=== PATIENT | male | born 1955 | race Caucasian/White ===

== ENCOUNTER 2016-10-08 12:04 | Inpatient (IN) | payer OTHER ==
[2016-10-08 12:10] VITALS: BMI 30.8
[2016-10-08] MEDS ORDERED: NS 1000 ML 1,000 ML IV ONE ×2 (12:21→13:51)
[2016-10-08] MEDS ORDERED: NS 1000 ML 1,000 ML ONE ×2 (12:23→13:49)
--- NOTE | 2016-10-08 12:29 | DR.GENAD ---
HPI - PCP Primary Care Physician: valverde - Complaint/Symptoms Chief Complaint:: patient stated he has had a headache since ary when he was dx with a brain bleed. he also stated his bloos sugar at home this morning was over 600 - Nurses notes reviewed Nurses Notes Review: Yes - Source History Provided: Patient - Mode of Arrival Mode of Arrival: Ambulatory - Timing Onset of Chief Complaint: 06/14/16 PMH - PMH Past Medical History: Yes Past Medical History: Coronary Artery Disease, Depression, Diabetes, Hypertension, [place], Renal Disease Past Surgical History: Yes Surgical History: Angioplasty/Stents, Appendectomy, CABG/Valve Surgery, Tonsillectomy - Family History History of Family Medical Conditions: Yes Family Medical History: Diabetes Mellitus, Cancer, [place], Hypertension - Social History Does patient currently use any type of tobacco product: No Have you used tobacco products in the last 12 months: No Type of Tobacco Use: None Does any household member use tobacco: No Alcohol Use: None Do you use any recreational Drugs:: No Lives With: Family Lives Where: Home - infectious screening In the last 2 months have you had wt loss of >10#?: NO Have you had fever, night sweats or hemotysis?: No Have you traveled outside the country in the last 6 months?: No Isolation: Standard PE - Vital Signs Vitals: Temperature 98.9 F Pulse Rate 96 Respiratory Rate 16 Blood Pressure [Right Arm] 161/87 Blood Pressure 160/95 O2 Sat by Pulse Oximetry 100 ROR - Labs Reviewed Result Diagrams: 10/08/16 12:19 10/08/16 14:35 Laboratory: WBC 10.4 X10^3/uL (3.6-10.0) H 10/08/16 12:19 RBC 5.04 X10^6/uL (4.7-6.0) 10/08/16 12:19 Hgb 14.1 g/dL (13.5-18.0) 10/08/16 12:19 Hct 41.4 % (42.0-54.0) L 10/08/16 12:19 MCV 82.1 fL (80.0-100.0) 10/08/16 12:19 MCH 27.9 pg (27.0-34.0) 10/08/16 12:19 MCHC 34.0 g/dL (33.0-35.0) 10/08/16 12:19 RDW 13.7 % (11.6-16.5) 10/08/16 12:19 Plt Count 204 X10^3/uL (150.0-450.0) 10/08/16 12:19 MPV 10.1 fL (7.4-11.0) 10/08/16 12:19 Neut % 69.3 % (42.0-75.0) 10/08/16 12:19 Lymph % 21.6 % (21.0-51.0) 10/08/16 12:19 [place] % 6.5 % (0.0-13.0) 10/08/16 12:19 Eos % 1.7 % (0.9-2.9) 10/08/16 12:19 Baso % 0.9 % (0.2-1.0) 10/08/16 12:19 Neut # 7.2 x10^3/uL (2.2-4.8) H 10/08/16 12:19 Lymph # 2.3 X10^3/uL (1.3-2.9) 10/08/16 12:19 [place] # 0.7 x10^3/uL (0.3-0.8) 10/08/16 12:19 Eos # 0.2 x10^3/uL (0.0-0.2) 10/08/16 12:19 Baso # 0.1 X10^3/uL (0.0-0.1) 10/08/16 12:19 Absolute Nucleated RBC 0.0 /100WBC 10/08/16 12:19 Sodium 123 mmol/L (136-145) L* 10/08/16 12:19 Corrected Sodium 142 mmol/L (136-145) 10/08/16 12:19 Potassium 5.9 mmol/L (3.5-5.1) H 10/08/16 12:19 Chloride 90 mmol/L (98-107) L 10/08/16 12:19 Carbon Dioxide 26.0 mmol/L (21-32) 10/08/16 12:19 BUN 65 mg/dL (7-18) H 10/08/16 12:19 Creatinine 2.96 mg/dL (0.70-1.30) H 10/08/16 12:19 Est GFR (MDRD) Af Amer 28 (>60) L 10/08/16 12:19 Est GFR (MDRD) Non-Af 23 (>60) L 10/08/16 12:19 Glucose 719 mg/dL (65-99) H* 10/08/16 14:35 Calcium 9.5 mg/dL (8.5-10.1) 10/08/16 12:19 Corrected Calcium TNP 10/08/16 12:19 Total Bilirubin 0.80 mg/dL (0.2-1.0) 10/08/16 12:19 AST 13 Units/L (15-37) L 10/08/16 12:19 ALT 20 Units/L (12-78) 10/08/16 12:19 Alkaline Phosphatase 194 Units/L (46-116) H 10/08/16 12:19 Creatine Kinase 164 Units/L (39-308) 10/08/16 12:19 CK-MB (CK-2) 4.4 ng/mL (0-4.0) H* 10/08/16 12:19 CK/CKMB % Calc 2.7 % (<4) 10/08/16 12:19 Troponin I 0.26 ng/mL (0-1.5) 10/08/16 12:19 Total Protein 7.2 g/dL (6.4-8.2) 10/08/16 12:19 Albumin 3.8 g/dL (3.4-5.0) 10/08/16 12:19 Globulin 3.4 g/dL (2.5-4.5) 10/08/16 12:19 Albumin/Globulin Ratio 1.1 Ratio (1.1-2.1) 10/08/16 12:19 Acetone, Semi-Quant Small (NEGATIVE) H 10/08/16 12:19 - Discharge Plan Condition: Stable - Follow ups/Referrals Follow ups/Referrals: JERMAINE VALVERDE [Primary Care Provider] - 3 days - Instructions
[2016-10-08 12:32] LABS: BASOPHILS # (AUTO) 0.1 X10^3/uL (0.0-0.1); BASOPHILS % (AUTO) 0.9 % (0.2-1.0); EOSINOPHILS # (AUTO) 0.2 x10^3/uL (0.0-0.2); EOSINOPHILS % (AUTO) 1.7 % (0.9-2.9); HEMATOCRIT 41.4 % (42.0-54.0); HEMOGLOBIN 14.1 g/dL (13.5-18.0); LYMPHOCYTES # (AUTO) 2.3 X10^3/uL (1.3-2.9); LYMPHOCYTES % (AUTO) 21.6 % (21.0-51.0); MEAN CORPUSCULAR HEMOGLOBIN 27.9 pg (27.0-34.0); MEAN CORPUSCULAR VOLUME 82.1 fL (80.0-100.0); MEAN PLATELET VOLUME 10.1 fL (7.4-11.0); MONOCYTES # (AUTO) 0.7 x10^3/uL (0.3-0.8); MONOCYTES % (AUTO) 6.5 % (0.0-13.0); NEUTROPHILS # (AUTO) 7.2 x10^3/uL (2.2-4.8); NEUTROPHILS % (AUTO) 69.3 % (42.0-75.0); PLATELET COUNT 204 X10^3/uL (150.0-450.0); RED BLOOD COUNT 5.04 X10^6/uL (4.7-6.0); RED CELL DISTRIBUTION WIDTH 13.7 % (11.6-16.5); WHITE BLOOD COUNT 10.4 X10^3/uL (3.6-10.0)
[2016-10-08 12:41] LABS: BLOOD UREA NITROGEN 65 mg/dL (7-18); CALCIUM 9.5 mg/dL (8.5-10.1); CHLORIDE 90 mmol/L (98-107); CREATININE 2.96 mg/dL (0.70-1.30); eGFR BLACK RACES 28 (>60); eGFR NON BLACK RACES 23 (>60)
[2016-10-08 12:42] LABS: ALANINE AMINOTRANSFERASE 20 Units/L (12-78); ALBUMIN 3.8 g/dL (3.4-5.0); ALKALINE PHOSPHATASE 194 Units/L (46-116); ASPARTATE AMINO TRANSFERASE 13 Units/L (15-37); TOTAL PROTEIN 7.2 g/dL (6.4-8.2)
[2016-10-08 12:53] LABS: SODIUM 123 mmol/L (136-145)
[2016-10-08 12:54] LABS: COR NA(FOR HYPERGLY) 142 mmol/L (136-145); GLUCOSE 882 mg/dL (65-99)
--- NOTE | 2016-10-08 13:05 | RAD ---
HISTORY: Cough Study: Chest one view Comparison: July 11, 2016 Findings: There is a pacemaker present on the left. The patient is status post median sternotomy and CABG. The heart is enlarged. No congestive heart failure is noted. No infiltrates are identified. No pleural effusions are present. The bony thorax is unremarkable. IMPRESSION: Cardiomegaly without congestive heart failure No infiltrates Reported By:
--- NOTE | 2016-10-08 13:08 | CT ---
HISTORY: Headache Study: CT head without con Comparison: July 11, 2016 Technique: Axial non contrast images with coronal and sagittal reformats. Dose reduction procedures were used with MA/kv adjusted for body size. Findings: The ventricles are normal in size, shape, and position. There is decreased attenuation in the perive ntricular white matter suggestive of small vessel vascular disease. There is no definite evidence fo r recent or remote CVA, hemorrhage, mass lesion, or extra-axial fluid collection. The previously not ed right-sided extra axial fluid collection is not definitely identified on this examination. The ca lvarium is intact. Those sinuses visualized were clear. IMPRESSION: No acute intracranial abnormality Small vessel disease Reported By:
[2016-10-08 13:18] LABS: CKMB % 2.7 % (<4); TROPONIN I 0.26 ng/mL (0-1.5)
[2016-10-08 13:21] LABS: CREATINE KINASE MB 4.4 ng/mL (0-4.0)
[2016-10-08] MEDS ORDERED: HumuLIN R IV ONE ×2 (13:31→16:49)
[2016-10-08] MEDS ORDERED: HumuLIN R ONE (13:34)
[2016-10-08] MEDS ORDERED: HumuLIN R SUBCUT ONE (16:48)
[2016-10-08] MEDS ORDERED: CATAPRES TAB 0.1 MG PO PRN ×2 (16:52→17:01)
[2016-10-08 17:04] LABS: TROPONIN I 0.28 ng/mL (0-1.5)
[2016-10-08 17:16] LABS: CKMB % 2.5 % (<4); CREATINE KINASE MB 4.1 ng/mL (0-4.0)
[2016-10-08] MEDS: MILK OF MAGNESIA PO SCH ×2 (17:16→21:59)
[2016-10-08] MEDS: NS 1000 ML 1,000 ML IV SCH ×2 (17:17→23:17)
[2016-10-08 19:23] LABS: BILIRUBIN,URINE NEGATIVE (NEGATIVE); BLOOD/HEMOGLOBIN,URINE 2+ (NEGATIVE); GLUCOSE, URINE 4+ (NEGATIVE); KETONES,URINE NEGATIVE (NEGATIVE); LEUKOCYTE ESTERASE ,URINE NEGATIVE (NEGATIVE); NITRITES,URINE NEGATIVE (NEGATIVE); PROTEIN,URINE 3+ (NEGATIVE); UROBILINOGEN,URINE NORMAL (NORMAL)
[2016-10-08 19:38] LABS: AMORPHOUS SEDIMENT,UR TRACE /HPF (NEGATIVE); APPEARANCE,URINE CLEAR (CLEAR); BACTERIA,URINE NEGATIVE /HPF (NEGATIVE); COLOR,URINE YELLOW (YELLOW); SQUAMOUS EPITHELIAL CELL,UR RARE /HPF (NEGATIVE)
[2016-10-08 19:39] LABS: HYALINE CASTS, URINE RARE /LPF (NEGATIVE)
[2016-10-08] MEDS ORDERED: SNACK - Diabetic Appropriate PO SCH ×2 (20:00)
[2016-10-08 21:02] LABS: ALBUMIN 3.2 g/dL (3.4-5.0); CALCIUM 8.9 mg/dL (8.5-10.1); CARBON DIOXIDE 26.6 mmol/L (21-32); COR CA(FOR HYPOALB) 9.5 mg/dL (8.5-10.1); CREATININE 2.45 mg/dL (0.70-1.30); TOTAL PROTEIN 6.2 g/dL (6.4-8.2)
[2016-10-08] MEDS ORDERED: KAYEXALATE PO ONE (21:05)
[2016-10-08 21:29] LABS: CKMB % 2.4 % (<4); CREATINE KINASE MB 3.8 ng/mL (0-4.0); TROPONIN I 0.28 ng/mL (0-1.5)
[2016-10-08] MEDS: LOPRESSOR TAB 25 MG PO SCH (21:59)
[2016-10-08] MEDS: COLACE CAP 100 MG PO SCH (21:59)
[2016-10-08] MEDS: VALIUM PO PRN (21:59)
[2016-10-08] MEDS: HumuLIN R SC PRN ×2 (22:00→23:42)
[2016-10-08] MEDS: KEPPRA TAB 500 MG PO SCH (22:00)
[2016-10-08] MEDS: SNACK - Diabetic Appropriate PO SCH (22:02)
[2016-10-09] MEDS: NS 1000 ML 1,000 ML IV SCH ×5 (01:34→21:58)
[2016-10-09] MEDS: HumuLIN R SC PRN ×7 (01:50→21:55)
[2016-10-09 05:29] LABS: CALCIUM 8.9 mg/dL (8.5-10.1); CARBON DIOXIDE 24.5 mmol/L (21-32); COR CA(FOR HYPOALB) 9.7 mg/dL (8.5-10.1); CREATININE 2.11 mg/dL (0.70-1.30); TOTAL PROTEIN 5.7 g/dL (6.4-8.2)
[2016-10-09 06:34] LABS: BASOPHILS # (AUTO) 0.1 X10^3/uL (0.0-0.1); BASOPHILS % (AUTO) 0.6 % (0.2-1.0); EOSINOPHILS # (AUTO) 0.4 x10^3/uL (0.0-0.2); EOSINOPHILS % (AUTO) 4.2 % (0.9-2.9); HEMATOCRIT 35.4 % (42.0-54.0); HEMOGLOBIN 12.5 g/dL (13.5-18.0); LYMPHOCYTES # (AUTO) 2.9 X10^3/uL (1.3-2.9); LYMPHOCYTES % (AUTO) 31.8 % (21.0-51.0); MEAN CORPUSCULAR HEMOGLOBIN 27.9 pg (27.0-34.0); MEAN CORPUSCULAR HGB CONC 35.3 g/dL (33.0-35.0); MONOCYTES # (AUTO) 0.6 x10^3/uL (0.3-0.8); MONOCYTES % (AUTO) 6.9 % (0.0-13.0); NEUTROPHILS # (AUTO) 5.2 x10^3/uL (2.2-4.8); NEUTROPHILS % (AUTO) 56.5 % (42.0-75.0); PLATELET COUNT 112 X10^3/uL (150.0-450.0); RED BLOOD COUNT 4.48 X10^6/uL (4.7-6.0); WHITE BLOOD COUNT 9.2 X10^3/uL (3.6-10.0)
[2016-10-09] MEDS: MILK OF MAGNESIA PO SCH ×2 (08:58→21:53)
[2016-10-09] MEDS: LOPRESSOR TAB 25 MG PO SCH ×3 (08:58→21:54)
[2016-10-09] MEDS: KEPPRA TAB 500 MG PO SCH ×2 (08:58→21:54)
[2016-10-09] MEDS ORDERED: ZESTRIL TAB 40 MG PO SCH (09:00)
[2016-10-09] MEDS ORDERED: DIAZEPAM PO PRN (09:28)
[2016-10-09] MEDS ORDERED: LEVETIRACETAM 1000 MG PO SCH (09:30)
[2016-10-09] MEDS ORDERED: VALIUM PO PRN (09:55)
[2016-10-09] MEDS: ZESTRIL TAB 40 MG PO SCH (10:19)
[2016-10-09] MEDS: FLOMAX PO SCH (10:33)
[2016-10-09] MEDS: CATAPRES TAB 0.1 MG PO SCH ×2 (10:33→21:54)
[2016-10-09] MEDS: ACTOS PO SCH (10:33)
[2016-10-09] MEDS: BUMEX TAB 1 MG PO SCH ×2 (10:34→21:54)
[2016-10-09] MEDS: ULORIC PO SCH (11:41)
[2016-10-09] MEDS: VICTOZA SC SCH (11:49)
[2016-10-09] MEDS ORDERED: SNACK - Diabetic Appropriate PO SCH (20:00)
[2016-10-09] MEDS ORDERED: ATORVASTATIN CALCIUM 40 MG PO SCH (21:00)
[2016-10-09] MEDS: LIPITOR TAB 40 MG PO SCH (21:53)
[2016-10-09] MEDS: COLACE CAP 100 MG PO SCH (21:53)
[2016-10-09] MEDS: VALIUM PO PRN (21:54)
[2016-10-09] MEDS: LANTUS SC SCH (21:55)
[2016-10-09] MEDS: SNACK - Diabetic Appropriate PO SCH (21:56)
[2016-10-10 05:19] LABS: ALBUMIN 2.8 g/dL (3.4-5.0); CALCIUM 8.4 mg/dL (8.5-10.1); CARBON DIOXIDE 25.6 mmol/L (21-32); COR CA(FOR HYPOALB) 9.4 mg/dL (8.5-10.1); CREATININE 1.9 mg/dL (0.70-1.30); TOTAL PROTEIN 5.7 g/dL (6.4-8.2)
[2016-10-10 05:22] LABS: BASOPHILS # (AUTO) 0.1 X10^3/uL (0.0-0.1); BASOPHILS % (AUTO) 0.9 % (0.2-1.0); EOSINOPHILS # (AUTO) 0.3 x10^3/uL (0.0-0.2); EOSINOPHILS % (AUTO) 3.7 % (0.9-2.9); HEMATOCRIT 34.3 % (42.0-54.0); HEMOGLOBIN 12.1 g/dL (13.5-18.0); LYMPHOCYTES # (AUTO) 1.9 X10^3/uL (1.3-2.9); LYMPHOCYTES % (AUTO) 23.8 % (21.0-51.0); MEAN CORPUSCULAR HEMOGLOBIN 27.8 pg (27.0-34.0); MEAN CORPUSCULAR HGB CONC 35.3 g/dL (33.0-35.0); MEAN CORPUSCULAR VOLUME 78.8 fL (80.0-100.0); MEAN PLATELET VOLUME 9.6 fL (7.4-11.0); MONOCYTES # (AUTO) 0.5 x10^3/uL (0.3-0.8); MONOCYTES % (AUTO) 6.5 % (0.0-13.0); NEUTROPHILS # (AUTO) 5.1 x10^3/uL (2.2-4.8); NEUTROPHILS % (AUTO) 65.1 % (42.0-75.0); PLATELET COUNT 157 X10^3/uL (150.0-450.0); RED BLOOD COUNT 4.35 X10^6/uL (4.7-6.0); RED CELL DISTRIBUTION WIDTH 13.9 % (11.6-16.5); WHITE BLOOD COUNT 7.8 X10^3/uL (3.6-10.0)
[2016-10-10] MEDS: NS 1000 ML 1,000 ML IV SCH ×5 (05:47→21:35)
[2016-10-10] MEDS: HumuLIN R SC PRN ×4 (06:07→21:31)
[2016-10-10] MEDS: ZESTRIL TAB 40 MG PO SCH (09:04)
[2016-10-10] MEDS: ACTOS PO SCH (09:04)
[2016-10-10] MEDS: BUMEX TAB 1 MG PO SCH ×2 (09:04→21:34)
[2016-10-10] MEDS: KEPPRA TAB 500 MG PO SCH ×2 (09:04→21:34)
[2016-10-10] MEDS: LOPRESSOR TAB 25 MG PO SCH ×2 (09:04→21:33)
[2016-10-10] MEDS: FLOMAX PO SCH (09:04)
[2016-10-10] MEDS: MILK OF MAGNESIA PO SCH ×2 (09:04→21:28)
[2016-10-10] MEDS: ULORIC PO SCH (09:05)
[2016-10-10] MEDS: CATAPRES TAB 0.1 MG PO SCH ×2 (09:05→21:34)
[2016-10-10] MEDS: VICTOZA SC SCH (09:05)
[2016-10-10] MEDS ORDERED: NORVASC TAB 10 MG PO SCH ×2 (10:00→10:37)
[2016-10-10] MEDS ORDERED: NS 1000 ML 1,000 ML IV ONE (10:31)
[2016-10-10] MEDS ORDERED: VICTOZA SC SCH (10:40)
[2016-10-10] MEDS: REQUIP PO SCH ×2 (12:02→21:35)
[2016-10-10] MEDS: LANTUS SC SCH (21:31)
[2016-10-10] MEDS: LIPITOR TAB 40 MG PO SCH (21:34)
[2016-10-10] MEDS: COLACE CAP 100 MG PO SCH (21:35)
[2016-10-11] MEDS: NS 1000 ML 1,000 ML IV SCH ×3 (05:51→11:38)
[2016-10-11] MEDS: HumuLIN R SC PRN ×2 (05:52→12:09)
[2016-10-11 06:09] LABS: ALBUMIN 2.9 g/dL (3.4-5.0); CALCIUM 8.5 mg/dL (8.5-10.1); COR CA(FOR HYPOALB) 9.4 mg/dL (8.5-10.1); CREATININE 1.79 mg/dL (0.70-1.30); TOTAL PROTEIN 5.8 g/dL (6.4-8.2)
[2016-10-11 06:18] LABS: BASOPHILS # (AUTO) 0.1 X10^3/uL (0.0-0.1); BASOPHILS % (AUTO) 0.9 % (0.2-1.0); EOSINOPHILS # (AUTO) 0.3 x10^3/uL (0.0-0.2); EOSINOPHILS % (AUTO) 3.3 % (0.9-2.9); HEMATOCRIT 33.9 % (42.0-54.0); HEMOGLOBIN 12.1 g/dL (13.5-18.0); LYMPHOCYTES # (AUTO) 1.9 X10^3/uL (1.3-2.9); LYMPHOCYTES % (AUTO) 22.3 % (21.0-51.0); MEAN CORPUSCULAR HEMOGLOBIN 28.5 pg (27.0-34.0); MEAN CORPUSCULAR HGB CONC 35.7 g/dL (33.0-35.0); MEAN CORPUSCULAR VOLUME 79.6 fL (80.0-100.0); MEAN PLATELET VOLUME 9.4 fL (7.4-11.0); MONOCYTES # (AUTO) 0.6 x10^3/uL (0.3-0.8); MONOCYTES % (AUTO) 6.9 % (0.0-13.0); NEUTROPHILS # (AUTO) 5.6 x10^3/uL (2.2-4.8); NEUTROPHILS % (AUTO) 66.6 % (42.0-75.0); PLATELET COUNT 169 X10^3/uL (150.0-450.0); RED BLOOD COUNT 4.25 X10^6/uL (4.7-6.0); RED CELL DISTRIBUTION WIDTH 13.8 % (11.6-16.5); WHITE BLOOD COUNT 8.4 X10^3/uL (3.6-10.0)
[2016-10-11] MEDS: MILK OF MAGNESIA PO SCH ×2 (09:11→09:20)
[2016-10-11] MEDS: LOPRESSOR TAB 25 MG PO SCH (09:11)
[2016-10-11] MEDS: CATAPRES TAB 0.1 MG PO SCH (09:12)
[2016-10-11] MEDS: REQUIP PO SCH (09:12)
[2016-10-11] MEDS: BUMEX TAB 1 MG PO SCH (09:12)
[2016-10-11] MEDS: KEPPRA TAB 500 MG PO SCH (09:12)
[2016-10-11] MEDS: ACTOS PO SCH (09:12)
[2016-10-11] MEDS: FLOMAX PO SCH (09:12)
[2016-10-11] MEDS: ZESTRIL TAB 40 MG PO SCH (09:12)
[2016-10-11] MEDS: ULORIC PO SCH (09:13)
[2016-10-11 12:44] VITALS: BP 171/83
[2016-10-11] MEDS ORDERED: FIORICET TAB PO PRN (13:33)
[2016-10-11] MEDS ORDERED: SNACK - Diabetic Appropriate PO SCH (20:00)
== END 2016-10-11 15:15 | disposition home or self-care (01) | DRG 641 ==
LOC: ER 12:13 → MED/SURG 15:00 → OBS 10-09 11:17 → MED/SURG 10-09 11:17 → OBS 10-09 11:28 → MED/SURG 10-09 11:28 → OBS 10-09 13:31 → MED/SURG 10-09 13:31 → OBS 10-10 11:39
PROVIDERS: ADMIT Internal Medicine; ATTEND Obstetrics & Gynecology Obstetrics
DX: E87.0 Hyperosmolality and hypernatremia (principal); E11.65 Type 2 diabetes mellitus with hyperglycemia; E86.0 Dehydration; E88.89 Other specified metabolic disorders; I25.10 Atherosclerotic heart disease of native coronary artery without angina pectoris; I10 Essential (primary) hypertension; R94.31 Abnormal electrocardiogram [ECG] [EKG]; N17.8 Other acute kidney failure; R94.4 Abnormal results of kidney function studies; N40.0 Benign prostatic hyperplasia without lower urinary tract symptoms; R26.89 Other abnormalities of gait and mobility
CPT/HCPCS: 36415; 36591; 70450; 71010; 80053; 80177; 81001; 82009; 82550; 82553; 82947; 84484; 84681; 85025; 93005; 93010; 94760; 96365; 96367; 96374; 97535; 99284; A4222; J1815

== ENCOUNTER 2016-10-28 13:05 | Inpatient (IN) | payer OTHER ==
[2016-10-28] MEDS ORDERED: NS 1000 ML 0 ML ONE (13:17)
[2016-10-28 13:40] LABS: BASOPHILS # (AUTO) 0.1 X10^3/uL (0.0-0.1); BASOPHILS % (AUTO) 0.7 % (0.2-1.0); EOSINOPHILS # (AUTO) 0.2 x10^3/uL (0.0-0.2); EOSINOPHILS % (AUTO) 2.2 % (0.9-2.9); HEMATOCRIT 39.5 % (42.0-54.0); HEMOGLOBIN 13.8 g/dL (13.5-18.0); LYMPHOCYTES % (AUTO) 18.4 % (21.0-51.0); MEAN CORPUSCULAR HEMOGLOBIN 28.4 pg (27.0-34.0); MEAN CORPUSCULAR VOLUME 81.1 fL (80.0-100.0); MEAN PLATELET VOLUME 10.2 fL (7.4-11.0); MONOCYTES # (AUTO) 0.5 x10^3/uL (0.3-0.8); MONOCYTES % (AUTO) 4.7 % (0.0-13.0); NEUTROPHILS # (AUTO) 8.1 x10^3/uL (2.2-4.8); PLATELET COUNT 255 X10^3/uL (150.0-450.0); RED BLOOD COUNT 4.86 X10^6/uL (4.7-6.0); RED CELL DISTRIBUTION WIDTH 13.5 % (11.6-16.5); WHITE BLOOD COUNT 10.9 X10^3/uL (3.6-10.0)
--- NOTE | 2016-10-28 13:40 | DR.GENAD ---
HPI - PCP Primary Care Physician: french - HPI Comment HPI Comment: PATIENT HAVE INCREASING WEAKNESS, POLYURIA AND POLY DYSPSIA. DYSRIA STARTED YESTERDAY. NO FEVER. GLUCOSE STILL HIGH GLUCOSE WITH MEDS. NO FEVER. BP REPORTED TO HAVE BEING LOW ALSO. - Complaint/Symptoms Chief Complaint Doctors Comments: ELEVATED BLOOD GLUCOSE, HEADACHE AND DYSURIA. Chief Complaint:: blood sugar greater than 600 at home, it hurts when he urinates and he hasnt been going very much at a time, he has also been having a headack - Nurses notes reviewed Nurses Notes Review: Yes - Source History Provided: Patient - Mode of Arrival Mode of Arrival: Ambulatory - Timing Onset of Chief Complaint: 10/27/16 Came on: Suddenly - Duration Duration: Constant Duration: Days - Severity Severity: Moderate PMH - PMH Past Medical History: Yes Past Medical History: Coronary Artery Disease, Depression, Diabetes, Hypertension, [place], Renal Disease Past Medical History Comment: sugar greater than 500 Past Surgical History: Yes Surgical History: Angioplasty/Stents, Appendectomy, CABG/Valve Surgery, Tonsillectomy - Family History History of Family Medical Conditions: No Family Medical History: Diabetes Mellitus, Cancer, [place], Hypertension - Social History Does patient currently use any type of tobacco product: No Have you used tobacco products in the last 12 months: No Type of Tobacco Use: None Does any household member use tobacco: No Alcohol Use: None Do you use any recreational Drugs:: No Lives With: Family Lives Where: Home - infectious screening In the last 2 months have you had wt loss of >10#?: NO Have you had fever, night sweats or hemotysis?: No Have you traveled outside the country in the last 6 months?: No Isolation: Standard ROS - Review of Systems Constitutional: Weakness, Fatigue, Loss of Appetite. negative: Chills, Fever Eyes: No Symptoms Reported. negative: Eye Pain, Blurred Vision, Discharge, Photophobia ENTM: No Symptoms Reported. negative: Ear Pain, Nose Discharge, Nose Congestion , Throat Pain Respiratoy: Non-Productive Cough, Short of Breath. negative: Productive Cough, Wheezing, Hemoptysis Cardiovascular: Other (HYPOTENSION). negative: Edema, Palpitations, Syncope Gastrointestinal/Abdominal: Nausea, Vomiting. negative: Abdominal Pain, Diarrhea Genitourinary: No Symptoms Reported. negative: Dysuria, Frequency, Hematuria Musculoskeletal: Muscle Pain Integumentary: Dryness Hematologic/Lymphatic: No Symptoms Reported Endocrine: Increased Thirst, Increased Urine. negative: Flushing All Other Systems: Reviewed and Negative PE - Vital Signs Vitals: Pulse Rate [Left Brachial] 72 Pulse Rate 74 Respiratory Rate 18 Blood Pressure [Right Arm] 125/65 Blood Pressure 85/58 O2 Sat by Pulse Oximetry 100 - General Limitations: No Limitations General Appearance: Alert - Head Head Exam: Normal Inspection - Eyes Eye exam: Normal Appearance - ENT ENT Exam: Normal External Ear Exam External Ear Exam: Normal External Inspection TM/Canal Exam: Bilateral Normal Nose Exam: Normal Nose Exam Mouth Exam: Normal Inspection Throat Exam: Normal Inspection - Neck Neck Exam: Trachea Midline - Chest Chest Inspection: Symmetric Chest Wall Rise - Respiratory Respiratory Exam: Normal Lung Sounds Bilat Respiratory Exam: Bilateral Clear to Auscultation - Cardiovascular Cardiovascular Exam: Regular Rate, Normal Rhythm, Normal Heart Sounds - Abdominal Exam Abdominal Exam: Normal Bowel Sounds, Soft. negative: Tenderness - Extremities Extremities Exam: Normal Inspection - Back Back Exam: Normal Inspection - Neurologic Neurological Exam: Alert, Oriented X3, CN II-XII Intact, Reflexes Normal. negative: Motor Sensory Deficit - Psychiatric Psychiatric Exam: Anxious - Skin Skin Exam: Dry MDM - Additional Information Additional Information Obtained From: Family - Differential Diagnosis Differential Diagnosis: HYPERGLYCEMIA, DEHYDRATION, ELEVATED BUN/CR Course - Treatment Treatment: SEE ORDERS. IV FLUIDS AND IV R INSULIN GIVEN IN ED. - Reevaluation 1st: Improved - Consultation Consultation Comments: DISCUSS PATIENT WITH DR. ANAYA. HE WILL ADMIT PATIENT. - Education/Counseling Education/Counseling: Patient, Family, Education Educated On: Treatment, Diagnosis ROR - Labs Reviewed Laboratory Results Reviewed?: Yes Result Diagrams: 10/31/16 03:05 10/31/16 03:05 Laboratory: WBC 8.6 X10^3/uL (3.6-10.0) 10/31/16 03:05 RBC 3.89 X10^6/uL (4.7-6.0) L 10/31/16 03:05 Hgb 11.0 g/dL (13.5-18.0) L 10/31/16 03:05 Hct 30.3 % (42.0-54.0) L 10/31/16 03:05 MCV 77.9 fL (80.0-100.0) L 10/31/16 03:05 MCH 28.4 pg (27.0-34.0) 10/31/16 03:05 MCHC 36.5 g/dL (33.0-35.0) H 10/31/16 03:05 RDW 13.3 % (11.6-16.5) 10/31/16 03:05 Plt Count 161 X10^3/uL (150.0-450.0) 10/31/16 03:05 MPV 9.7 fL (7.4-11.0) 10/31/16 03:05 Neut % 53.9 % (42.0-75.0) 10/31/16 03:05 Lymph % 34.2 % (21.0-51.0) 10/31/16 03:05 [place] % 7.0 % (0.0-13.0) 10/31/16 03:05 Eos % 4.0 % (0.9-2.9) H 10/31/16 03:05 Baso % 0.9 % (0.2-1.0) 10/31/16 03:05 Neut # 4.6 x10^3/uL (2.2-4.8) 10/31/16 03:05 Lymph # 2.9 X10^3/uL (1.3-2.9) 10/31/16 03:05 [place] # 0.6 x10^3/uL (0.3-0.8) 10/31/16 03:05 Eos # 0.3 x10^3/uL (0.0-0.2) H 10/31/16 03:05 Baso # 0.1 X10^3/uL (0.0-0.1) 10/31/16 03:05 Absolute Nucleated RBC 0.0 /100WBC 10/31/16 03:05 Sample Site Lra 10/28/16 15:26 ABG pH 7.320 (7.35-7.45) L 10/28/16 15:26 ABG pCO2 52.0 mmHg (35.0-45.0) H* 10/28/16 15:26 ABG pO2 13.0 mmHg (80.0-100.0) L* 10/28/16 15:26 ABG HCO3 26.8 mmol/L (22-26) H 10/28/16 15:26 ABG O2 Saturation 13.0 % (90-100) L* 10/28/16 15:26 ABG Base Excess 0.0 mmol/L (-2.0-2.0) 10/28/16 15:26 Aric Test Pos 10/28/16 15:26 A-a Gradient Not Reportable 10/28/16 15:26 FiO2 21.000 10/28/16 15:26 Blood Gas Comments Tom well mm venous 10/28/16 15:26 Sodium 137 mmol/L (136-145) 10/31/16 03:05 Corrected Sodium 139 mmol/L (136-145) 10/31/16 03:05 Potassium 3.2 mmol/L (3.5-5.1) L 10/31/16 03:05 Chloride 103 mmol/L (98-107) 10/31/16 03:05 Carbon Dioxide 26.1 mmol/L (21-32) 10/31/16 03:05 BUN 50 mg/dL (7-18) H 10/31/16 03:05 Creatinine 1.89 mg/dL (0.70-1.30) H 10/31/16 03:05 Est GFR (MDRD) Af Amer 47 (>60) L 10/31/16 03:05 Est GFR (MDRD) Non-Af 39 (>60) L 10/31/16 03:05 Glucose 166 mg/dL (65-99) H 10/31/16 03:05 Calcium 8.1 mg/dL (8.5-10.1) L 10/31/16 03:05 Corrected Calcium 9.1 mg/dL (8.5-10.1) 10/31/16 03:05 Total Bilirubin 0.30 mg/dL (0.2-1.0) 10/31/16 03:05 AST 14 Units/L (15-37) L 10/31/16 03:05 ALT 17 Units/L (12-78) 10/31/16 03:05 Alkaline Phosphatase 103 Units/L (46-116) 10/31/16 03:05 Creatine Kinase 94 Units/L (39-308) 10/29/16 02:30 CK-MB (CK-2) 2.2 ng/mL (0-4.0) 10/29/16 02:30 CK/CKMB % Calc 2.3 % (<4) 10/29/16 02:30 Troponin I 0.21 ng/mL (0-1.5) 10/29/16 02:30 B-Natriuretic Peptide 86.2 pg/mL (0-79) H 10/28/16 13:20 Total Protein 5.9 g/dL (6.4-8.2) L 10/31/16 03:05 Albumin 2.8 g/dL (3.4-5.0) L 10/31/16 03:05 Globulin 3.1 g/dL (2.5-4.5) 10/31/16 03:05 Albumin/Globulin Ratio 0.9 Ratio (1.1-2.1) L 10/31/16 03:05 Specimen Type Clean catch urine 10/28/16 15:52 Urine Color Yellow (YELLOW) 10/28/16 15:52 Urine Appearance Clear (CLEAR) 10/28/16 15:52 Urine pH 6.0 (5.0 - 8.0) 10/28/16 15:52 Ur Specific [place] 1.010 (1.000-1.030) 10/28/16 15:52 Urine Protein 2+ (NEGATIVE) 10/28/16 15:52 Urine Glucose (UA) 4+ (NEGATIVE) 10/28/16 15:52 Urine Ketones Negative (NEGATIVE) 10/28/16 15:52 Urine Occult Blood Negative (NEGATIVE) 10/28/16 15:52 Urine Nitrite Negative (NEGATIVE) 10/28/16 15:52 Urine Bilirubin Negative (NEGATIVE) 10/28/16 15:52 Urine Urobilinogen Normal (NORMAL) 10/28/16 15:52 Ur Leukocyte Esterase Negative (NEGATIVE) 10/28/16 15:52 Urine RBC Negative /HPF (NEGATIVE) 10/28/16 15:52 Urine WBC Rare /HPF (NEGATIVE) 10/28/16 15:52 Ur Squamous Epith Cells Rare /HPF (NEGATIVE) 10/28/16 15:52 Urine Bacteria Negative /HPF (NEGATIVE) 10/28/16 15:52 Ur Culture Indicated? No/not indicated 10/28/16 15:52 Acetone, Semi-Quant Small (NEGATIVE) H 10/28/16 15:02 - XRAY XRAY Interpreted by: Radiologist XRAY Findings: REPOTRT DISCUSS WITH PATIENT. - EKG Rhythm: NSR (EKG NOTED) - Diagnosis Discharge Problem: Hyperglycemia, Dehydration, Elevated BUN Headache Qualifiers: Headache type: tension-type Headache chronicity pattern: acute headache Intractability: intractable Qualified Code(s): G44.201 - Tension-type headache, unspecified, intractable Hypotension Qualifiers: Hypotension type: other hypotension type Qualified Code(s): I95.89 - Other hypotension - Discharge Plan Disposition: 09 ADMITTED INPATIENT Condition: Stable - Follow ups/Referrals - Instructions
[2016-10-28] MEDS ORDERED: NS 1000 ML 1,000 ML IV ONE ×2 (13:51→16:10)
[2016-10-28 14:08] LABS: B-TYPE NATRIURETIC PEPTIDE 86.2 pg/mL (0-79)
[2016-10-28 14:12] LABS: ALANINE AMINOTRANSFERASE 21 Units/L (12-78); ALBUMIN 3.9 g/dL (3.4-5.0); ALKALINE PHOSPHATASE 139 Units/L (46-116); ASPARTATE AMINO TRANSFERASE 15 Units/L (15-37); BLOOD UREA NITROGEN 84 mg/dL (7-18); CALCIUM 9.3 mg/dL (8.5-10.1); CARBON DIOXIDE 20.3 mmol/L (21-32); CHLORIDE 86 mmol/L (98-107); CREATININE 3.31 mg/dL (0.70-1.30); TOTAL PROTEIN 8.2 g/dL (6.4-8.2); eGFR BLACK RACES 25 (>60); eGFR NON BLACK RACES 20 (>60)
[2016-10-28] MEDS ORDERED: ZOFRAN INJ 4 MG VIAL ONE (14:17)
[2016-10-28] MEDS ORDERED: ZOFRAN INJ 4 MG VIAL IVP ONE (14:18)
[2016-10-28 14:29] LABS: CKMB % 2.2 % (<4); CREATINE KINASE MB 1.9 ng/mL (0-4.0); TROPONIN I 0.19 ng/mL (0-1.5)
[2016-10-28 14:38] LABS: COR NA(FOR HYPERGLY) 138 mmol/L (136-145)
[2016-10-28 14:44] LABS: GLUCOSE 728 mg/dL (65-99); SODIUM 123 mmol/L (136-145)
--- NOTE | 2016-10-28 15:13 | CT ---
HISTORY: Headache. Elevated blood sugar. Study: CT brain without contrast Comparison: July 11, 2016 and October 08, 2016 Technique: Multiple axial images of the brain were obtained from the skull base to the vertex without administr ation of IV contrast. Coronal and sagittal images are also reviewed. Dose reduction techniques utili zed automatic exposure control. Findings: No acute intraparenchymal hemorrhage or mass can be identified. No extra-axial fluid collections ar e seen. No alteration in the attenuation of the brain parenchyma can be identified to suggest acute or subacute ischemic change. The ventricular system is symmetric and nondilated. There is chronic periventricular white matter disease observed and age-appropriate generalized atrophy. The right-si ded chronic subdural hematoma seen on the study of July 11, 2016 is no longer identified. IMPRESSION: 1. No acute intracranial process can be identified. 2. Chronic periventricular white matter disease likely on the basis of small vessel ischemic change . 3. Age-appropriate atrophic changes are seen. Reported By:
[2016-10-28 15:32] LABS: ABG HCO3 26.8 mmol/L (22-26)
[2016-10-28 15:37] LABS: ABG ALLEN TEST POS
[2016-10-28] MEDS ORDERED: HumuLIN R SUBCUT ONE (16:10)
[2016-10-28] MEDS ORDERED: HumuLIN R ONE ×2 (16:13→16:23)
[2016-10-28 16:17] LABS: BILIRUBIN,URINE NEGATIVE (NEGATIVE); BLOOD/HEMOGLOBIN,URINE NEGATIVE (NEGATIVE); GLUCOSE, URINE 4+ (NEGATIVE); KETONES,URINE NEGATIVE (NEGATIVE); LEUKOCYTE ESTERASE ,URINE NEGATIVE (NEGATIVE); NITRITES,URINE NEGATIVE (NEGATIVE); PROTEIN,URINE 2+ (NEGATIVE); UROBILINOGEN,URINE NORMAL (NORMAL)
[2016-10-28 16:24] LABS: APPEARANCE,URINE CLEAR (CLEAR); COLOR,URINE YELLOW (YELLOW)
[2016-10-28 16:25] LABS: RBC,URINE NEGATIVE /HPF (NEGATIVE)
[2016-10-28 16:26] LABS: BACTERIA,URINE NEGATIVE /HPF (NEGATIVE); SQUAMOUS EPITHELIAL CELL,UR RARE /HPF (NEGATIVE)
--- NOTE | 2016-10-28 16:58 | RAD ---
HISTORY: Chest pain Study: Chest one view Comparison: October 08, 2016 Findings: The patient is status post median sternotomy and CABG. There is a pacemaker present on the left. The heart is mildly enlarged. No congestive heart failure is noted. No acute alveolar infiltrates or pl eural effusions are identified. The bony thorax is unremarkable. IMPRESSION: Cardiomegaly without congestive heart failure No definite infiltrates Reported By:
[2016-10-28] MEDS ORDERED: ZOFRAN INJ 4 MG VIAL IVP PRN (18:33)
[2016-10-28] MEDS ORDERED: NORCO 5/325 MG TAB PO PRN (18:33)
[2016-10-28] MEDS ORDERED: PHENERGAN INJ 25 MG IV PRN (18:33)
[2016-10-28] MEDS ORDERED: TYLENOL 325 MG TAB PO PRN (18:33)
[2016-10-28] MEDS ORDERED: AMBIEN PO PRN (18:33)
[2016-10-28] MEDS ORDERED: SNACK - Diabetic Appropriate PO SCH (20:00)
[2016-10-28] MEDS: HumuLIN R SC PRN (20:22)
[2016-10-28] MEDS: MORPHINE SULFATE INJ 2 MG IVP PRN (20:23)
[2016-10-28] MEDS ORDERED: NS 1000 ML 1,000 ML ONE (20:59)
[2016-10-28 21:22] LABS: CKMB % 1.5 % (<4); CREATINE KINASE MB 1.9 ng/mL (0-4.0); TROPONIN I 0.19 ng/mL (0-1.5)
[2016-10-28] MEDS ORDERED: LIPITOR TAB 40 MG PO SCH (22:07)
[2016-10-28] MEDS: SNACK - Diabetic Appropriate PO SCH (22:20)
[2016-10-28] MEDS: LOPRESSOR TAB 25 MG PO SCH (22:35)
[2016-10-28] MEDS: KEPPRA TAB 500 MG PO SCH (22:35)
[2016-10-28] MEDS: FLOMAX PO SCH (22:36)
[2016-10-28] MEDS: NS 1000 ML 1,000 ML IV SCH (22:36)
[2016-10-29] MEDS ORDERED: HumuLIN R SUBCUT ONE (01:32)
[2016-10-29 03:15] LABS: CKMB % 2.3 % (<4); CREATINE KINASE MB 2.2 ng/mL (0-4.0); TROPONIN I 0.21 ng/mL (0-1.5)
[2016-10-29] MEDS: HumuLIN R SC PRN ×4 (03:51→20:53)
[2016-10-29 03:56] LABS: ALBUMIN 3.1 g/dL (3.4-5.0); CALCIUM 8.7 mg/dL (8.5-10.1); CARBON DIOXIDE 25.1 mmol/L (21-32); COR CA(FOR HYPOALB) 9.4 mg/dL (8.5-10.1); CREATININE 2.69 mg/dL (0.70-1.30); TOTAL PROTEIN 6.5 g/dL (6.4-8.2)
[2016-10-29 03:57] LABS: BASOPHILS # (AUTO) 0.1 X10^3/uL (0.0-0.1); BASOPHILS % (AUTO) 0.8 % (0.2-1.0); EOSINOPHILS # (AUTO) 0.4 x10^3/uL (0.0-0.2); EOSINOPHILS % (AUTO) 3.4 % (0.9-2.9); HEMATOCRIT 34.1 % (42.0-54.0); HEMOGLOBIN 12.1 g/dL (13.5-18.0); LYMPHOCYTES # (AUTO) 3.2 X10^3/uL (1.3-2.9); LYMPHOCYTES % (AUTO) 30.6 % (21.0-51.0); MEAN CORPUSCULAR HEMOGLOBIN 28.1 pg (27.0-34.0); MEAN CORPUSCULAR HGB CONC 35.6 g/dL (33.0-35.0); MEAN CORPUSCULAR VOLUME 78.8 fL (80.0-100.0); MEAN PLATELET VOLUME 9.4 fL (7.4-11.0); MONOCYTES # (AUTO) 0.6 x10^3/uL (0.3-0.8); MONOCYTES % (AUTO) 5.9 % (0.0-13.0); NEUTROPHILS # (AUTO) 6.1 x10^3/uL (2.2-4.8); NEUTROPHILS % (AUTO) 59.3 % (42.0-75.0); PLATELET COUNT 170 X10^3/uL (150.0-450.0); RED BLOOD COUNT 4.33 X10^6/uL (4.7-6.0); RED CELL DISTRIBUTION WIDTH 13.6 % (11.6-16.5); WHITE BLOOD COUNT 10.3 X10^3/uL (3.6-10.0)
[2016-10-29] MEDS: KEPPRA TAB 500 MG PO SCH ×3 (05:55→20:59)
[2016-10-29] MEDS: NS 1000 ML 1,000 ML IV SCH ×3 (07:17→20:10)
[2016-10-29] MEDS: COLCRYS TAB 0.6 MG PO SCH (08:19)
[2016-10-29] MEDS: LOPRESSOR TAB 25 MG PO SCH ×2 (08:19→20:51)
[2016-10-29] MEDS: ACTOS PO SCH (08:20)
[2016-10-29] MEDS ORDERED: ACTOS PO SCH (09:15)
[2016-10-29] MEDS ORDERED: LEVETIRACETAM 1000 MG PO SCH (09:15)
[2016-10-29] MEDS ORDERED: BUMETANIDE 1 MG PO SCH (09:15)
[2016-10-29] MEDS ORDERED: DIAZEPAM PO PRN (09:15)
[2016-10-29] MEDS ORDERED: NORCO 5/325 MG TAB PO PRN (09:15)
[2016-10-29 09:44] VITALS: BMI 32.1
[2016-10-29] MEDS ORDERED: VALIUM PO PRN (09:57)
[2016-10-29] MEDS ORDERED: LOPRESSOR TAB 25 MG PO SCH (10:00)
[2016-10-29] MEDS ORDERED: COLCRYS TAB 0.6 MG PO SCH (10:00)
[2016-10-29] MEDS ORDERED: FLOMAX PO SCH (10:00)
[2016-10-29] MEDS: ZESTRIL TAB 40 MG PO SCH (10:34)
[2016-10-29] MEDS: CATAPRES TAB 0.1 MG PO SCH ×2 (10:34→20:52)
[2016-10-29] MEDS: ULORIC PO SCH (10:58)
[2016-10-29] MEDS ORDERED: SNACK - Diabetic Appropriate PO SCH (20:00)
[2016-10-29] MEDS: LIPITOR TAB 40 MG PO SCH (20:51)
[2016-10-29] MEDS: FLOMAX PO SCH (20:51)
[2016-10-29] MEDS: BUMEX TAB 1 MG PO SCH (20:51)
[2016-10-29] MEDS: SNACK - Diabetic Appropriate PO SCH (20:53)
[2016-10-29] MEDS ORDERED: ATORVASTATIN CALCIUM 40 MG PO SCH (21:00)
[2016-10-29] MEDS ORDERED: LANTUS SC SCH (21:00)
[2016-10-30] MEDS: NS 1000 ML 1,000 ML IV SCH ×4 (02:43→23:54)
[2016-10-30] MEDS: KEPPRA TAB 500 MG PO SCH ×3 (05:58→21:19)
[2016-10-30] MEDS: HumuLIN R SC PRN ×4 (06:05→21:31)
[2016-10-30 06:07] LABS: BASOPHILS # (AUTO) 0.1 X10^3/uL (0.0-0.1); EOSINOPHILS # (AUTO) 0.3 x10^3/uL (0.0-0.2); EOSINOPHILS % (AUTO) 4.7 % (0.9-2.9); HEMATOCRIT 31.3 % (42.0-54.0); HEMOGLOBIN 11.3 g/dL (13.5-18.0); LYMPHOCYTES # (AUTO) 2.1 X10^3/uL (1.3-2.9); LYMPHOCYTES % (AUTO) 29.9 % (21.0-51.0); MEAN CORPUSCULAR HEMOGLOBIN 28.4 pg (27.0-34.0); MEAN CORPUSCULAR HGB CONC 36.2 g/dL (33.0-35.0); MEAN CORPUSCULAR VOLUME 78.5 fL (80.0-100.0); MEAN PLATELET VOLUME 9.8 fL (7.4-11.0); MONOCYTES # (AUTO) 0.5 x10^3/uL (0.3-0.8); MONOCYTES % (AUTO) 6.6 % (0.0-13.0); NEUTROPHILS # (AUTO) 4.1 x10^3/uL (2.2-4.8); NEUTROPHILS % (AUTO) 57.8 % (42.0-75.0); PLATELET COUNT 153 X10^3/uL (150.0-450.0); RED BLOOD COUNT 3.99 X10^6/uL (4.7-6.0); RED CELL DISTRIBUTION WIDTH 13.5 % (11.6-16.5); WHITE BLOOD COUNT 7.1 X10^3/uL (3.6-10.0)
[2016-10-30 06:24] LABS: ALBUMIN 2.8 g/dL (3.4-5.0); CALCIUM 8.1 mg/dL (8.5-10.1); CARBON DIOXIDE 25.2 mmol/L (21-32); COR CA(FOR HYPOALB) 9.1 mg/dL (8.5-10.1); CREATININE 2.1 mg/dL (0.70-1.30)
[2016-10-30] MEDS: ACTOS PO SCH (08:32)
[2016-10-30] MEDS: COLCRYS TAB 0.6 MG PO SCH (08:32)
[2016-10-30] MEDS: ZESTRIL TAB 40 MG PO SCH (08:32)
[2016-10-30] MEDS: LOPRESSOR TAB 25 MG PO SCH ×2 (08:32→21:19)
[2016-10-30] MEDS: CATAPRES TAB 0.1 MG PO SCH ×2 (08:32→21:19)
[2016-10-30] MEDS: BUMEX TAB 1 MG PO SCH ×2 (08:32→21:19)
[2016-10-30] MEDS: ULORIC PO SCH (10:20)
--- NOTE | 2016-10-30 12:57 | DR.H&P ---
H&P - History & Physical for Day of: H&P Date: 10/28/16 - Chief Complaint Chief Complaint: hyperglycemia - Allergies Allergies/Adverse Reactions: Allergies Allergy/AdvReac Type Severity Reaction Status Date / Time No Known Allergies [NKA] Allergy Verified 10/28/16 17:51 - History of Present Illness History of Present Illness: Patient is a 61yo male who presented to the emergency room with complaints of blood glucose greater than 600 at home, painful urination and headache. Patient has a history of coronary artery disease , depression, diabetes mellitus type 2, hypertension, [place], Renal disease. Vital signs on arrival 97.8, 75, 18, 100%, 85/58. Labs on arrival within normal limits with the exception WBC 10.9, Hct 39.5, Lymph% 18.4, Neut# 8.1, Sodium 123 , Potassium 5.2, Chloride 5.2, Chloride 86, Carbon Dioxide 20.3, BUN 84, Creatinine 3.31, Est GFR 20, Glucose 728, Total Bilirubin 1.10, Alkaline phosphatase 139, BNP 86.2, albumin/globulin ratio 0.9. ABG on arrival pH 7.320, pCO2 52.0, pO2 13.0, HCO3 26.8, O2 Saturation 13.0. Patient given a NS 100ml bolus and given 10units of regular insulin. Patient admitted with diagnosis of hyperglycemia and dehydration. Patient started on NS @ 150ml/hr, OTBS every 2hrs with regular insulin sliding scale, Morphine 1-2mg IV Q4hr PRN, Zofran 4mg IV Q6hr PRN, Phenergan 12.5mg IV Q6hr, patient home medications resumed as well. - Past Medical History Past Medical History: Coronary Artery Disease, Depression, Diabetes, Hypertension, [place], Renal Disease - Past Surgical History Surgical History: Angioplasty/Stents, Appendectomy, CABG/Valve Surgery, Tonsillectomy, Other - Family History Family Medical History: Diabetes Mellitus, Cancer, [place], Coronary Artery Disease, Hypertension - Social History Does patient currently use any type of tobacco product: No Have you used tobacco products in the last 12 months: No Type of Tobacco Use: None Does any household member use tobacco: No Alcohol Use: None Drug Use: None - Medications Home Medications: Colchicine [Colcrys Tab 0.6 mg] 0.6 mg PO DAILY 10/28/16 [History Confirmed ] Hydrocodone/Acetaminophen [Hydrocodone/Acetaminophen 5-325 mg] 1 tab PO BID PRN 10/28/16 [History Confirmed 10/28/16] Insulin Glargine (Lantus) [LANTUS INSULIN 10 ML VIAL *] 20 units SC QPM [History Confirmed 10/28/16] Insulin Lispro (Humalog) [Humalog] 0 units SC ACHS 10/28/16 [History Confirmed 10/28/16] Levetiracetam [Keppra 1000 mg] 1,000 mg PO TID 10/28/16 [History Confirmed 10/28] - Review of Systems Constitutional: Weakness Eyes: No Symptoms Reported ENT: No Symptoms Reported Respiratory: No Symptoms Reported Cardiovascular: No Symptoms Reported Gastrointestinal: No Symptoms Reported Genitourinary: Dysuria Musculoskeletal: No Symptoms Reported Skin: No Symptoms Reported Neurological: Other (headache) - Physical Exam Vital Signs: 97.8, 75, 18, 100%, 85/58. Oriented: Normal Eyes: Normal Ear: Normal Nose: Normal Throat: Normal Respiratory: Clear Throughout Cardiovascular: Normal : Normal Auscultation: Bowel Sounds: Normal Palpation: Normal Tenderness: Normal Skin: Normal Musculoskeletal: Normal Psychiatric: Normal Mood Description: Calm, Appropriate Affect: Normal Speech Pattern: Clear, Appropriate - Assessment/Plan (1) Diabetes mellitus, type 2 Qualifiers: Diabetes mellitus complication status: D Diabetes mellitus complication detail: D Diabetic retinopathy severity: D Proliferative retinopathy type: P Diabetes mellitus macular edema: D Diabetes mellitus longterm insulin use : D Laterality: L Chronic kidney disease stage: C Status: Chronic (2) Dehydration Status: Acute Plan: NS@150 ml/hr (3) Hyperglycemia Status: Acute Plan: OTBS q2hr, regular insluin slidin scale coverage
--- NOTE | 2016-10-30 13:01 | PCM.PROG ---
Progress Note - Progress Note for Day of Date: 10/29/16 - Subjective Subjective: Patient is a 61yo male who was admitted for hyperglycemia and dehydration. Patient is feeling somewhat better this am his glucose is still running high we are going to continue his actos and lantus and change his glucose checks to ac and hs and start on a astrRevisu diet. Vital signs this am 97.3, 71, 20, 97% 153/72. Labs this am are within normal limits with the exception of WBC 10.3, RBC 4.33, Hgb 12.1, Hct 34.1, MCV 78.8, MCHC 35.6, Eos% 3.4, Neut# 6.1, Lymph# 3.2, Eos# 0.4, Sodium 134, BUN 78, Creatinine 2.69, Est GFR 26, Glucose 289, AST 13, Albumin 3.1, Albumin/globulin ratio 0.9. We will continue his current treatment with the addition of his home medication lantus 20units at bedtime and actos 45mg daily. WE will follow up with repeat labs in the am. - Past Medical Family Social History Past Med/Fam/Surg Hx: No changes since H&P Allergies: Allergies No Known Allergies [NKA] Allergy (Verified 10/28/16 17:51) - Review of Systems ROS: No change since H&P - Vital Signs and I&O's Vital Signs: 97.3, 71, 20, 97% 153/72 Intake and Output: Intake & Output 10/28/16 10/29/16 10/30/16 10/31/16 11:59 11:59 11:59 11:59 Intake Total 3860 4230 Output Total 450 Balance 3410 4230 - Physical Exam Oriented: Normal Eyes: Normal Ear: Normal Nose: Normal Throat: Normal Cardiovascular: Normal : Normal Auscultation: Bowel Sounds: Normal Palpation: Normal Tenderness: Normal Skin: Normal Musculoskeletal: Normal Psychiatric: Normal Mood Description: Calm, Appropriate Affect: Normal Speech Pattern: Clear, Appropriate - Laboratory and Diagnostics Result Diagrams: 10/30/16 03:00 10/30/16 03:00 Labs: Labs this am are within normal limits with the exception of WBC 10.3, RBC 4.33, Hgb 12.1, Hct 34.1, MCV 78.8, MCHC 35.6, Eos% 3.4, Neut# 6.1, Lymph# 3.2, Eos# 0.4, Sodium 134, BUN 78, Creatinine 2.69, Est GFR 26, Glucose 289, AST 13, Albumin 3.1, Albumin/globulin ratio 0.9 - Plan (1) Diabetes mellitus, type 2 Status: Chronic Qualifiers: Diabetes mellitus complication status: D Diabetes mellitus complication detail: D Diabetic retinopathy severity: D Proliferative retinopathy type: P Diabetes mellitus macular edema: D Diabetes mellitus moth exterminator insulin use : D Laterality: L Chronic kidney disease stage: C Plan: anthony alas and actos (2) Dehydration Status: Acute Plan: NS@150 ml/hr (3) Hyperglycemia Status: Acute Plan: OTBS q2hr, regular insluin slidin scale coverage
--- NOTE | 2016-10-30 13:02 | PCM.PROG ---
Progress Note - Progress Note for Day of Date: 10/30/16 - Subjective Subjective: Patient is a 61yo male who was admitted for hyperglycemia and dehydration. Patient states he is still feeling pretty rough, his blood glucose still running in the upper 200s we are going to increase his lantus 25 units at bedtime. Vital signs this am 98.0, 74, 20, 96%, 123/61. Labs this am are within normal limits with the exception of RBC 3.99, Hgb 11.3, Hct 31.3, MCV 78.5, MCHC 36.2, Eos% 4.7, Eos# 0.3, BUN 55, Creatinine 2.10, Est GFR 34, Glucose 282 , Calcium 8.1, Total Protein 6.0, Albumin 2.8, Albumin/globulin Ratio 0.9. will repeats labs in the am. - Past Medical Family Social History Past Med/Fam/Surg Hx: No changes since H&P Allergies: Allergies No Known Allergies [NKA] Allergy (Verified 10/28/16 17:51) - Review of Systems ROS: No change since H&P - Vital Signs and I&O's Vital Signs: 98.0, 74, 20, 96%, 123/61 Intake and Output: Intake & Output 10/28/16 10/29/16 10/30/16 10/31/16 11:59 11:59 11:59 11:59 Intake Total 3860 4230 Output Total 450 Balance 3410 4230 - Physical Exam Oriented: Normal Eyes: Normal Ear: Normal Nose: Normal Throat: Normal Respiratory: Normal Cardiovascular: Normal : Normal Auscultation: Bowel Sounds: Normal Palpation: Normal Tenderness: Normal Skin: Normal Musculoskeletal: Normal Psychiatric: Normal Mood Description: Calm, Appropriate Affect: Normal Speech Pattern: Clear, Appropriate - Laboratory and Diagnostics Result Diagrams: 10/30/16 03:00 10/30/16 03:00 Labs: Laboratory WBC 7.1 X10^3/uL (3.6-10.0) 10/30/16 03:00 RBC 3.99 X10^6/uL (4.7-6.0) L 10/30/16 03:00 Hgb 11.3 g/dL (13.5-18.0) L 10/30/16 03:00 Hct 31.3 % (42.0-54.0) L 10/30/16 03:00 MCV 78.5 fL (80.0-100.0) L 10/30/16 03:00 MCH 28.4 pg (27.0-34.0) 10/30/16 03:00 MCHC 36.2 g/dL (33.0-35.0) H 10/30/16 03:00 RDW 13.5 % (11.6-16.5) 10/30/16 03:00 Plt Count 153 X10^3/uL (150.0-450.0) 10/30/16 03:00 MPV 9.8 fL (7.4-11.0) 10/30/16 03:00 Neut % 57.8 % (42.0-75.0) 10/30/16 03:00 Lymph % 29.9 % (21.0-51.0) 10/30/16 03:00 Kleberg % 6.6 % (0.0-13.0) 10/30/16 03:00 Eos % 4.7 % (0.9-2.9) H 10/30/16 03:00 Baso % 1.0 % (0.2-1.0) 10/30/16 03:00 Neut # 4.1 x10^3/uL (2.2-4.8) 10/30/16 03:00 Lymph # 2.1 X10^3/uL (1.3-2.9) 10/30/16 03:00 Kleberg # 0.5 x10^3/uL (0.3-0.8) 10/30/16 03:00 Eos # 0.3 x10^3/uL (0.0-0.2) H 10/30/16 03:00 Baso # 0.1 X10^3/uL (0.0-0.1) 10/30/16 03:00 Absolute Nucleated RBC 0.1 /100WBC 10/30/16 03:00 Sample Site Lra 10/28/16 15:26 ABG pH 7.320 (7.35-7.45) L 10/28/16 15:26 ABG pCO2 52.0 mmHg (35.0-45.0) H* 10/28/16 15:26 ABG pO2 13.0 mmHg (80.0-100.0) L* 10/28/16 15: ABG HCO3 26.8 mmol/L (22-26) H 10/28/16 15: ABG O2 Saturation 13.0 % (90-100) L* 10/28/16 15: ABG Base Excess 0.0 mmol/L (-2.0-2.0) 10/28/16 15: Aric Test Pos 10/28/16: A-a Gradient Not Reportable 10/28/16 15: FiO2 21.000 10/28/16 15: Blood Gas Comments Tom well mm venous 10/28/16 15: Sodium 138 mmol/L (136-145) 10/30/16 03:00 Corrected Sodium 142 mmol/L (136-145) 10/30/16 03:00 Potassium 3.9 mmol/L (3.5-5.1) 10/30/16 03:00 Chloride 104 mmol/L (98-107) 10/30/16 03:00 Carbon Dioxide 25.2 mmol/L (21-32) 10/30/16 03:00 BUN 55 mg/dL (7-18) H 10/30/16 03:00 Creatinine 2.10 mg/dL (0.70-1.30) H 10/30/16 03:00 Est GFR (MDRD) Af Amer 42 (>60) L 10/30/16 03:00 Est GFR (MDRD) Non-Af 34 (>60) L 10/30/16 03:00 Glucose 282 mg/dL (65-99) H 10/30/16 03:00 Calcium 8.1 mg/dL (8.5-10.1) L 10/30/16 03:00 Corrected Calcium 9.1 mg/dL (8.5-10.1) 10/30/16 03:00 Total Bilirubin 0.30 mg/dL (0.2-1.0) 10/30/16 03:00 AST 15 Units/L (15-37) 10/30/16 03:00 ALT 19 Units/L (12-78) 10/30/16 03:00 Alkaline Phosphatase 114 Units/L (46-116) 10/30/16 03:00 Creatine Kinase 94 Units/L (39-308) 10/29/16 02:30 CK-MB (CK-2) 2.2 ng/mL (0-4.0) 10/29/16 02:30 CK/CKMB % Calc 2.3 % (<4) 10/29/16 02:30 Troponin I 0.21 ng/mL (0-1.5) 10/29/16 02:30 B-Natriuretic Peptide 86.2 pg/mL (0-79) H 10/28/16 13:20 Total Protein 6.0 g/dL (6.4-8.2) L 10/30/16 03:00 Albumin 2.8 g/dL (3.4-5.0) L 10/30/16 03:00 Globulin 3.2 g/dL (2.5-4.5) 10/30/16 03:00 Albumin/Globulin Ratio 0.9 Ratio (1.1-2.1) L 10/30/16 03:00 Specimen Type Clean catch urine 10/28/16 15:52 Urine Color Yellow (YELLOW) 10/28/16 15:52 Urine Appearance Clear (CLEAR) 10/28/16 15:52 Urine pH 6.0 (5.0 - 8.0) 10/28/16 15:52 Ur Specific Dows 1.010 (1.000-1.030) 10/28/16 15:52 Urine Protein 2+ (NEGATIVE) 10/28/16 15:52 Urine Glucose (UA) 4+ (NEGATIVE) 10/28/16 15:52 Urine Ketones Negative (NEGATIVE) 10/28/16 15:52 Urine Occult Blood Negative (NEGATIVE) 10/28/16 15:52 Urine Nitrite Negative (NEGATIVE) 10/28/16 15:52 Urine Bilirubin Negative (NEGATIVE) 10/28/16 15:52 Urine Urobilinogen Normal (NORMAL) 10/28/16 15:52 Ur Leukocyte Esterase Negative (NEGATIVE) 10/28/16 15:52 Urine RBC Negative /HPF (NEGATIVE) 10/28/16 15:52 Urine WBC Rare /HPF (NEGATIVE) 10/28/16 15:52 Ur Squamous Epith Cells Rare /HPF (NEGATIVE) 10/28/16 15:52 Urine Bacteria Negative /HPF (NEGATIVE) 10/28/16 15:52 Ur Culture Indicated? No/not indicated 10/28/16 15:52 Acetone, Semi-Quant Small (NEGATIVE) H 10/28/16 15:02 - Plan (1) Diabetes mellitus, type 2 Status: Chronic Qualifiers: Diabetes mellitus complication status: D Diabetes mellitus complication detail: D Diabetic retinopathy severity: D Proliferative retinopathy type: P Diabetes mellitus macular edema: D Diabetes mellitus halfway insulin use : D Laterality: L Chronic kidney disease stage: C Plan: cotinue lantus and actos (2) Dehydration Status: Acute Plan: NS@150 ml/hr (3) Hyperglycemia Status: Acute Plan: OTBS q2hr, regular insluin slidin scale coverage
[2016-10-30] MEDS ORDERED: SNACK - Diabetic Appropriate PO SCH (20:00)
[2016-10-30] MEDS ORDERED: LANTUS SC SCH (21:00)
[2016-10-30] MEDS: SNACK - Diabetic Appropriate PO SCH (21:18)
[2016-10-30] MEDS: FLOMAX PO SCH (21:19)
[2016-10-30] MEDS: LIPITOR TAB 40 MG PO SCH (21:19)
[2016-10-30] MEDS: MORPHINE SULFATE INJ 2 MG IVP PRN (23:55)
[2016-10-31 04:54] LABS: BASOPHILS # (AUTO) 0.1 X10^3/uL (0.0-0.1); BASOPHILS % (AUTO) 0.9 % (0.2-1.0); EOSINOPHILS # (AUTO) 0.3 x10^3/uL (0.0-0.2); HEMATOCRIT 30.3 % (42.0-54.0); LYMPHOCYTES # (AUTO) 2.9 X10^3/uL (1.3-2.9); LYMPHOCYTES % (AUTO) 34.2 % (21.0-51.0); MEAN CORPUSCULAR HEMOGLOBIN 28.4 pg (27.0-34.0); MEAN CORPUSCULAR HGB CONC 36.5 g/dL (33.0-35.0); MEAN CORPUSCULAR VOLUME 77.9 fL (80.0-100.0); MEAN PLATELET VOLUME 9.7 fL (7.4-11.0); MONOCYTES # (AUTO) 0.6 x10^3/uL (0.3-0.8); NEUTROPHILS # (AUTO) 4.6 x10^3/uL (2.2-4.8); NEUTROPHILS % (AUTO) 53.9 % (42.0-75.0); PLATELET COUNT 161 X10^3/uL (150.0-450.0); RED BLOOD COUNT 3.89 X10^6/uL (4.7-6.0); RED CELL DISTRIBUTION WIDTH 13.3 % (11.6-16.5); WHITE BLOOD COUNT 8.6 X10^3/uL (3.6-10.0)
[2016-10-31 05:02] LABS: ALBUMIN 2.8 g/dL (3.4-5.0); CALCIUM 8.1 mg/dL (8.5-10.1); CARBON DIOXIDE 26.1 mmol/L (21-32); COR CA(FOR HYPOALB) 9.1 mg/dL (8.5-10.1); CREATININE 1.89 mg/dL (0.70-1.30); TOTAL PROTEIN 5.9 g/dL (6.4-8.2)
[2016-10-31] MEDS: NS 1000 ML 1,000 ML IV SCH ×5 (05:21→14:06)
[2016-10-31] MEDS: KEPPRA TAB 500 MG PO SCH ×2 (05:22→13:39)
[2016-10-31] MEDS ORDERED: K-LYTE EFFERVESCENT PO PRN (05:58)
[2016-10-31] MEDS ORDERED: K-DUR TAB 20 MEQ PO PRN (05:58)
[2016-10-31] MEDS ORDERED: K-RIDER 10 MEQ/NS 100 ML 10 MEQ/100 ML BAG IV PRN (05:58)
[2016-10-31] MEDS ORDERED: POTASSIUM CHLORIDE LIQ 20 MEQ UDC PO PRN (05:58)
[2016-10-31] MEDS: COLCRYS TAB 0.6 MG PO SCH (08:28)
[2016-10-31] MEDS: ZESTRIL TAB 40 MG PO SCH (08:28)
[2016-10-31] MEDS: LOPRESSOR TAB 25 MG PO SCH (08:28)
[2016-10-31] MEDS: CATAPRES TAB 0.1 MG PO SCH (08:29)
[2016-10-31] MEDS: ACTOS PO SCH (08:30)
[2016-10-31] MEDS: BUMEX TAB 1 MG PO SCH (08:30)
[2016-10-31] MEDS: ULORIC PO SCH (11:18)
[2016-10-31] MEDS: HumuLIN R SC PRN (11:19)
[2016-10-31 12:17] VITALS: BP 132/71
== END 2016-10-31 16:35 | disposition home or self-care (01) | DRG 638 ==
LOC: ER 13:05 → MED/SURG 17:05
PROVIDERS: ADMIT Internal Medicine; ATTEND Obstetrics & Gynecology Obstetrics
DX: E11.65 Type 2 diabetes mellitus with hyperglycemia (principal); N17.8 Other acute kidney failure; E86.0 Dehydration; R94.31 Abnormal electrocardiogram [ECG] [EKG]; R35.8 Other polyuria; R53.1 Weakness; R30.0 Dysuria; R51 Headache; I25.10 Atherosclerotic heart disease of native coronary artery without angina pectoris; I12.9 Hypertensive chronic kidney disease with stage 1 through stage 4 chronic kidney disease, or unspecified chronic kidney disease; R94.4 Abnormal results of kidney function studies; I95.89 Other hypotension; Z79.4 Long term (current) use of insulin
CPT/HCPCS: 36415; 36600; 70450; 71010; 80053; 81001; 82009; 82550; 82553; 82803; 82947; 83880; 84484; 85025; 93005; 93010; 94760; 96365; 96372; 96374; 99284; A4222; J1815; J2270; J2405

== ENCOUNTER 2016-11-18 10:23 | Emergency (ER) | payer OTHER ==
[2016-11-18 10:38] VITALS: BMI 24.6
[2016-11-18] MEDS ORDERED: NS 1000 ML 1,000 ML ONE (10:44)
--- NOTE | 2016-11-18 11:05 | DR.GENAD ---
HPI - PCP Primary Care Physician: DR. VALVERDE - Complaint/Symptoms Chief Complaint:: PATIENT HAD SEIZURE THIS MORNING AND STATED THAT HE DID NOT COME OUT OF IT LIKE NORMAL. PATIENT COULD NOT TELL US WHERE HE IS AT. PATIENT STATES THAT HE HAS A HEADACHE AND IS VERY DIZZY. - Source History Provided: EMS - Mode of Arrival Mode of Arrival: EMS - Timing Onset of Chief Complaint: 11/18/16 PMH - PMH Past Medical History: Yes Past Medical History: Coronary Artery Disease, Depression, Diabetes, Hypertension, [place], Renal Disease Past Surgical History: Yes Surgical History: Angioplasty/Stents, Appendectomy, CABG/Valve Surgery, Tonsillectomy - Family History History of Family Medical Conditions: Yes Family Medical History: Diabetes Mellitus, Cancer, [place], Hypertension - Social History Does any household member use tobacco: No Alcohol Use: None Do you use any recreational Drugs:: No Lives With: Family Lives Where: Home - infectious screening In the last 2 months have you had wt loss of >10#?: NO Have you had fever, night sweats or hemotysis?: No Have you traveled outside the country in the last 6 months?: No Isolation: Standard ROS - Review of Systems Constitutional: No Symptoms Reported Eyes: No Symptoms Reported ENTM: No Symptoms Reported Respiratoy: No Symptoms Reported Cardiovascular: No Symptoms Reported Gastrointestinal/Abdominal: No Symptoms Reported Genitourinary: No Symptoms Reported Neurological: No Symptoms Reported, Paresthesia (right side), Speech Problem Musculoskeletal: No Symptoms Reported Integumentary: No Symptoms Reported Hematologic/Lymphatic: No Symptoms Reported Endocrine: No Symptoms Reported Psychiatric: No Symptoms Reported All Other Systems: Reviewed and Negative PE - Vital Signs Vitals: Temperature 97.7 F Pulse Rate 77 Respiratory Rate 18 Blood Pressure [Left Arm] 145/75 Blood Pressure [Right Arm] 132/71 Blood Pressure 186/97 O2 Sat by Pulse Oximetry 100 - General Limitations: No Limitations General Appearance: Alert, In No Apparent Distress - Head Head Exam: Normal Inspection, Atraumatic - ENT ENT Exam: Normal Exam External Ear Exam: Normal External Inspection TM/Canal Exam: Bilateral Normal Nose Exam: Normal Nose Exam Mouth Exam: Normal Inspection Throat Exam: Normal Inspection - Neck Neck Exam: Normal Inspection - Chest Chest Inspection: Normal Inspection - Respiratory Respiratory Exam: Normal Lung Sounds Bilat Respiratory Exam: Bilateral Clear to Auscultation - Cardiovascular Cardiovascular Exam: Regular Rate, Normal Rhythm - Abdominal Exam Abdominal Exam: Normal Inspection, Normal Bowel Sounds Abdominal Tenderness: negative: RUQ, RLQ, LUQ, LLQ, Epigastrium, Suprapubic, Diffuse, Mild, Moderate, Severe, Other - Extremities Extremities Exam: Other (right hemiparesis) - Back Back Exam: Normal Inspection - Neurologic Neurological Exam: Alert - Psychiatric Psychiatric Exam: Normal Affect, Depressed - Skin Skin Exam: Warm, Dry, Intact Course - Consultation Called: 11:25 (Dr Glass (neurologist) accepted transfer for further evaluation and treatment) ROR - XRAY XRAY Interpreted by: Radiologist (CT Brain: Questionable area of new or extension of decreased attentuation density present in the left periventricular region anteriorly. This may represent a small subtle interval infarction. Further evaluation by MRI utilizing diffusion-weighted imaging sequences is encouraged.) - Diagnosis Discharge Problem: Questionable Infarct - Discharge Plan Condition: Stable - Follow ups/Referrals Follow ups/Referrals: JERMAINE VALVERDE [Primary Care Provider] - 3 days - Instructions
[2016-11-18] MEDS: NS 1000 ML 1,000 ML IV SCH (11:08)
--- NOTE | 2016-11-18 11:13 | CT ---
HISTORY: Seizure. Patient had seizure this morning Study: CT brain without contrast Comparison: October 28, 2016 Technique: Multiple axial images of the brain were obtained from the skull base to the vertex without administr ation of IV contrast. Coronal And sagittal images are also reviewed. Dose reduction techniques utili zed automatic exposure control. Findings: No acute intraparenchymal hemorrhage or mass can be identified. No extra-axial fluid collections ar e seen. In addition to chronic appearing periventricular microangiopathic changes, there is additional decreased attenuation density present in periventricular region on the left side anteriorly. This may represent a small subtle infarct. Evaluation by MRI utilizing diffusion-weight ed imaging sequences is encouraged. Ventricular size is normal. Age-appropriate atrophic changes are present. IMPRESSION: 1. Questionable area of new or extension of decreased attenuation density present in the left periv entricular region anteriorly. This may represent a small subtle interval infarction. Further evaluat ion by MRI utilizing diffusion-weighted imaging sequences is encouraged. 2. Chronic periventricular white matter disease likely on the basis of small vessel ischemic change . 3. Age-appropriate atrophic changes are seen. Reported By:
[2016-11-18 11:50] LABS: BASOPHILS # (AUTO) 0.1 X10^3/uL (0.0-0.1); BASOPHILS % (AUTO) 1.1 % (0.2-1.0); EOSINOPHILS # (AUTO) 0.3 x10^3/uL (0.0-0.2); EOSINOPHILS % (AUTO) 4.4 % (0.9-2.9); HEMATOCRIT 35.6 % (42.0-54.0); HEMOGLOBIN 12.5 g/dL (13.5-18.0); LYMPHOCYTES % (AUTO) 29.4 % (21.0-51.0); MEAN CORPUSCULAR HEMOGLOBIN 28.1 pg (27.0-34.0); MEAN CORPUSCULAR HGB CONC 35.2 g/dL (33.0-35.0); MEAN CORPUSCULAR VOLUME 79.9 fL (80.0-100.0); MEAN PLATELET VOLUME 9.1 fL (7.4-11.0); MONOCYTES # (AUTO) 0.5 x10^3/uL (0.3-0.8); MONOCYTES % (AUTO) 7.5 % (0.0-13.0); NEUTROPHILS # (AUTO) 3.9 x10^3/uL (2.2-4.8); NEUTROPHILS % (AUTO) 57.6 % (42.0-75.0); PLATELET COUNT 172 X10^3/uL (150.0-450.0); RED BLOOD COUNT 4.45 X10^6/uL (4.7-6.0); RED CELL DISTRIBUTION WIDTH 13.8 % (11.6-16.5); WHITE BLOOD COUNT 6.7 X10^3/uL (3.6-10.0)
[2016-11-18] MEDS ORDERED: MORPHINE SULFATE INJ 2 MG ONE (12:06)
[2016-11-18 12:07] LABS: SERUM ACETONE NEGATIVE (NEGATIVE)
[2016-11-18 12:10] LABS: BLOOD UREA NITROGEN 43 mg/dL (7-18); CARBON DIOXIDE 26.9 mmol/L (21-32); CHLORIDE 108 mmol/L (98-107); COR NA(FOR HYPERGLY) 143 mmol/L (136-145); CREATININE 2.14 mg/dL (0.70-1.30); GLUCOSE 154 mg/dL (65-99); SODIUM 142 mmol/L (136-145); eGFR BLACK RACES 41 (>60); eGFR NON BLACK RACES 34 (>60)
[2016-11-18] MEDS ORDERED: APRESOLINE INJ 20 MG VIAL ONE (12:10)
[2016-11-18 12:14] LABS: HEMOGLOBIN A1C 11.8 % (4.5-6.2)
[2016-11-18 12:18] LABS: ALANINE AMINOTRANSFERASE 23 Units/L (12-78); ALBUMIN 3.7 g/dL (3.4-5.0); ALKALINE PHOSPHATASE 78 Units/L (46-116); ASPARTATE AMINO TRANSFERASE 17 Units/L (15-37)
[2016-11-18] MEDS: MORPHINE SULFATE INJ 2 MG IVP ONE (12:21)
[2016-11-18] MEDS: APRESOLINE INJ 20 MG VIAL IVP ONE (12:21)
[2016-11-18 12:22] LABS: TROPONIN I 0.26 ng/mL (0-1.5)
[2016-11-18 12:23] LABS: CREATINE KINASE MB 1.1 ng/mL (0-4.0)
[2016-11-18 12:32] LABS: CKMB % 1.4 % (<4)
[2016-11-18 12:59] VITALS: BP 204/97
== END 2016-11-18 12:45 ==
LOC: ER 10:31
DX: R56.9 Unspecified convulsions (principal)
CPT/HCPCS: 36415; 70450; 80053; 80177; 82009; 82550; 82553; 83036; 84484; 85025; 93005; 93010; 96374; 96375; 99284; 99285; J0360; J2270

== ENCOUNTER 2016-12-12 12:08 | Observation (INO) | payer OTHER ==
[2016-12-12 12:19] VITALS: BMI 34.0
[2016-12-12 12:38] LABS: BASOPHILS # (AUTO) 0.1 X10^3/uL (0.0-0.1); EOSINOPHILS # (AUTO) 0.2 x10^3/uL (0.0-0.2); EOSINOPHILS % (AUTO) 2.5 % (0.9-2.9); HEMATOCRIT 32.9 % (42.0-54.0); HEMOGLOBIN 11.8 g/dL (13.5-18.0); LYMPHOCYTES # (AUTO) 2.4 X10^3/uL (1.3-2.9); LYMPHOCYTES % (AUTO) 25.1 % (21.0-51.0); MEAN CORPUSCULAR HEMOGLOBIN 28.8 pg (27.0-34.0); MEAN CORPUSCULAR HGB CONC 35.8 g/dL (33.0-35.0); MEAN CORPUSCULAR VOLUME 80.3 fL (80.0-100.0); MEAN PLATELET VOLUME 8.9 fL (7.4-11.0); MONOCYTES # (AUTO) 0.8 x10^3/uL (0.3-0.8); MONOCYTES % (AUTO) 8.6 % (0.0-13.0); NEUTROPHILS % (AUTO) 62.8 % (42.0-75.0); PLATELET COUNT 237 X10^3/uL (150.0-450.0); RED CELL DISTRIBUTION WIDTH 14.5 % (11.6-16.5); WHITE BLOOD COUNT 9.6 X10^3/uL (3.6-10.0)
--- NOTE | 2016-12-12 12:44 | CT ---
CT brain without contrast Indication: Seizure with altered mental status Comparison: 11/18/16 Technique: Multiple axial images of the brain were obtained from the skull base to the vertex without administr ation of IV contrast. Coronal and sagittal images were also provided. Radiation dose reduction techniques were performed utilizing adjustment for MA/kVP based on patient body size. Findings: There is stable mild generalized cerebral atrophy with bilateral periventricular deep white matter h ypoattenuation. Hypoattenuation within the subcortical left frontal lobe appears similar to prior ex amination. No acute intraparenchymal hemorrhage or mass can be identified. No extra-axial fluid collections ar e seen. No alteration in the attenuation of the brain parenchyma can be identified to suggest acute or subacute ischemic change. The ventricular system is symmetric and nondilated. The extracranial structures are grossly unremarkable. IMPRESSION: 1. No acute intracranial process or change from prior examination. Reported By:
[2016-12-12 12:51] LABS: BLOOD UREA NITROGEN 45 mg/dL (7-18); CARBON DIOXIDE 29.2 mmol/L (21-32); CHLORIDE 102 mmol/L (98-107); COR NA(FOR HYPERGLY) 139 mmol/L (136-145); CREATININE 2.54 mg/dL (0.70-1.30); GLUCOSE 243 mg/dL (65-99); SODIUM 136 mmol/L (136-145); TROPONIN I 0.18 ng/mL (0-1.5); eGFR BLACK RACES 33 (>60); eGFR NON BLACK RACES 28 (>60)
[2016-12-12 12:55] LABS: ALANINE AMINOTRANSFERASE 33 Units/L (12-78); ALBUMIN 3.8 g/dL (3.4-5.0); ALKALINE PHOSPHATASE 134 Units/L (46-116); ASPARTATE AMINO TRANSFERASE 27 Units/L (15-37); CKMB % 0.7 % (<4); CREATINE KINASE 269 Units/L (39-308); CREATINE KINASE MB 1.8 ng/mL (0-4.0); TOTAL PROTEIN 7.3 g/dL (6.4-8.2)
--- NOTE | 2016-12-12 13:30 | DR.SEIZA ---
HPI - Time Seen Time seen: 12:10 - Primary Care Physician Primary Care Physician: DONAL - Complaints Chief Complaint Doctors Comments: Patient was outside with friend walking, had a seizure. 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 He is presently taking dilanting 300mg/day and keppra (dose not known). He is followed by a neurologist in [place]. The seizure was of short duration manifested by shaking of extremities and LOC. The length of time of seizure is not know. Chief Complaint:: PT'S FAMILY C/O THAT PT HAD A SEIZURE (WHICH PT HAS SEIZURES) , BUT STATES PT IS NOT ACTING RIGHT AND HAS NOT BEEN VERBAL. PT HAS A HISTORY OF A BRAIN BLEED AND WAS FLOWN OUT APPROX 3 WEEKS AGO. - Source History Provided: Family Member - Mode of Arrival Mode of Arrival: Ambulatory - Timing Onset of Chief Complaint: 12/12/16 PMH - PMH Past Medical History: Yes Past Medical History: Coronary Artery Disease, Depression, Diabetes, Hypertension, [place], Renal Disease Past Surgical History: Yes Surgical History: Angioplasty/Stents, Appendectomy, CABG/Valve Surgery, Tonsillectomy - Family History History of Family Medical Conditions: Yes Family Medical History: Diabetes Mellitus, Cancer, [place], Hypertension - Social History Does any household member use tobacco: No Alcohol Use: None Do you use any recreational Drugs:: No Lives With: Family Lives Where: Home - infectious screening In the last 2 months have you had wt loss of >10#?: NO Have you had fever, night sweats or hemotysis?: No Have you traveled outside the country in the last 6 months?: No Isolation: Standard PE - Vital Signs Vitals: Temperature 98.3 F Pulse Rate 69 Respiratory Rate 18 Blood Pressure [Left Arm] 204/97 Blood Pressure [Right Arm] 209/102 Blood Pressure 180/96 O2 Sat by Pulse Oximetry 97 - General Limitations: No Limitations General Appearance: Obtunded - Head Head Exam: Normal Inspection, Atraumatic - Eyes Eye exam: Normal Appearance, PERRL, EOMI Eyelids: Normal Inspection: Bilateral Pupils: Regular, Round: Bilateral Sclera/Conjunctival: Normal Inspection: Bilateral Anterior Chamber: Normal Inspection: Bilateral - ENT ENT Exam: Normal Exam, Normal Oropharynx Mouth Exam: Normal Inspection, Drooling - Neck Neck Exam: Normal Inspection, Full ROM - Chest Chest Inspection: Normal Inspection - Respiratory Respiratory Exam: Normal Lung Sounds Bilat Respiratory Exam: Bilateral Clear to Auscultation - Cardiovascular Cardiovascular Exam: Regular Rate - Abdominal Exam Abdominal Exam: Normal Inspection Abdominal Tenderness: negative: RUQ, RLQ, LUQ, LLQ, Epigastrium, Suprapubic, Diffuse, Mild, Moderate, Severe, Other - Extremities Extremities Exam: Normal Inspection, Full ROM - Back Back Exam: Normal Inspection - Neurologic Neurological Exam: Alert, Oriented X3, CN II-XII Intact Cranial Nerve Exam: EOM Function (II, III, IV, ): Normal Motor Strength - LUE: 3/5 Motor Strength - LLE: 3/5 Sensory Exam Upper Extremity: Light Touch: Normal Sensory Exam Lower Extremity: Light Touch: Normal Course - Reevaluation 1st: Improved ROR - Labs Reviewed Result Diagrams: 12/12/16 12:10 12/12/16 12:10 Laboratory: WBC 9.6 X10^3/uL (3.6-10.0) 12/12/16 12:10 RBC 4.10 X10^6/uL (4.7-6.0) L 12/12/16 12:10 Hgb 11.8 g/dL (13.5-18.0) L 12/12/16 12:10 Hct 32.9 % (42.0-54.0) L 12/12/16 12:10 MCV 80.3 fL (80.0-100.0) 12/12/16 12:10 MCH 28.8 pg (27.0-34.0) 12/12/16 12:10 MCHC 35.8 g/dL (33.0-35.0) H 12/12/16 12:10 RDW 14.5 % (11.6-16.5) 12/12/16 12:10 Plt Count 237 X10^3/uL (150.0-450.0) 12/12/16 12:10 MPV 8.9 fL (7.4-11.0) 12/12/16 12:10 Neut % 62.8 % (42.0-75.0) 12/12/16 12:10 Lymph % 25.1 % (21.0-51.0) 12/12/16 12:10 Piute % 8.6 % (0.0-13.0) 12/12/16 12:10 Eos % 2.5 % (0.9-2.9) 12/12/16 12:10 Baso % 1.0 % (0.2-1.0) 12/12/16 12:10 Neut # 6.0 x10^3/uL (2.2-4.8) H 12/12/16 12:10 Lymph # 2.4 X10^3/uL (1.3-2.9) 12/12/16 12:10 Pi[place] # 0.8 x10^3/uL (0.3-0.8) 12/12/16 12:10 Eos # 0.2 x10^3/uL (0.0-0.2) 12/12/16 12:10 Baso # 0.1 X10^3/uL (0.0-0.1) 12/12/16 12:10 Absolute Nucleated RBC 0.0 /100WBC 12/12/16 12:10 Sodium 136 mmol/L (136-145) 12/12/16 12:10 Corrected Sodium 139 mmol/L (136-145) 12/12/16 12:10 Potassium 4.2 mmol/L (3.5-5.1) 12/12/16 12:10 Chloride 102 mmol/L (98-107) 12/12/16 12:10 Carbon Dioxide 29.2 mmol/L (21-32) 12/12/16 12:10 BUN 45 mg/dL (7-18) H 12/12/16 12:10 Creatinine 2.54 mg/dL (0.70-1.30) H 12/12/16 12:10 Est GFR (MDRD) Af Amer 33 (>60) L 12/12/16 12:10 Est GFR (MDRD) Non-Af 28 (>60) L 12/12/16 12:10 Glucose 243 mg/dL (65-99) H 12/12/16 12:10 Calcium 9.0 mg/dL (8.5-10.1) 12/12/16 12:10 Corrected Calcium TNP 12/12/16 12:10 Total Bilirubin 0.30 mg/dL (0.2-1.0) 12/12/16 12:10 AST 27 Units/L (15-37) 12/12/16 12:10 ALT 33 Units/L (12-78) 12/12/16 12:10 Alkaline Phosphatase 134 Units/L (46-116) H 12/12/16 12:10 Creatine Kinase 269 Units/L (39-308) 12/12/16 12:10 CK-MB (CK-2) 1.8 ng/mL (0-4.0) 12/12/16 12:10 CK/CKMB % Calc 0.7 % (<4) 12/12/16 12:10 Troponin I 0.18 ng/mL (0-1.5) 12/12/16 12:10 Total Protein 7.3 g/dL (6.4-8.2) 12/12/16 12:10 Albumin 3.8 g/dL (3.4-5.0) 12/12/16 12:10 Globulin 3.5 g/dL (2.5-4.5) 12/12/16 12:10 Albumin/Globulin Ratio 1.1 Ratio (1.1-2.1) 12/12/16 12:10 Phenytoin 5.0 ug/mL (10-20) L 12/12/16 12:10 - XRAY XRAY Interpreted by: Radiologist (CT Brain:No acute intracranial process or change from prior examination) - Diagnosis Discharge Problem: Seizure disorder - Discharge Plan Condition: Stable - Follow ups/Referrals Follow ups/Referrals: JERMAINE VALVERDE [Primary Care Provider] - 3 days - Instructions
[2016-12-12] MEDS ORDERED: CEREBYX INJ IVP ONE (14:01)
[2016-12-12] MEDS ORDERED: NS 100 ML IV 100 ML IV ONE (14:09)
[2016-12-12] MEDS ORDERED: CEREBYX INJ ONE (14:10)
[2016-12-12] MEDS: NS 1000 ML 1,000 ML IV SCH (14:19)
[2016-12-12] MEDS ORDERED: TORADOL 30 MG VIAL IVP ONE (15:09)
[2016-12-12] MEDS: MILK OF MAGNESIA PO SCH (20:56)
[2016-12-12] MEDS: COLACE CAP 100 MG PO SCH (20:56)
[2016-12-12] MEDS: HumuLIN R SUBCUT PRN (22:11)
[2016-12-13] MEDS ORDERED: NORCO 5/325 MG TAB PO PRN ×2 (04:49→09:18)
[2016-12-13 05:33] LABS: BASOPHILS # (AUTO) 0.1 X10^3/uL (0.0-0.1); BASOPHILS % (AUTO) 0.8 % (0.2-1.0); EOSINOPHILS # (AUTO) 0.2 x10^3/uL (0.0-0.2); EOSINOPHILS % (AUTO) 3.3 % (0.9-2.9); HEMATOCRIT 31.1 % (42.0-54.0); HEMOGLOBIN 11.5 g/dL (13.5-18.0); LYMPHOCYTES # (AUTO) 1.8 X10^3/uL (1.3-2.9); LYMPHOCYTES % (AUTO) 23.9 % (21.0-51.0); MEAN CORPUSCULAR HGB CONC 37.2 g/dL (33.0-35.0); MEAN CORPUSCULAR VOLUME 80.9 fL (80.0-100.0); MEAN PLATELET VOLUME 8.9 fL (7.4-11.0); MONOCYTES # (AUTO) 0.6 x10^3/uL (0.3-0.8); MONOCYTES % (AUTO) 7.5 % (0.0-13.0); NEUTROPHILS # (AUTO) 4.8 x10^3/uL (2.2-4.8); NEUTROPHILS % (AUTO) 64.5 % (42.0-75.0); PLATELET COUNT 228 X10^3/uL (150.0-450.0); RED BLOOD COUNT 3.84 X10^6/uL (4.7-6.0); RED CELL DISTRIBUTION WIDTH 14.4 % (11.6-16.5); WHITE BLOOD COUNT 7.5 X10^3/uL (3.6-10.0)
[2016-12-13 05:37] LABS: ALBUMIN 2.9 g/dL (3.4-5.0); CALCIUM 7.8 mg/dL (8.5-10.1); CARBON DIOXIDE 29.7 mmol/L (21-32); COR CA(FOR HYPOALB) 8.7 mg/dL (8.5-10.1); CREATININE 2.08 mg/dL (0.70-1.30)
[2016-12-13] MEDS: HumuLIN R SUBCUT PRN ×4 (06:12→20:28)
[2016-12-13] MEDS: NS 1000 ML 1,000 ML IV SCH ×3 (07:40→16:32)
[2016-12-13] MEDS ORDERED: DIAZEPAM PO PRN (09:18)
[2016-12-13] MEDS ORDERED: NITROSTAT SL PRN (09:18)
[2016-12-13] MEDS ORDERED: LEVETIRACETAM 1500 MG PO SCH (09:30)
[2016-12-13] MEDS ORDERED: BUMETANIDE 1 MG PO SCH (09:30)
[2016-12-13] MEDS ORDERED: ACTOS PO SCH (09:30)
[2016-12-13] MEDS: MILK OF MAGNESIA PO SCH ×2 (09:54→20:27)
[2016-12-13] MEDS ORDERED: VALIUM PO PRN ×2 (10:11→19:36)
[2016-12-13] MEDS: CATAPRES TAB 0.1 MG PO SCH ×2 (10:24→20:27)
[2016-12-13] MEDS: FLOMAX PO SCH (10:25)
[2016-12-13] MEDS: ULORIC PO SCH (10:25)
[2016-12-13] MEDS: KEPPRA TAB 500 MG PO SCH ×2 (10:25→20:25)
[2016-12-13] MEDS: LOPRESSOR TAB 25 MG PO SCH ×2 (10:25→20:26)
[2016-12-13] MEDS: ZESTRIL TAB 40 MG PO SCH (10:25)
[2016-12-13] MEDS: COLCRYS TAB 0.6 MG PO SCH (10:25)
[2016-12-13] MEDS: BUMEX TAB 1 MG PO SCH ×2 (10:25→20:27)
--- NOTE | 2016-12-13 11:41 | DR.H&P ---
H&P - History & Physical for Day of: H&P Date: 12/12/16 - Chief Complaint Chief Complaint: SEIZURE ACTIVITY - Allergies Allergies/Adverse Reactions: Allergies Allergy/AdvReac Type Severity Reaction Status Date / Time No Known Allergies [NKA] Allergy Verified 10/28/16 17:51 - History of Present Illness History of Present Illness: IS A 61 YEAR OLD PATIENT OF OURS WHO PRESENTED TO THE EMERGENCY ROOM WITH COMPLAINTS OF SEIZURE ACTIVITY. PATIENTS STATED THAT THEY WERE OUTSIDE WALKING WHEN SEIZURE ACTIVITY BEGAN. SHE DESCRIBED SEIZURE SHAKING OF EXTREMITIES AND LOSS OF CONSCIOUSNESS. PATIENT S REPORTED THAT PATIENT HAD A BRAIN BLEED THREE WEEKS AGO AND HAS HAD SEIZURES SINCE. PATIENT CURRENTLY TAKES DILANTIN AND KEPPRA. PATIENT WAS NOTED TO BE DROWSY ON ARRIVAL TO ER. HE HAS COMPLAINTS OF GENERALIZED ACHING FROM WHEN HE FELL. VITALS WERE 98.3-69-18-97%-180/96. CBC REPORTED WBC 9.6, RBC 4.10 , HGB 11.8, HCT 32.9. CMP WNL EXCEPT BUN 40, CREATININE 2.08, GLUCOSE 279, CALCIUM 7.8, ALKALINE PHOSPHATASE 131, TOTAL PROTEIN 6.0, ALBUMIN 2.9. DILANTIN LEVEL 5.0. BRAIN CT NEGATIVE FOR ACUTE INTRACRANIAL ABNORMALITY. HE WAS GIVEN TORADOL 30MG IV X 1, AND CEREBYX 1,000MG IV X 1 DOSE. WE ADMITTED PATIENT FOR FURTHER TREATMENT AND EVALUATION. WE STARTED HIM ON NS @ 80ML/HR, SLIDING SCALE INSULIN, AND OTBS ACHS. WE PLAN TO RECHECK LABS AND FOLLOW UP WITH PATIENT IN AM. - Past Medical History Past Medical History: COPD, Coronary Artery Disease, CVA, Depression, Diabetes, Dyslipidemia, Hypertension, [place], Renal Disease Additional Medical History: GOUT - Past Surgical History Surgical History: Angioplasty/Stents, Appendectomy, CABG/Valve Surgery, Tonsillectomy - Family History Family Medical History: Diabetes Mellitus, Cancer, [place], Hypertension - Social History Does patient currently use any type of tobacco product: No Have you used tobacco products in the last 12 months: No Type of Tobacco Use: None Does any household member use tobacco: No Alcohol Use: None Drug Use: None - Medications Home Medications: Nitroglycerin [Nitroglycerin] 1 tab PO PRN PRN 12/12/16 [History Confirmed 12/12] Phenytoin Sodium Ext Rel [Dilantin Cap 100 mg Ext Rel] 300 mg PO HS 12/12/16 [ History Confirmed 12/12/16] - Review of Systems Constitutional: See HPI, Weakness. denies: No Symptoms Reported, Fever, Chills , Sweats, Malaise, Other Eyes: No Symptoms Reported. denies: See HPI, Pain, Vision Change, Conjunctivae Inflammation, Eyelid Inflammation, Redness, Other ENT: No Symptoms Reported. denies: See HPI, Ear Pain, Ear Discharge, Nose Pain , Nose Discharge, Nose Congestion, Mouth Pain, Mouth Swelling, Throat Pain, Throat Swelling, Other Respiratory: No Symptoms Reported. denies: See HPI, Cough, Dry, Shortness of Breath, Hemoptysis, SOB with Excertion, Pleuritic Pain, Sputum, Wheezing, Other Cardiovascular: No Symptoms Reported. denies: Chest Pain, See HPI, Palpitations , Orthopnea, Paroxysmal Noc. Dyspnea, Edema, Light Headedness, Other Gastrointestinal: No Symptoms Reported. denies: See HPI, Nausea, Vomiting, Abdominal Pain, Diarrhea, Constipation, Melena, Hematochezia, Other Genitourinary: No Symptoms Reported. denies: See HPI, Dysuria, Frequency, Incontinence, Hematuria, Retention, Other Musculoskeletal: See HPI. denies: No Symptoms Reported, Shoulder Pain, Arm Pain , Back Pain, Hand Pain, Leg Pain, Foot Pain, Neck Pain, Other Skin: No Symptoms Reported. denies: See HPI, Rash, Lesions, Jaundice, Bruising , Wound, Ecchymosis, Other Neurological: See HPI, Weakness, Seizures. denies: No Symptoms Reported, Numbness, Incoordination, Change in Speech, Confusion, Other - Physical Exam Vital Signs: Temperature 97.4 F Pulse Rate [Left Brachial] 70 Respiratory Rate 18 Blood Pressure [Left Arm] 183/87 Blood Pressure [Right Arm] 167/75 O2 Sat by Pulse Oximetry 98 Oriented: Normal. negative: Time, Person, Place, Not Oriented, Unable to test, Other Eyes: Normal. negative: Blurred Vision, Diplopia, Discharge, Pain, Redness, Photophobia, Other Ear: Normal. negative: Right, Left, Swelling, Ecchymosis, Hemotypanum, Abrasion , Laceration Nose: Normal. negative: Injected, Discharge, Blood, Other Throat: Normal. negative: Tonsillar Hypertrophy, Red, Exudate, Dry, Other Respiratory: Clear Throughout. negative: Diminished Throughout, Rhonchi Throughout, Rales Throughout, Wheezes Throughout, RUL Clear, RML Clear, RLL Clear, ROSALBA Clear, LML Clear, LLL Clear, RUL Diminished, RML Diminished, RLL Diminished, ROSALBA Diminished, LML Diminished, LLL Diminished, RUL Absent, RML Absent, RLL Absent, ROSALBA Absent, LML Absent, LLL Absent, RUL Rhonchi, RML Rhonchi , RLL Rhonchi, ROSALBA Rhonchi, LML Rhonchi, LLL Rhonchi, RUL Insp. Wheeze, RML Insp. Wheeze, RLL Insp. Wheeze, ROSALBA Insp.Wheeze, LML Insp.Wheeze, LLL Insp.Wheeze, RUL Exp. Wheeze, RML Exp. Wheeze, RLL Exp. Wheeze, ROSALBA Exp. Wheeze , LML Exp. Wheeze, LLL Exp. Wheeze, RUL Rales, RML Rales, RLL Rales, ROSALBA Rales, LML Rales, LLL Rales, RUL Rub, RML Rub, RLL Rub, RSOALBA Rub, LML Rub, LLL Rub, RUL Squeak, RML Squeak, RLL Squeak, ROSALBA Squeak, LML Squeak, LLL Squeak Cardiovascular: Normal. negative: Tachycardia, Bradycardia, Irregular, S3, S4, Systolic, Diastolic, Murmur, Edema, Other : Normal. negative: Dysuria, Hematuria, Frequency, Discharge, Testicular Pain , Bleeding, , Other Auscultation: Bowel Sounds: Normal. negative: Bruit, Absent, Increased, Decreased, High Pitched, Other Palpation: Normal. negative: Spleen Enlarged, Liver Enlarged, Mass Pulsatile, Other Tenderness: Normal. negative: Diffuse, RUQ, RLQ, LUQ, LLQ, Epigastric, Periumbilical, Suprapubic, Mild, Moderate, Severe, Rebound, Guarding, Rigidity, Other Skin: Normal. negative: Decreased Turgur, Rash, Papular, Macular, Maculopapular , Vesicular, Pustular, Petechial, Red, Tender, Hot, Diaphoresis, Wound, Bruising , Ecchymosis, Other Musculoskeletal: Normal. negative: Right, Left, Shoulder, Clavicle, Arm, Elbow , Forearm, Wrist, Hand, Hip, Thigh, Knee, Leg, Ankle, Foot, Back:Thoracic, Back: Lumbar, Back:Midline, Back:Paraspinous, Pelvis, Swelling, Tender, Deformity, Pulse Deficit, Motor Deficit, Sensory Deficit, Instability, Crepitance Psychiatric: Normal. negative: Anxiety, Depression, Agitation, Other Mood Description: Calm. negative: Angry, Apathetic, Depressed, Fearful, Flat, Happy, Hostile, Sad, Suspicious, Withdrawn, Anxious, Appropriate, Labile Affect: Normal. negative: Angry, Anxious, Depressed, Flat, Hysterical, Quiet, Violent Speech Pattern: Clear. negative: Appropriate, Unclear, Inappropriate, Delayed, Slurred, Excessive, Aphasic, Artificially Ventilated - Assessment/Plan (1) Seizure disorder Status: Acute Plan: CONTINUE HOME MEDICATIONS OF DILANTIN AND KEPPRA, CONTINUE TO MONITOR
--- NOTE | 2016-12-13 11:52 | PCM.PROG ---
Progress Note - Progress Note for Day of Date: 12/13/16 - Subjective Subjective: IS ALERT AND ORIENTED, SITTING UP IN BED ON MORNING ROUNDS. AT BEDSIDE. HE IS NOTED WITH NO COMPLAINTS THIS MORNING. BOTH PATIENT AND DENIES SEIZURE ACTIVITY SINCE ADMISSION. VITALS THIS AM ARE 97.4-70-18-98%-167/75. CBC WNL EXCEPT RBC 3.84, HGB 11.5, HCT 31.1. CMP WNL EXCEPT BUN 40, CREATININE 2.08, GFR 35, GLUCOSE 279, CALCIUM 7.8, ALKALINE PHOSPHATASE 131, TOTAL PROTEIN 6.0, ALBUMIN 2.9. PATIENT REPORTS THAT HE HAS BEEN UNABLE TO SLEEP WELL AT NIGHT. WE WILL START KLONOPIN 0.5MG @[facility]. WE WILL REVIEW PATIENTS HOME MEDICATIONS, RECHECK LABS, AND FOLLOW UP WITH PATIENT IN AM. - Past Medical Family Social History Past Med/Fam/Surg Hx: No changes since H&P Allergies: Allergies No Known Allergies [NKA] Allergy (Verified 10/28/16 17:51) - Review of Systems ROS: No change since H&P - Vital Signs and I&O's Vital Signs: Temperature 98.0 F Pulse Rate [Left Brachial] 71 Respiratory Rate 18 Blood Pressure [Left Arm] 183/87 Blood Pressure [Right Arm] 170/90 O2 Sat by Pulse Oximetry 97 Intake and Output: Intake & Output 12/10/16 12/11/16 12/12/16 12/13/16 11:59 11:59 11:59 11:59 Intake Total 1644 Output Total 550 Balance 1094 - Physical Exam Oriented: Normal. negative: Time, Person, Place, Not Oriented, Unable to test, Other Eyes: Normal. negative: Blurred Vision, Diplopia, Discharge, Pain, Redness, Photophobia, Other Ear: Normal. negative: Right, Left, Swelling, Ecchymosis, Hemotypanum, Abrasion , Laceration Nose: Normal. negative: Injected, Discharge, Blood, Other Throat: Normal. negative: Tonsillar Hypertrophy, Red, Exudate, Dry, Other Respiratory: Normal Cardiovascular: Normal. negative: Tachycardia, Bradycardia, Irregular, S3, S4, Systolic, Diastolic, Murmur, Edema, Other : Normal. negative: Dysuria, Hematuria, Frequency, Discharge, Testicular Pain , Bleeding, , Other Auscultation: Bowel Sounds: Normal. negative: Bruit, Absent, Increased, Decreased, High Pitched, Other Palpation: Normal Tenderness: Normal. negative: Diffuse, RUQ, RLQ, LUQ, LLQ, Epigastric, Periumbilical, Suprapubic, Mild, Moderate, Severe, Rebound, Guarding, Rigidity, Other Skin: Normal. negative: Decreased Turgur, Rash, Papular, Macular, Maculopapular , Vesicular, Pustular, Petechial, Red, Tender, Hot, Diaphoresis, Wound, Bruising , Ecchymosis, Other Musculoskeletal: Normal. negative: Right, Left, Shoulder, Clavicle, Arm, Elbow , Forearm, Wrist, Hand, Hip, Thigh, Knee, Leg, Ankle, Foot, Back:Thoracic, Back: Lumbar, Back:Midline, Back:Paraspinous, Pelvis, Swelling, Tender, Deformity, Pulse Deficit, Motor Deficit, Sensory Deficit, Instability, Crepitance Psychiatric: Normal. negative: Anxiety, Depression, Agitation, Other Mood Description: Calm. negative: Angry, Apathetic, Depressed, Fearful, Flat, Happy, Hostile, Sad, Suspicious, Withdrawn, Anxious, Appropriate, Labile Affect: Normal. negative: Angry, Anxious, Depressed, Flat, Hysterical, Quiet, Violent Speech Pattern: Clear. negative: Appropriate, Unclear, Inappropriate, Delayed, Slurred, Excessive, Aphasic, Artificially Ventilated - Laboratory and Diagnostics Result Diagrams: 12/13/16 04:20 12/13/16 04:20 Labs: Laboratory WBC 7.5 X10^3/uL (3.6-10.0) 12/13/16 04:20 RBC 3.84 X10^6/uL (4.7-6.0) L 12/13/16 04:20 Hgb 11.5 g/dL (13.5-18.0) L 12/13/16 04:20 Hct 31.1 % (42.0-54.0) L 12/13/16 04:20 MCV 80.9 fL (80.0-100.0) 12/13/16 04:20 MCH 30.0 pg (27.0-34.0) 12/13/16 04:20 MCHC 37.2 g/dL (33.0-35.0) H 12/13/16 04:20 RDW 14.4 % (11.6-16.5) 12/13/16 04:20 Plt Count 228 X10^3/uL (150.0-450.0) 12/13/16 04:20 MPV 8.9 fL (7.4-11.0) 12/13/16 04:20 Neut % 64.5 % (42.0-75.0) 12/13/16 04:20 Lymph % 23.9 % (21.0-51.0) 12/13/16 04:20 [place] % 7.5 % (0.0-13.0) 12/13/16 04:20 Eos % 3.3 % (0.9-2.9) H 12/13/16 04:20 Baso % 0.8 % (0.2-1.0) 12/13/16 04:20 Neut # 4.8 x10^3/uL (2.2-4.8) 12/13/16 04:20 Lymph # 1.8 X10^3/uL (1.3-2.9) 12/13/16 04:20 [place] # 0.6 x10^3/uL (0.3-0.8) 12/13/16 04:20 Eos # 0.2 x10^3/uL (0.0-0.2) 12/13/16 04:20 Baso # 0.1 X10^3/uL (0.0-0.1) 12/13/16 04:20 Absolute Nucleated RBC 0.0 /100WBC 12/13/16 04:20 INR Target Range - 12/12/16 12:10 INR 0.89 (0.8-1.3) 12/12/16 12:10 PTT 28.5 SECONDS (22.9-36.5) 12/12/16 12:10 PTT Comment - 12/12/16 12:10 Sodium 139 mmol/L (136-145) 12/13/16 04:20 Corrected Sodium 143 mmol/L (136-145) 12/13/16 04:20 Potassium 4.2 mmol/L (3.5-5.1) 12/13/16 04:20 Chloride 105 mmol/L (98-107) 12/13/16 04:20 Carbon Dioxide 29.7 mmol/L (21-32) 12/13/16 04:20 BUN 40 mg/dL (7-18) H 12/13/16 04:20 Creatinine 2.08 mg/dL (0.70-1.30) H 12/13/16 04:20 Est GFR (MDRD) Af Amer 42 (>60) L 12/13/16 04:20 Est GFR (MDRD) Non-Af 35 (>60) L 12/13/16 04:20 Glucose 279 mg/dL (65-99) H 12/13/16 04:20 Calcium 7.8 mg/dL (8.5-10.1) L 12/13/16 04:20 Corrected Calcium 8.7 mg/dL (8.5-10.1) 12/13/16 04:20 Total Bilirubin 0.20 mg/dL (0.2-1.0) 12/13/16 04:20 AST 25 Units/L (15-37) 12/13/16 04:20 ALT 31 Units/L (12-78) 12/13/16 04:20 Alkaline Phosphatase 131 Units/L (46-116) H 12/13/16 04:20 Creatine Kinase 269 Units/L (39-308) 12/12/16 12:10 CK-MB (CK-2) 1.8 ng/mL (0-4.0) 12/12/16 12:10 CK/CKMB % Calc 0.7 % (<4) 12/12/16 12:10 Troponin I 0.18 ng/mL (0-1.5) 12/12/16 12:10 Total Protein 6.0 g/dL (6.4-8.2) L 12/13/16 04:20 Albumin 2.9 g/dL (3.4-5.0) L 12/13/16 04:20 Globulin 3.1 g/dL (2.5-4.5) 12/13/16 04:20 Albumin/Globulin Ratio 0.9 Ratio (1.1-2.1) L 12/13/16 04:20 Phenytoin 13.2 ug/mL (10-20) 12/12/16 17:07 - Plan (1) Seizure disorder Status: Acute Plan: CONTINUE HOME MEDICATIONS OF DILANTIN AND KEPPRA, CONTINUE TO MONITOR (2) Dyslipidemia Status: Acute (3) BPH (benign prostatic hyperplasia) Status: Chronic Qualifiers: Lower urinary tract symptom presence: unspecified whether lower urinary tract symptoms present Lower urinary tract symptom detail: L Qualified Code( s): N40.0 - Benign prostatic hyperplasia without lower urinary tract symptoms Plan: CONTINUE FLOMAX, CONTINUE ULORIC, CONTINUE TO MONITOR (4) Diabetes mellitus, type 2 Status: Chronic Qualifiers: Diabetes mellitus complication status: with unspecified complications Diabetes mellitus complication detail: D Diabetic retinopathy severity: D Proliferative retinopathy type: P Diabetes mellitus macular edema: D Diabetes mellitus intermediate insulin use: with intermediate use Laterality: L Chronic kidney disease stage: C Qualified Code(s): E11.8 - Type 2 diabetes mellitus with unspecified complications; Z79.4 - snf (current) use of insulin Plan: CONTINUE SLIDING SCALE INSULIN, CONTINUE LANTUS, CONTINUE TO MONITOR (5) Hypertension Status: Chronic Qualifiers: Hypertension type: essential hypertension Qualified Code(s): I10 - Essential (primary) hypertension Plan: CONTINUE CATAPRES, CONTINUE ZESTRIL, CONTINUE LOPRESSOR, CONTINUE TO MONITOR (6) Gout Status: Chronic Qualifiers: Gout site: unspecified site Gout etiology: unspecified cause Encounter type: E Chronicity: chronic Laterality: L Presence of tophus: without tophus Qualified Code(s): M1A.9XX0 - Chronic gout, unspecified, without tophus (tophi) Plan: CONTINUE GOLCRYS, CONTINUE TO MONITOR
[2016-12-13] MEDS: LANTUS SC SCH (20:27)
[2016-12-13] MEDS: COLACE CAP 100 MG PO SCH (20:27)
[2016-12-13] MEDS: LIPITOR TAB 40 MG PO SCH (20:27)
[2016-12-13] MEDS: SNACK - Diabetic Appropriate PO SCH (20:38)
[2016-12-13] MEDS ORDERED: KLONOPIN TAB 0.5 MG PO SCH (21:00)
[2016-12-13] MEDS ORDERED: ATORVASTATIN CALCIUM 40 MG PO SCH (21:00)
[2016-12-13] MEDS ORDERED: DILANTIN CAP 100 MG EXT REL PO SCH (21:00)
[2016-12-14] MEDS: NS 1000 ML 1,000 ML IV SCH ×4 (01:30→17:25)
[2016-12-14] MEDS: HumuLIN R SUBCUT PRN ×4 (05:53→21:28)
[2016-12-14 06:13] LABS: ALBUMIN 2.8 g/dL (3.4-5.0); CALCIUM 7.9 mg/dL (8.5-10.1); CARBON DIOXIDE 29.2 mmol/L (21-32); COR CA(FOR HYPOALB) 8.9 mg/dL (8.5-10.1); CREATININE 1.73 mg/dL (0.70-1.30); TOTAL PROTEIN 5.9 g/dL (6.4-8.2)
[2016-12-14 06:15] LABS: BASOPHILS % (AUTO) 0.6 % (0.2-1.0); EOSINOPHILS # (AUTO) 0.3 x10^3/uL (0.0-0.2); EOSINOPHILS % (AUTO) 3.7 % (0.9-2.9); HEMOGLOBIN 11.1 g/dL (13.5-18.0); LYMPHOCYTES # (AUTO) 1.9 X10^3/uL (1.3-2.9); LYMPHOCYTES % (AUTO) 25.6 % (21.0-51.0); MEAN CORPUSCULAR HGB CONC 35.9 g/dL (33.0-35.0); MONOCYTES # (AUTO) 0.5 x10^3/uL (0.3-0.8); MONOCYTES % (AUTO) 7.3 % (0.0-13.0); NEUTROPHILS # (AUTO) 4.7 x10^3/uL (2.2-4.8); NEUTROPHILS % (AUTO) 62.8 % (42.0-75.0); PLATELET COUNT 199 X10^3/uL (150.0-450.0); RED BLOOD COUNT 3.83 X10^6/uL (4.7-6.0); RED CELL DISTRIBUTION WIDTH 14.5 % (11.6-16.5); WHITE BLOOD COUNT 7.5 X10^3/uL (3.6-10.0)
[2016-12-14] MEDS: BUMEX TAB 1 MG PO SCH ×2 (09:45→21:27)
[2016-12-14] MEDS: CATAPRES TAB 0.1 MG PO SCH ×2 (09:45→21:28)
[2016-12-14] MEDS: COLCRYS TAB 0.6 MG PO SCH (09:45)
[2016-12-14] MEDS: MILK OF MAGNESIA PO SCH ×2 (09:46→21:31)
[2016-12-14] MEDS: FLOMAX PO SCH (09:46)
[2016-12-14] MEDS: LOPRESSOR TAB 25 MG PO SCH ×2 (09:46→21:26)
[2016-12-14] MEDS: ULORIC PO SCH (09:46)
[2016-12-14] MEDS: ZESTRIL TAB 40 MG PO SCH (09:46)
[2016-12-14] MEDS: KEPPRA TAB 500 MG PO SCH ×2 (09:46→21:26)
[2016-12-14] MEDS: ATIVAN TAB 0.5 MG PO SCH ×3 (10:35→21:25)
[2016-12-14] MEDS: DILANTIN CAP 100 MG EXT REL PO SCH ×2 (10:35→21:27)
--- NOTE | 2016-12-14 14:17 | PCM.PROG ---
Progress Note - Progress Note for Day of Date: 12/14/16 - Subjective Subjective: IS ALERT AND ORIENTED, SITTING UP IN BED ON MORNING ROUNDS. HE HAS COMPLAINTS OF A HEADACHE ON ROUNDS. STAFF REPORTS THAT PATIENT HAD A SEIZURE YESTERDAY, BUT NONE THROUGHOUT THE NIGHT. VITALS THIS AM ARE 97.9- 69-20-97%-142/92. CBC WNL EXCEPT RBC 3.83, HGB 11.1, HCT 31.0. CMP WNL EXCEPT CHLORIDE 109, BUN 33, CREATININE 1.73, GFR 43, GLUCOSE 189, CALCIUM 7.9, TOTAL PROTEIN 5.9, ALBUMIN 2.8. WE WILL DISCONTINUE KLONOPIN, START ATIVAN 0.5MG TID, AND CHANGE DILANTIN TO 200MG BID. WE WILL RECHECK LABS AND FOLLOW UP WITH PATIENT IN AM. - Past Medical Family Social History Past Med/Fam/Surg Hx: No changes since H&P Allergies: Allergies No Known Allergies [NKA] Allergy (Verified 10/28/16 17:51) - Review of Systems ROS: No change since H&P - Vital Signs and I&O's Vital Signs: Temperature 97.9 F Pulse Rate [Left Brachial] 64 Respiratory Rate 18 Blood Pressure [Left Arm] 187/95 Blood Pressure [Right Arm] 182/94 O2 Sat by Pulse Oximetry 96 Intake and Output: Intake & Output 12/12/16 12/13/16 12/14/16 12/15/16 11:59 11:59 11:59 11:59 Intake Total 1644 2740 Output Total 550 2300 Balance 1094 440 - Physical Exam Oriented: Normal. negative: Time, Person, Place, Not Oriented, Unable to test, Other Eyes: Normal. negative: Blurred Vision, Diplopia, Discharge, Pain, Redness, Photophobia, Other Ear: Normal. negative: Right, Left, Swelling, Ecchymosis, Hemotypanum, Abrasion , Laceration Nose: Normal. negative: Injected, Discharge, Blood, Other Throat: Normal. negative: Tonsillar Hypertrophy, Red, Exudate, Dry, Other Respiratory: Normal Cardiovascular: Normal. negative: Tachycardia, Bradycardia, Irregular, S3, S4, Systolic, Diastolic, Murmur, Edema, Other : Normal. negative: Dysuria, Hematuria, Frequency, Discharge, Testicular Pain , Bleeding, , Other Auscultation: Bowel Sounds: Normal. negative: Bruit, Absent, Increased, Decreased, High Pitched, Other Palpation: Normal Tenderness: Normal. negative: Diffuse, RUQ, RLQ, LUQ, LLQ, Epigastric, Periumbilical, Suprapubic, Mild, Moderate, Severe, Rebound, Guarding, Rigidity, Other Skin: Normal. negative: Decreased Turgur, Rash, Papular, Macular, Maculopapular , Vesicular, Pustular, Petechial, Red, Tender, Hot, Diaphoresis, Wound, Bruising , Ecchymosis, Other Musculoskeletal: Normal. negative: Right, Left, Shoulder, Clavicle, Arm, Elbow , Forearm, Wrist, Hand, Hip, Thigh, Knee, Leg, Ankle, Foot, Back:Thoracic, Back: Lumbar, Back:Midline, Back:Paraspinous, Pelvis, Swelling, Tender, Deformity, Pulse Deficit, Motor Deficit, Sensory Deficit, Instability, Crepitance Psychiatric: Normal. negative: Anxiety, Depression, Agitation, Other Mood Description: Calm. negative: Angry, Apathetic, Depressed, Fearful, Flat, Happy, Hostile, Sad, Suspicious, Withdrawn, Anxious, Appropriate, Labile Affect: Normal. negative: Angry, Anxious, Depressed, Flat, Hysterical, Quiet, Violent Speech Pattern: Clear, Appropriate - Laboratory and Diagnostics Result Diagrams: 12/14/16 04:10 12/14/16 04:10 Labs: Laboratory WBC 7.5 X10^3/uL (3.6-10.0) 12/14/16 04:10 RBC 3.83 X10^6/uL (4.7-6.0) L 12/14/16 04:10 Hgb 11.1 g/dL (13.5-18.0) L 12/14/16 04:10 Hct 31.0 % (42.0-54.0) L 12/14/16 04:10 MCV 81.0 fL (80.0-100.0) 12/14/16 04:10 MCH 29.0 pg (27.0-34.0) 12/14/16 04:10 MCHC 35.9 g/dL (33.0-35.0) H 12/14/16 04:10 RDW 14.5 % (11.6-16.5) 12/14/16 04:10 Plt Count 199 X10^3/uL (150.0-450.0) 12/14/16 04:10 MPV 9.0 fL (7.4-11.0) 12/14/16 04:10 Neut % 62.8 % (42.0-75.0) 12/14/16 04:10 Lymph % 25.6 % (21.0-51.0) 12/14/16 04:10 [place] % 7.3 % (0.0-13.0) 12/14/16 04:10 Eos % 3.7 % (0.9-2.9) H 12/14/16 04:10 Baso % 0.6 % (0.2-1.0) 12/14/16 04:10 Neut # 4.7 x10^3/uL (2.2-4.8) 12/14/16 04:10 Lymph # 1.9 X10^3/uL (1.3-2.9) 12/14/16 04:10 [place] # 0.5 x10^3/uL (0.3-0.8) 12/14/16 04:10 Eos # 0.3 x10^3/uL (0.0-0.2) H 12/14/16 04:10 Baso # 0.0 X10^3/uL (0.0-0.1) 12/14/16 04:10 Absolute Nucleated RBC 0.1 /100WBC 12/14/16 04:10 INR Target Range - 12/12/16 12:10 INR 0.89 (0.8-1.3) 12/12/16 12:10 PTT 28.5 SECONDS (22.9-36.5) 12/12/16 12:10 PTT Comment - 12/12/16 12:10 Sodium 143 mmol/L (136-145) 12/14/16 04:10 Corrected Sodium 145 mmol/L (136-145) 12/14/16 04:10 Potassium 3.8 mmol/L (3.5-5.1) 12/14/16 04:10 Chloride 109 mmol/L (98-107) H 12/14/16 04:10 Carbon Dioxide 29.2 mmol/L (21-32) 12/14/16 04:10 BUN 33 mg/dL (7-18) H 12/14/16 04:10 Creatinine 1.73 mg/dL (0.70-1.30) H 12/14/16 04:10 Est GFR (MDRD) Af Amer 52 (>60) L 12/14/16 04:10 Est GFR (MDRD) Non-Af 43 (>60) L 12/14/16 04:10 Glucose 189 mg/dL (65-99) H 12/14/16 04:10 Calcium 7.9 mg/dL (8.5-10.1) L 12/14/16 04:10 Corrected Calcium 8.9 mg/dL (8.5-10.1) 12/14/16 04:10 Total Bilirubin 0.20 mg/dL (0.2-1.0) 12/14/16 04:10 AST 15 Units/L (15-37) 12/14/16 04:10 ALT 26 Units/L (12-78) 12/14/16 04:10 Alkaline Phosphatase 101 Units/L (46-116) 12/14/16 04:10 Creatine Kinase 269 Units/L (39-308) 12/12/16 12:10 CK-MB (CK-2) 1.8 ng/mL (0-4.0) 12/12/16 12:10 CK/CKMB % Calc 0.7 % (<4) 12/12/16 12:10 Troponin I 0.18 ng/mL (0-1.5) 12/12/16 12:10 Total Protein 5.9 g/dL (6.4-8.2) L 12/14/16 04:10 Albumin 2.8 g/dL (3.4-5.0) L 12/14/16 04:10 Globulin 3.1 g/dL (2.5-4.5) 12/14/16 04:10 Albumin/Globulin Ratio 0.9 Ratio (1.1-2.1) L 12/14/16 04:10 Phenytoin 13.2 ug/mL (10-20) 12/12/16 17:07 - Plan (1) Seizure disorder Status: Acute Plan: DILANTIN 200MG PO BID, ATIVAN 0.5MG PO TID, CONTINUE KEPPRA, CONTINUE TO MONITOR (2) Dyslipidemia Status: Acute (3) BPH (benign prostatic hyperplasia) Status: Chronic Qualifiers: Lower urinary tract symptom presence: unspecified whether lower urinary tract symptoms present Lower urinary tract symptom detail: L Qualified Code( s): N40.0 - Benign prostatic hyperplasia without lower urinary tract symptoms Plan: CONTINUE FLOMAX, CONTINUE ULORIC, CONTINUE TO MONITOR (4) Diabetes mellitus, type 2 Status: Chronic Qualifiers: Diabetes mellitus complication status: with unspecified complications Diabetes mellitus complication detail: D Diabetic retinopathy severity: D Proliferative retinopathy type: P Diabetes mellitus macular edema: D Diabetes mellitus snf insulin use: with snf use Laterality: L Chronic kidney disease stage: C Qualified Code(s): E11.8 - Type 2 diabetes mellitus with unspecified complications; Z79.4 - long term care phlebotomist (current) use of insulin Plan: CONTINUE SLIDING SCALE INSULIN, CONTINUE LANTUS, CONTINUE TO MONITOR (5) Hypertension Status: Chronic Qualifiers: Hypertension type: essential hypertension Qualified Code(s): I10 - Essential (primary) hypertension Plan: CONTINUE CATAPRES, CONTINUE ZESTRIL, CONTINUE LOPRESSOR, CONTINUE TO MONITOR (6) Gout Status: Chronic Qualifiers: Gout site: unspecified site Gout etiology: unspecified cause Encounter type: E Chronicity: chronic Laterality: L Presence of tophus: without tophus Qualified Code(s): M1A.9XX0 - Chronic gout, unspecified, without tophus (tophi) Plan: CONTINUE GOLCRYS, CONTINUE TO MONITOR
[2016-12-14] MEDS: LIPITOR TAB 40 MG PO SCH (21:27)
[2016-12-14] MEDS: LANTUS SC SCH (21:27)
[2016-12-14] MEDS: SNACK - Diabetic Appropriate PO SCH (21:30)
[2016-12-14] MEDS: COLACE CAP 100 MG PO SCH (21:30)
[2016-12-15] MEDS: NS 1000 ML 1,000 ML IV SCH ×2 (01:37→07:39)
[2016-12-15] MEDS: HumuLIN R SUBCUT PRN (05:41)
[2016-12-15] MEDS: ATIVAN TAB 0.5 MG PO SCH (05:41)
[2016-12-15 05:54] LABS: BASOPHILS # (AUTO) 0.1 X10^3/uL (0.0-0.1); BASOPHILS % (AUTO) 1.1 % (0.2-1.0); EOSINOPHILS # (AUTO) 0.3 x10^3/uL (0.0-0.2); EOSINOPHILS % (AUTO) 3.5 % (0.9-2.9); HEMATOCRIT 31.4 % (42.0-54.0); HEMOGLOBIN 11.3 g/dL (13.5-18.0); LYMPHOCYTES # (AUTO) 1.8 X10^3/uL (1.3-2.9); MEAN CORPUSCULAR HEMOGLOBIN 29.4 pg (27.0-34.0); MEAN CORPUSCULAR HGB CONC 36.1 g/dL (33.0-35.0); MEAN CORPUSCULAR VOLUME 81.4 fL (80.0-100.0); MEAN PLATELET VOLUME 8.9 fL (7.4-11.0); MONOCYTES # (AUTO) 0.6 x10^3/uL (0.3-0.8); MONOCYTES % (AUTO) 6.9 % (0.0-13.0); NEUTROPHILS # (AUTO) 5.7 x10^3/uL (2.2-4.8); NEUTROPHILS % (AUTO) 67.5 % (42.0-75.0); PLATELET COUNT 213 X10^3/uL (150.0-450.0); RED BLOOD COUNT 3.85 X10^6/uL (4.7-6.0); RED CELL DISTRIBUTION WIDTH 14.4 % (11.6-16.5); WHITE BLOOD COUNT 8.4 X10^3/uL (3.6-10.0)
[2016-12-15 06:01] LABS: CALCIUM 7.8 mg/dL (8.5-10.1); CARBON DIOXIDE 28.4 mmol/L (21-32); COR CA(FOR HYPOALB) 8.6 mg/dL (8.5-10.1); CREATININE 1.77 mg/dL (0.70-1.30); TOTAL PROTEIN 6.1 g/dL (6.4-8.2)
[2016-12-15] MEDS: LOPRESSOR TAB 25 MG PO SCH (09:13)
[2016-12-15] MEDS: COLCRYS TAB 0.6 MG PO SCH (09:13)
[2016-12-15] MEDS: DILANTIN CAP 100 MG EXT REL PO SCH (09:13)
[2016-12-15] MEDS: ZESTRIL TAB 40 MG PO SCH (09:14)
[2016-12-15] MEDS: KEPPRA TAB 500 MG PO SCH (09:14)
[2016-12-15] MEDS: FLOMAX PO SCH (09:15)
[2016-12-15] MEDS: CATAPRES TAB 0.1 MG PO SCH (09:15)
[2016-12-15] MEDS: MILK OF MAGNESIA PO SCH (09:15)
[2016-12-15] MEDS: BUMEX TAB 1 MG PO SCH (09:15)
[2016-12-15] MEDS: ULORIC PO SCH (09:16)
[2016-12-15 10:12] VITALS: BP 188/88
--- NOTE | 2016-12-18 10:46 | DR.CARTERD ---
- Admission Date Date of Admission: 12/12/16 - Admission Diagnoses Admission Diagnosis: (1) Seizure disorder - Discharge Date Discharge Date: 12/15/16 - Discharge Diagnoses Discharge Diagnosis: (1) Seizure disorder (2) Dyslipidemia (3) BPH (benign prostatic hyperplasia) (4) Diabetes mellitus, type 2 (5) Hypertension (6) Gout - Hospital Course Hospital Course: IS A 61 YEAR OLD PATIENT OF OURS WHO PRESENTED TO THE EMERGENCY ROOM WITH COMPLAINTS OF SEIZURE ACTIVITY. PATIENTS STATED THAT THEY WERE OUTSIDE WALKING WHEN SEIZURE ACTIVITY BEGAN. SHE DESCRIBED SEIZURE SHAKING OF EXTREMITIES AND LOSS OF CONSCIOUSNESS. PATIENTS REPORTED THAT PATIENT HAD A BRAIN BLEED THREE WEEKS AGO AND HAS HAD SEIZURES SINCE. PATIENT CURRENTLY TAKES DILANTIN AND KEPPRA. PATIENT WAS NOTED TO BE DROWSY ON ARRIVAL TO ER. HE HAS COMPLAINTS OF GENERALIZED ACHING FROM WHEN HE FELL. VITALS WERE 98.3-69-18- 97%-180/96. CBC REPORTED WBC 9.6, RBC 4.10, HGB 11.8, HCT 32.9. CMP WNL EXCEPT BUN 40, CREATININE 2.08, GLUCOSE 279, CALCIUM 7.8, ALKALINE PHOSPHATASE 131, TOTAL PROTEIN 6.0, ALBUMIN 2.9. DILANTIN LEVEL 5.0. BRAIN CT NEGATIVE FOR ACUTE INTRACRANIAL ABNORMALITY. HE WAS GIVEN TORADOL 30MG IV X 1, AND CEREBYX 1,000MG IV X 1 DOSE. WE ADMITTED PATIENT FOR FURTHER TREATMENT AND EVALUATION. WE STARTED HIM ON NS @ 80ML/HR, SLIDING SCALE INSULIN, AND OTBS ACHS. ON DAY 2 OF STAY, BOTH PATIENT AND DENIES SEIZURE ACTIVITY SINCE ADMISSION. VITALS WERE 97.4-70-18-98%-167/75. CBC WNL EXCEPT RBC 3.84, HGB 11.5 , HCT 31.1. CMP WNL EXCEPT BUN 40, CREATININE 2.08, GFR 35, GLUCOSE 279, CALCIUM 7.8, ALKALINE PHOSPHATASE 131, TOTAL PROTEIN 6.0, ALBUMIN 2.9. PATIENT REPORTS THAT HE HAS BEEN UNABLE TO SLEEP WELL AT NIGHT. WE STARTED KLONOPIN 0.5MG @[facility]. ON DAY 3 OF STAY, COMPLAINED OF A HEADACHE. STAFF REPORTED THAT PATIENT HAD A SEIZURE YESTERDAY, BUT NONE THROUGHOUT THE NIGHT. VITALS WERE 97.9 -69-20-97%-142/92. CBC WNL EXCEPT RBC 3.83, HGB 11.1, HCT 31.0. CMP WNL EXCEPT CHLORIDE 109, BUN 33, CREATININE 1.73, GFR 43, GLUCOSE 189, CALCIUM 7.9, TOTAL PROTEIN 5.9, ALBUMIN 2.8. WE DISCONTINUED KLONOPIN, STARTED ATIVAN 0.5MG TID, AND CHANGED DILANTIN TO 200MG BID. ON DAY OF DISCHARGE, WAS ALERT AND ORIENTED, LYING IN BED. AT BEDSIDE. HE REPORTED FEELING WELL AND DENIED SEIZURE ACTIVITY. HE REPORTS THAT HE HAS SLEPT BETTER SINCE WE MADE THE CHANGES TO HIS MEDICATIONS. VITALS THIS AM WERE 97.6, 76, 18, 97%, 188/88. CBC WNL EXCEPT RBC 3.85, HGB 11.3, HCT 31.4. CMP WNL EXCEPT BUN 31, CREATININE 1.77, GFR 42, GLUCOSE 272, CALCIUM 7.8, TOTAL BILI 0.10, TOTAL PROTEIN 6.1, ALBUMIN 3.0. WE PLANNED FOR DISCHARGE. INSTRUCTIONS FOR MEDICATIONS AND FOLLOW UP WERE DISCUSSED WITH PATIENT AND . THEY BOTH VERBALIZED UNDERSTANDING. PATIENT WAS DISCHARGED TO HOME IN STABLE CONDITION WITH FAMILY. HE HAS NEW PRESCRIPTIONS FOR ATIVAN 0.5MG TID, AND DILANTIN 200MG PO BID. HE HAS INSTRUCTIONS TO FOLLOW UP IN OUR OFFICE ON THE OF THIS MONTH. - Discharge Medications Discharge Medications: Nitroglycerin 1 tab PO PRN PRN 12/12/16 [History] Lorazepam [ATIVAN 0.5 MG TAB *] 0.5 mg PO TID #90 tab 12/15/16 [Rx] Phenytoin Sodium Ext Rel [DILANTIN CAP 100 MG EXT REL *] 200 mg PO BID #120 cap 12/15/16 [Rx]
== END 2016-12-15 11:15 | disposition home or self-care (01) ==
LOC: ER 12:08 → MED/SURG 13:51
PROVIDERS: ADMIT Internal Medicine; ATTEND Internal Medicine
DX: G40.802 Other epilepsy, not intractable, without status epilepticus (principal); R41.82 Altered mental status, unspecified; I25.10 Atherosclerotic heart disease of native coronary artery without angina pectoris; F32.89 Other specified depressive episodes; E11.65 Type 2 diabetes mellitus with hyperglycemia; I10 Essential (primary) hypertension; J44.9 Chronic obstructive pulmonary disease, unspecified; E78.2 Mixed hyperlipidemia; N40.0 Benign prostatic hyperplasia without lower urinary tract symptoms; Z79.4 Long term (current) use of insulin; M1A.9XX0 Chronic gout, unspecified, without tophus (tophi); R51 Headache; D64.89 Other specified anemias; R94.4 Abnormal results of kidney function studies; R74.8 Abnormal levels of other serum enzymes; Z86.79 Personal history of other diseases of the circulatory system; Z79.1 Long term (current) use of non-steroidal anti-inflammatories (NSAID)
CPT/HCPCS: 36415; 70450; 80053; 80185; 82550; 82553; 84484; 85025; 85610; 85730; 94760; 96365; 96374; 99284; A4216; A4222; S0078; G0378; J1815; J1885

== ENCOUNTER 2017-01-03 18:14 | Emergency (ER) | payer OTHER ==
[2017-01-03 18:21] VITALS: BP 142/80; BMI 29.8
[2017-01-03 18:47] LABS: BASOPHILS # (AUTO) 0.1 X10^3/uL (0.0-0.1); BASOPHILS % (AUTO) 1.4 % (0.2-1.0); EOSINOPHILS # (AUTO) 0.3 x10^3/uL (0.0-0.2); EOSINOPHILS % (AUTO) 3.3 % (0.9-2.9); HEMATOCRIT 36.8 % (42.0-54.0); HEMOGLOBIN 13.1 g/dL (13.5-18.0); LYMPHOCYTES % (AUTO) 24.4 % (21.0-51.0); MEAN CORPUSCULAR HEMOGLOBIN 28.6 pg (27.0-34.0); MEAN CORPUSCULAR HGB CONC 35.5 g/dL (33.0-35.0); MEAN CORPUSCULAR VOLUME 80.7 fL (80.0-100.0); MEAN PLATELET VOLUME 9.3 fL (7.4-11.0); MONOCYTES # (AUTO) 0.6 x10^3/uL (0.3-0.8); MONOCYTES % (AUTO) 7.7 % (0.0-13.0); NEUTROPHILS # (AUTO) 5.2 x10^3/uL (2.2-4.8); NEUTROPHILS % (AUTO) 63.2 % (42.0-75.0); PLATELET COUNT 203 X10^3/uL (150.0-450.0); RED BLOOD COUNT 4.56 X10^6/uL (4.7-6.0); RED CELL DISTRIBUTION WIDTH 14.9 % (11.6-16.5); WHITE BLOOD COUNT 8.2 X10^3/uL (3.6-10.0)
--- NOTE | 2017-01-03 18:49 | DR.GENAD ---
HPI - PCP Primary Care Physician: kenny - HPI Comment HPI Comment: HIS BELOW. - Complaint/Symptoms Chief Complaint Doctors Comments: SEIZURES TODAY. PATIENT ON KEPPRA AND DILANTIN FOR SEIZURE DISORDER. TAKING MEDS BUT STILL HAVING SEIZURES. WEAK BUT DENIES FEVER. NO TRAUMA. HAVING HEADACHE. Chief Complaint:: family states" he's having seizures again" - Nurses notes reviewed Nurses Notes Review: Yes - Source History Provided: Family Member - Mode of Arrival Mode of Arrival: Wheelchair - Timing Onset of Chief Complaint: 01/03/17 Came on: Suddenly - Duration Duration: Intermittent Duration: Hours - Severity Severity: Moderate PMH - PMH Past Medical History: Yes Past Medical History: COPD, Coronary Artery Disease, CVA, Depression, Diabetes, Dyslipidemia, Hypertension, [place], Renal Disease Past Surgical History: Yes Surgical History: Angioplasty/Stents, Appendectomy, CABG/Valve Surgery, Tonsillectomy - Family History History of Family Medical Conditions: Yes Family Medical History: Diabetes Mellitus, Cancer, [place], Hypertension - Social History Does patient currently use any type of tobacco product: No Have you used tobacco products in the last 12 months: No Does any household member use tobacco: No Do you use any recreational Drugs:: No Lives With: Family Lives Where: Home - infectious screening In the last 2 months have you had wt loss of >10#?: NO Have you had fever, night sweats or hemotysis?: No Have you traveled outside the country in the last 6 months?: No Isolation: Standard ROS - Review of Systems Constitutional: Weakness, Fatigue. negative: Chills, Fever Eyes: No Symptoms Reported. negative: Eye Pain, Discharge ENTM: No Symptoms Reported. negative: Ear Pain, Nose Discharge, Nose Congestion , Throat Pain Respiratoy: Non-Productive Cough. negative: Productive Cough, Short of Breath, Wheezing, Hemoptysis Cardiovascular: No Symptoms Reported Gastrointestinal/Abdominal: No Symptoms Reported Genitourinary: No Symptoms Reported Neurological: Seizure Musculoskeletal: Muscle Pain Integumentary: Dryness Hematologic/Lymphatic: Easy Bleeding, Easy Bruising Endocrine: Increased Thirst, Increased Urine. negative: Flushing All Other Systems: Reviewed and Negative PE - Vital Signs Vitals: Temperature 98.2 F Pulse Rate 70 Respiratory Rate 18 Blood Pressure [Left Arm] 188/88 Blood Pressure [Right Arm] 182/94 Blood Pressure 142/80 O2 Sat by Pulse Oximetry 99 - General Limitations: No Limitations General Appearance: Alert - Head Head Exam: Normal Inspection - Eyes Eye exam: Normal Appearance - ENT ENT Exam: Normal External Ear Exam External Ear Exam: Normal External Inspection TM/Canal Exam: Bilateral Normal Nose Exam: Normal Nose Exam Mouth Exam: Normal Inspection Throat Exam: Normal Inspection - Neck Neck Exam: Trachea Midline - Chest Chest Inspection: Symmetric Chest Wall Rise - Respiratory Respiratory Exam: negative: Accessory Muscle Use, Chest Wall Tenderness, Respiratory Distress Respiratory Exam: Bilateral Rhonchi, Lower Rhonchi - Cardiovascular Cardiovascular Exam: Regular Rate, Normal Rhythm, Normal Heart Sounds - Abdominal Exam Abdominal Exam: Normal Bowel Sounds, Soft. negative: Tenderness - Extremities Extremities Exam: Normal Inspection - Back Back Exam: Normal Inspection - Neurologic Neurological Exam: Alert, Oriented X3, Normal Gait, Reflexes Normal. negative: CN II-XII Intact, Motor Sensory Deficit - Skin Skin Exam: Dry MDM - Additional Information Additional Information Obtained From: Family - Differential Diagnosis Differential Diagnosis: SEIZURE, HYPERGLYCEMIA, UTI, ELECTROLYTE IMBALANCE, DEHYDRATION Course - Treatment Treatment: DILANTIN LEVEL LOW. CEREBYX 1GM IV IN ED. NS 1L IVPB IN ED. INSULIN 15 UNITS S/C IN ED. GLUCOSE DECREASING. - Education/Counseling Education/Counseling: Patient, Family, Education Educated On: Treatment, Diagnosis, Needs for Follow Up ROR - Labs Reviewed Laboratory Results Reviewed?: Yes Result Diagrams: 01/03/17 18:35 01/03/17 21:10 Laboratory: WBC 8.2 X10^3/uL (3.6-10.0) 01/03/17 18:35 RBC 4.56 X10^6/uL (4.7-6.0) L 01/03/17 18:35 Hgb 13.1 g/dL (13.5-18.0) L 01/03/17 18:35 Hct 36.8 % (42.0-54.0) L 01/03/17 18:35 MCV 80.7 fL (80.0-100.0) 01/03/17 18:35 MCH 28.6 pg (27.0-34.0) 01/03/17 18:35 MCHC 35.5 g/dL (33.0-35.0) H 01/03/17 18:35 RDW 14.9 % (11.6-16.5) 01/03/17 18:35 Plt Count 203 X10^3/uL (150.0-450.0) 01/03/17 18:35 MPV 9.3 fL (7.4-11.0) 01/03/17 18:35 Neut % 63.2 % (42.0-75.0) 01/03/17 18:35 Lymph % 24.4 % (21.0-51.0) 01/03/17 18:35 [place] % 7.7 % (0.0-13.0) 01/03/17 18:35 Eos % 3.3 % (0.9-2.9) H 01/03/17 18:35 Baso % 1.4 % (0.2-1.0) H 01/03/17 18:35 Neut # 5.2 x10^3/uL (2.2-4.8) H 01/03/17 18:35 Lymph # 2.0 X10^3/uL (1.3-2.9) 01/03/17 18:35 [place] # 0.6 x10^3/uL (0.3-0.8) 01/03/17 18:35 Eos # 0.3 x10^3/uL (0.0-0.2) H 01/03/17 18:35 Baso # 0.1 X10^3/uL (0.0-0.1) 01/03/17 18:35 Absolute Nucleated RBC 0.0 /100WBC 01/03/17 18:35 Sodium 121 mmol/L (136-145) L* 01/03/17 18:35 Corrected Sodium 134 mmol/L (136-145) L 01/03/17 18:35 Potassium 4.2 mmol/L (3.5-5.1) 01/03/17 18:35 Chloride 88 mmol/L (98-107) L 01/03/17 18:35 Carbon Dioxide 26.4 mmol/L (21-32) 01/03/17 18:35 BUN 49 mg/dL (7-18) H 01/03/17 18:35 Creatinine 2.52 mg/dL (0.70-1.30) H 01/03/17 18:35 Est GFR (MDRD) Af Amer 34 (>60) L 01/03/17 18:35 Est GFR (MDRD) Non-Af 28 (>60) L 01/03/17 18:35 Glucose 513 mg/dL (65-99) H* 01/03/17 21:10 Calcium 9.1 mg/dL (8.5-10.1) 01/03/17 18:35 Corrected Calcium TNP 01/03/17 18:35 Magnesium 2.3 mg/dL (1.7-2.9) 01/03/17 18:35 Total Bilirubin 0.30 mg/dL (0.2-1.0) 01/03/17 18:35 AST 9 Units/L (15-37) L 01/03/17 18:35 ALT 21 Units/L (12-78) 01/03/17 18:35 Alkaline Phosphatase 189 Units/L (46-116) H 01/03/17 18:35 Total Protein 7.1 g/dL (6.4-8.2) 01/03/17 18:35 Albumin 3.9 g/dL (3.4-5.0) 01/03/17 18:35 Globulin 3.2 g/dL (2.5-4.5) 01/03/17 18:35 Albumin/Globulin Ratio 1.2 Ratio (1.1-2.1) 01/03/17 18:35 Phenytoin 5.3 ug/mL (10-20) L 01/03/17 18:35 Acetone, Semi-Quant Negative (NEGATIVE) 01/03/17 18:35 - XRAY XRAY Interpreted by: Radiologist XRAY Findings: REPORT DISCUSS WITH PATIENT. - Diagnosis Discharge Problem: Hyperglycemia, Seizure Headache Qualifiers: Headache type: post-traumatic Headache chronicity pattern: chronic headache Intractability: intractable Qualified Code(s): G44.321 - Chronic post-traumatic headache, intractable - Discharge Plan Disposition: 01 HOME, SELF-CARE Condition: Stable - Follow ups/Referrals Follow ups/Referrals: NFD,None [Primary Care Provider] - 01/04/17 - Instructions Instructions: Hyperglycemia, Seizure, Adult, [id number]-[id number] Additional Instructions: RETURN TO ED IF WORSE.
[2017-01-03 19:00] LABS: ALANINE AMINOTRANSFERASE 21 Units/L (12-78); ALBUMIN 3.9 g/dL (3.4-5.0); ALKALINE PHOSPHATASE 189 Units/L (46-116); ASPARTATE AMINO TRANSFERASE 9 Units/L (15-37); BLOOD UREA NITROGEN 49 mg/dL (7-18); CALCIUM 9.1 mg/dL (8.5-10.1); CARBON DIOXIDE 26.4 mmol/L (21-32); CHLORIDE 88 mmol/L (98-107); CREATININE 2.52 mg/dL (0.70-1.30); TOTAL PROTEIN 7.1 g/dL (6.4-8.2); eGFR BLACK RACES 34 (>60); eGFR NON BLACK RACES 28 (>60)
[2017-01-03 19:02] LABS: COR NA(FOR HYPERGLY) 134 mmol/L (136-145)
[2017-01-03 19:03] LABS: SODIUM 121 mmol/L (136-145)
[2017-01-03 19:13] LABS: GLUCOSE 654 mg/dL (65-99)
[2017-01-03] MEDS ORDERED: CEREBYX INJ IVP ONE (19:13)
[2017-01-03] MEDS ORDERED: NS 1000 ML 1,000 ML IV ONE (19:13)
[2017-01-03] MEDS ORDERED: NS 1000 ML 1,000 ML ONE (19:14)
[2017-01-03] MEDS ORDERED: NS 100 ML IV 100 ML IV ONE (19:14)
[2017-01-03] MEDS ORDERED: CEREBYX INJ ONE (19:16)
--- NOTE | 2017-01-03 19:20 | CT ---
CT HEAD WITHOUT CONTRAST CLINICAL HISTORY: 61-year-old male status post seizure. COMPARISON: CT head December 12, 2016. TECHNIQUE: Multiple, non-contrasted axial CT images were obtained from the skull base to the cranial vertex. Coronal and sagittal reformats were performed. FINDINGS: There are no abnormal intra- or extra-axial fluid collections, midline shift, or mass effec t. [place]-white differentiation is normal. Global cortical involutional changes are present that are ad vanced for the patient's stated age. The ventricular system is mildly enlarged but commensurate with the degree of sulcal prominence. Periventricular and supraventricular white matter hypodensity is pre sent that is nonspecific in appearance, but most likely to represent microvascular ischemic changes. Atherosclerotic vascular calcification is present within the carotid siphons. Trace mucosal thickening of the maxillary sinuses with the remaining paranasal sinuses and mastoid ai r cells clear. Debris within the tympanic cavities, likely cerumen. Senescent scleral calcifications. IMPRESSION: 1. No definite evidence of an acute intracranial process. If clinical concern persists, consider MRI/ MRA brain. 2. Moderate microvascular white matter ischemic changes, with associated volume loss. Reported By:
[2017-01-03] MEDS ORDERED: ZOFRAN INJ 4 MG VIAL IVP ONE (20:03)
[2017-01-03] MEDS ORDERED: MORPHINE SULFATE INJ 4 MG IVP ONE (20:03)
[2017-01-03] MEDS ORDERED: MORPHINE SULFATE INJ 4 MG ONE (20:42)
[2017-01-03] MEDS ORDERED: ZOFRAN INJ 4 MG VIAL ONE (20:42)
[2017-01-03] MEDS ORDERED: HumuLIN R SUBCUT ONE (22:09)
[2017-01-03] MEDS ORDERED: HumuLIN R ONE (22:11)
[2017-01-04] MEDS ORDERED: SNACK - Diabetic Appropriate PO SCH (20:00)
== END 2017-01-03 23:10 | disposition home or self-care (01) ==
LOC: ER 18:26
DX: R56.9 Unspecified convulsions (principal); G44.321 Chronic post-traumatic headache, intractable; R73.9 Hyperglycemia, unspecified
CPT/HCPCS: 36415; 70450; 80053; 80177; 80185; 82009; 82947; 83735; 85025; 96365; 96372; 96374; 96375; 99283; A4222; S0078; J1815; J2270; J2405

== ENCOUNTER 2017-01-06 14:05 | Inpatient (IN) | payer OTHER ==
[2017-01-06 14:18] LABS: BASOPHILS # (AUTO) 0.1 X10^3/uL (0.0-0.1); BASOPHILS % (AUTO) 1.4 % (0.2-1.0); EOSINOPHILS # (AUTO) 0.2 x10^3/uL (0.0-0.2); EOSINOPHILS % (AUTO) 3.4 % (0.9-2.9); HEMATOCRIT 35.3 % (42.0-54.0); HEMOGLOBIN 12.5 g/dL (13.5-18.0); LYMPHOCYTES # (AUTO) 1.6 X10^3/uL (1.3-2.9); MEAN CORPUSCULAR HGB CONC 35.3 g/dL (33.0-35.0); MEAN CORPUSCULAR VOLUME 82.1 fL (80.0-100.0); MEAN PLATELET VOLUME 9.2 fL (7.4-11.0); MONOCYTES # (AUTO) 0.5 x10^3/uL (0.3-0.8); MONOCYTES % (AUTO) 7.6 % (0.0-13.0); NEUTROPHILS % (AUTO) 62.6 % (42.0-75.0); PLATELET COUNT 189 X10^3/uL (150.0-450.0); RED CELL DISTRIBUTION WIDTH 14.5 % (11.6-16.5); WHITE BLOOD COUNT 6.4 X10^3/uL (3.6-10.0)
--- NOTE | 2017-01-06 14:18 | DR.GENAD ---
HPI - Complaint/Symptoms Chief Complaint Doctors Comments: Family states they were leaving [place] and the patient head went down and he became unresponsive and she came to this hospital because we knew him. States she was trying to awaken him on the way to the emergency room but he would not talk to her. States he was moving his fingers but would not talk to her. states he was in the emergency room earlier this week with similar problems. State he has had two strokes recently and is taking medicines for seizures. states he is a patient of Dr. Sharp and he has been taking his medicines. - Nurses notes reviewed Nurses Notes Review: Yes - Source History Provided: Family Member - Mode of Arrival Mode of Arrival: Stretcher - Timing Came on: Suddenly - Duration Duration: Constant How lon Duration: Minutes - Location Location: diffuse headache - Severity Severity: Moderate, Severe - Modifying Factors Worsens:: nothing Improves:: nothing PMH - PMH Past Medical History: COPD, Coronary Artery Disease, CVA, Depression, Diabetes, Dyslipidemia, Hypertension, CA, Renal Disease Past Surgical History: Yes Surgical History: Angioplasty/Stents, Appendectomy, CABG/Valve Surgery, Tonsillectomy - Family History Family Medical History: Diabetes Mellitus, Cancer, CA, Hypertension - Social History Do you use any recreational Drugs:: No ROS - Review of Systems Constitutional: No Symptoms Reported. negative: See HPI, Chills, Diaphoresis, Fever, Malaise, Weakness, Irritable, Fatigue, Loss of Appetite, Other Eyes: No Symptoms Reported ENTM: No Symptoms Reported. negative: See HPI, Ear Pain, Ear Discharge, Pulling on Ears, Hearing Loss, Nose Pain, Nose Discharge, Epistaxis, Nose Congestion, Mouth Pain, Mouth Swelling, Loose Teeth, Drooling, Throat Pain, Throat Swelling, Ear Foreign Body Respiratoy: No Symptoms Reported Cardiovascular: No Symptoms Reported Gastrointestinal/Abdominal: No Symptoms Reported. negative: See HPI, Abdominal Pain, Constipation, Diarrhea, Nausea, Vomiting, Food Intolerance, Other Genitourinary: No Symptoms Reported. negative: See HPI, Discharge, Dysuria, Frequency, Hematuria, Pain, Bleeding, Other Neurological: No Symptoms Reported, Headache, Seizure, Speech Problem Musculoskeletal: No Symptoms Reported Integumentary: No Symptoms Reported Hematologic/Lymphatic: No Symptoms Reported Endocrine: No Symptoms Reported Psychiatric: No Symptoms Reported PE - Vital Signs Vitals: Temperature 98.3 F Pulse Rate [Right Radial] 69 Pulse Rate 75 Respiratory Rate 18 Blood Pressure [Left Arm] 166/79 Blood Pressure [Right Arm] 182/94 Blood Pressure 191/89 O2 Sat by Pulse Oximetry 100 - General Limitations: Altered Mental Status General Appearance: In Distress (non responsive), Obese - Head Head Exam: Normal Inspection, Atraumatic, Normocephalic - Eyes Eye exam: Normal Appearance, PERRL, EOMI. negative: Scleral Icterus, Conjunctival Injection, Nystagmus, Miosis, Mydrasis, Periorbital Swelling, Periorbital Tenderness, Other - ENT ENT Exam: Normal Exam, Normal Oropharynx, Normal External Ear Exam, Mucous Membranes Moist External Ear Exam: Normal External Inspection TM/Canal Exam: Bilateral Normal Nose Exam: Normal Nose Exam. negative: Sinus Tenderness, Nasal Deviation, Crepitus, Septal Hematoma, Laceration, Abrasion, Other Mouth Exam: Normal Inspection. negative: Drooling, Trismus, Lip Swelling, Tongue Elevation, Tongue Swelling, Laceration, Other Throat Exam: Normal Inspection. negative: Tonsillar Erythema, Tonsillomegaly, Tonsillar Exudate, R Peritonsillar Mass, L Peritonsillar Mass, Muffled Voice, Other - Neck Neck Exam: Normal Inspection, Full ROM, Trachea Midline. negative: Tenderness, Meningismus, Lymphadenopathy, Thyromegaly, Other - Chest Chest Inspection: Normal Inspection, Symmetric Chest Wall Rise - Respiratory Respiratory Exam: Normal Lung Sounds Bilat Respiratory Exam: Bilateral Clear to Auscultation, Bilateral Decreased Breath Sounds - Cardiovascular Cardiovascular Exam: Regular Rate, Normal Rhythm, Systolic Murmur - Abdominal Exam Abdominal Exam: Normal Inspection, Normal Bowel Sounds, Soft Abdominal Tenderness: negative: RUQ, RLQ, LUQ, LLQ, Epigastrium, Suprapubic, Diffuse, Mild, Moderate, Severe, Other - Extremities Extremities Exam: Normal Inspection, Full ROM, Normal Capillary Refill. negative: Tenderness, Edema, Joint Swelling, Calf Tenderness, Other - Back Back Exam: Normal Inspection, Full ROM. negative: Tenderness, (R) CVA Tenderness, (L) CVA Tenderness, Muscle Spasm, Paraspinal Tenderness, Vertebral Tenderness, Rashes, (R) Sciatic Notch Tenderness, (L) Sciatic Notch Tendern, (R ) Straight Leg Raise, (L) Straight Leg Raise, Other - Neurologic Neurological Exam: Alert, CN II-XII Intact, Reflexes Normal (patient lethargic; not responding to verbal stimuli initially). negative: Oriented X3 (babinski absent), Normal Gait (gait not tested) - Psychiatric Psychiatric Exam: negative: Normal Affect (patient unresponsive) - Skin Skin Exam: Warm, Dry, Intact, Normal Color Course - Consultation Called: 15:48 Call Returned: 15:48 (Dr. Platt to admit) - Education/Counseling Education/Counseling: Patient, Family Educated On: Treatment, Diagnosis, Needs for Follow Up ROR - Labs Reviewed Laboratory Results Reviewed?: Yes (all labs and x-ray results reviewed and discussed with patient and spouse) Result Diagrams: 01/06/17 14:05 01/06/17 14:05 Laboratory: WBC 6.4 X10^3/uL (3.6-10.0) 01/06/17 14:05 RBC 4.30 X10^6/uL (4.7-6.0) L 01/06/17 14:05 Hgb 12.5 g/dL (13.5-18.0) L 01/06/17 14:05 Hct 35.3 % (42.0-54.0) L 01/06/17 14:05 MCV 82.1 fL (80.0-100.0) 01/06/17 14:05 MCH 29.0 pg (27.0-34.0) 01/06/17 14:05 MCHC 35.3 g/dL (33.0-35.0) H 01/06/17 14:05 RDW 14.5 % (11.6-16.5) 01/06/17 14:05 Plt Count 189 X10^3/uL (150.0-450.0) 01/06/17 14:05 MPV 9.2 fL (7.4-11.0) 01/06/17 14:05 Neut % 62.6 % (42.0-75.0) 01/06/17 14:05 Lymph % 25.0 % (21.0-51.0) 01/06/17 14:05 [place] % 7.6 % (0.0-13.0) 01/06/17 14:05 Eos % 3.4 % (0.9-2.9) H 01/06/17 14:05 Baso % 1.4 % (0.2-1.0) H 01/06/17 14:05 Neut # 4.0 x10^3/uL (2.2-4.8) 01/06/17 14:05 Lymph # 1.6 X10^3/uL (1.3-2.9) 01/06/17 14:05 [place] # 0.5 x10^3/uL (0.3-0.8) 01/06/17 14:05 Eos # 0.2 x10^3/uL (0.0-0.2) 01/06/17 14:05 Baso # 0.1 X10^3/uL (0.0-0.1) 01/06/17 14:05 Absolute Nucleated RBC 0.1 /100WBC 01/06/17 14:05 INR Target Range - 01/06/17 14:05 INR 0.96 (0.8-1.3) 01/06/17 14:05 PTT 26.9 SECONDS (22.9-36.5) 01/06/17 14:05 PTT Comment - 01/06/17 14:05 Sodium 130 mmol/L (136-145) L 01/06/17 14:05 Corrected Sodium 140 mmol/L (136-145) 01/06/17 14:05 Potassium 4.2 mmol/L (3.5-5.1) 01/06/17 14:05 Chloride 98 mmol/L (98-107) 01/06/17 14:05 Carbon Dioxide 25.6 mmol/L (21-32) 01/06/17 14:05 BUN 45 mg/dL (7-18) H 01/06/17 14:05 Creatinine 2.26 mg/dL (0.70-1.30) H 01/06/17 14:05 Est GFR (MDRD) Af Amer 38 (>60) L 01/06/17 14:05 Est GFR (MDRD) Non-Af 32 (>60) L 01/06/17 14:05 Glucose 509 mg/dL (65-99) H* 01/06/17 14:05 Calcium 8.7 mg/dL (8.5-10.1) 01/06/17 14:05 Corrected Calcium TNP 01/06/17 14:05 Magnesium 2.3 mg/dL (1.7-2.9) 01/06/17 14:05 Total Bilirubin 0.20 mg/dL (0.2-1.0) 01/06/17 14:05 AST 10 Units/L (15-37) L 01/06/17 14:05 ALT 20 Units/L (12-78) 01/06/17 14:05 Alkaline Phosphatase 161 Units/L (46-116) H 01/06/17 14:05 Creatine Kinase 65 Units/L (39-308) 01/06/17 14:05 CK-MB (CK-2) 1.1 ng/mL (0-4.0) 01/06/17 14:05 CK/CKMB % Calc 1.7 % (<4) 01/06/17 14:05 Troponin I 0.17 ng/mL (0-1.5) 01/06/17 14:05 Total Protein 6.5 g/dL (6.4-8.2) 01/06/17 14:05 Albumin 3.5 g/dL (3.4-5.0) 01/06/17 14:05 Globulin 3.0 g/dL (2.5-4.5) 01/06/17 14:05 Albumin/Globulin Ratio 1.2 Ratio (1.1-2.1) 01/06/17 14:05 Specimen Type Clean catch urine 01/06/17 16:44 Urine Color Yellow (YELLOW) 01/06/17 16:44 Urine Appearance Clear (CLEAR) 01/06/17 16:44 Urine pH 5.0 (5.0 - 8.0) 01/06/17 16:44 Ur Specific [place] 1.010 (1.000-1.030) 01/06/17 16:44 Urine Protein 2+ (NEGATIVE) 01/06/17 16:44 Urine Glucose (UA) 4+ (NEGATIVE) 01/06/17 16:44 Urine Ketones Negative (NEGATIVE) 01/06/17 16:44 Urine Occult Blood 1+ (NEGATIVE) 01/06/17 16:44 Urine Nitrite Negative (NEGATIVE) 01/06/17 16:44 Urine Bilirubin Negative (NEGATIVE) 01/06/17 16:44 Urine Urobilinogen Normal (NORMAL) 01/06/17 16:44 Ur Leukocyte Esterase Negative (NEGATIVE) 01/06/17 16:44 Urine RBC Rare /HPF (NEGATIVE) 01/06/17 16:44 Urine WBC Rare /HPF (NEGATIVE) 01/06/17 16:44 Ur Squamous Epith Cells Rare /HPF (NEGATIVE) 01/06/17 16:44 Amorphous Sediment Trace /HPF (NEGATIVE) 01/06/17 16:44 Urine Bacteria Negative /HPF (NEGATIVE) 01/06/17 16:44 Ur Culture Indicated? No/not indicated 01/06/17 16:44 Phenytoin 12.3 ug/mL (10-20) 01/06/17 14:05 - XRAY XRAY Interpreted by: Radiologist (CT headd: no acute intracranial abnormality. Stable chronic findings) XRAY Findings: cxr: cardiomegaly; no acute changes - EKG Rate: 76 [place]: Normal Rhythm: NSR Block: None Hypertrophy: None ST: Old, Ant, Ischemia - Diagnosis Discharge Problem: Altered mental status, Seizure disorder, Subendocardial infarct, Diabetes mellitus, Chronic kidney disease (CKD), Sinusitis, Hyponatremia - Discharge Plan Disposition: ADMITTED INPATIENT Condition: Stable - Follow ups/Referrals Follow ups/Referrals: ,Misc [Primary Care Provider] - 3 days - Instructions
[2017-01-06 14:39] LABS: ALANINE AMINOTRANSFERASE 20 Units/L (12-78); ALBUMIN 3.5 g/dL (3.4-5.0); ALKALINE PHOSPHATASE 161 Units/L (46-116); ASPARTATE AMINO TRANSFERASE 10 Units/L (15-37); BLOOD UREA NITROGEN 45 mg/dL (7-18); CALCIUM 8.7 mg/dL (8.5-10.1); CARBON DIOXIDE 25.6 mmol/L (21-32); CHLORIDE 98 mmol/L (98-107); CKMB % 1.7 % (<4); COR NA(FOR HYPERGLY) 140 mmol/L (136-145); CREATINE KINASE 65 Units/L (39-308); CREATINE KINASE MB 1.1 ng/mL (0-4.0); CREATININE 2.26 mg/dL (0.70-1.30); MAGNESIUM 2.3 mg/dL (1.7-2.9); SODIUM 130 mmol/L (136-145); TOTAL PROTEIN 6.5 g/dL (6.4-8.2); TROPONIN I 0.17 ng/mL (0-1.5); eGFR BLACK RACES 38 (>60); eGFR NON BLACK RACES 32 (>60)
--- NOTE | 2017-01-06 14:46 | CT ---
CT head without contrast Indication: Altered mental status, headache Technique: Helical CT images of the brain were obtained without IV contrast. Reformatted images in th e coronal and sagittal planes were also generated for review. Comparison: January 03, 2017 Findings: There is stable mild generalized brain atrophy with proportional compensatory ventricular a nd sulcal enlargement. Scattered periventricular and subcortical white matter hypodensities are nonsp ecific but appear unchanged and are favored to reflect chronic microangiopathic disease. No intracran ial hemorrhage, visible acute infarction, focal or generalized edema, extra-axial collection, mass or midline shift is identified. Minimal mucosal thickening of the bilateral maxillary sinuses again noted. Remaining paranasal sinuse s and mastoid air cells are clear. There is no acute osseous or soft tissue abnormality. Impression: No acute intracranial abnormality. Stable chronic findings, as above. Reported By:
[2017-01-06] MEDS ORDERED: HumuLIN R IV PRN (14:55)
[2017-01-06] MEDS ORDERED: HumuLIN R ONE (15:10)
[2017-01-06] MEDS: NS 1000 ML 1,000 ML IV SCH ×2 (15:17→23:50)
--- NOTE | 2017-01-06 15:30 | RAD ---
HISTORY: Chest pain Study: AP chest. Comparison: There 624 Findings: Status post median sternotomy. There is a dual lead pacemaker device present. There is severe enlarge ment of the cardiac silhouette. The lungs are clear. No consolidation. There are no pleural effusions. The april and cardiomediastinal silhouette appear normal. IMPRESSION: 1. Severe enlargement of the cardiac silhouette. Lungs appear clear.. Reported By:
[2017-01-06 16:54] LABS: BILIRUBIN,URINE NEGATIVE (NEGATIVE); BLOOD/HEMOGLOBIN,URINE 1+ (NEGATIVE); GLUCOSE, URINE 4+ (NEGATIVE); KETONES,URINE NEGATIVE (NEGATIVE); LEUKOCYTE ESTERASE ,URINE NEGATIVE (NEGATIVE); NITRITES,URINE NEGATIVE (NEGATIVE); PROTEIN,URINE 2+ (NEGATIVE); UROBILINOGEN,URINE NORMAL (NORMAL)
[2017-01-06 17:09] LABS: APPEARANCE,URINE CLEAR (CLEAR); COLOR,URINE YELLOW (YELLOW)
[2017-01-06] MEDS ORDERED: TYLENOL 500 MG TAB EXTRA STRENGTH PO STA (17:26)
[2017-01-06 17:32] LABS: AMORPHOUS SEDIMENT,UR TRACE /HPF (NEGATIVE); BACTERIA,URINE NEGATIVE /HPF (NEGATIVE); RBC,URINE RARE /HPF (NEGATIVE); SQUAMOUS EPITHELIAL CELL,UR RARE /HPF (NEGATIVE)
[2017-01-06] MEDS ORDERED: TYLENOL 500 MG TAB EXTRA STRENGTH PO ONE (17:46)
[2017-01-06] MEDS ORDERED: MORPHINE SULFATE INJ 2 MG INJ IVP ONE (18:59)
[2017-01-06] MEDS ORDERED: MORPHINE SULFATE INJ 2 MG INJ ONE (19:00)
[2017-01-06 21:50] LABS: CKMB % 1.8 % (<4); CREATINE KINASE MB 1.1 ng/mL (0-4.0); TROPONIN I 0.17 ng/mL (0-1.5)
[2017-01-06] MEDS ORDERED: KEPPRA TAB 500 MG ONE (22:36)
[2017-01-06] MEDS ORDERED: DILANTIN CAP 100 MG EXT REL PO ONE ×2 (22:36→22:45)
[2017-01-06] MEDS ORDERED: KEPPRA TAB 500 MG PO ONE (22:41)
[2017-01-06] MEDS: SNACK - Diabetic Appropriate PO SCH (23:06)
[2017-01-06 23:46] VITALS: BMI 29.8
[2017-01-06] MEDS: MORPHINE SULFATE INJ 2 MG INJ IVP PRN (23:50)
[2017-01-07] MEDS: MORPHINE SULFATE INJ 2 MG INJ IVP PRN ×2 (05:08→09:27)
[2017-01-07] MEDS: HumuLIN R SC PRN ×4 (05:49→20:55)
[2017-01-07 06:08] LABS: ALBUMIN 2.8 g/dL (3.4-5.0); CARBON DIOXIDE 27.7 mmol/L (21-32); CREATININE 1.79 mg/dL (0.70-1.30); TOTAL PROTEIN 5.6 g/dL (6.4-8.2)
[2017-01-07 06:49] LABS: BASOPHILS # (AUTO) 0.1 X10^3/uL (0.0-0.1); BASOPHILS % (AUTO) 1.1 % (0.2-1.0); EOSINOPHILS # (AUTO) 0.3 x10^3/uL (0.0-0.2); EOSINOPHILS % (AUTO) 4.9 % (0.9-2.9); HEMATOCRIT 34.9 % (42.0-54.0); HEMOGLOBIN 12.4 g/dL (13.5-18.0); LYMPHOCYTES # (AUTO) 1.8 X10^3/uL (1.3-2.9); LYMPHOCYTES % (AUTO) 28.7 % (21.0-51.0); MEAN CORPUSCULAR HEMOGLOBIN 29.7 pg (27.0-34.0); MEAN CORPUSCULAR HGB CONC 35.4 g/dL (33.0-35.0); MEAN CORPUSCULAR VOLUME 83.7 fL (80.0-100.0); MEAN PLATELET VOLUME 9.6 fL (7.4-11.0); MONOCYTES # (AUTO) 0.5 x10^3/uL (0.3-0.8); NEUTROPHILS # (AUTO) 3.7 x10^3/uL (2.2-4.8); NEUTROPHILS % (AUTO) 57.3 % (42.0-75.0); PLATELET COUNT 178 X10^3/uL (150.0-450.0); RED BLOOD COUNT 4.17 X10^6/uL (4.7-6.0); WHITE BLOOD COUNT 6.4 X10^3/uL (3.6-10.0)
[2017-01-07] MEDS ORDERED: LEVETIRACETAM 1500 MG PO SCH (09:00)
[2017-01-07] MEDS ORDERED: BUMETANIDE 1 MG PO SCH (09:00)
[2017-01-07] MEDS ORDERED: KEPPRA TAB 500 MG PO SCH (09:00)
[2017-01-07] MEDS ORDERED: CATAPRES TAB 0.1 MG PO SCH (09:00)
[2017-01-07] MEDS: ZESTRIL TAB 40 MG PO SCH (09:21)
[2017-01-07] MEDS: FLOMAX PO SCH (09:22)
[2017-01-07] MEDS: KEPPRA TAB 500 MG PO SCH ×2 (09:22→20:54)
[2017-01-07] MEDS: DILANTIN CAP 100 MG EXT REL PO SCH ×2 (09:22→20:54)
[2017-01-07] MEDS: BUMEX TAB 1 MG PO SCH ×2 (09:22→20:54)
[2017-01-07] MEDS: LOPRESSOR TAB 25 MG PO SCH ×2 (09:23→20:53)
[2017-01-07] MEDS: PROTONIX INJ 40 MG VIAL IVP SCH (09:23)
[2017-01-07] MEDS: NS 1000 ML 1,000 ML IV SCH ×4 (09:24→23:39)
[2017-01-07 09:33] LABS: CHOL/HDL RATIO 9.3 (0.0-5.0); CKMB % 1.5 % (<4); CREATINE KINASE MB 1.1 ng/mL (0-4.0); TROPONIN I 0.17 ng/mL (0-1.5)
[2017-01-07 09:50] LABS: CREATINE KINASE 56 Units/L (39-308); CREATINE KINASE MB < 1.0 ng/mL (0-4.0); TROPONIN I 0.19 ng/mL (0-1.5)
[2017-01-07 09:56] LABS: CKMB % 1.8 % (<4)
[2017-01-07] MEDS ORDERED: NORVASC TAB 5 MG ONE (14:37)
[2017-01-07] MEDS: COLCRYS TAB 0.6 MG PO SCH (14:39)
[2017-01-07] MEDS: NORVASC TAB 5 MG PO SCH (14:40)
[2017-01-07] MEDS: CATAPRES TAB 0.1 MG PO PRN (14:40)
[2017-01-07] MEDS: ULORIC PO SCH (15:17)
[2017-01-07] MEDS: LIPITOR TAB 40 MG PO SCH (20:54)
[2017-01-07] MEDS: NORCO 5/325 MG TAB PO PRN (20:55)
[2017-01-07] MEDS: LANTUS SC SCH (20:56)
[2017-01-07] MEDS ORDERED: ATORVASTATIN CALCIUM 40 MG PO SCH (21:00)
[2017-01-07] MEDS: SNACK - Diabetic Appropriate PO SCH (23:38)
[2017-01-08] MEDS: NS 1000 ML 1,000 ML IV SCH ×4 (05:28→22:56)
[2017-01-08] MEDS: HumuLIN R SC PRN ×3 (05:36→21:37)
[2017-01-08] MEDS: DILAUDID INJ IVP PRN (05:37)
[2017-01-08 05:39] LABS: BASOPHILS # (AUTO) 0.1 X10^3/uL (0.0-0.1); BASOPHILS % (AUTO) 1.9 % (0.2-1.0); EOSINOPHILS # (AUTO) 0.3 x10^3/uL (0.0-0.2); EOSINOPHILS % (AUTO) 4.9 % (0.9-2.9); HEMATOCRIT 34.4 % (42.0-54.0); HEMOGLOBIN 12.3 g/dL (13.5-18.0); LYMPHOCYTES # (AUTO) 2.1 X10^3/uL (1.3-2.9); LYMPHOCYTES % (AUTO) 34.7 % (21.0-51.0); MEAN CORPUSCULAR HEMOGLOBIN 29.2 pg (27.0-34.0); MEAN CORPUSCULAR HGB CONC 35.6 g/dL (33.0-35.0); MEAN PLATELET VOLUME 9.3 fL (7.4-11.0); MONOCYTES # (AUTO) 0.6 x10^3/uL (0.3-0.8); MONOCYTES % (AUTO) 9.3 % (0.0-13.0); NEUTROPHILS # (AUTO) 2.9 x10^3/uL (2.2-4.8); NEUTROPHILS % (AUTO) 49.2 % (42.0-75.0); PLATELET COUNT 201 X10^3/uL (150.0-450.0); RED BLOOD COUNT 4.19 X10^6/uL (4.7-6.0); RED CELL DISTRIBUTION WIDTH 14.5 % (11.6-16.5)
[2017-01-08 05:41] LABS: ALANINE AMINOTRANSFERASE 18 Units/L (12-78); ALBUMIN 2.9 g/dL (3.4-5.0); ALKALINE PHOSPHATASE 115 Units/L (46-116); ASPARTATE AMINO TRANSFERASE 15 Units/L (15-37); BLOOD UREA NITROGEN 32 mg/dL (7-18); CALCIUM 8.4 mg/dL (8.5-10.1); CARBON DIOXIDE 28.8 mmol/L (21-32); CHLORIDE 106 mmol/L (98-107); CKMB % 2.1 % (<4); COR CA(FOR HYPOALB) 9.3 mg/dL (8.5-10.1); COR NA(FOR HYPERGLY) 143 mmol/L (136-145); CREATINE KINASE 48 Units/L (39-308); CREATINE KINASE MB < 1.0 ng/mL (0-4.0); CREATININE 1.84 mg/dL (0.70-1.30); SODIUM 140 mmol/L (136-145); TOTAL PROTEIN 5.7 g/dL (6.4-8.2); TROPONIN I 0.18 ng/mL (0-1.5); eGFR BLACK RACES 48 (>60); eGFR NON BLACK RACES 40 (>60)
[2017-01-08] MEDS: COLCRYS TAB 0.6 MG PO SCH (08:43)
[2017-01-08] MEDS: DILANTIN CAP 100 MG EXT REL PO SCH ×2 (08:44→21:34)
[2017-01-08] MEDS: LOPRESSOR TAB 25 MG PO SCH ×2 (08:44→21:34)
[2017-01-08] MEDS: BUMEX TAB 1 MG PO SCH ×2 (08:44→21:34)
[2017-01-08] MEDS: NORVASC TAB 5 MG PO SCH (08:44)
[2017-01-08] MEDS: PROTONIX INJ 40 MG VIAL IVP SCH (08:44)
[2017-01-08] MEDS: FLOMAX PO SCH (08:44)
[2017-01-08] MEDS: KEPPRA TAB 500 MG PO SCH ×2 (08:44→21:34)
[2017-01-08] MEDS: ZESTRIL TAB 40 MG PO SCH (08:44)
[2017-01-08] MEDS: ULORIC PO SCH (08:45)
[2017-01-08] MEDS ORDERED: NORVASC TAB 5 MG PO SCH (09:00)
[2017-01-08] MEDS: NORCO 5/325 MG TAB PO PRN (15:12)
[2017-01-08] MEDS: MORPHINE SULFATE INJ 2 MG INJ IVP PRN ×2 (17:04→21:49)
[2017-01-08] MEDS: CATAPRES TAB 0.1 MG PO PRN (17:36)
[2017-01-08] MEDS: SNACK - Diabetic Appropriate PO SCH (21:34)
[2017-01-08] MEDS: LIPITOR TAB 40 MG PO SCH (21:34)
[2017-01-08] MEDS: LANTUS SC SCH (21:35)
[2017-01-09] MEDS: NS 1000 ML 1,000 ML IV SCH ×4 (01:18→16:59)
[2017-01-09 05:24] LABS: BASOPHILS # (AUTO) 0.1 X10^3/uL (0.0-0.1); BASOPHILS % (AUTO) 1.5 % (0.2-1.0); EOSINOPHILS # (AUTO) 0.3 x10^3/uL (0.0-0.2); EOSINOPHILS % (AUTO) 4.6 % (0.9-2.9); HEMATOCRIT 34.6 % (42.0-54.0); HEMOGLOBIN 12.5 g/dL (13.5-18.0); LYMPHOCYTES # (AUTO) 2.4 X10^3/uL (1.3-2.9); LYMPHOCYTES % (AUTO) 34.6 % (21.0-51.0); MEAN CORPUSCULAR HEMOGLOBIN 29.5 pg (27.0-34.0); MEAN CORPUSCULAR HGB CONC 36.2 g/dL (33.0-35.0); MEAN CORPUSCULAR VOLUME 81.6 fL (80.0-100.0); MONOCYTES # (AUTO) 0.6 x10^3/uL (0.3-0.8); NEUTROPHILS # (AUTO) 3.6 x10^3/uL (2.2-4.8); NEUTROPHILS % (AUTO) 51.3 % (42.0-75.0); PLATELET COUNT 203 X10^3/uL (150.0-450.0); RED BLOOD COUNT 4.24 X10^6/uL (4.7-6.0); RED CELL DISTRIBUTION WIDTH 14.6 % (11.6-16.5)
[2017-01-09] MEDS: CATAPRES TAB 0.1 MG PO PRN ×2 (05:35→13:43)
[2017-01-09 05:37] LABS: ALANINE AMINOTRANSFERASE 18 Units/L (12-78); ALBUMIN 2.9 g/dL (3.4-5.0); ALKALINE PHOSPHATASE 116 Units/L (46-116); ASPARTATE AMINO TRANSFERASE 18 Units/L (15-37); BLOOD UREA NITROGEN 27 mg/dL (7-18); CALCIUM 8.6 mg/dL (8.5-10.1); CARBON DIOXIDE 26.1 mmol/L (21-32); CHLORIDE 106 mmol/L (98-107); COR CA(FOR HYPOALB) 9.5 mg/dL (8.5-10.1); COR NA(FOR HYPERGLY) 142 mmol/L (136-145); CREATININE 1.46 mg/dL (0.70-1.30); SODIUM 139 mmol/L (136-145); TOTAL PROTEIN 5.8 g/dL (6.4-8.2); eGFR BLACK RACES > 60 (>60); eGFR NON BLACK RACES 52 (>60)
[2017-01-09] MEDS: HumuLIN R SC PRN ×4 (06:24→20:36)
[2017-01-09] MEDS: BUMEX TAB 1 MG PO SCH ×2 (08:39→20:35)
[2017-01-09] MEDS: ZESTRIL TAB 40 MG PO SCH (08:39)
[2017-01-09] MEDS: COLCRYS TAB 0.6 MG PO SCH (08:40)
[2017-01-09] MEDS: DILANTIN CAP 100 MG EXT REL PO SCH ×2 (08:40→20:36)
[2017-01-09] MEDS: FLOMAX PO SCH (08:40)
[2017-01-09] MEDS: ULORIC PO SCH (08:40)
[2017-01-09] MEDS: NORVASC TAB 5 MG PO SCH (08:40)
[2017-01-09] MEDS: KEPPRA TAB 500 MG PO SCH ×2 (08:40→20:36)
[2017-01-09] MEDS: LOPRESSOR TAB 25 MG PO SCH ×2 (08:40→20:35)
[2017-01-09] MEDS: PROTONIX INJ 40 MG VIAL IVP SCH (08:41)
[2017-01-09] MEDS: NORCO 5/325 MG TAB PO PRN (09:27)
--- NOTE | 2017-01-09 11:18 | PCM.PROG ---
Progress Note - Progress Note for Day of Date: 01/09/17 - Subjective Subjective: WAS ADMITTED FOR ALTERED MENTAL STATUS AND CHEST PAIN. HE IS ALERT AND ORIENTED, SITTING UP IN BED ON MORNING ROUNDS. HE REPORTS PASSING OUT ON SUNDAY. HE DENIES CHEST PAIN OR SHORTNESS OF BREATH THIS MORNING. HE HAS A RECENT HISTORY OF CVA AND SEIZURES. LUNGS ARE CLEAR TO AUSCULTATION. VITALS THIS AM ARE 97.5-71-20-99%-179/87. CBC WNL EXCEPT RBC 4.24 , HGB 12.5, HCT 34.6. BUN 27, CREATININE 1.46, GLUCOSE 240, TOTAL BILIRUBIN 0.10 , TOTAL PROTEIN 5.8, ALBUMIN 2.9. DILANTIN LEVEL WAS 12.3. KEPPRA LEVEL PENDING. PATIENT'S BLOOD PRESSURE HAS BEEN ELEVATED, DESPITE RECENT CHANGES TO MEDICATIONS. WE WILL INCREATE NORVASC TO 10MG DAILY. WE WILL OBTAIN AN ECHO. WE PLAN TO RECHECK AM LABS AND FOLLOW UP WITH PATIENT IN AM. - Past Medical Family Social History Past Med/Fam/Surg Hx: No changes since H&P Allergies: Allergies No Known Allergies [NKA] Allergy (Verified 10/28/16 17:51) - Review of Systems ROS: No change since H&P - Vital Signs and I&O's Vital Signs: Temperature 97.5 F Pulse Rate [Right Radial] 71 Pulse Rate 75 Respiratory Rate 20 Blood Pressure [Left Arm] 179/87 Blood Pressure [Right Arm] 174/86 Blood Pressure 191/89 O2 Sat by Pulse Oximetry 99 Intake and Output: Intake & Output 01/06/17 01/07/17 01/08/17 01/09/17 11:59 11:59 11:59 11:59 Intake Total 200 3152 4307 Output Total 500 Balance 200 3152 3807 - Physical Exam Oriented: Normal Eyes: Normal Ear: Normal Nose: Normal Throat: Normal Respiratory: Normal Cardiovascular: Normal : Normal Auscultation: Bowel Sounds: Normal Palpation: Normal Tenderness: Normal Skin: Normal Musculoskeletal: Normal Psychiatric: Normal Mood Description: Calm Affect: Normal Speech Pattern: Clear, Appropriate - Laboratory and Diagnostics Result Diagrams: 01/10/17 03:40 01/10/17 03:40 Labs: Laboratory WBC 7.0 X10^3/uL (3.6-10.0) 01/09/17 04:35 RBC 4.24 X10^6/uL (4.7-6.0) L 01/09/17 04:35 Hgb 12.5 g/dL (13.5-18.0) L 01/09/17 04:35 Hct 34.6 % (42.0-54.0) L 01/09/17 04:35 MCV 81.6 fL (80.0-100.0) 01/09/17 04:35 MCH 29.5 pg (27.0-34.0) 01/09/17 04:35 MCHC 36.2 g/dL (33.0-35.0) H 01/09/17 04:35 RDW 14.6 % (11.6-16.5) 01/09/17 04:35 Plt Count 203 X10^3/uL (150.0-450.0) 01/09/17 04:35 MPV 9.0 fL (7.4-11.0) 01/09/17 04:35 Neut % 51.3 % (42.0-75.0) 01/09/17 04:35 Lymph % 34.6 % (21.0-51.0) 01/09/17 04:35 [place] % 8.0 % (0.0-13.0) 01/09/17 04:35 Eos % 4.6 % (0.9-2.9) H 01/09/17 04:35 Baso % 1.5 % (0.2-1.0) H 01/09/17 04:35 Neut # 3.6 x10^3/uL (2.2-4.8) 01/09/17 04:35 Lymph # 2.4 X10^3/uL (1.3-2.9) 01/09/17 04:35 [place] # 0.6 x10^3/uL (0.3-0.8) 01/09/17 04:35 Eos # 0.3 x10^3/uL (0.0-0.2) H 01/09/17 04:35 Baso # 0.1 X10^3/uL (0.0-0.1) 01/09/17 04:35 Absolute Nucleated RBC 0.1 /100WBC 01/09/17 04:35 INR Target Range - 01/06/17 14:05 INR 0.96 (0.8-1.3) 01/06/17 14:05 PTT 26.9 SECONDS (22.9-36.5) 01/06/17 14:05 PTT Comment - 01/06/17 14:05 Sodium 139 mmol/L (136-145) 01/09/17 04:35 Corrected Sodium 142 mmol/L (136-145) 01/09/17 04:35 Potassium 3.7 mmol/L (3.5-5.1) 01/09/17 04:35 Chloride 106 mmol/L (98-107) 01/09/17 04:35 Carbon Dioxide 26.1 mmol/L (21-32) 01/09/17 04:35 BUN 27 mg/dL (7-18) H 01/09/17 04:35 Creatinine 1.46 mg/dL (0.70-1.30) H 01/09/17 04:35 Est GFR (MDRD) Af Amer > 60 (>60) 01/09/17 04:35 Est GFR (MDRD) Non-Af 52 (>60) L 01/09/17 04:35 Glucose 240 mg/dL (65-99) H 01/09/17 04:35 Calcium 8.6 mg/dL (8.5-10.1) 01/09/17 04:35 Corrected Calcium 9.5 mg/dL (8.5-10.1) 01/09/17 04:35 Magnesium 2.3 mg/dL (1.7-2.9) 01/06/17 14:05 Total Bilirubin 0.10 mg/dL (0.2-1.0) L 01/09/17 04:35 AST 18 Units/L (15-37) 01/09/17 04:35 ALT 18 Units/L (12-78) 01/09/17 04:35 Alkaline Phosphatase 116 Units/L (46-116) 01/09/17 04:35 Creatine Kinase 48 Units/L (39-308) 01/08/17 04:10 CK-MB (CK-2) < 1.0 ng/mL (0-4.0) 01/08/17 04:10 CK/CKMB % Calc 2.1 % (<4) 01/08/17 04:10 Troponin I 0.18 ng/mL (0-1.5) 01/08/17 04:10 Total Protein 5.8 g/dL (6.4-8.2) L 01/09/17 04:35 Albumin 2.9 g/dL (3.4-5.0) L 01/09/17 04:35 Globulin 2.9 g/dL (2.5-4.5) 01/09/17 04:35 Albumin/Globulin Ratio 1.0 Ratio (1.1-2.1) L 01/09/17 04:35 Triglycerides 953 mg/dL (0-150) H 01/07/17 05:15 Cholesterol 222 mg/dL (0-200) H 01/07/17 05:15 LDL Cholesterol, Calc 7 mg/dL (0-100) 01/07/17 05:15 HDL Cholesterol 24 mg/dL (40-60) L 01/07/17 05:15 Cholesterol/HDL Ratio 9.3 (0.0-5.0) H 01/07/17 05:15 Specimen Type Clean catch urine 01/06/17 16:44 Urine Color Yellow (YELLOW) 01/06/17 16:44 Urine Appearance Clear (CLEAR) 01/06/17 16:44 Urine pH 5.0 (5.0 - 8.0) 01/06/17 16:44 Ur Specific [place] 1.010 (1.000-1.030) 01/06/17 16:44 Urine Protein 2+ (NEGATIVE) 01/06/17 16:44 Urine Glucose (UA) 4+ (NEGATIVE) 01/06/17 16:44 Urine Ketones Negative (NEGATIVE) 01/06/17 16:44 Urine Occult Blood 1+ (NEGATIVE) 01/06/17 16:44 Urine Nitrite Negative (NEGATIVE) 01/06/17 16:44 Urine Bilirubin Negative (NEGATIVE) 01/06/17 16:44 Urine Urobilinogen Normal (NORMAL) 01/06/17 16:44 Ur Leukocyte Esterase Negative (NEGATIVE) 01/06/17 16:44 Urine RBC Rare /HPF (NEGATIVE) 01/06/17 16:44 Urine WBC Rare /HPF (NEGATIVE) 01/06/17 16:44 Ur Squamous Epith Cells Rare /HPF (NEGATIVE) 01/06/17 16:44 Amorphous Sediment Trace /HPF (NEGATIVE) 01/06/17 16:44 Urine Bacteria Negative /HPF (NEGATIVE) 01/06/17 16:44 Ur Culture Indicated? No/not indicated 01/06/17 16:44 Phenytoin 12.3 ug/mL (10-20) 01/06/17 14:05 - Plan (1) Altered mental status Status: Acute Qualifiers: Altered mental status type: unspecified Qualified Code(s): R41.82 - Altered mental status, unspecified Plan: CONTINUE TO MONITOR (2) Chest pain, rule out acute myocardial infarction Status: Acute Plan: CONTINUE TELEMETRY, SUPPLEMENTAL OXYGEN, CONTINUE TO MONITOR
[2017-01-09] MEDS: SNACK - Diabetic Appropriate PO SCH (20:20)
[2017-01-09] MEDS: LANTUS SC SCH (20:37)
[2017-01-09] MEDS: LIPITOR TAB 40 MG PO SCH (20:39)
[2017-01-09] MEDS: MORPHINE SULFATE INJ 2 MG INJ IVP PRN (20:50)
[2017-01-10] MEDS: NS 1000 ML 1,000 ML IV SCH ×5 (00:05→22:29)
[2017-01-10] MEDS: CATAPRES TAB 0.1 MG PO PRN (04:21)
[2017-01-10 05:19] LABS: BASOPHILS # (AUTO) 0.1 X10^3/uL (0.0-0.1); BASOPHILS % (AUTO) 1.5 % (0.2-1.0); EOSINOPHILS # (AUTO) 0.3 x10^3/uL (0.0-0.2); EOSINOPHILS % (AUTO) 4.2 % (0.9-2.9); HEMATOCRIT 34.3 % (42.0-54.0); HEMOGLOBIN 12.3 g/dL (13.5-18.0); LYMPHOCYTES # (AUTO) 2.3 X10^3/uL (1.3-2.9); MEAN CORPUSCULAR HEMOGLOBIN 29.2 pg (27.0-34.0); MEAN CORPUSCULAR HGB CONC 35.7 g/dL (33.0-35.0); MEAN CORPUSCULAR VOLUME 81.8 fL (80.0-100.0); MEAN PLATELET VOLUME 9.2 fL (7.4-11.0); MONOCYTES # (AUTO) 0.6 x10^3/uL (0.3-0.8); MONOCYTES % (AUTO) 7.9 % (0.0-13.0); NEUTROPHILS # (AUTO) 3.8 x10^3/uL (2.2-4.8); NEUTROPHILS % (AUTO) 53.4 % (42.0-75.0); PLATELET COUNT 214 X10^3/uL (150.0-450.0); RED BLOOD COUNT 4.19 X10^6/uL (4.7-6.0); RED CELL DISTRIBUTION WIDTH 14.3 % (11.6-16.5)
[2017-01-10 05:50] LABS: ALBUMIN 2.9 g/dL (3.4-5.0); CALCIUM 8.6 mg/dL (8.5-10.1); COR CA(FOR HYPOALB) 9.5 mg/dL (8.5-10.1); CREATININE 1.7 mg/dL (0.70-1.30); TOTAL PROTEIN 5.7 g/dL (6.4-8.2)
[2017-01-10] MEDS: HumuLIN R SC PRN ×2 (05:54→20:43)
[2017-01-10] MEDS: KEPPRA TAB 500 MG PO SCH ×2 (09:14→20:40)
[2017-01-10] MEDS: BUMEX TAB 1 MG PO SCH ×2 (09:15→20:40)
[2017-01-10] MEDS: DILANTIN CAP 100 MG EXT REL PO SCH ×2 (09:15→20:39)
[2017-01-10] MEDS: COLCRYS TAB 0.6 MG PO SCH (09:16)
[2017-01-10] MEDS: FLOMAX PO SCH (09:32)
[2017-01-10] MEDS: NORVASC TAB 5 MG PO SCH (09:32)
[2017-01-10] MEDS: ZESTRIL TAB 40 MG PO SCH ×2 (09:33→20:40)
[2017-01-10] MEDS: NORCO 5/325 MG TAB PO PRN (09:34)
[2017-01-10] MEDS: LOPRESSOR TAB 25 MG PO SCH ×2 (09:37→20:40)
[2017-01-10] MEDS: ULORIC PO SCH (09:38)
[2017-01-10] MEDS ORDERED: PATIENT'S HOME MEDICATION PO PRN ×2 (10:12→13:15)
[2017-01-10] MEDS ORDERED: FIORICET TAB PO PRN (10:16)
--- NOTE | 2017-01-10 11:05 | PCM.PROG ---
Progress Note - Progress Note for Day of Date: 01/10/17 - Subjective Subjective: WAS ADMITTED FOR ALTERED MENTAL STATUS AND CHEST PAIN. HE IS ALERT AND ORIENTED, SITTING UP IN BED ON MORNING ROUNDS. HE IS NOTED WITH COMPLAINTS OF HEADACHE THROUGHOUT YESTERDAY AND THIS MORNING. HE DENIES CHEST PAIN OR SHORTNESS OF BREATH. LUNGS ARE CLEAR TO AUSCULTATION. VITALS THIS AM ARE 97.8-76-16-99%-180/100. CBC WNL EXCEPT RBC 4.19, HGB 12.3, HCT 34.3. BUN 27 , CREATININE 1.70, GLUCOSE 218, TOTAL BILIRUBIN 0.10, TOTAL PROTEIN 5.7, ALBUMIN 2.9. KEPPRA LEVEL PENDING. WE WILL INCREASE LISINOPRIL TO 20MG BID AND START BUPAP 50/325MG 2 TABS Q6H PRN FOR HEADACHE. WE WILL OBTAIN AN ECHO TODAY. WE PLAN TO RECHECK AM LABS AND FOLLOW UP WITH PATIENT IN AM. - Past Medical Family Social History Past Med/Fam/Surg Hx: No changes since H&P Allergies: Allergies No Known Allergies [NKA] Allergy (Verified 10/28/16 17:51) - Review of Systems ROS: No change since H&P - Vital Signs and I&O's Vital Signs: Temperature 97.8 F Pulse Rate [Right Radial] 76 Pulse Rate 75 Respiratory Rate 16 Blood Pressure [Left Arm] 179/87 Blood Pressure [Right Arm] 180/100 Blood Pressure 191/89 O2 Sat by Pulse Oximetry 99 Intake and Output: Intake & Output 01/07/17 01/08/17 01/09/17 01/10/17 11:59 11:59 11:59 11:59 Intake Total 200 3152 4307 4870 Output Total 500 Balance 200 3152 3807 4870 - Physical Exam Oriented: Normal Eyes: Normal Ear: Normal Nose: Normal Throat: Normal Respiratory: Normal Cardiovascular: Normal : Normal Auscultation: Bowel Sounds: Normal Palpation: Normal Tenderness: Normal Skin: Normal Musculoskeletal: Normal Psychiatric: Normal Mood Description: Calm Affect: Normal Speech Pattern: Clear, Appropriate, Unclear - Laboratory and Diagnostics Result Diagrams: 01/10/17 03:40 01/10/17 03:40 Labs: Laboratory WBC 7.0 X10^3/uL (3.6-10.0) 01/10/17 03:40 RBC 4.19 X10^6/uL (4.7-6.0) L 01/10/17 03:40 Hgb 12.3 g/dL (13.5-18.0) L 01/10/17 03:40 Hct 34.3 % (42.0-54.0) L 01/10/17 03:40 MCV 81.8 fL (80.0-100.0) 01/10/17 03:40 MCH 29.2 pg (27.0-34.0) 01/10/17 03:40 MCHC 35.7 g/dL (33.0-35.0) H 01/10/17 03:40 RDW 14.3 % (11.6-16.5) 01/10/17 03:40 Plt Count 214 X10^3/uL (150.0-450.0) 01/10/17 03:40 MPV 9.2 fL (7.4-11.0) 01/10/17 03:40 Neut % 53.4 % (42.0-75.0) 01/10/17 03:40 Lymph % 33.0 % (21.0-51.0) 01/10/17 03:40 [place] % 7.9 % (0.0-13.0) 01/10/17 03:40 Eos % 4.2 % (0.9-2.9) H 01/10/17 03:40 Baso % 1.5 % (0.2-1.0) H 01/10/17 03:40 Neut # 3.8 x10^3/uL (2.2-4.8) 01/10/17 03:40 Lymph # 2.3 X10^3/uL (1.3-2.9) 01/10/17 03:40 [place] # 0.6 x10^3/uL (0.3-0.8) 01/10/17 03:40 Eos # 0.3 x10^3/uL (0.0-0.2) H 01/10/17 03:40 Baso # 0.1 X10^3/uL (0.0-0.1) 01/10/17 03:40 Absolute Nucleated RBC 0.4 /100WBC 01/10/17 03:40 INR Target Range - 01/06/17 14:05 INR 0.96 (0.8-1.3) 01/06/17 14:05 PTT 26.9 SECONDS (22.9-36.5) 01/06/17 14:05 PTT Comment - 01/06/17 14:05 Sodium 140 mmol/L (136-145) 01/10/17 03:40 Corrected Sodium 143 mmol/L (136-145) 01/10/17 03:40 Potassium 3.9 mmol/L (3.5-5.1) 01/10/17 03:40 Chloride 107 mmol/L (98-107) 01/10/17 03:40 Carbon Dioxide 27.0 mmol/L (21-32) 01/10/17 03:40 BUN 27 mg/dL (7-18) H 01/10/17 03:40 Creatinine 1.70 mg/dL (0.70-1.30) H 01/10/17 03:40 Est GFR (MDRD) Af Amer 53 (>60) L 01/10/17 03:40 Est GFR (MDRD) Non-Af 44 (>60) L 01/10/17 03:40 Glucose 218 mg/dL (65-99) H 01/10/17 03:40 Calcium 8.6 mg/dL (8.5-10.1) 01/10/17 03:40 Corrected Calcium 9.5 mg/dL (8.5-10.1) 01/10/17 03:40 Magnesium 2.3 mg/dL (1.7-2.9) 01/06/17 14:05 Total Bilirubin 0.10 mg/dL (0.2-1.0) L 01/10/17 03:40 AST 17 Units/L (15-37) 01/10/17 03:40 ALT 22 Units/L (12-78) 01/10/17 03:40 Alkaline Phosphatase 105 Units/L (46-116) 01/10/17 03:40 Creatine Kinase 48 Units/L (39-308) 01/08/17 04:10 CK-MB (CK-2) < 1.0 ng/mL (0-4.0) 01/08/17 04:10 CK/CKMB % Calc 2.1 % (<4) 01/08/17 04:10 Troponin I 0.18 ng/mL (0-1.5) 01/08/17 04:10 Total Protein 5.7 g/dL (6.4-8.2) L 01/10/17 03:40 Albumin 2.9 g/dL (3.4-5.0) L 01/10/17 03:40 Globulin 2.8 g/dL (2.5-4.5) 01/10/17 03:40 Albumin/Globulin Ratio 1.0 Ratio (1.1-2.1) L 01/10/17 03:40 Triglycerides 953 mg/dL (0-150) H 01/07/17 05:15 Cholesterol 222 mg/dL (0-200) H 01/07/17 05:15 LDL Cholesterol, Calc 7 mg/dL (0-100) 01/07/17 05:15 HDL Cholesterol 24 mg/dL (40-60) L 01/07/17 05:15 Cholesterol/HDL Ratio 9.3 (0.0-5.0) H 01/07/17 05:15 Specimen Type Clean catch urine 01/06/17 16:44 Urine Color Yellow (YELLOW) 01/06/17 16:44 Urine Appearance Clear (CLEAR) 01/06/17 16:44 Urine pH 5.0 (5.0 - 8.0) 01/06/17 16:44 Ur Specific [place] 1.010 (1.000-1.030) 01/06/17 16:44 Urine Protein 2+ (NEGATIVE) 01/06/17 16:44 Urine Glucose (UA) 4+ (NEGATIVE) 01/06/17 16:44 Urine Ketones Negative (NEGATIVE) 01/06/17 16:44 Urine Occult Blood 1+ (NEGATIVE) 01/06/17 16:44 Urine Nitrite Negative (NEGATIVE) 01/06/17 16:44 Urine Bilirubin Negative (NEGATIVE) 01/06/17 16:44 Urine Urobilinogen Normal (NORMAL) 01/06/17 16:44 Ur Leukocyte Esterase Negative (NEGATIVE) 01/06/17 16:44 Urine RBC Rare /HPF (NEGATIVE) 01/06/17 16:44 Urine WBC Rare /HPF (NEGATIVE) 01/06/17 16:44 Ur Squamous Epith Cells Rare /HPF (NEGATIVE) 01/06/17 16:44 Amorphous Sediment Trace /HPF (NEGATIVE) 01/06/17 16:44 Urine Bacteria Negative /HPF (NEGATIVE) 01/06/17 16:44 Ur Culture Indicated? No/not indicated 01/06/17 16:44 Phenytoin 12.3 ug/mL (10-20) 01/06/17 14:05 - Plan (1) Altered mental status Status: Acute Qualifiers: Altered mental status type: unspecified Qualified Code(s): R41.82 - Altered mental status, unspecified Plan: CONTINUE TO MONITOR (2) Chest pain, rule out acute myocardial infarction Status: Acute Plan: CONTINUE TELEMETRY, SUPPLEMENTAL OXYGEN, CONTINUE TO MONITOR (3) Headache Status: Acute Qualifiers: Headache type: post-traumatic Headache chronicity pattern: chronic headache Intractability: intractable Qualified Code(s): G44.321 - Chronic post-traumatic headache, intractable Plan: BUPAP 50/325MG 2 TABS Q6H PRN, CONTINUE TO MONITOR (4) Hypertension Status: Chronic Qualifiers: Hypertension type: essential hypertension Qualified Code(s): I10 - Essential (primary) hypertension Plan: LISINOPRIL 20MG BID, NORVASC 10MG DAILY, LOPRESSOR 25MG BID, CONTINUE TO MONITOR (5) Seizure disorder Status: Acute Plan: CONTINUE KEPPRA, CONTINUE DILANTIN, CONTINUE TO MONITOR (6) BPH (benign prostatic hyperplasia) Status: Chronic Qualifiers: Lower urinary tract symptom presence: unspecified whether lower urinary tract symptoms present Qualified Code(s): N40.0 - Benign prostatic hyperplasia without lower urinary tract symptoms Plan: CONTINUE FLOMAX, CONTINUE TO MONITOR (7) Gout Status: Chronic Qualifiers: Gout site: unspecified site Gout etiology: unspecified cause Chronicity: chronic Presence of tophus: without tophus Qualified Code(s): M1A.9XX0 - Chronic gout, unspecified, without tophus (tophi) Plan: CONTINUE COLCRYS, CONTINUE ULORIC, CONTINUE TO MONITOR
[2017-01-10] MEDS: PROTONIX INJ 40 MG VIAL IVP SCH (11:46)
[2017-01-10] MEDS: DILAUDID INJ IVP PRN (17:24)
[2017-01-10] MEDS: LIPITOR TAB 40 MG PO SCH (20:40)
[2017-01-10] MEDS: SNACK - Diabetic Appropriate PO SCH (20:43)
[2017-01-10] MEDS: LANTUS SC SCH (20:44)
[2017-01-10] MEDS: MORPHINE SULFATE INJ 2 MG INJ IVP PRN (20:53)
[2017-01-11] MEDS: NS 1000 ML 1,000 ML IV SCH ×2 (00:23→09:29)
[2017-01-11 05:22] LABS: BASOPHILS # (AUTO) 0.1 X10^3/uL (0.0-0.1); BASOPHILS % (AUTO) 1.8 % (0.2-1.0); EOSINOPHILS # (AUTO) 0.3 x10^3/uL (0.0-0.2); EOSINOPHILS % (AUTO) 4.4 % (0.9-2.9); HEMATOCRIT 34.3 % (42.0-54.0); HEMOGLOBIN 12.3 g/dL (13.5-18.0); LYMPHOCYTES # (AUTO) 2.2 X10^3/uL (1.3-2.9); LYMPHOCYTES % (AUTO) 33.6 % (21.0-51.0); MEAN CORPUSCULAR HGB CONC 35.9 g/dL (33.0-35.0); MEAN CORPUSCULAR VOLUME 80.9 fL (80.0-100.0); MEAN PLATELET VOLUME 9.1 fL (7.4-11.0); MONOCYTES # (AUTO) 0.5 x10^3/uL (0.3-0.8); MONOCYTES % (AUTO) 7.6 % (0.0-13.0); NEUTROPHILS # (AUTO) 3.4 x10^3/uL (2.2-4.8); NEUTROPHILS % (AUTO) 52.6 % (42.0-75.0); PLATELET COUNT 226 X10^3/uL (150.0-450.0); RED BLOOD COUNT 4.24 X10^6/uL (4.7-6.0); RED CELL DISTRIBUTION WIDTH 14.4 % (11.6-16.5); WHITE BLOOD COUNT 6.6 X10^3/uL (3.6-10.0)
[2017-01-11 05:34] LABS: CALCIUM 8.5 mg/dL (8.5-10.1); CARBON DIOXIDE 27.7 mmol/L (21-32); COR CA(FOR HYPOALB) 9.3 mg/dL (8.5-10.1); CREATININE 1.6 mg/dL (0.70-1.30); TOTAL PROTEIN 6.1 g/dL (6.4-8.2)
[2017-01-11] MEDS: HumuLIN R SC PRN ×2 (05:53→11:54)
[2017-01-11] MEDS: PROTONIX INJ 40 MG VIAL IVP SCH (09:27)
[2017-01-11] MEDS: NORVASC TAB 5 MG PO SCH (09:27)
[2017-01-11] MEDS: DILANTIN CAP 100 MG EXT REL PO SCH (09:28)
[2017-01-11] MEDS: COLCRYS TAB 0.6 MG PO SCH (09:28)
[2017-01-11] MEDS: ZESTRIL TAB 40 MG PO SCH (09:28)
[2017-01-11] MEDS: BUMEX TAB 1 MG PO SCH (09:28)
[2017-01-11] MEDS: LOPRESSOR TAB 25 MG PO SCH (09:29)
[2017-01-11] MEDS: KEPPRA TAB 500 MG PO SCH (09:29)
[2017-01-11] MEDS: FLOMAX PO SCH (09:29)
[2017-01-11] MEDS: ULORIC PO SCH (09:41)
[2017-01-11] MEDS: DILAUDID INJ IVP PRN (09:42)
[2017-01-11 10:39] VITALS: BP 185/89
== END 2017-01-11 12:15 | disposition home or self-care (01) | DRG 948 ==
LOC: ER 14:19 → MED/SURG 21:05 → OBSVTOIN 01-09 08:30
PROVIDERS: ADMIT Internal Medicine; ATTEND Internal Medicine
DX: R41.82 Altered mental status, unspecified (principal); R07.9 Chest pain, unspecified; I16.0 Hypertensive urgency; G40.802 Other epilepsy, not intractable, without status epilepticus; R51 Headache; I25.10 Atherosclerotic heart disease of native coronary artery without angina pectoris; E11.65 Type 2 diabetes mellitus with hyperglycemia; E78.2 Mixed hyperlipidemia; I12.9 Hypertensive chronic kidney disease with stage 1 through stage 4 chronic kidney disease, or unspecified chronic kidney disease; N18.9 Chronic kidney disease, unspecified; E87.1 Hypo-osmolality and hyponatremia; R94.31 Abnormal electrocardiogram [ECG] [EKG]; N40.0 Benign prostatic hyperplasia without lower urinary tract symptoms; M1A.9XX0 Chronic gout, unspecified, without tophus (tophi); M13.89 Other specified arthritis, multiple sites
CPT/HCPCS: 36415; 70450; 71010; 80053; 80061; 80177; 80185; 81001; 82550; 82553; 82947; 83735; 84484; 85025; 85610; 85730; 93005; 93306; 94760; 96365; 96367; 96374; 96375; 99284; A4216; A4222; C9113; G0378; J1815; J2270

== ENCOUNTER 2017-01-23 10:32 | Emergency (ER) | payer OTHER ==
[2017-01-23 10:46] VITALS: BMI 32.8
[2017-01-23 11:01] VITALS: BP 164/86
--- NOTE | 2017-01-23 11:15 | DR.SEIZA ---
HPI - Time Seen Time seen: 10:35 - Complaints Chief Complaint Doctors Comments: Patient was recently discharged from the hospital s/p four day stay for seizure activity. His phenytoin was lower limits of normal 12.3 (10-20) and the levetiracetam 35 (12-46). He is s/p a CVA. Chief Complaint:: EMS STATES " PTS CALLED EMS AND HIS CALLED EMS HE HAD A SEIZURE. AND HE WAS POSTICTAL AND PT WAS HAVING SOME LEFT SIDE WEAKNESS AND HX, CVA AND BRAIN BLEED... Self Treatment fo Chief Complaint: PT IS DROWSY PT ANSWERED EVERY QUESTION DR. SKINNER ASKED NO WEAKENSS NOTED .... - Source History Provided: EMS - Mode of Arrival Mode of Arrival: EMS - Timing Onset of Chief Complaint: 01/23/17 PMH - PMH Past Medical History: Yes Past Medical History: COPD, Coronary Artery Disease, CVA, Depression, Diabetes, Dyslipidemia, Hypertension, [place], Renal Disease, Seizures Past Surgical History: Yes Surgical History: Angioplasty/Stents, Appendectomy, CABG/Valve Surgery, Tonsillectomy - Family History History of Family Medical Conditions: Yes Family Medical History: Diabetes Mellitus, Cancer, [place], Hypertension - Social History Does patient currently use any type of tobacco product: No Have you used tobacco products in the last 12 months: No Type of Tobacco Use: None Does any household member use tobacco: No Alcohol Use: None Do you use any recreational Drugs:: No Lives With: Family Lives Where: Home - infectious screening In the last 2 months have you had wt loss of >10#?: NO Have you had fever, night sweats or hemotysis?: No Have you traveled outside the country in the last 6 months?: No Isolation: Standard ROS - Review of Systems Eyes: No Symptoms Reported ENTM: No Symptoms Reported Respiratoy: No Symptoms Reported Cardiovascular: No Symptoms Reported Gastrointestinal/Abdominal: No Symptoms Reported, Abdominal Pain Neurological: Seizure Musculoskeletal: No Symptoms Reported Integumentary: No Symptoms Reported Hematologic/Lymphatic: No Symptoms Reported Endocrine: No Symptoms Reported Psychiatric: No Symptoms Reported All Other Systems: Reviewed and Negative PE - Vital Signs Vitals: Temperature 97.2 F Pulse Rate [Left Brachial] 69 Pulse Rate 80 Respiratory Rate 18 Blood Pressure [Left Arm] 164/86 Blood Pressure [Right Arm] 166/90 Blood Pressure 186/86 O2 Sat by Pulse Oximetry 99 - General General Appearance: Alert - Head Head Exam: Normal Inspection Head Exam Physical: Abrasion - Eyes Eye exam: Normal Appearance, PERRL, EOMI Eyelids: Normal Inspection: Bilateral Pupils: Regular, Round: Bilateral Sclera/Conjunctival: Normal Inspection: Bilateral Anterior Chamber: Normal Inspection: Bilateral - ENT ENT Exam: Normal Exam, Normal Oropharynx Mouth Exam: Normal Inspection - Neck Neck Exam: Normal Inspection - Chest Chest Inspection: Normal Inspection - Respiratory Respiratory Exam: Normal Lung Sounds Bilat Respiratory Exam: Bilateral Clear to Auscultation - Cardiovascular Cardiovascular Exam: Regular Rate, Normal Rhythm - Abdominal Exam Abdominal Exam: Normal Inspection Abdominal Tenderness: negative: RUQ, RLQ, LUQ, LLQ, Epigastrium, Suprapubic, Diffuse, Mild, Moderate, Severe, Other - Extremities Extremities Exam: Normal Inspection, Full ROM - Back Back Exam: Normal Inspection, Full ROM - Neurologic Neurological Exam: Alert, Oriented X3, CN II-XII Intact - Psychiatric Psychiatric Exam: Normal Affect, Normal Mood - Skin Skin Exam: Warm, Dry, Intact ROR - Labs Reviewed Result Diagrams: 01/23/17 10:55 01/23/17 10:55 Laboratory: WBC 8.0 X10^3/uL (3.6-10.0) 01/23/17 10:55 RBC 4.41 X10^6/uL (4.7-6.0) L 01/23/17 10:55 Hgb 12.5 g/dL (13.5-18.0) L 01/23/17 10:55 Hct 35.9 % (42.0-54.0) L 01/23/17 10:55 MCV 81.5 fL (80.0-100.0) 01/23/17 10:55 MCH 28.4 pg (27.0-34.0) 01/23/17 10:55 MCHC 34.9 g/dL (33.0-35.0) 01/23/17 10:55 RDW 13.9 % (11.6-16.5) 01/23/17 10:55 Plt Count 179 X10^3/uL (150.0-450.0) 01/23/17 10:55 MPV 8.7 fL (7.4-11.0) 01/23/17 10:55 Neut % 68.4 % (42.0-75.0) 01/23/17 10:55 Lymph % 20.1 % (21.0-51.0) L 01/23/17 10:55 [place] % 7.1 % (0.0-13.0) 01/23/17 10:55 Eos % 3.8 % (0.9-2.9) H 01/23/17 10:55 Baso % 0.6 % (0.2-1.0) 01/23/17 10:55 Neut # 5.5 x10^3/uL (2.2-4.8) H 01/23/17 10:55 Lymph # 1.6 X10^3/uL (1.3-2.9) 01/23/17 10:55 [place] # 0.6 x10^3/uL (0.3-0.8) 01/23/17 10:55 Eos # 0.3 x10^3/uL (0.0-0.2) H 01/23/17 10:55 Baso # 0.1 X10^3/uL (0.0-0.1) 01/23/17 10:55 Absolute Nucleated RBC 0.0 /100WBC 01/23/17 10:55 Sodium 140 mmol/L (136-145) 01/23/17 10:55 Corrected Sodium 146 mmol/L (136-145) H 01/23/17 10:55 Potassium 4.8 mmol/L (3.5-5.1) 01/23/17 10:55 Chloride 104 mmol/L (98-107) 01/23/17 10:55 Carbon Dioxide 30.8 mmol/L (21-32) 01/23/17 10:55 BUN 27 mg/dL (7-18) H 01/23/17 10:55 Creatinine 1.81 mg/dL (0.70-1.30) H 01/23/17 10:55 Est GFR (MDRD) Af Amer 49 (>60) L 01/23/17 10:55 Est GFR (MDRD) Non-Af 41 (>60) L 01/23/17 10:55 Glucose 350 mg/dL (65-99) H 01/23/17 10:55 Calcium 8.8 mg/dL (8.5-10.1) 01/23/17 10:55 Corrected Calcium 9.4 mg/dL (8.5-10.1) 01/23/17 10:55 Total Bilirubin 0.20 mg/dL (0.2-1.0) 01/23/17 10:55 AST 15 Units/L (15-37) 01/23/17 10:55 ALT 26 Units/L (12-78) 01/23/17 10:55 Alkaline Phosphatase 151 Units/L (46-116) H 01/23/17 10:55 Total Protein 6.4 g/dL (6.4-8.2) 01/23/17 10:55 Albumin 3.3 g/dL (3.4-5.0) L 01/23/17 10:55 Globulin 3.1 g/dL (2.5-4.5) 01/23/17 10:55 Albumin/Globulin Ratio 1.1 Ratio (1.1-2.1) 01/23/17 10:55 Phenytoin 9.9 ug/mL (10-20) L 01/23/17 10:55 - Diagnosis Discharge Problem: Uncontrolled seizures Qualifiers: Convulsion type: post-traumatic Qualified Code(s): R56.1 - Post traumatic seizures - Discharge Plan Condition: Stable - Follow ups/Referrals Follow ups/Referrals: NFD,None [Primary Care Provider] - 3 days - Instructions
[2017-01-23] MEDS ORDERED: MORPHINE SULFATE INJ 4 MG IVP ONE (11:16)
[2017-01-23 11:23] LABS: ALBUMIN 3.3 g/dL (3.4-5.0); CALCIUM 8.8 mg/dL (8.5-10.1); CARBON DIOXIDE 30.8 mmol/L (21-32); COR CA(FOR HYPOALB) 9.4 mg/dL (8.5-10.1); CREATININE 1.81 mg/dL (0.70-1.30); TOTAL PROTEIN 6.4 g/dL (6.4-8.2)
[2017-01-23 11:27] LABS: BASOPHILS # (AUTO) 0.1 X10^3/uL (0.0-0.1); BASOPHILS % (AUTO) 0.6 % (0.2-1.0); EOSINOPHILS # (AUTO) 0.3 x10^3/uL (0.0-0.2); EOSINOPHILS % (AUTO) 3.8 % (0.9-2.9); HEMATOCRIT 35.9 % (42.0-54.0); HEMOGLOBIN 12.5 g/dL (13.5-18.0); LYMPHOCYTES # (AUTO) 1.6 X10^3/uL (1.3-2.9); LYMPHOCYTES % (AUTO) 20.1 % (21.0-51.0); MEAN CORPUSCULAR HEMOGLOBIN 28.4 pg (27.0-34.0); MEAN CORPUSCULAR HGB CONC 34.9 g/dL (33.0-35.0); MEAN CORPUSCULAR VOLUME 81.5 fL (80.0-100.0); MEAN PLATELET VOLUME 8.7 fL (7.4-11.0); MONOCYTES # (AUTO) 0.6 x10^3/uL (0.3-0.8); MONOCYTES % (AUTO) 7.1 % (0.0-13.0); NEUTROPHILS # (AUTO) 5.5 x10^3/uL (2.2-4.8); NEUTROPHILS % (AUTO) 68.4 % (42.0-75.0); PLATELET COUNT 179 X10^3/uL (150.0-450.0); RED BLOOD COUNT 4.41 X10^6/uL (4.7-6.0); RED CELL DISTRIBUTION WIDTH 13.9 % (11.6-16.5)
[2017-01-23] MEDS ORDERED: NS 1000 ML 1,000 ML ONE (11:32)
[2017-01-23] MEDS ORDERED: MORPHINE SULFATE INJ 4 MG ONE (11:33)
[2017-01-23] MEDS ORDERED: NS 1000 ML 1,000 ML IV SCH (12:00)
[2017-01-23] MEDS ORDERED: DILANTIN CAP 100 MG EXT REL PO ONE ×2 (13:05→13:12)
== END 2017-01-23 13:26 | disposition home or self-care (01) ==
LOC: ER 10:42
DX: R56.1 Post traumatic seizures (principal)
CPT/HCPCS: 36415; 80053; 80177; 80185; 85025; 96365; 96367; 96374; 99282; 99283; J2270

== ENCOUNTER → 2017-01-31 | Outpatient (CLI) | payer OTHER ==
[2017-01-23 11:01] VITALS: BP 164/86
== END | disposition home or self-care (01) ==
LOC: LAB 13:27
PROVIDERS: ATTEND Internal Medicine
DX: G40.802 Other epilepsy, not intractable, without status epilepticus (principal); Z51.81 Encounter for therapeutic drug level monitoring
CPT/HCPCS: 36415; 80185

== ENCOUNTER 2017-02-27 16:34 | Observation (INO) | payer OTHER ==
--- NOTE | 2017-02-27 16:50 | DR.AMS ---
HPI - Time Seen Time seen: 16:45 - PCP Primary Care Physician: kenny - Complaint Chief Complaint:: pt says " pt has been breathing but unresposive for 15min now". checked pt blood sugar at this time its 344 - Reviewed Nurses Notes Reviewed: Yes - Source History Provided: Significant Other - Mode of Arrival Mode of Arrival: Wheelchair - Timing Onset of Chief Complaint: 02/27/17 Came On: Suddenly Symptoms: Unchanged - Duration Duration: Constant Duration: Hours - Quality Quality: Confusion PMH - PMH Past Medical History: Yes Past Medical History: COPD, Coronary Artery Disease, CVA, Depression, Diabetes, Dyslipidemia, Hypertension, [place], Renal Disease, Seizures Past Surgical History: Yes Surgical History: Angioplasty/Stents, Appendectomy, CABG/Valve Surgery, Tonsillectomy - Family History History of Family Medical Conditions: Yes Family Medical History: Diabetes Mellitus, Cancer, [place], Hypertension - Social History Does patient currently use any type of tobacco product: No Have you used tobacco products in the last 12 months: No Type of Tobacco Use: Cigarettes Does any household member use tobacco: No Alcohol Use: None Do you use any recreational Drugs:: No Lives With: Family Lives Where: Home - infectious screening In the last 2 months have you had wt loss of >10#?: NO Have you had fever, night sweats or hemotysis?: No Have you traveled outside the country in the last 6 months?: No Isolation: Standard PE - Vitals Vital Signs: Temp Pulse Pulse Resp BP BP BP 02/27/17 18:00 69 18 164/82 02/27/17 17:55 70 15 169/81 02/27/17 16:43 98 F 76 18 166/75 01/23/17 11:00 164/86 164/86 01/11/17 04:00 166/90 Pulse Ox 02/27/17 18:00 100 02/27/17 17:55 98 02/27/17 16:43 100 01/23/17 11:00 01/11/17 04:00 ROR - Labs Reviewed Result Diagrams: 03/01/17 05:30 03/01/17 05:30 Laboratory: WBC 8.3 X10^3/uL (3.6-10.0) 02/27/17 16:57 RBC 4.40 X10^6/uL (4.7-6.0) L 02/27/17 16:57 Hgb 12.8 g/dL (13.5-18.0) L 02/27/17 16:57 Hct 36.2 % (42.0-54.0) L 02/27/17 16:57 MCV 82.2 fL (80.0-100.0) 02/27/17 16:57 MCH 29.0 pg (27.0-34.0) 02/27/17 16:57 MCHC 35.3 g/dL (33.0-35.0) H 02/27/17 16:57 RDW 14.3 % (11.6-16.5) 02/27/17 16:57 Plt Count 204 X10^3/uL (150.0-450.0) 02/27/17 16:57 MPV 8.2 fL (7.4-11.0) 02/27/17 16:57 Neut % 63.4 % (42.0-75.0) 02/27/17 16:57 Lymph % 23.8 % (21.0-51.0) 02/27/17 16:57 [place] % 8.2 % (0.0-13.0) 02/27/17 16:57 Eos % 3.3 % (0.9-2.9) H 02/27/17 16:57 Baso % 1.3 % (0.2-1.0) H 02/27/17 16:57 Neut # 5.3 x10^3/uL (2.2-4.8) H 02/27/17 16:57 Lymph # 2.0 X10^3/uL (1.3-2.9) 02/27/17 16:57 [place] # 0.7 x10^3/uL (0.3-0.8) 02/27/17 16:57 Eos # 0.3 x10^3/uL (0.0-0.2) H 02/27/17 16:57 Baso # 0.1 X10^3/uL (0.0-0.1) 02/27/17 16:57 Absolute Nucleated RBC 0.0 /100WBC 02/27/17 16:57 INR Target Range - 02/27/17 16:57 INR 1.00 (0.8-1.3) 02/27/17 16:57 PTT 30.0 SECONDS (22.9-36.5) 02/27/17 16:57 PTT Comment - 02/27/17 16:57 Sodium 136 mmol/L (136-145) 02/27/17 16:57 Corrected Sodium 142 mmol/L (136-145) 02/27/17 16:57 Potassium 4.1 mmol/L (3.5-5.1) 02/27/17 16:57 Chloride 102 mmol/L (98-107) 02/27/17 16:57 Carbon Dioxide 28.7 mmol/L (21-32) 02/27/17 16:57 BUN 48 mg/dL (7-18) H 02/27/17 16:57 Creatinine 2.19 mg/dL (0.70-1.30) H 02/27/17 16:57 Est GFR (MDRD) Af Amer 40 (>60) L 02/27/17 16:57 Est GFR (MDRD) Non-Af 33 (>60) L 02/27/17 16:57 Glucose 353 mg/dL (65-99) H 02/27/17 16:57 POC Glucose (mg/dL) 366 mg/dL (65-99) H 02/27/17 16:40 Calcium 8.8 mg/dL (8.5-10.1) 02/27/17 16:57 Corrected Calcium TNP 02/27/17 16:57 Total Bilirubin 0.20 mg/dL (0.2-1.0) 02/27/17 16:57 AST 17 Units/L (15-37) 02/27/17 16:57 ALT 23 Units/L (12-78) 02/27/17 16:57 Alkaline Phosphatase 150 Units/L (46-116) H 02/27/17 16:57 Creatine Kinase 98 Units/L (39-308) 02/27/17 16:57 CK-MB (CK-2) 1.1 ng/mL (0-4.0) 02/27/17 16:57 CK/CKMB % Calc 1.1 % (<4) 02/27/17 16:57 Troponin I 0.42 ng/mL (0-1.5) 02/27/17 16:57 Total Protein 6.7 g/dL (6.4-8.2) 02/27/17 16:57 Albumin 3.4 g/dL (3.4-5.0) 02/27/17 16:57 Globulin 3.3 g/dL (2.5-4.5) 02/27/17 16:57 Albumin/Globulin Ratio 1.0 Ratio (1.1-2.1) L 02/27/17 16:57 - Diagnosis Discharge Problem: Abnormal cardiac enzyme level Mental status alteration Qualifiers: Altered mental status type: transient alteration of awareness Qualified Code(s) : R40.4 - Transient alteration of awareness - Discharge Plan Disposition: ADMITTED INPATIENT Condition: Stable - Follow ups/Referrals - Instructions
[2017-02-27 17:06] LABS: BASOPHILS # (AUTO) 0.1 X10^3/uL (0.0-0.1); BASOPHILS % (AUTO) 1.3 % (0.2-1.0); EOSINOPHILS # (AUTO) 0.3 x10^3/uL (0.0-0.2); EOSINOPHILS % (AUTO) 3.3 % (0.9-2.9); HEMATOCRIT 36.2 % (42.0-54.0); HEMOGLOBIN 12.8 g/dL (13.5-18.0); LYMPHOCYTES % (AUTO) 23.8 % (21.0-51.0); MEAN CORPUSCULAR HGB CONC 35.3 g/dL (33.0-35.0); MEAN CORPUSCULAR VOLUME 82.2 fL (80.0-100.0); MEAN PLATELET VOLUME 8.2 fL (7.4-11.0); MONOCYTES # (AUTO) 0.7 x10^3/uL (0.3-0.8); MONOCYTES % (AUTO) 8.2 % (0.0-13.0); NEUTROPHILS # (AUTO) 5.3 x10^3/uL (2.2-4.8); NEUTROPHILS % (AUTO) 63.4 % (42.0-75.0); PLATELET COUNT 204 X10^3/uL (150.0-450.0); RED CELL DISTRIBUTION WIDTH 14.3 % (11.6-16.5); WHITE BLOOD COUNT 8.3 X10^3/uL (3.6-10.0)
--- NOTE | 2017-02-27 17:39 | CT ---
HISTORY: Unresponsive Study: CT brain without contrast Comparison: 01/06/2017 Technique: Multiple axial images of the brain were obtained from the skull base to the vertex without administra tion of IV contrast. Coronal and sagittal reformats were performed. Dose reduction procedures were us ed with mA/kv adjusted for body size. Findings: No acute intraparenchymal hemorrhage or mass can be identified. No extra-axial fluid collections are seen. No alteration in the attenuation of the brain parenchyma can be identified to suggest acute o r subacute ischemic change. The ventricular system is symmetric and nondilated. Mild cortical atrop hy is present. Scattered areas of decreased attenuation are present in the periventricular white harley er most likely representing small vessel disease and unchanged from the prior examination. The extrac ranial structures are grossly unremarkable. If acute CVA is a strong clinical consideration MRI with diffusion imaging is recommended for further evaluation. IMPRESSION: 1. No acute intracranial process can be identified. 2. Mild cortical atrophy 3. Mild small vessel disease, stable Reported By:
[2017-02-27 17:41] LABS: BLOOD UREA NITROGEN 48 mg/dL (7-18); CALCIUM 8.8 mg/dL (8.5-10.1); CARBON DIOXIDE 28.7 mmol/L (21-32); CHLORIDE 102 mmol/L (98-107); COR NA(FOR HYPERGLY) 142 mmol/L (136-145); CREATININE 2.19 mg/dL (0.70-1.30); SODIUM 136 mmol/L (136-145); TROPONIN I 0.42 ng/mL (0-1.5); eGFR BLACK RACES 40 (>60); eGFR NON BLACK RACES 33 (>60)
--- NOTE | 2017-02-27 17:42 | RAD ---
HISTORY: Unresponsive Study: Chest AP portable Comparison: 01/06/2017 Findings: There is a pacemaker present in the left axilla. The patient is status post median sternotomy and CAB G. The heart is enlarged. No congestive heart failure is noted. No acute alveolar infiltrates or pleu ral effusions are identified. The bony thorax is unremarkable. IMPRESSION: Cardiomegaly without congestive heart failure Lungs clear Reported By:
[2017-02-27 17:45] LABS: ALANINE AMINOTRANSFERASE 23 Units/L (12-78); ALBUMIN 3.4 g/dL (3.4-5.0); ALKALINE PHOSPHATASE 150 Units/L (46-116); ASPARTATE AMINO TRANSFERASE 17 Units/L (15-37); CKMB % 1.1 % (<4); CREATINE KINASE 98 Units/L (39-308); CREATINE KINASE MB 1.1 ng/mL (0-4.0); TOTAL PROTEIN 6.7 g/dL (6.4-8.2)
[2017-02-27 21:35] LABS: TROPONIN I 0.41 ng/mL (0-1.5)
[2017-02-27] MEDS ORDERED: DIAZEPAM PO PRN ×2 (22:39→23:56)
[2017-02-27] MEDS ORDERED: NITROSTAT SL PRN (22:39)
[2017-02-27] MEDS ORDERED: NS 1000 ML 1,000 ML ONE (22:43)
[2017-02-27] MEDS ORDERED: BUMETANIDE 1 MG PO SCH (22:45)
[2017-02-27] MEDS ORDERED: LEVETIRACETAM 1500 MG PO SCH (22:45)
[2017-02-27] MEDS: NS 1000 ML 1,000 ML IV SCH (22:47)
[2017-02-27] MEDS ORDERED: ZESTRIL TAB 40 MG PO SCH (23:00)
[2017-02-27] MEDS ORDERED: FLUVIRIN IM ONE (23:24)
[2017-02-27 23:27] VITALS: BMI 35.2
[2017-02-27] MEDS ORDERED: ZESTRIL TAB 20 MG ONE (23:50)
[2017-02-28] MEDS: BUMEX TAB 1 MG PO SCH ×3 (00:03→20:11)
[2017-02-28] MEDS: ATIVAN TAB 0.5 MG PO SCH ×4 (00:03→21:30)
[2017-02-28] MEDS: LOPRESSOR TAB 25 MG PO SCH ×3 (00:03→20:12)
[2017-02-28] MEDS: CATAPRES TAB 0.1 MG PO SCH ×3 (00:05→20:12)
[2017-02-28] MEDS: DILANTIN CAP 100 MG EXT REL PO SCH ×3 (00:05→20:12)
[2017-02-28] MEDS: KEPPRA TAB 500 MG PO SCH ×3 (00:06→20:12)
[2017-02-28] MEDS: ZESTRIL TAB 20 MG PO SCH ×3 (00:06→20:12)
[2017-02-28] MEDS: NORCO 5/325 MG TAB PO PRN ×3 (00:15→20:11)
[2017-02-28] MEDS ORDERED: VALIUM PO PRN (00:33)
[2017-02-28 01:46] LABS: CKMB % 1.2 % (<4); CREATINE KINASE 85 Units/L (39-308); CREATINE KINASE MB < 1.0 ng/mL (0-4.0); TROPONIN I 0.36 ng/mL (0-1.5)
[2017-02-28 05:33] LABS: BASOPHILS # (AUTO) 0.1 X10^3/uL (0.0-0.1); BASOPHILS % (AUTO) 0.7 % (0.2-1.0); EOSINOPHILS # (AUTO) 0.3 x10^3/uL (0.0-0.2); EOSINOPHILS % (AUTO) 3.4 % (0.9-2.9); HEMATOCRIT 33.6 % (42.0-54.0); HEMOGLOBIN 12.1 g/dL (13.5-18.0); LYMPHOCYTES # (AUTO) 2.4 X10^3/uL (1.3-2.9); LYMPHOCYTES % (AUTO) 28.6 % (21.0-51.0); MEAN CORPUSCULAR HEMOGLOBIN 29.4 pg (27.0-34.0); MEAN CORPUSCULAR HGB CONC 35.8 g/dL (33.0-35.0); MEAN PLATELET VOLUME 8.6 fL (7.4-11.0); MONOCYTES # (AUTO) 0.7 x10^3/uL (0.3-0.8); MONOCYTES % (AUTO) 8.1 % (0.0-13.0); NEUTROPHILS % (AUTO) 59.2 % (42.0-75.0); PLATELET COUNT 196 X10^3/uL (150.0-450.0); RED CELL DISTRIBUTION WIDTH 14.2 % (11.6-16.5); WHITE BLOOD COUNT 8.5 X10^3/uL (3.6-10.0)
[2017-02-28 05:46] LABS: ALBUMIN 2.9 g/dL (3.4-5.0); CALCIUM 8.4 mg/dL (8.5-10.1); CARBON DIOXIDE 26.6 mmol/L (21-32); COR CA(FOR HYPOALB) 9.3 mg/dL (8.5-10.1); CREATININE 1.74 mg/dL (0.70-1.30); TOTAL PROTEIN 5.9 g/dL (6.4-8.2)
--- NOTE | 2017-02-28 06:21 | RAD ---
Reported By: ORY: Abnormal cardiac laboratory values Study: Chest AP portable Comparison: 02/27/2017 Findings: The patient is rotated to the left. There is a pacemaker in the left axilla. The patient is status po st median sternotomy and CABG. The heart is enlarged. No congestive heart failure is noted. No acute alveolar infiltrates or pleural effusions are identified. IMPRESSION: Cardiomegaly without congestive heart failure Lungs clear
[2017-02-28] MEDS: HumuLIN R SUBCUT PRN ×3 (06:26→21:24)
[2017-02-28] MEDS: NS 1000 ML 1,000 ML IV SCH ×4 (07:01→23:37)
[2017-02-28] MEDS ORDERED: ZESTRIL TAB 20 MG ONE ×2 (08:44→20:00)
[2017-02-28] MEDS: ULORIC PO SCH (09:07)
[2017-02-28] MEDS: NORVASC TAB 5 MG PO SCH (09:08)
[2017-02-28] MEDS: FLOMAX PO SCH (09:09)
[2017-02-28] MEDS: COLCRYS TAB 0.6 MG PO SCH (09:09)
[2017-02-28] MEDS: ROBITUSSIN DM PO PRN (18:20)
[2017-02-28] MEDS ORDERED: LIPITOR TAB 40 MG PO SCH (21:00)
[2017-02-28] MEDS ORDERED: LANTUS SC SCH (21:00)
[2017-02-28] MEDS ORDERED: ATORVASTATIN CALCIUM 40 MG PO SCH (21:00)
[2017-03-01 06:19] LABS: BASOPHILS # (AUTO) 0.1 X10^3/uL (0.0-0.1); BASOPHILS % (AUTO) 0.5 % (0.2-1.0); EOSINOPHILS # (AUTO) 0.3 x10^3/uL (0.0-0.2); EOSINOPHILS % (AUTO) 2.7 % (0.9-2.9); HEMATOCRIT 34.5 % (42.0-54.0); HEMOGLOBIN 12.3 g/dL (13.5-18.0); LYMPHOCYTES # (AUTO) 1.4 X10^3/uL (1.3-2.9); LYMPHOCYTES % (AUTO) 13.2 % (21.0-51.0); MEAN CORPUSCULAR HGB CONC 35.5 g/dL (33.0-35.0); MEAN CORPUSCULAR VOLUME 81.7 fL (80.0-100.0); MEAN PLATELET VOLUME 8.5 fL (7.4-11.0); MONOCYTES # (AUTO) 0.9 x10^3/uL (0.3-0.8); NEUTROPHILS # (AUTO) 8.1 x10^3/uL (2.2-4.8); NEUTROPHILS % (AUTO) 75.6 % (42.0-75.0); PLATELET COUNT 199 X10^3/uL (150.0-450.0); RED BLOOD COUNT 4.23 X10^6/uL (4.7-6.0); RED CELL DISTRIBUTION WIDTH 14.3 % (11.6-16.5); WHITE BLOOD COUNT 10.7 X10^3/uL (3.6-10.0)
[2017-03-01] MEDS: ROBITUSSIN DM PO PRN (06:28)
[2017-03-01] MEDS: ATIVAN TAB 0.5 MG PO SCH (06:28)
[2017-03-01] MEDS: NS 1000 ML 1,000 ML IV SCH (06:28)
[2017-03-01] MEDS: HumuLIN R SUBCUT PRN ×2 (06:39→10:55)
[2017-03-01 06:55] LABS: CALCIUM 8.3 mg/dL (8.5-10.1); CARBON DIOXIDE 27.6 mmol/L (21-32); COR CA(FOR HYPOALB) 9.1 mg/dL (8.5-10.1); CREATININE 1.67 mg/dL (0.70-1.30); TOTAL PROTEIN 6.1 g/dL (6.4-8.2)
--- NOTE | 2017-03-01 07:01 | RAD ---
HISTORY: Abnormal cardiac labs. Prior medical history of diabetes, hypertension, myocardial infarcti on and CEA. Study: Single-view chest, done portably Comparison: 02/27/2017 Findings: Cardiac monitoring electrodes are noted on the chest. There is evidence of lower cervical spine surge ry with metallic plate and screws. Left-sided pacemaker is present with intact leads. There is again evidence of thoracotomy with median sternotomy sutures. The trachea is midline. There is cardiomegaly with aortic uncoiling. Lungs and pleural spaces are clear. Osseous structures are intact. IMPRESSION: Multiple postsurgical changes. Cardiomegaly. Clear lungs and pleural spaces. Reported By:
[2017-03-01] MEDS ORDERED: ZESTRIL TAB 20 MG ONE (07:47)
[2017-03-01] MEDS: ULORIC PO SCH (08:19)
[2017-03-01] MEDS: ZESTRIL TAB 20 MG PO SCH (08:19)
[2017-03-01] MEDS: KEPPRA TAB 500 MG PO SCH (08:19)
[2017-03-01] MEDS: LOPRESSOR TAB 25 MG PO SCH (08:20)
[2017-03-01] MEDS: DILANTIN CAP 100 MG EXT REL PO SCH (08:20)
[2017-03-01] MEDS: NORVASC TAB 5 MG PO SCH (08:20)
[2017-03-01] MEDS: CATAPRES TAB 0.1 MG PO SCH (08:20)
[2017-03-01] MEDS: FLOMAX PO SCH (08:20)
[2017-03-01] MEDS: BUMEX TAB 1 MG PO SCH (08:22)
[2017-03-01] MEDS ORDERED: ROCEPHIN 1 GM IV PREMIX 1 GM/50 ML IV.SOLN. IV ONE (09:43)
[2017-03-01] MEDS ORDERED: ROCEPHIN VIAL 1 GM 1 GM in NS 50 ML IV + SPIKE MINIBAG* 50 ML IV SCH (09:45)
[2017-03-01] MEDS: COLCRYS TAB 0.6 MG PO SCH (09:48)
--- NOTE | 2017-03-01 11:31 | DR.H&P ---
H&P - History & Physical for Day of: H&P Date: 02/27/17 - Chief Complaint Chief Complaint: IS A 61 YEAR OLD PATIENT OF OURS WHO PRESENTED TO THE EMERGENCY ROOM UNRESPONSIVE. PATIENT'S REPORTS THAT THEY WERE IN THE CAR ON THE WAY HOME WHEN PATIENT BECAME UNRESPONSIVE. PATIENT'S REPORTS THAT EPISODE BEGAN APPROXIMATELY 15 MINUTES PRIOR TO ARRIVAL TO ER. PATIENT HAS A HISTORY OF THESE EPISODES BEFORE. PERIODS OF UNRESPONSIVENESS AND SEIZURES BEGAN AFTER A BRAIN BLEED THAT OCCURRED IN JULY. PATIENT ALSO HAS A HISTORY OF SEIZURES THAT BEGAN AFTER HIS STROKE. WHEN WENT IN ROOM TO EXAMINE PATIENT, PATIENT AWOKE SPONTANEOUSLY. UPON AWAKENING, PATIENT IS NOT AWARE OF SURROUNDINGS. PATIENT WAS MADE AWARE OF HIS LOCATION AND WHAT WAS GOING ON. PATIENT IS SCHEDULED FOR A SLEEP DEPRIVED EEG. HE ALSO REPORTS A HISTORY OF CAD AND HTN. IS UNSURE OF DATE. ON ARRIVAL TO THE ER, VITALS WERE 98.0-76-18- 100%-166/75. LABS, BRAIN CT, CHEST XRAY, AND EKG WERE OBTAINED. ABNORMAL LAB VALUES INCLUDE THE FOLLOWING: RBC 4.40, HGB 12.8, HCT 36.2, BUN 48, CREATININE 2.19, GLUCOSE 353, ALK PHOS 150, INITIAL SET OF CARDIAC ENZYMES REPORTED A TROPONIN OF 0.42. EKG REPORTED ATRIAL PACED RHYTHM WITH A HR OF 71. CHEST XRAY REPORTED CARDIOMEGALY WITHOUT CHF. LUNGS CLEAR. BRAIN CT REPORTED NO ACUTE INTRACRANIAL PROCESS CAN BE IDENTIFIED. MILD CORTICAL ATROPHY, MILD SMALL VESSEL DISEASE, STABLE. WE ADMITTED PATIENT FOR FURTHER TREATMENT AND EVALUATION. WE RESUMED PATIENTS HOME MEDICATIONS AND STARTED HIM ON NORMAL SALINE AT 125ML/HR. WE WILL CONSULT WITH , FOLLOW UP WITH AM LABS, AND CONTINUE TO MONITOR PATIENT. - Allergies Allergies/Adverse Reactions: Allergies Allergy/AdvReac Type Severity Reaction Status Date / Time No Known Allergies [NKA] Allergy Verified 01/23/17 10:47 - Past Medical History Past Medical History: COPD, Coronary Artery Disease, CVA, Depression, Diabetes, Dyslipidemia, Hypertension, [place], Renal Disease, Seizures Additional Medical History: GOUT - Past Surgical History Surgical History: Angioplasty/Stents, Appendectomy, CABG/Valve Surgery, Tonsillectomy - Family History Family Medical History: Diabetes Mellitus, Cancer, [place], Hypertension - Social History Does patient currently use any type of tobacco product: No Have you used tobacco products in the last 12 months: No Type of Tobacco Use: Cigarettes Does any household member use tobacco: No Alcohol Use: None Drug Use: None - Review of Systems Constitutional: Weakness Eyes: No Symptoms Reported. denies: Vision Change, Conjunctivae Inflammation, Eyelid Inflammation ENT: No Symptoms Reported. denies: Ear Discharge, Nose Discharge, Nose Congestion, Mouth Swelling, Throat Pain, Throat Swelling Respiratory: No Symptoms Reported, Cough. denies: Shortness of Breath, Hemoptysis, Sputum, Wheezing Cardiovascular: No Symptoms Reported. denies: Chest Pain, Paroxysmal Noc. Dyspnea, Light Headedness Gastrointestinal: No Symptoms Reported. denies: Nausea, Vomiting, Abdominal Pain, Diarrhea, Melena, Hematochezia Genitourinary: No Symptoms Reported. denies: Dysuria Musculoskeletal: No Symptoms Reported Skin: No Symptoms Reported. denies: Lesions, Jaundice, Bruising, Wound, Ecchymosis Neurological: Weakness, Confusion, Other (UNRESPONSIVE FOR AN ESTIMATED 15 MINUTES ) - Physical Exam Vital Signs: Temperature 98.7 F Pulse Rate [Right Brachial] 69 Pulse Rate 76 Respiratory Rate 14 Blood Pressure [Left Arm] 121/60 Blood Pressure [Right Arm] 158/71 Blood Pressure 166/75 O2 Sat by Pulse Oximetry 98 Oriented: Unable to test Eyes: Normal. negative: Blurred Vision, Discharge, Photophobia Ear: Normal. negative: Abrasion, Laceration Nose: Normal Throat: Normal Respiratory: Clear Throughout Cardiovascular: Normal. negative: Murmur : Normal Auscultation: Bowel Sounds: Normal Palpation: Normal Tenderness: Normal. negative: Rebound, Guarding, Rigidity Skin: Normal. negative: Wound, Bruising, Ecchymosis Musculoskeletal: Normal Psychiatric: Normal Mood Description: Calm Affect: Normal Speech Pattern: Delayed - Assessment/Plan (1) Altered mental status Qualifiers: Altered mental status type: transient alteration of awareness Qualified Code(s): R40.4 - Transient alteration of awareness Status: Acute Plan: CONSULT , CONTINUE TO MONITOR
--- NOTE | 2017-03-01 12:31 | PCM.PROG ---
Progress Note - Progress Note for Day of Date: 02/28/17 - Subjective Subjective: WAS ADMITTED FOR ALTERED MENTAL STATUS AND ABNORMAL CARDIAC ENZYMES. TODAY, HE IS ALERT AND ORIENTED, LYING IN BED ON MORNING ROUNDS. PATIENT'S IS AT BEDSIDE. TODAY, HE IS NOTED WITH COMPLAINTS OF COUGH AND WEAKNESS. PATIENT REPORTS THAT COUGH BEGAN TWO DAYS AGO. ON EXAMINATION, LUNG SOUNDS ARE NOTED TO BE DIMINISHED THROUGHTOUT. ABDOMEN IS ROUND, SOFT, AND NON-TENDER WITH NORMAL BOWEL SOUNDS NOTED IN ALL QUADRANTS. HE IS UTILIZING OXYGEN VIA NASAL CANNULA AT 2L/MIN AT THIS TIME. HIS VITAL SIGNS THIS MORNING ARE 97.2-69-12-98%-176/73. ABNORMAL LAB VALUES TODAY INCLUDE THE FOLLOWING: RBC 4.10, HGB 12.1, HCT 33.6, BUN 41, CREATININE 1.74, GLUCOSE 241, CALCIUM 8.4, ALK PHOS 122, TOTAL PROTEIN 5.9, ALBUMIN 2.9. TROPONIN HAS DECREASED TO 0.41, AND THEN 0.36. MOST RECENT EKG REPORTED ATRIAL PACED RHYTHM WITH HR OF 71. CHEST XRAY REPORTED CARDIOMEGALY WITHOUT CHF, LUNGS CLEAR. TODAY , WE PLAN TO SPEAK TO , OBTAIN AN EEG, AND ORDER ROBITUSSIN DM QID FOR COUGH. OTHERWISE, WE WILL FOLLOW UP WITH AM LABS AND CHEST XRAYAND CONTINUE TO MONITOR PATIENT. - Past Medical Family Social History Past Med/Fam/Surg Hx: No changes since H&P Allergies: Allergies No Known Allergies [NKA] Allergy (Verified 01/23/17 10:47) - Review of Systems ROS: No change since H&P - Vital Signs and I&O's Vital Signs: Temperature 98.7 F Pulse Rate [Right Brachial] 69 Pulse Rate 76 Respiratory Rate 14 Blood Pressure [Left Arm] 121/60 Blood Pressure [Right Arm] 158/71 Blood Pressure 166/75 O2 Sat by Pulse Oximetry 98 Intake and Output: Intake & Output 02/27/17 02/28/17 03/01/17 03/02/17 11:59 11:59 11:59 11:59 Intake Total 1350 4177 Output Total 700 Balance 1350 3477 - Physical Exam Oriented: Unable to test Eyes: Normal. negative: Blurred Vision, Discharge, Photophobia Ear: Normal. negative: Abrasion, Laceration Nose: Normal Throat: Normal Respiratory: Diminished Cardiovascular: Normal. negative: Murmur : Normal Auscultation: Bowel Sounds: Normal Palpation: Normal Tenderness: Normal. negative: Rebound, Guarding, Rigidity Skin: Normal. negative: Wound, Bruising, Ecchymosis Musculoskeletal: Normal Psychiatric: Normal Mood Description: Calm Affect: Normal Speech Pattern: Delayed - Laboratory and Diagnostics Result Diagrams: 03/01/17 05:30 03/01/17 05:30 Labs: Laboratory WBC 10.7 X10^3/uL (3.6-10.0) H 03/01/17 05:30 RBC 4.23 X10^6/uL (4.7-6.0) L 03/01/17 05:30 Hgb 12.3 g/dL (13.5-18.0) L 03/01/17 05:30 Hct 34.5 % (42.0-54.0) L 03/01/17 05:30 MCV 81.7 fL (80.0-100.0) 03/01/17 05:30 MCH 29.0 pg (27.0-34.0) 03/01/17 05:30 MCHC 35.5 g/dL (33.0-35.0) H 03/01/17 05:30 RDW 14.3 % (11.6-16.5) 03/01/17 05:30 Plt Count 199 X10^3/uL (150.0-450.0) 03/01/17 05:30 MPV 8.5 fL (7.4-11.0) 03/01/17 05:30 Neut % 75.6 % (42.0-75.0) H 03/01/17 05:30 Lymph % 13.2 % (21.0-51.0) L 03/01/17 05:30 [place] % 8.0 % (0.0-13.0) 03/01/17 05:30 Eos % 2.7 % (0.9-2.9) 03/01/17 05:30 Baso % 0.5 % (0.2-1.0) 03/01/17 05:30 Neut # 8.1 x10^3/uL (2.2-4.8) H 03/01/17 05:30 Lymph # 1.4 X10^3/uL (1.3-2.9) 03/01/17 05:30 [place] # 0.9 x10^3/uL (0.3-0.8) H 03/01/17 05:30 Eos # 0.3 x10^3/uL (0.0-0.2) H 03/01/17 05:30 Baso # 0.1 X10^3/uL (0.0-0.1) 03/01/17 05:30 Absolute Nucleated RBC 0.0 /100WBC 03/01/17 05:30 INR Target Range - 02/27/17 16:57 INR 1.00 (0.8-1.3) 02/27/17 16:57 PTT 30.0 SECONDS (22.9-36.5) 02/27/17 16:57 PTT Comment - 02/27/17 16:57 Sodium 142 mmol/L (136-145) 03/01/17 05:30 Corrected Sodium 145 mmol/L (136-145) 03/01/17 05:30 Potassium 4.3 mmol/L (3.5-5.1) 03/01/17 05:30 Chloride 109 mmol/L (98-107) H 03/01/17 05:30 Carbon Dioxide 27.6 mmol/L (21-32) 03/01/17 05:30 BUN 34 mg/dL (7-18) H 03/01/17 05:30 Creatinine 1.67 mg/dL (0.70-1.30) H 03/01/17 05:30 Est GFR (MDRD) Af Amer 54 (>60) L 03/01/17 05:30 Est GFR (MDRD) Non-Af 45 (>60) L 03/01/17 05:30 Glucose 205 mg/dL (65-99) H 03/01/17 05:30 POC Glucose (mg/dL) 280 mg/dL (65-99) H 03/01/17 10:51 Calcium 8.3 mg/dL (8.5-10.1) L 03/01/17 05:30 Corrected Calcium 9.1 mg/dL (8.5-10.1) 03/01/17 05:30 Total Bilirubin 0.20 mg/dL (0.2-1.0) 03/01/17 05:30 AST 20 Units/L (15-37) 03/01/17 05:30 ALT 22 Units/L (12-78) 03/01/17 05:30 Alkaline Phosphatase 137 Units/L (46-116) H 03/01/17 05:30 Creatine Kinase 85 Units/L (39-308) 02/28/17 01:05 CK-MB (CK-2) < 1.0 ng/mL (0-4.0) 02/28/17 01:05 CK/CKMB % Calc 1.2 % (<4) 02/28/17 01:05 Troponin I 0.36 ng/mL (0-1.5) 02/28/17 01:05 Total Protein 6.1 g/dL (6.4-8.2) L 03/01/17 05:30 Albumin 3.0 g/dL (3.4-5.0) L 03/01/17 05:30 Globulin 3.1 g/dL (2.5-4.5) 03/01/17 05:30 Albumin/Globulin Ratio 1.0 Ratio (1.1-2.1) L 03/01/17 05:30 Streptococcus Screen Negative (NEGATIVE) 03/01/17 08:06 - Plan (1) Altered mental status Status: Acute Qualifiers: Altered mental status type: transient alteration of awareness Qualified Code(s): R40.4 - Transient alteration of awareness Plan: CONSULT , EEG, CONTINUE TO MONITOR (2) Cough Status: Acute Plan: ROBITUSSIN DM 10ML QID, CONTINUE TO MONITOR
[2017-03-01 12:42] VITALS: BP 200/91
--- NOTE | 2017-03-01 14:04 | DR.CONSULT ---
Consult - Consultation for Day of: Date: 03/01/17 - Chief Complaint Chief Complaint: Passing out event versus seizure. - Allergies Allergies/Adverse Reactions: Allergies Allergy/AdvReac Type Severity Reaction Status Date / Time No Known Allergies [NKA] Allergy Verified 01/23/17 10:47 - History of Present Illness History of Present Illness: 61-year-old male patient was seen and examined. Patient was admitted on of the February 2017 after he passed out in his vehicle. This was witnessed by his . Patient had a convulsive seizure in the June 2016. He was taken to the ER in [facility]. He was placed on Dilantin and Keppra. Since then he has been seizure-free up until passing out event as mentioned above. Patient denies any tongue biting, incontinence of bowel or bladder or trauma to any part of his body during the recent event. It may be mentioned that patient has been going through flulike illness with mild elevation in body temperature. He has been coughing. He is awake alert oriented in time place and person. He appears to be slowed down psychomotorically. - Past Medical History Past Medical History: COPD, Coronary Artery Disease, CVA, Depression, Diabetes, Dyslipidemia, Hypertension, [place], Renal Disease, Seizures Additional Medical History: GOUT - Past Surgical History Surgical History: Angioplasty/Stents, Appendectomy, CABG/Valve Surgery, Tonsillectomy - Family History Family Medical History: Diabetes Mellitus, Cancer, [place], Hypertension - Social History Does patient currently use any type of tobacco product: No Have you used tobacco products in the last 12 months: No Type of Tobacco Use: Cigarettes Does any household member use tobacco: No Alcohol Use: None Drug Use: None - Review of Systems Constitutional: See HPI Eyes: No Symptoms Reported ENT: See HPI Respiratory: See HPI Cardiovascular: No Symptoms Reported Gastrointestinal: No Symptoms Reported Genitourinary: No Symptoms Reported Musculoskeletal: No Symptoms Reported Skin: No Symptoms Reported Neurological: See HPI - Physical Exam Vital Signs: Temperature 99.1 F Pulse Rate [Right Brachial] 79 Pulse Rate 76 Respiratory Rate 15 Blood Pressure [Left Arm] 121/60 Blood Pressure [Right Arm] 200/91 Blood Pressure 166/75 O2 Sat by Pulse Oximetry 93 Oriented: Normal Eyes: Normal Ear: Normal Nose: Normal Throat: Normal Respiratory: Rales Throughout Cardiovascular: Normal Auscultation: Bowel Sounds: Normal Palpation: Normal Tenderness: Normal Skin: Normal Musculoskeletal: Normal Psychiatric: Normal, Other (Neurological examination:mental status; patient is somnolent but arousable. He is oriented in time place and person. Speech; is fluent, naming is intact comprehension is intact. Cranial nerve examination; second cranial nerve; visual tierney are intact on confrontation. Third fourth and fifth; extraocular movements are full without any nystagmus. Pupils are 3.5 mm in size round equal and reactive to light. Fifth cranial nerves; facial sensations are intact bilaterally. Seventh cranial nerve; facial symmetry is intact bilaterally. 8 cranial nerves; hearing is intact bilaterally. Ninth and 10th cranial nerve; palate is symmetrical bilaterally. 11th cranial nerve; shoulder shrug is equal and symmetrical bilaterally. 12th cranial nerve;tongue is in midline. Coordination;finger to nose rapid alternating movements are intact. Gait: was not tested. Motor system examination;tone is normal. Strength is 5 over 5equal and symmetrical in upper and lower extremities. DTRs are +1 equal and symmetrical in all muscle groups. Plantars are flexor bilaterally. Sensory system examination; no deficit elicitable.) Mood Description: Calm Affect: Normal Speech Pattern: Clear - Plan Plan: Patient was seen and examined by neurology because of recent passing out event. As per the witness there was no associated convulsive activity, tongue biting, incontinence of bowel or bladder. Patient had a seizure earlier this year which was characterized by convulsions. He was taken to the ER in [place] where he was placed on Dilantin and Keppra. Since then he did not have any convulsive activity. Patient's neurological examination is marked by psychomotor slowing which is very likely related to ongoing flulike illness, mild elevation in body temperature. It is possible that this could have also lowered seizure threshold. Patient had a EEG which did not reveal any electrographic markers of epileptiform activity or seizure activity. At this point I agree with the present management which is addressing the present condition of the patient. I do not think we should make any changes in his present antiepileptic medications. With improvement in his flulike illness I'm expecting his seizures will be better controlled. I will be more than happy to address if there is any further issue.
[2017-03-02] MEDS ORDERED: ROCEPHIN 1 GM IV PREMIX 1 GM/50 ML IV.SOLN. IV SCH (09:00)
== END 2017-03-01 16:30 | disposition home or self-care (01) ==
LOC: ER 16:34 → ICU 22:21
PROVIDERS: ADMIT Internal Medicine; ATTEND Internal Medicine
PROC: 3E0234Z Introduction of Serum, Toxoid and Vaccine into Muscle, Percutaneous Approach (ICD-10-PCS; principal; 2017-02-28)
DX: R40.4 Transient alteration of awareness (principal); R94.30 Abnormal result of cardiovascular function study, unspecified; R94.31 Abnormal electrocardiogram [ECG] [EKG]; J44.9 Chronic obstructive pulmonary disease, unspecified; I25.10 Atherosclerotic heart disease of native coronary artery without angina pectoris; Z95.0 Presence of cardiac pacemaker; E78.2 Mixed hyperlipidemia; I10 Essential (primary) hypertension; I51.7 Cardiomegaly; R53.1 Weakness; D64.89 Other specified anemias; E11.65 Type 2 diabetes mellitus with hyperglycemia; Z23 Encounter for immunization; G40.802 Other epilepsy, not intractable, without status epilepticus
CPT/HCPCS: 36415; 70450; 71010; 80053; 80185; 82550; 82553; 84484; 85025; 85610; 85730; 87070; 87880; 90686; 93005; 95819; 96365; 99284; A4222; G0378; J0696; J1815

== ENCOUNTER 2017-03-18 11:30 | Observation (INO) | payer OTHER ==
[2017-03-18] MEDS ORDERED: ATIVAN INJ 2 MG VIAL ONE (11:41)
[2017-03-18] MEDS ORDERED: ATIVAN INJ 2 MG VIAL IVP ONE ×2 (11:41→15:48)
--- NOTE | 2017-03-18 11:50 | DR.CEP ---
HPI - Time Seen Time seen: 11:30 - HPI Comment HPI Comment: Patient presented with complaint of seizure this morning according to spouse. She reports that he was in his usual state of health turning the channels on the TV the he started with tremors of the upper extremities. He was started on lamotrigine 25mg two weeks ago in addition to taking keppra 3000mg/ day. - Complaint Chief Complaint:: "seizures" - Source History Provided: Patient, EMS - Mode of arrival Mode of Arrival: EMS - Duration Onset of Chief Complaint: 03/18/17 PMH - Past Surgical History Past Surgical History: Yes - Family History History of Family Medical Conditions: Yes - Social Does patient currently use any type of tobacco product: No Have you used tobacco products in the last 12 months: No Type of Tobacco Use: None Does any household member use tobacco: No - Vaccines Hx Measles, Mumps, Rubella Vaccination: Yes Hx Varicella Vaccination: Yes Yearly Influenza Vaccine: No Pneumococcal Vaccine Every 5 Yrs: No Hx Meningococcal Vaccination: Yes - infectious screening In the last 2 months have you had wt loss of >10#?: NO Have you had fever, night sweats or hemotysis?: No Have you traveled outside the country in the last 6 months?: No Isolation: Standard ROS (Ped) - Review of Systems Eyes: No Symptoms Reported ENTM: No Symptoms Reported Respiratoy: No Symptoms Reported Cardiovascular: No Symptoms Reported Gastrointestinal/Abdominal: No Symptoms Reported Genitourinary: No Symptoms Reported Neurological: No Symptoms Reported Musculoskeletal: No Symptoms Reported Integumentary: No Symptoms Reported Hematologic/Lymphatic: No Symptoms Reported Endocrine: No Symptoms Reported Psychiatric: No Symptoms Reported All Other Systems: Reviewed and Negative PE (PEDS) - Vital Signs Vitals: Pulse Rate 80 Respiratory Rate 16 Blood Pressure [Left Arm] 121/60 Blood Pressure [Right Arm] 200/91 Blood Pressure 129/68 O2 Sat by Pulse Oximetry 97 - General Constitutional: Normal - Head Head Exam: Normal Inspection, Atraumatic - Eyes Eye exam: Normal Appearance, PERRL, EOMI - ENT ENT Exam: Normal Exam, Normal Oropharynx - Neck Neck Exam: Normal Inspection, Full ROM - Chest Chest Inspection: Normal Inspection, Symmetric Chest Wall Rise - Respiratory Respiratory Exam: Normal Lung Sounds Bilat Respiratory Exam: Bilateral Clear to Auscultation - Cardiovascular Cardiovascular Exam: Regular Rate, Normal Rhythm - Abdominal Exam Abdominal Exam: Normal Inspection Abdominal Tenderness: negative: RUQ, RLQ, LUQ, LLQ, Epigastrium, Suprapubic, Diffuse, Mild, Moderate, Severe, Other - Extremities Extremities Exam: Normal Inspection - Back Back Exam: Normal Inspection, Full ROM - Neurologic Neurological Exam: Alert, Oriented X3, CN II-XII Intact - Psychiatric Psychiatric Exam: Flat Affect - Skin Skin Exam: Warm, Dry, Intact Type of Lesion: negative: Rash - Diagnosis Discharge Problem: Seizure disorder, Prerenal azotemia - Discharge Plan Condition: Stable - Follow ups/Referrals Follow ups/Referrals: Medhat Sharp [Primary Care Provider] - 3 days - Instructions Course - Treatment Treatment: Patient did have a seizure while in exam room manifested "pill rolling of fingers" lasting 2-4 minutes. He was given lorazepam 2mg IN. - Reevaluation 1st: Improved - Consultation Called: 13:10 (Dr Sharp recommended admit for further evaluation and treatment) ROR - Labs Reviewed Result Diagrams: 03/18/17 12:30 03/18/17 12:30 Laboratory: WBC 10.1 X10^3/uL (3.6-10.0) H 03/18/17 12:30 RBC 4.54 X10^6/uL (4.7-6.0) L 03/18/17 12:30 Hgb 13.0 g/dL (13.5-18.0) L 03/18/17 12:30 Hct 36.5 % (42.0-54.0) L 03/18/17 12:30 MCV 80.5 fL (80.0-100.0) 03/18/17 12:30 MCH 28.6 pg (27.0-34.0) 03/18/17 12:30 MCHC 35.6 g/dL (33.0-35.0) H 03/18/17 12:30 RDW 14.6 % (11.6-16.5) 03/18/17 12:30 Plt Count 228 X10^3/uL (150.0-450.0) 03/18/17 12:30 MPV 8.9 fL (7.4-11.0) 03/18/17 12:30 Neut % 67.6 % (42.0-75.0) 03/18/17 12:30 Lymph % 19.9 % (21.0-51.0) L 03/18/17 12:30 Russell % 7.4 % (0.0-13.0) 03/18/17 12:30 Eos % 4.2 % (0.9-2.9) H 03/18/17 12:30 Baso % 0.9 % (0.2-1.0) 03/18/17 12:30 Neut # 6.8 x10^3/uL (2.2-4.8) H 03/18/17 12:30 Lymph # 2.0 X10^3/uL (1.3-2.9) 03/18/17 12:30 Russell # 0.7 x10^3/uL (0.3-0.8) 03/18/17 12:30 Eos # 0.4 x10^3/uL (0.0-0.2) H 03/18/17 12:30 Baso # 0.1 X10^3/uL (0.0-0.1) 03/18/17 12:30 Absolute Nucleated RBC 0.0 /100WBC 03/18/17 12:30 Sodium 133 mmol/L (136-145) L 03/18/17 12:30 Corrected Sodium 139 mmol/L (136-145) 03/18/17 12:30 Potassium 4.0 mmol/L (3.5-5.1) 03/18/17 12:30 Chloride 98 mmol/L (98-107) 03/18/17 12:30 Carbon Dioxide 29.0 mmol/L (21-32) 03/18/17 12:30 BUN 53 mg/dL (7-18) H 03/18/17 12:30 Creatinine 2.53 mg/dL (0.70-1.30) H 03/18/17 12:30 Est GFR (MDRD) Af Amer 33 (>60) L 03/18/17 12:30 Est GFR (MDRD) Non-Af 28 (>60) L 03/18/17 12:30 Glucose 369 mg/dL (65-99) H 03/18/17 12:30 Calcium 9.2 mg/dL (8.5-10.1) 03/18/17 12:30 Corrected Calcium TNP 03/18/17 12:30 Total Bilirubin 0.40 mg/dL (0.2-1.0) 03/18/17 12:30 AST 12 Units/L (15-37) L 03/18/17 12:30 ALT 17 Units/L (12-78) 03/18/17 12:30 Alkaline Phosphatase 162 Units/L (46-116) H 03/18/17 12:30 Total Protein 6.8 g/dL (6.4-8.2) 03/18/17 12:30 Albumin 3.4 g/dL (3.4-5.0) 03/18/17 12:30 Globulin 3.4 g/dL (2.5-4.5) 03/18/17 12:30 Albumin/Globulin Ratio 1.0 Ratio (1.1-2.1) L 03/18/17 12:30
[2017-03-18 12:43] LABS: BASOPHILS # (AUTO) 0.1 X10^3/uL (0.0-0.1); BASOPHILS % (AUTO) 0.9 % (0.2-1.0); EOSINOPHILS # (AUTO) 0.4 x10^3/uL (0.0-0.2); EOSINOPHILS % (AUTO) 4.2 % (0.9-2.9); HEMATOCRIT 36.5 % (42.0-54.0); LYMPHOCYTES % (AUTO) 19.9 % (21.0-51.0); MEAN CORPUSCULAR HEMOGLOBIN 28.6 pg (27.0-34.0); MEAN CORPUSCULAR HGB CONC 35.6 g/dL (33.0-35.0); MEAN CORPUSCULAR VOLUME 80.5 fL (80.0-100.0); MEAN PLATELET VOLUME 8.9 fL (7.4-11.0); MONOCYTES # (AUTO) 0.7 x10^3/uL (0.3-0.8); MONOCYTES % (AUTO) 7.4 % (0.0-13.0); NEUTROPHILS # (AUTO) 6.8 x10^3/uL (2.2-4.8); NEUTROPHILS % (AUTO) 67.6 % (42.0-75.0); PLATELET COUNT 228 X10^3/uL (150.0-450.0); RED BLOOD COUNT 4.54 X10^6/uL (4.7-6.0); RED CELL DISTRIBUTION WIDTH 14.6 % (11.6-16.5); WHITE BLOOD COUNT 10.1 X10^3/uL (3.6-10.0)
[2017-03-18 12:54] LABS: ALANINE AMINOTRANSFERASE 17 Units/L (12-78); ALBUMIN 3.4 g/dL (3.4-5.0); ALKALINE PHOSPHATASE 162 Units/L (46-116); ASPARTATE AMINO TRANSFERASE 12 Units/L (15-37); BLOOD UREA NITROGEN 53 mg/dL (7-18); CALCIUM 9.2 mg/dL (8.5-10.1); CHLORIDE 98 mmol/L (98-107); COR NA(FOR HYPERGLY) 139 mmol/L (136-145); CREATININE 2.53 mg/dL (0.70-1.30); SODIUM 133 mmol/L (136-145); TOTAL PROTEIN 6.8 g/dL (6.4-8.2); eGFR BLACK RACES 33 (>60); eGFR NON BLACK RACES 28 (>60)
[2017-03-18] MEDS ORDERED: NS 1000 ML 1,000 ML ONE ×2 (13:48→16:05)
[2017-03-18] MEDS ORDERED: NS 1000 ML 1,000 ML IV ONE (13:53)
[2017-03-18] MEDS ORDERED: CEREBYX INJ IVP ONE (15:48)
[2017-03-18] MEDS ORDERED: NITROSTAT SL PRN (15:49)
[2017-03-18] MEDS ORDERED: DIAZEPAM PO PRN (15:49)
[2017-03-18] MEDS ORDERED: VALIUM PO PRN (16:08)
[2017-03-18] MEDS ORDERED: NS 100 ML IV 100 ML IV ONE (16:27)
[2017-03-18 16:42] LABS: ALBUMIN 3.4 g/dL (3.4-5.0); MAGNESIUM 2.3 mg/dL (1.7-2.9); SODIUM 135 mmol/L (136-145)
[2017-03-18 16:47] LABS: BASOPHILS # (AUTO) 0.1 X10^3/uL (0.0-0.1); BASOPHILS % (AUTO) 0.9 % (0.2-1.0); EOSINOPHILS # (AUTO) 0.4 x10^3/uL (0.0-0.2); EOSINOPHILS % (AUTO) 4.5 % (0.9-2.9); HEMATOCRIT 38.8 % (42.0-54.0); HEMOGLOBIN 13.7 g/dL (13.5-18.0); LYMPHOCYTES # (AUTO) 2.5 X10^3/uL (1.3-2.9); LYMPHOCYTES % (AUTO) 26.4 % (21.0-51.0); MEAN CORPUSCULAR HEMOGLOBIN 28.7 pg (27.0-34.0); MEAN CORPUSCULAR HGB CONC 35.3 g/dL (33.0-35.0); MEAN CORPUSCULAR VOLUME 81.1 fL (80.0-100.0); MEAN PLATELET VOLUME 8.8 fL (7.4-11.0); MONOCYTES # (AUTO) 0.6 x10^3/uL (0.3-0.8); MONOCYTES % (AUTO) 6.6 % (0.0-13.0); NEUTROPHILS # (AUTO) 5.9 x10^3/uL (2.2-4.8); NEUTROPHILS % (AUTO) 61.6 % (42.0-75.0); PLATELET COUNT 221 X10^3/uL (150.0-450.0); RED BLOOD COUNT 4.79 X10^6/uL (4.7-6.0); RED CELL DISTRIBUTION WIDTH 14.4 % (11.6-16.5); WHITE BLOOD COUNT 9.5 X10^3/uL (3.6-10.0)
[2017-03-18] MEDS: NS 1000 ML 1,000 ML IV SCH (16:54)
[2017-03-18 17:07] LABS: ALANINE AMINOTRANSFERASE 19 Units/L (12-78); ALKALINE PHOSPHATASE 155 Units/L (46-116); ASPARTATE AMINO TRANSFERASE 13 Units/L (15-37); BLOOD UREA NITROGEN 50 mg/dL (7-18); CALCIUM 8.9 mg/dL (8.5-10.1); CARBON DIOXIDE 27.1 mmol/L (21-32); CHLORIDE 99 mmol/L (98-107); CKMB % 1.4 % (<4); COR NA(FOR HYPERGLY) 139 mmol/L (136-145); CREATINE KINASE 70 Units/L (39-308); CREATININE 2.32 mg/dL (0.70-1.30); TOTAL PROTEIN 6.9 g/dL (6.4-8.2); TROPONIN I 0.71 ng/mL (0-1.5); eGFR BLACK RACES 37 (>60); eGFR NON BLACK RACES 31 (>60)
[2017-03-18 19:33] LABS: CALCIUM 8.5 mg/dL (8.5-10.1); CARBON DIOXIDE 28.5 mmol/L (21-32); COR CA(FOR HYPOALB) 9.3 mg/dL (8.5-10.1); CREATININE 2.3 mg/dL (0.70-1.30)
[2017-03-18] MEDS: LOPRESSOR TAB 25 MG PO SCH (20:11)
[2017-03-18] MEDS: KEPPRA TAB 500 MG PO SCH (20:11)
[2017-03-18] MEDS: CATAPRES TAB 0.1 MG PO SCH (20:12)
[2017-03-18] MEDS: BUMEX TAB 1 MG PO SCH (20:12)
[2017-03-18] MEDS: ZESTRIL TAB 40 MG PO SCH (20:12)
[2017-03-18] MEDS: LANTUS SC SCH (20:51)
[2017-03-18 20:52] VITALS: BMI 35.2
[2017-03-18] MEDS: ATIVAN TAB 0.5 MG PO SCH (20:59)
[2017-03-18] MEDS ORDERED: BUMETANIDE 1 MG PO SCH (21:00)
[2017-03-18] MEDS ORDERED: LEVETIRACETAM 1500 MG PO SCH (21:00)
[2017-03-18 21:32] LABS: BILIRUBIN,URINE NEGATIVE (NEGATIVE); BLOOD/HEMOGLOBIN,URINE NEGATIVE (NEGATIVE); GLUCOSE, URINE 4+ (NEGATIVE); KETONES,URINE NEGATIVE (NEGATIVE); LEUKOCYTE ESTERASE ,URINE NEGATIVE (NEGATIVE); NITRITES,URINE NEGATIVE (NEGATIVE); PROTEIN,URINE 2+ (NEGATIVE); UROBILINOGEN,URINE NORMAL (NORMAL)
[2017-03-18 21:44] LABS: APPEARANCE,URINE CLEAR (CLEAR); BACTERIA,URINE TRACE /HPF (NEGATIVE); COLOR,URINE YELLOW (YELLOW); RBC,URINE 0 /HPF (NEGATIVE); SQUAMOUS EPITHELIAL CELL,UR FEW /HPF (NEGATIVE)
[2017-03-19 05:16] LABS: BASOPHILS # (AUTO) 0.1 X10^3/uL (0.0-0.1); BASOPHILS % (AUTO) 1.1 % (0.2-1.0); EOSINOPHILS # (AUTO) 0.4 x10^3/uL (0.0-0.2); EOSINOPHILS % (AUTO) 5.3 % (0.9-2.9); HEMATOCRIT 33.4 % (42.0-54.0); LYMPHOCYTES # (AUTO) 2.3 X10^3/uL (1.3-2.9); LYMPHOCYTES % (AUTO) 28.1 % (21.0-51.0); MEAN CORPUSCULAR HGB CONC 35.9 g/dL (33.0-35.0); MEAN CORPUSCULAR VOLUME 80.8 fL (80.0-100.0); MEAN PLATELET VOLUME 9.1 fL (7.4-11.0); MONOCYTES # (AUTO) 0.6 x10^3/uL (0.3-0.8); MONOCYTES % (AUTO) 7.9 % (0.0-13.0); NEUTROPHILS # (AUTO) 4.7 x10^3/uL (2.2-4.8); NEUTROPHILS % (AUTO) 57.6 % (42.0-75.0); PLATELET COUNT 188 X10^3/uL (150.0-450.0); RED BLOOD COUNT 4.13 X10^6/uL (4.7-6.0); RED CELL DISTRIBUTION WIDTH 14.2 % (11.6-16.5); WHITE BLOOD COUNT 8.1 X10^3/uL (3.6-10.0)
[2017-03-19 05:37] LABS: ALBUMIN 2.9 g/dL (3.4-5.0); CALCIUM 8.3 mg/dL (8.5-10.1); CARBON DIOXIDE 26.8 mmol/L (21-32); COR CA(FOR HYPOALB) 9.2 mg/dL (8.5-10.1); CREATININE 2.1 mg/dL (0.70-1.30)
[2017-03-19] MEDS: ATIVAN TAB 0.5 MG PO SCH ×3 (06:30→21:48)
[2017-03-19] MEDS: KEPPRA TAB 500 MG PO SCH ×2 (08:17→20:24)
[2017-03-19] MEDS: COLCRYS TAB 0.6 MG PO SCH (08:17)
[2017-03-19] MEDS: CATAPRES TAB 0.1 MG PO SCH ×2 (08:17→20:25)
[2017-03-19] MEDS: LOPRESSOR TAB 25 MG PO SCH ×2 (08:17→20:25)
[2017-03-19] MEDS: NORVASC TAB 5 MG PO SCH (08:17)
[2017-03-19] MEDS: NS 1000 ML 1,000 ML IV SCH ×4 (08:18→21:48)
[2017-03-19] MEDS: BUMEX TAB 1 MG PO SCH ×2 (08:18→20:25)
[2017-03-19] MEDS: ZESTRIL TAB 40 MG PO SCH ×2 (08:18→20:26)
[2017-03-19] MEDS ORDERED: VALIUM INJ ONE (09:27)
[2017-03-19] MEDS ORDERED: VALIUM INJ IVP ONE (09:36)
[2017-03-19] MEDS ORDERED: VALIUM INJ IVP NR (10:00)
[2017-03-19] MEDS: ULORIC PO SCH (10:39)
[2017-03-19] MEDS: LAMOTRIGINE 25 MG PO SCH (10:39)
--- NOTE | 2017-03-19 11:08 | DR.UPDATE ---
H&P Update History and Physical Update: 'S H&P WAS COMPLETED WITH HIS LAST VISIT ON 02/28/17. Changes noted: YES Yes with the following: PRESENTED TO THE EMERGENCY ROOM TODAY WITH REPORTS OF SEIZURE ACTIVITY. PATIENT'S REPORTS THAT HE WAS WATCHING TV WHEN HE SUDDENLY STARTED WITH UNCONTROLLABLE TREMORS TO THE UPPER EXTREMITIES. PATIENT'S REPORTS THAT PATIENT'S NEUROLOGIST RECENTLY DISCONTINUE THE DILANTIN THAT HE WAS TAKING AND STARTED HIM ON LAMOTRIGINE 25MG PO DAILY AND KEPPRA 1,500 MG PO BID. ON ARRIVAL TO THE EMERGENCY ROOM, PATIENT IS ALERT AND ORIENTED TO SITUATION. HE ANSWERS QUESTION APPROPRIATELY. HE IS NOTED WITH COMPLAINTS OF WEAKNESS AND A HEADACHE. HIS VITAL SIGNS UPON ARRIVAL TO THE EMERGENCY ROOM WERE 98.1-80-16-97%-129/68. LABS AND EKG WERE OBTAINED. ABNORMAL LAB VALUES INCLUDE THE FOLLOWING: WBC 10.1, RBC 4.54, HGB 13, HCT 36.5, SODIUM 135, BUN 50 , CREATININE 2.32, GLUCOSE 281, AST 13, ALK PHOS 155, A/G RATIO 1.0. EKG REPORTED ATRIAL PACED RHYTHM WITH HR 76. PATIENT WAS GIVEN A NORMAL SALINE BOLUS , ATIVAN IV TOTAL OF 3 MG, AND CEREBYX 1,000MG IVP X 1. HE WAS ADMITTED TO THE INTENSIVE CARE UNIT FOR FURTHER EVALUATION AND TREATMENT FOR PRE-RENAL AZOTEMIA AND SEIZURE DISORDER. WE PLAN TO FOLLOW UP WITH AM LABS AND CONTINUE TO MONITOR PATIENT.
[2017-03-19] MEDS: FLOMAX PO SCH (13:09)
[2017-03-19] MEDS: ATIVAN INJ 2 MG VIAL IVP PRN (14:01)
[2017-03-19] MEDS: NORCO 5/325 MG TAB PO PRN (14:10)
[2017-03-19] MEDS: HumaLOG SC PRN ×3 (14:34→20:29)
[2017-03-19 15:58] LABS: CALCIUM 8.1 mg/dL (8.5-10.1); CREATININE 1.99 mg/dL (0.70-1.30)
[2017-03-19] MEDS: DEPAKOTE D.R. TAB PO SCH ×2 (18:10→20:24)
--- NOTE | 2017-03-19 18:15 | DR.CONSULT ---
Consult - Consultation for Day of: Date: 03/19/17 - Chief Complaint Chief Complaint: Admission note. PRESENTED TO THE EMERGENCY ROOM TODAY WITH REPORTS OF SEIZURE ACTIVITY. PATIENT'S REPORTS THAT HE WAS WATCHING TV WHEN HE SUDDENLY STARTED WITH UNCONTROLLABLE TREMORS TO THE UPPER EXTREMITIES. PATIENT'S REPORTS THAT PATIENT'S NEUROLOGIST RECENTLY DISCONTINUE THE DILANTIN THAT HE WAS TAKING AND STARTED HIM ON LAMOTRIGINE 25MG PO DAILY AND KEPPRA 1,500 MG PO BID. ON ARRIVAL TO THE EMERGENCY ROOM, PATIENT IS ALERT AND ORIENTED TO SITUATION. HE ANSWERS QUESTION APPROPRIATELY. HE IS NOTED WITH COMPLAINTS OF WEAKNESS AND A HEADACHE. HIS VITAL SIGNS UPON ARRIVAL TO THE EMERGENCY ROOM WERE 98.1-80-16-97%-129/68. LABS AND EKG WERE OBTAINED. ABNORMAL LAB VALUES INCLUDE THE FOLLOWING: WBC 10.1, RBC 4.54, HGB 13, HCT 36.5 , SODIUM 135, BUN 50, CREATININE 2.32, GLUCOSE 281, AST 13, ALK PHOS 155, A/G RATIO 1.0. EKG REPORTED ATRIAL PACED RHYTHM WITH HR 76. PATIENT WAS GIVEN A NORMAL SALINE BOLUS, ATIVAN IV TOTAL OF 3 MG, AND CEREBYX 1,000MG IVP X 1. HE WAS ADMITTED TO THE INTENSIVE CARE UNIT FOR FURTHER EVALUATION AND TREATMENT FOR PRE-RENAL AZOTEMIA AND SEIZURE DISORDER. WE PLAN TO FOLLOW UP WITH AM LABS AND CONTINUE TO MONITOR PATIENT. Neurology consultation March 19, 2017 : 62 -year-old male patient was seen and examined because of history of seizure disorder since June this year after brain hemorrhage. Patient was flown to [place]. Since then patient is having seizures. Patient had 5 or 6 seizures today. On the day of admission he had again 5 or 6 seizures. These seizures are generalized convulsive seizures. We started him on Lamictal recently. Prior to that patient was getting Keppra 1500 mg twice a day and Dilantin. Patient was getting 2 seizures a week. His Dilantin was discontinued. In the ER patient got thousand milligrams of Cerebyx.It may be mentioned here that patient is going through flulike symptoms in the last 1 week. At the time of neurological evaluation patient is awake alert and responding reasonably well to verbal communication. At times he appears to be confused. Neurological examination: Cognitive status; patient is awake alert and reasonably oriented in time place and person. At time he appears to be confused for a brief duration of time. Speech: Speech is fluent naming is intact comprehension is intact. Cranial nerve examination: Second cranial nerve; visual tierney are intact on confrontation. Third fourth and fifth cranial nerve; extraocular movements are full without any nystagmus. Pupils are 3.5 mm in size around equal and reactive to light. Fifth cranial nerve; facial sensations are intact bilaterally. Seventh cranial nerve: Facial symmetry is intact bilaterally. Eighth cranial nerve: Hearing is intact bilaterally. Ninth and 10th: Palate is symmetrical bilaterally. 11: Shoulder shrug is equal and symmetrical bilaterally. 12 cranial nerve: Tongue is in midline. Coordination: Finger to nose rapid alternating movements are intact. Gait: Was not tested. Motor system examination: Tone is normal. Muscle strength is 5 over 5 proximally as well as distally in upper and lower extremities equally and symmetrically. DTRs are +1 equal and symmetrical. Plantars are flexor bilaterally. Sensory system examination: Patient has no deficits. - Allergies Allergies/Adverse Reactions: Allergies Allergy/AdvReac Type Severity Reaction Status Date / Time No Known Allergies [NKA] Allergy Verified 01/23/17 10:47 - Past Medical History Past Medical History: COPD, Coronary Artery Disease, CVA, Depression, Diabetes, Dyslipidemia, Hypertension, [place], Renal Disease, Seizures Additional Medical History: GOUT - Past Surgical History Surgical History: Angioplasty/Stents, CABG/Valve Surgery, Tonsillectomy - Family History Family Medical History: Diabetes Mellitus, [place], Coronary Artery Disease, Hypertension - Social History Does patient currently use any type of tobacco product: No Have you used tobacco products in the last 12 months: No Type of Tobacco Use: None Does any household member use tobacco: No Alcohol Use: None Drug Use: None - Medications Home Medications: Lamotrigine [Lamictal Xr] 25 mg PO DAILY 03/18/17 [History Confirmed 03/18/17] - Review of Systems Constitutional: No Symptoms Reported Eyes: No Symptoms Reported ENT: No Symptoms Reported Respiratory: See HPI Cardiovascular: No Symptoms Reported Gastrointestinal: No Symptoms Reported Genitourinary: No Symptoms Reported Musculoskeletal: No Symptoms Reported Skin: No Symptoms Reported Neurological: See HPI - Physical Exam Vital Signs: Temperature 98.3 F Pulse Rate [Right Brachial] 69 Pulse Rate 80 Respiratory Rate 28 Blood Pressure [Left Arm] 121/60 Blood Pressure [Right Arm] 170/81 Blood Pressure 129/68 O2 Sat by Pulse Oximetry 97 Oriented: Normal, Place Eyes: Normal Ear: Normal Nose: Normal Throat: Normal Respiratory: Rales Throughout Cardiovascular: Normal : Normal Auscultation: Bowel Sounds: Normal Palpation: Normal Tenderness: Normal Skin: Normal Musculoskeletal: Normal Psychiatric: Normal, Other Mood Description: Calm Affect: Normal Speech Pattern: Clear - Plan Plan: 62-year-old male patient was seen and examined because of increasing frequency of seizures in the last 2 days. Patient is going through flulike symptoms for the last 1 week. He was initially seen by me on march. Up until that time patient was getting on average 2 seizures a week. These are generalized convulsive seizures. His Dilantin was discontinued. A plan was made to titrate him on lamotrigine gradually. Patient to the was already on Keppra which was decided to be continued. Patient on arrival at the ER received a Cerebyx thousand milligrams. He did not get any phenytoin today. I' m recommending addition of Depakote 500 mg twice a day. I'm also recommending adding on one or 2 mg when necessary seizures every one or 2 hours. We will follow up.
[2017-03-19] MEDS ORDERED: DEPAKOTE D.R. TAB PO ONE (20:07)
[2017-03-19] MEDS: LANTUS SC SCH (20:28)
--- NOTE | 2017-03-19 21:47 | CT ---
CT head without contrast Indication: Seizure. Comparison: 02/27/2017 Technique: Axial images from the skullbase to the vertex without contrast. Coronal and sagittal refor mats provided. Findings: Hypodensity in the left parietal lobe probably reflects old infarction. There is mild atrop hy with periventricular white matter changes compatible with microangiopathy. There is no acute intra cranial hemorrhage, mass or mass effect. No extra-axial fluid collection identified. Few of bone wind ows shows no osseous lesion. Paranasal sinuses and mastoid air cells are relatively clear with small mucosal retention cyst in the inferior right maxillary sinus. Impression: 1. No acute intracranial hemorrhage. 2. 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 3. No other acute abnormality. Reported By:
[2017-03-19 22:06] LABS: ALBUMIN 2.7 g/dL (3.4-5.0); COR CA(FOR HYPOALB) 9.1 mg/dL (8.5-10.1); TOTAL PROTEIN 5.8 g/dL (6.4-8.2)
[2017-03-20] MEDS: NS 1000 ML 1,000 ML IV SCH ×4 (01:53→15:28)
[2017-03-20 05:19] LABS: BASOPHILS # (AUTO) 0.1 X10^3/uL (0.0-0.1); EOSINOPHILS # (AUTO) 0.4 x10^3/uL (0.0-0.2); EOSINOPHILS % (AUTO) 5.9 % (0.9-2.9); HEMATOCRIT 34.3 % (42.0-54.0); HEMOGLOBIN 12.2 g/dL (13.5-18.0); LYMPHOCYTES # (AUTO) 1.9 X10^3/uL (1.3-2.9); LYMPHOCYTES % (AUTO) 25.3 % (21.0-51.0); MEAN CORPUSCULAR HGB CONC 35.7 g/dL (33.0-35.0); MEAN CORPUSCULAR VOLUME 81.2 fL (80.0-100.0); MONOCYTES # (AUTO) 0.6 x10^3/uL (0.3-0.8); MONOCYTES % (AUTO) 8.4 % (0.0-13.0); NEUTROPHILS # (AUTO) 4.5 x10^3/uL (2.2-4.8); NEUTROPHILS % (AUTO) 59.4 % (42.0-75.0); PLATELET COUNT 175 X10^3/uL (150.0-450.0); RED BLOOD COUNT 4.22 X10^6/uL (4.7-6.0); RED CELL DISTRIBUTION WIDTH 14.2 % (11.6-16.5); WHITE BLOOD COUNT 7.6 X10^3/uL (3.6-10.0)
[2017-03-20 05:28] LABS: ALBUMIN 2.7 g/dL (3.4-5.0); CALCIUM 8.3 mg/dL (8.5-10.1); CARBON DIOXIDE 26.3 mmol/L (21-32); COR CA(FOR HYPOALB) 9.3 mg/dL (8.5-10.1); CREATININE 1.8 mg/dL (0.70-1.30); TOTAL PROTEIN 5.8 g/dL (6.4-8.2)
[2017-03-20] MEDS: ATIVAN TAB 0.5 MG PO SCH ×3 (05:59→21:11)
[2017-03-20] MEDS: HumaLOG SC PRN ×4 (06:03→20:38)
[2017-03-20] MEDS ORDERED: DEPAKOTE D.R. TAB PO ONE ×2 (08:13→20:27)
[2017-03-20] MEDS: KEPPRA TAB 500 MG PO SCH ×2 (08:27→20:36)
[2017-03-20] MEDS: NORVASC TAB 5 MG PO SCH (08:27)
[2017-03-20] MEDS: LAMOTRIGINE 25 MG PO SCH (08:27)
[2017-03-20] MEDS: COLCRYS TAB 0.6 MG PO SCH (08:28)
[2017-03-20] MEDS: ZESTRIL TAB 40 MG PO SCH ×2 (08:28→20:36)
[2017-03-20] MEDS: FLOMAX PO SCH (08:29)
[2017-03-20] MEDS: CATAPRES TAB 0.1 MG PO SCH ×2 (08:29→20:36)
[2017-03-20] MEDS: ULORIC PO SCH (08:29)
[2017-03-20] MEDS: LOPRESSOR TAB 25 MG PO SCH ×2 (08:29→20:36)
[2017-03-20] MEDS: DEPAKOTE D.R. TAB PO SCH ×2 (08:30→20:36)
[2017-03-20] MEDS: BUMEX TAB 1 MG PO SCH ×2 (08:30→20:36)
[2017-03-20] MEDS: SNACK - Diabetic Appropriate PO SCH ×2 (09:01→20:38)
[2017-03-20] MEDS ORDERED: FIORICET TAB PO PRN (09:41)
[2017-03-20] MEDS ORDERED: CATAPRES-TTS-2 TD SCH (10:00)
[2017-03-20] MEDS: NORCO 5/325 MG TAB PO PRN (12:18)
[2017-03-20] MEDS: ATIVAN INJ 2 MG VIAL IVP PRN (15:09)
--- NOTE | 2017-03-20 15:11 | PCM.PROG ---
Progress Note - Progress Note for Day of Date: 03/20/17 - Subjective Subjective: Patient is feeling a bit better. He did not have any seizures since last night. Patient has been started on Depakote 500 mg twice a day. He is tolerating the medication well. He has no new complaints. NEUROLOGICAL EXAMINATION : Cognitive status: Patient is awake alert oriented in time place and person. Speech: Speech is fluent, naming is intact, comprehension is also intact. Patient has no paraphasic errors. Cranial nerve examination : Second cranial nerve: Visual tierney are intact on confrontation. Third fourth and sixth cranial nerve: Extraocular movements are full without any nystagmus. Pupils are 3.5 mm in size around equal and reactive to light. Fifth cranial nerve: Facial sensations are intact bilaterally. Seventh cranial nerve: Facial symmetry is intact bilaterally. Eighth cranial nerve: Hearing is intact bilaterally. Ninth and 10th cranial nerve: Palate is symmetrical bilaterally. 11th cranial nerve: Shoulder shrug is equal and symmetrical bilaterally. 12 cranial nerve: Tongue is in midline. Coordination: Finger to nose rapid alternating movements are intact. Gait: gait was not tested. Motor system examination: Tone is normal. Strength is 5 over 5 proximally as well as distally in upper and lower extremities. Deep tendon reflexes are +1 equal and symmetrical in upper and lower extremities. Plantars are flexor bilaterally. Sensory system examination: Patient has equal and symmetrical touch, temperature , pinprick sensation distally and proximally in upper and lower extremities. - Past Medical Family Social History Past Med/Fam/Surg Hx: No changes since H&P Allergies: Allergies No Known Allergies [NKA] Allergy (Verified 01/23/17 10:47) - Review of Systems ROS: No change since H&P - Vital Signs and I&O's Vital Signs: Temperature 97.6 F Pulse Rate [Right Brachial] 80 Pulse Rate 80 Respiratory Rate 15 Blood Pressure [Left Arm] 121/60 Blood Pressure [Right Arm] 168/85 Blood Pressure 129/68 O2 Sat by Pulse Oximetry 98 Intake and Output: Intake & Output 03/18/17 03/19/17 03/20/17 03/21/17 11:59 11:59 11:59 11:59 Intake Total 2460 6755 Output Total 1300 4500 Balance 1160 2255 - Physical Exam Oriented: Normal, Place Eyes: Normal Ear: Normal Nose: Normal Throat: Normal Cardiovascular: Normal : Normal Auscultation: Bowel Sounds: Normal Tenderness: Normal Skin: Normal Musculoskeletal: Normal Psychiatric: Normal, Other Mood Description: Calm Affect: Normal Speech Pattern: Clear, Appropriate - Laboratory and Diagnostics Result Diagrams: 03/20/17 04:25 03/20/17 04:25 Labs: Laboratory WBC 7.6 X10^3/uL (3.6-10.0) 03/20/17 04:25 RBC 4.22 X10^6/uL (4.7-6.0) L 03/20/17 04:25 Hgb 12.2 g/dL (13.5-18.0) L 03/20/17 04:25 Hct 34.3 % (42.0-54.0) L 03/20/17 04:25 MCV 81.2 fL (80.0-100.0) 03/20/17 04:25 MCH 29.0 pg (27.0-34.0) 03/20/17 04:25 MCHC 35.7 g/dL (33.0-35.0) H 03/20/17 04:25 RDW 14.2 % (11.6-16.5) 03/20/17 04:25 Plt Count 175 X10^3/uL (150.0-450.0) 03/20/17 04:25 MPV 9.0 fL (7.4-11.0) 03/20/17 04:25 Neut % 59.4 % (42.0-75.0) 03/20/17 04:25 Lymph % 25.3 % (21.0-51.0) 03/20/17 04:25 [place] % 8.4 % (0.0-13.0) 03/20/17 04:25 Eos % 5.9 % (0.9-2.9) H 03/20/17 04:25 Baso % 1.0 % (0.2-1.0) 03/20/17 04:25 Neut # 4.5 x10^3/uL (2.2-4.8) 03/20/17 04:25 Lymph # 1.9 X10^3/uL (1.3-2.9) 03/20/17 04:25 [place] # 0.6 x10^3/uL (0.3-0.8) 03/20/17 04:25 Eos # 0.4 x10^3/uL (0.0-0.2) H 03/20/17 04:25 Baso # 0.1 X10^3/uL (0.0-0.1) 03/20/17 04:25 Absolute Nucleated RBC 0.0 /100WBC 03/20/17 04:25 INR Target Range - 03/18/17 16:07 INR 1.03 (0.8-1.3) 03/18/17 16:07 PTT 28.0 SECONDS (22.9-36.5) 03/18/17 16:07 PTT Comment - 03/18/17 16:07 Sodium 143 mmol/L (136-145) 03/20/17 04:25 Corrected Sodium 146 mmol/L (136-145) H 03/20/17 04:25 Potassium 3.7 mmol/L (3.5-5.1) 03/20/17 04:25 Chloride 108 mmol/L (98-107) H 03/20/17 04:25 Carbon Dioxide 26.3 mmol/L (21-32) 03/20/17 04:25 BUN 34 mg/dL (7-18) H 03/20/17 04:25 Creatinine 1.80 mg/dL (0.70-1.30) H 03/20/17 04:25 Est GFR (MDRD) Af Amer 50 (>60) L 03/20/17 04:25 Est GFR (MDRD) Non-Af 41 (>60) L 03/20/17 04:25 Glucose 213 mg/dL (65-99) H 03/20/17 04:25 POC Glucose (mg/dL) 338 mg/dL (65-99) H 03/20/17 12:12 Calcium 8.3 mg/dL (8.5-10.1) L 03/20/17 04:25 Corrected Calcium 9.3 mg/dL (8.5-10.1) 03/20/17 04:25 Magnesium 2.3 mg/dL (1.7-2.9) 03/18/17 16:07 Total Bilirubin 0.20 mg/dL (0.2-1.0) 03/20/17 04:25 AST 13 Units/L (15-37) L 03/20/17 04:25 ALT 15 Units/L (12-78) 03/20/17 04:25 Alkaline Phosphatase 136 Units/L (46-116) H 03/20/17 04:25 Creatine Kinase 70 Units/L (39-308) 03/18/17 16:07 CK-MB (CK-2) 1.0 ng/mL (0-4.0) 03/18/17 16:07 CK/CKMB % Calc 1.4 % (<4) 03/18/17 16:07 Troponin I 0.71 ng/mL (0-1.5) 03/18/17 16:07 Total Protein 5.8 g/dL (6.4-8.2) L 03/20/17 04:25 Albumin 2.7 g/dL (3.4-5.0) L 03/20/17 04:25 Globulin 3.1 g/dL (2.5-4.5) 03/20/17 04:25 Albumin/Globulin Ratio 0.9 Ratio (1.1-2.1) L 03/20/17 04:25 Specimen Type Clean catch urine 03/18/17 20:51 Urine Color Yellow (YELLOW) 03/18/17 20:51 Urine Appearance Clear (CLEAR) 03/18/17 20:51 Urine pH 5.0 (5.0 - 8.0) 03/18/17 20:51 Ur Specific [place] 1.015 (1.000-1.030) 03/18/17 20:51 Urine Protein 2+ (NEGATIVE) 03/18/17 20:51 Urine Glucose (UA) 4+ (NEGATIVE) 03/18/17 20:51 Urine Ketones Negative (NEGATIVE) 03/18/17 20:51 Urine Occult Blood Negative (NEGATIVE) 03/18/17 20:51 Urine Nitrite Negative (NEGATIVE) 03/18/17 20:51 Urine Bilirubin Negative (NEGATIVE) 03/18/17 20:51 Urine Urobilinogen Normal (NORMAL) 03/18/17 20:51 Ur Leukocyte Esterase Negative (NEGATIVE) 03/18/17 20:51 Urine RBC 0 /HPF (NEGATIVE) 03/18/17 20:51 Urine WBC 0-1 /HPF (NEGATIVE) 03/18/17 20:51 Ur Squamous Epith Cells Few /HPF (NEGATIVE) 03/18/17 20:51 Urine Bacteria Trace /HPF (NEGATIVE) 03/18/17 20:51 Ur Culture Indicated? No/not indicated 03/18/17 20:51 - Plan (1) Seizure disorder Status: Acute Plan: Patient did not have any seizure after we started him on Depakote. He is doing reasonably well. His neurological examination remains unchanged. I'm recommending continuation of his present management. We will follow up.
--- NOTE | 2017-03-20 19:48 | PCM.PROG ---
Progress Note - Progress Note for Day of Date: 03/19/17 - Subjective Subjective: WAS ADMITTED FOR SEIZURE ACTIVITY AND PRE RENAL AZOTEMIA. TODAY, HE IS ALERT AND ORIENTED, LYING IN BED ON MORNING ROUNDS. PATIENTS AND BROTHER ARE AT BEDSIDE. TODAY, HE IS NOTED WITH COMPLAINTS OF WEAKNESS AND HEADACHE. PATIENT AND FAMILY DENY SEIZURE ACTIVITY SINCE ADMISSION. PATIENTS REPORTS THAT THE SEIZURES THAT PATIENT WAS HAVING PRIOR TO ARRIVAL TO THE EMERGENCY ROOM WERE VERY SIMILAR IN CHARACTERISTICS THE SEIZURES WERE WHEN PATIENT HAD A BRAIN BLEED IN JULY AND IN NOVEMBER. ON EXAMINATION, PUPILS PERRLA, NEURO EXAMINATION IS NEGATIVE FOR ACUTE FINDINGS, LUNGS ARE CLEAR TO AUSCULTATION. ABDOMEN IS ROUND, SOFT, AND NON-TENDER WITH NORMAL BOWEL SOUNDS NOTED IN ALL QUADRANTS. HIS VITAL SIGNS TODAY ARE 97.3-69-18 -97%-156/75. ABNORMAL LAB VALUES INCLUDE THE FOLLOWING: RBC 4.13, HGB 12.0, HCT 33.4, BUN 40, CREATININE 1.99, GFR 36, GLUCOSE 381, CALCIUM 8.1, ALK PHOS 145, TOTAL PROTEIN 5.8, ALBUMIN 2.7. WE OBTAINED A BRAIN CT TODAY. IT REPORTED NO ACUTE INTRACRANIAL HEMORRHAGE. 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 NO OTHER ACUTE ABNORMALITY. TODAY, WE PLAN TO AGRESSIVELY HYDRATE. WE WILL INCREASE IVF TO 200ML/HR. WE WILL CONSULT , PATIENTS NEUROLOGIST. OTHERWISE, WE WILL CONTINUE WITH CURRENT PLAN OF CARE. WE WILL FOLLOW UP WITH AM LABS AND CONTINUE TO MONITOR PATIENT. - Past Medical Family Social History Past Med/Fam/Surg Hx: No changes since H&P Allergies: Allergies No Known Allergies [NKA] Allergy (Verified 01/23/17 10:47) - Review of Systems ROS: No change since H&P - Vital Signs and I&O's Vital Signs: Temperature 97.5 F Pulse Rate [Right Brachial] 69 Pulse Rate 80 Respiratory Rate 18 Blood Pressure [Left Arm] 121/60 Blood Pressure [Right Arm] 174/96 Blood Pressure 129/68 O2 Sat by Pulse Oximetry 97 Intake and Output: Intake & Output 03/18/17 03/19/17 03/20/17 03/21/17 11:59 11:59 11:59 11:59 Intake Total 2460 6755 1950 Output Total 1300 4500 2400 Balance 1160 2255 -450 - Physical Exam Oriented: Normal, Place Eyes: Normal Ear: Normal Nose: Normal Throat: Normal Respiratory: Normal Cardiovascular: Normal : Normal Auscultation: Bowel Sounds: Normal Palpation: Normal Tenderness: Normal Skin: Normal Musculoskeletal: Normal Psychiatric: Normal, Other Mood Description: Calm Affect: Normal Speech Pattern: Clear, Appropriate - Laboratory and Diagnostics Result Diagrams: 03/20/17 04:25 03/20/17 04:25 Labs: Laboratory WBC 7.6 X10^3/uL (3.6-10.0) 03/20/17 04:25 RBC 4.22 X10^6/uL (4.7-6.0) L 03/20/17 04:25 Hgb 12.2 g/dL (13.5-18.0) L 03/20/17 04:25 Hct 34.3 % (42.0-54.0) L 03/20/17 04:25 MCV 81.2 fL (80.0-100.0) 03/20/17 04:25 MCH 29.0 pg (27.0-34.0) 03/20/17 04:25 MCHC 35.7 g/dL (33.0-35.0) H 03/20/17 04:25 RDW 14.2 % (11.6-16.5) 03/20/17 04:25 Plt Count 175 X10^3/uL (150.0-450.0) 03/20/17 04:25 MPV 9.0 fL (7.4-11.0) 03/20/17 04:25 Neut % 59.4 % (42.0-75.0) 03/20/17 04:25 Lymph % 25.3 % (21.0-51.0) 03/20/17 04:25 [place] % 8.4 % (0.0-13.0) 03/20/17 04:25 Eos % 5.9 % (0.9-2.9) H 03/20/17 04:25 Baso % 1.0 % (0.2-1.0) 03/20/17 04:25 Neut # 4.5 x10^3/uL (2.2-4.8) 03/20/17 04:25 Lymph # 1.9 X10^3/uL (1.3-2.9) 03/20/17 04:25 [place] # 0.6 x10^3/uL (0.3-0.8) 03/20/17 04:25 Eos # 0.4 x10^3/uL (0.0-0.2) H 03/20/17 04:25 Baso # 0.1 X10^3/uL (0.0-0.1) 03/20/17 04:25 Absolute Nucleated RBC 0.0 /100WBC 03/20/17 04:25 INR Target Range - 03/18/17 16:07 INR 1.03 (0.8-1.3) 03/18/17 16:07 PTT 28.0 SECONDS (22.9-36.5) 03/18/17 16:07 PTT Comment - 03/18/17 16:07 Sodium 143 mmol/L (136-145) 03/20/17 04:25 Corrected Sodium 146 mmol/L (136-145) H 03/20/17 04:25 Potassium 3.7 mmol/L (3.5-5.1) 03/20/17 04:25 Chloride 108 mmol/L (98-107) H 03/20/17 04:25 Carbon Dioxide 26.3 mmol/L (21-32) 03/20/17 04:25 BUN 34 mg/dL (7-18) H 03/20/17 04:25 Creatinine 1.80 mg/dL (0.70-1.30) H 03/20/17 04:25 Est GFR (MDRD) Af Amer 50 (>60) L 03/20/17 04:25 Est GFR (MDRD) Non-Af 41 (>60) L 03/20/17 04:25 Glucose 213 mg/dL (65-99) H 03/20/17 04:25 POC Glucose (mg/dL) 232 mg/dL (65-99) H 03/20/17 16:33 Calcium 8.3 mg/dL (8.5-10.1) L 03/20/17 04:25 Corrected Calcium 9.3 mg/dL (8.5-10.1) 03/20/17 04:25 Magnesium 2.3 mg/dL (1.7-2.9) 03/18/17 16:07 Total Bilirubin 0.20 mg/dL (0.2-1.0) 03/20/17 04:25 AST 13 Units/L (15-37) L 03/20/17 04:25 ALT 15 Units/L (12-78) 03/20/17 04:25 Alkaline Phosphatase 136 Units/L (46-116) H 03/20/17 04:25 Creatine Kinase 70 Units/L (39-308) 03/18/17 16:07 CK-MB (CK-2) 1.0 ng/mL (0-4.0) 03/18/17 16:07 CK/CKMB % Calc 1.4 % (<4) 03/18/17 16:07 Troponin I 0.71 ng/mL (0-1.5) 03/18/17 16:07 Total Protein 5.8 g/dL (6.4-8.2) L 03/20/17 04:25 Albumin 2.7 g/dL (3.4-5.0) L 03/20/17 04:25 Globulin 3.1 g/dL (2.5-4.5) 03/20/17 04:25 Albumin/Globulin Ratio 0.9 Ratio (1.1-2.1) L 03/20/17 04:25 Specimen Type Clean catch urine 03/18/17 20:51 Urine Color Yellow (YELLOW) 03/18/17 20:51 Urine Appearance Clear (CLEAR) 03/18/17 20:51 Urine pH 5.0 (5.0 - 8.0) 03/18/17 20:51 Ur Specific [place] 1.015 (1.000-1.030) 03/18/17 20:51 Urine Protein 2+ (NEGATIVE) 03/18/17 20:51 Urine Glucose (UA) 4+ (NEGATIVE) 03/18/17 20:51 Urine Ketones Negative (NEGATIVE) 03/18/17 20:51 Urine Occult Blood Negative (NEGATIVE) 03/18/17 20:51 Urine Nitrite Negative (NEGATIVE) 03/18/17 20:51 Urine Bilirubin Negative (NEGATIVE) 03/18/17 20:51 Urine Urobilinogen Normal (NORMAL) 03/18/17 20:51 Ur Leukocyte Esterase Negative (NEGATIVE) 03/18/17 20:51 Urine RBC 0 /HPF (NEGATIVE) 03/18/17 20:51 Urine WBC 0-1 /HPF (NEGATIVE) 03/18/17 20:51 Ur Squamous Epith Cells Few /HPF (NEGATIVE) 03/18/17 20:51 Urine Bacteria Trace /HPF (NEGATIVE) 03/18/17 20:51 Ur Culture Indicated? No/not indicated 03/18/17 20:51 - Plan (1) Prerenal azotemia Status: Acute Plan: NORMAL SALINE AT 200ML/HR, CONTINUE TO MONITOR (2) Seizure disorder Status: Acute Plan: CONTINUE KEPPRA, CONTINUE LAMICTAL, CONSULT , EEG, CONTINUE TO MONITOR
[2017-03-20] MEDS: LANTUS SC SCH (20:37)
[2017-03-21 05:22] LABS: BASOPHILS # (AUTO) 0.1 X10^3/uL (0.0-0.1); EOSINOPHILS # (AUTO) 0.4 x10^3/uL (0.0-0.2); EOSINOPHILS % (AUTO) 5.6 % (0.9-2.9); HEMATOCRIT 34.7 % (42.0-54.0); HEMOGLOBIN 12.3 g/dL (13.5-18.0); LYMPHOCYTES # (AUTO) 1.9 X10^3/uL (1.3-2.9); LYMPHOCYTES % (AUTO) 24.2 % (21.0-51.0); MEAN CORPUSCULAR HEMOGLOBIN 28.7 pg (27.0-34.0); MEAN CORPUSCULAR HGB CONC 35.5 g/dL (33.0-35.0); MEAN CORPUSCULAR VOLUME 80.8 fL (80.0-100.0); MEAN PLATELET VOLUME 8.8 fL (7.4-11.0); MONOCYTES # (AUTO) 0.7 x10^3/uL (0.3-0.8); MONOCYTES % (AUTO) 8.2 % (0.0-13.0); NEUTROPHILS # (AUTO) 4.9 x10^3/uL (2.2-4.8); PLATELET COUNT 188 X10^3/uL (150.0-450.0); RED CELL DISTRIBUTION WIDTH 14.2 % (11.6-16.5)
[2017-03-21 05:37] LABS: ALBUMIN 2.8 g/dL (3.4-5.0); CALCIUM 8.5 mg/dL (8.5-10.1); CARBON DIOXIDE 26.3 mmol/L (21-32); COR CA(FOR HYPOALB) 9.5 mg/dL (8.5-10.1); CREATININE 1.65 mg/dL (0.70-1.30); TOTAL PROTEIN 5.9 g/dL (6.4-8.2)
[2017-03-21] MEDS: ATIVAN TAB 0.5 MG PO SCH ×2 (06:00→13:42)
[2017-03-21] MEDS: HumaLOG SC PRN ×3 (06:02→15:58)
[2017-03-21] MEDS ORDERED: DEPAKOTE D.R. TAB PO ONE (08:58)
[2017-03-21] MEDS: KEPPRA TAB 500 MG PO SCH (09:07)
[2017-03-21] MEDS: NORVASC TAB 5 MG PO SCH (09:07)
[2017-03-21] MEDS: COLCRYS TAB 0.6 MG PO SCH (09:07)
[2017-03-21] MEDS: BUMEX TAB 1 MG PO SCH (09:08)
[2017-03-21] MEDS: LOPRESSOR TAB 25 MG PO SCH (09:08)
[2017-03-21] MEDS: DEPAKOTE D.R. TAB PO SCH (09:08)
[2017-03-21] MEDS: CATAPRES TAB 0.1 MG PO SCH (09:08)
[2017-03-21] MEDS: ZESTRIL TAB 40 MG PO SCH (09:08)
[2017-03-21] MEDS: FLOMAX PO SCH (09:08)
[2017-03-21] MEDS: LAMOTRIGINE 25 MG PO SCH (09:09)
[2017-03-21] MEDS: ULORIC PO SCH (09:54)
[2017-03-21] MEDS ORDERED: DEPAKOTE D.R. TAB PO SCH (10:54)
[2017-03-21] MEDS ORDERED: CATAPRES-TTS-3 TD SCH (11:00)
[2017-03-21] MEDS: VALIUM PO SCH ×2 (11:26→13:38)
[2017-03-21] MEDS: NS 1000 ML 1,000 ML IV SCH ×2 (13:42→15:59)
--- NOTE | 2017-03-21 18:58 | DR.PROGNOT ---
Hospital Progress Notes - Progress Note for Day of: Progress Note Date: 03/21/17 - Chief Complaint Chief Complaint: Intractable seizures - History of Present Illness History of Present Illness: Neurology progress note March 21, 2017 : Patient continues to have seizures. His seizures are not responding to ongoing management. He had 6 seizures today. Patient is somnolent however arousable. He has slowed down from psychomotor point of view.Patient's neurological examination remains unchanged. Neurology progress note March 20, 2017 : Patient is feeling a bit better. He did not have any seizures since last night. Patient has been started on Depakote 500 mg twice a day. He is tolerating the medication well. He has no new complaints. NEUROLOGICAL EXAMINATION : Cognitive status: Patient is awake alert oriented in time place and person. Speech: Speech is fluent, naming is intact, comprehension is also intact. Patient has no paraphasic errors. Cranial nerve examination : Second cranial nerve: Visual tierney are intact on confrontation. Third fourth and sixth cranial nerve: Extraocular movements are full without any nystagmus. Pupils are 3.5 mm in size around equal and reactive to light. Fifth cranial nerve: Facial sensations are intact bilaterally. Seventh cranial nerve: Facial symmetry is intact bilaterally. Eighth cranial nerve: Hearing is intact bilaterally. Ninth and 10th cranial nerve: Palate is symmetrical bilaterally. 11th cranial nerve: Shoulder shrug is equal and symmetrical bilaterally. 12 cranial nerve: Tongue is in midline. Coordination: Finger to nose rapid alternating movements are intact. Gait: gait was not tested. Motor system examination: Tone is normal. Strength is 5 over 5 proximally as well as distally in upper and lower extremities. Deep tendon reflexes are +1 equal and symmetrical in upper and lower extremities. Plantars are flexor bilaterally. Sensory system examination: Patient has equal and symmetrical touch, temperature , pinprick sensation distally and proximally in upper and lower extremities. - Past Medical Family Social History Past Med/Fam/Surg Hx: No changes since H&P Allergies: Allergies No Known Allergies [NKA] Allergy (Verified 01/23/17 10:47) - Review Of Systems ROS: No change since H&P - Vital Signs Vital Signs: Temperature 98.5 F Pulse Rate [Right Brachial] 67 Pulse Rate 80 Respiratory Rate 18 Blood Pressure [Left Arm] 121/60 Blood Pressure [Right Arm] 163/88 Blood Pressure 129/68 O2 Sat by Pulse Oximetry 95 - Physical Exam Oriented: Normal, Place Eyes: Normal Ear: Normal Nose: Normal Throat: Normal Respiratory: Normal Cardiovascular: Normal : Normal GI:Auscultation: Normal GI:Palpation: Normal GI: Tenderness: Normal Skin: Normal Musculoskeletal: Normal Psychiatric: Normal, Other Mood Description: Calm Affect: Normal Speech Pattern: Clear, Appropriate - Laboratory and Diagnostics Result Diagrams: 03/21/17 04:45 03/21/17 04:45 Labs: Laboratory WBC 8.0 X10^3/uL (3.6-10.0) 03/21/17 04:45 RBC 4.30 X10^6/uL (4.7-6.0) L 03/21/17 04:45 Hgb 12.3 g/dL (13.5-18.0) L 03/21/17 04:45 Hct 34.7 % (42.0-54.0) L 03/21/17 04:45 MCV 80.8 fL (80.0-100.0) 03/21/17 04:45 MCH 28.7 pg (27.0-34.0) 03/21/17 04:45 MCHC 35.5 g/dL (33.0-35.0) H 03/21/17 04:45 RDW 14.2 % (11.6-16.5) 03/21/17 04:45 Plt Count 188 X10^3/uL (150.0-450.0) 03/21/17 04:45 MPV 8.8 fL (7.4-11.0) 03/21/17 04:45 Neut % 61.0 % (42.0-75.0) 03/21/17 04:45 Lymph % 24.2 % (21.0-51.0) 03/21/17 04:45 [place] % 8.2 % (0.0-13.0) 03/21/17 04:45 Eos % 5.6 % (0.9-2.9) H 03/21/17 04:45 Baso % 1.0 % (0.2-1.0) 03/21/17 04:45 Neut # 4.9 x10^3/uL (2.2-4.8) H 03/21/17 04:45 Lymph # 1.9 X10^3/uL (1.3-2.9) 03/21/17 04:45 [place] # 0.7 x10^3/uL (0.3-0.8) 03/21/17 04:45 Eos # 0.4 x10^3/uL (0.0-0.2) H 03/21/17 04:45 Baso # 0.1 X10^3/uL (0.0-0.1) 03/21/17 04:45 Absolute Nucleated RBC 0.0 /100WBC 03/21/17 04:45 INR Target Range - 03/18/17 16:07 INR 1.03 (0.8-1.3) 03/18/17 16:07 PTT 28.0 SECONDS (22.9-36.5) 03/18/17 16:07 PTT Comment - 03/18/17 16:07 Sodium 143 mmol/L (136-145) 03/21/17 04:45 Corrected Sodium 146 mmol/L (136-145) H 03/21/17 04:45 Potassium 3.7 mmol/L (3.5-5.1) 03/21/17 04:45 Chloride 108 mmol/L (98-107) H 03/21/17 04:45 Carbon Dioxide 26.3 mmol/L (21-32) 03/21/17 04:45 BUN 24 mg/dL (7-18) H 03/21/17 04:45 Creatinine 1.65 mg/dL (0.70-1.30) H 03/21/17 04:45 Est GFR (MDRD) Af Amer 55 (>60) L 03/21/17 04:45 Est GFR (MDRD) Non-Af 45 (>60) L 03/21/17 04:45 Glucose 236 mg/dL (65-99) H 03/21/17 04:45 POC Glucose (mg/dL) 253 mg/dL (65-99) H 03/21/17 15:55 Calcium 8.5 mg/dL (8.5-10.1) 03/21/17 04:45 Corrected Calcium 9.5 mg/dL (8.5-10.1) 03/21/17 04:45 Magnesium 2.3 mg/dL (1.7-2.9) 03/18/17 16:07 Total Bilirubin 0.10 mg/dL (0.2-1.0) L 03/21/17 04:45 AST 13 Units/L (15-37) L 03/21/17 04:45 ALT 16 Units/L (12-78) 03/21/17 04:45 Alkaline Phosphatase 125 Units/L (46-116) H 03/21/17 04:45 Creatine Kinase 70 Units/L (39-308) 03/18/17 16:07 CK-MB (CK-2) 1.0 ng/mL (0-4.0) 03/18/17 16:07 CK/CKMB % Calc 1.4 % (<4) 03/18/17 16:07 Troponin I 0.71 ng/mL (0-1.5) 03/18/17 16:07 Total Protein 5.9 g/dL (6.4-8.2) L 03/21/17 04:45 Albumin 2.8 g/dL (3.4-5.0) L 03/21/17 04:45 Globulin 3.1 g/dL (2.5-4.5) 03/21/17 04:45 Albumin/Globulin Ratio 0.9 Ratio (1.1-2.1) L 03/21/17 04:45 Specimen Type Clean catch urine 03/18/17 20:51 Urine Color Yellow (YELLOW) 03/18/17 20:51 Urine Appearance Clear (CLEAR) 03/18/17 20:51 Urine pH 5.0 (5.0 - 8.0) 03/18/17 20:51 Ur Specific [place] 1.015 (1.000-1.030) 03/18/17 20:51 Urine Protein 2+ (NEGATIVE) 03/18/17 20:51 Urine Glucose (UA) 4+ (NEGATIVE) 03/18/17 20:51 Urine Ketones Negative (NEGATIVE) 03/18/17 20:51 Urine Occult Blood Negative (NEGATIVE) 03/18/17 20:51 Urine Nitrite Negative (NEGATIVE) 03/18/17 20:51 Urine Bilirubin Negative (NEGATIVE) 03/18/17 20:51 Urine Urobilinogen Normal (NORMAL) 03/18/17 20:51 Ur Leukocyte Esterase Negative (NEGATIVE) 03/18/17 20:51 Urine RBC 0 /HPF (NEGATIVE) 03/18/17 20:51 Urine WBC 0-1 /HPF (NEGATIVE) 03/18/17 20:51 Ur Squamous Epith Cells Few /HPF (NEGATIVE) 03/18/17 20:51 Urine Bacteria Trace /HPF (NEGATIVE) 03/18/17 20:51 Ur Culture Indicated? No/not indicated 03/18/17 20:51 Lamotrigine < 0.9 ug/mL (2.5-15.0) L 03/18/17 12:30 Levetiracetam 70 ug/mL (12-46) H 03/18/17 12:30 - Assessment and Plan 1: Patient's seizures are intractable. They are not responding to present management. Patient has slowed down from psychomotor point of view. I discussed his case with Dr. Gaona, neurologist at [facility]. He has accepted the patient for further evaluation and management. We will transfer the patient to [facility] as soon as possible. In the meantime we will continue the present management. - Problem Patient Problems: Patient Problems Prerenal azotemia (Acute) R79.89 Seizure disorder (Acute) G40.900
[2017-03-21 20:39] VITALS: BP 187/88
== END 2017-03-21 20:16 | disposition short-term general hospital (02) ==
LOC: ER 11:30 → ICU 15:53 → INTOOBSV 15:53 → ICU 19:00
PROVIDERS: ADMIT Internal Medicine; ATTEND Internal Medicine
DX: G40.804 Other epilepsy, intractable, without status epilepticus (principal); R94.31 Abnormal electrocardiogram [ECG] [EKG]; R79.89 Other specified abnormal findings of blood chemistry; E11.65 Type 2 diabetes mellitus with hyperglycemia; R94.4 Abnormal results of kidney function studies; R74.8 Abnormal levels of other serum enzymes; D64.89 Other specified anemias; I25.10 Atherosclerotic heart disease of native coronary artery without angina pectoris; J44.9 Chronic obstructive pulmonary disease, unspecified; E78.2 Mixed hyperlipidemia; I10 Essential (primary) hypertension
CPT/HCPCS: 36415; 70450; 80053; 80175; 80177; 81001; 82550; 82553; 82947; 83735; 84484; 85025; 85610; 85730; 93005; 95819; 96365; 99283; 99285; A4222; S0078; G0378; J1815; J1817; J2060; J3360

== ENCOUNTER 2017-04-03 14:01 | Emergency (ER) | payer OTHER ==
[2017-04-03 14:14] VITALS: BMI 33.0
[2017-04-03] MEDS ORDERED: NS 1000 ML 1,000 ML IV ONE ×2 (14:17→14:35)
[2017-04-03] MEDS ORDERED: ATIVAN INJ 2 MG VIAL IVP ONE (14:28)
[2017-04-03] MEDS ORDERED: ATIVAN INJ 2 MG VIAL ONE (14:29)
[2017-04-03] MEDS ORDERED: NS 1000 ML 1,000 ML ONE (14:29)
[2017-04-03 14:32] LABS: BASOPHILS # (AUTO) 0.1 X10^3/uL (0.0-0.1); BASOPHILS % (AUTO) 1.1 % (0.2-1.0); EOSINOPHILS # (AUTO) 0.3 x10^3/uL (0.0-0.2); EOSINOPHILS % (AUTO) 4.3 % (0.9-2.9); HEMATOCRIT 34.5 % (42.0-54.0); HEMOGLOBIN 12.1 g/dL (13.5-18.0); LYMPHOCYTES # (AUTO) 1.9 X10^3/uL (1.3-2.9); LYMPHOCYTES % (AUTO) 24.5 % (21.0-51.0); MEAN CORPUSCULAR HEMOGLOBIN 28.8 pg (27.0-34.0); MEAN CORPUSCULAR HGB CONC 34.9 g/dL (33.0-35.0); MEAN CORPUSCULAR VOLUME 82.4 fL (80.0-100.0); MONOCYTES # (AUTO) 0.7 x10^3/uL (0.3-0.8); MONOCYTES % (AUTO) 8.5 % (0.0-13.0); NEUTROPHILS # (AUTO) 4.7 x10^3/uL (2.2-4.8); NEUTROPHILS % (AUTO) 61.6 % (42.0-75.0); PLATELET COUNT 155 X10^3/uL (150.0-450.0); RED BLOOD COUNT 4.19 X10^6/uL (4.7-6.0); RED CELL DISTRIBUTION WIDTH 13.7 % (11.6-16.5); WHITE BLOOD COUNT 7.7 X10^3/uL (3.6-10.0)
[2017-04-03 14:51] LABS: ALBUMIN 3.1 g/dL (3.4-5.0); CARBON DIOXIDE 25.5 mmol/L (21-32); COR CA(FOR HYPOALB) 8.7 mg/dL (8.5-10.1); CREATININE 2.52 mg/dL (0.70-1.30)
[2017-04-03] MEDS ORDERED: VALIUM INJ IVP ONE ×2 (15:01→19:05)
--- NOTE | 2017-04-03 15:33 | CT ---
HISTORY: Unresponsive. Study: CT brain without contrast Comparison: CT head dated March 19, 2017. Technique: Multiple axial images of the brain were obtained from the skull base to the vertex without administra tion of IV contrast. Dose reduction techniques including Automated Exposure Control (AEC) and adjust ment of mA and kV were utilized. Findings: Age-related cortical atrophy and chronic small vessel ischemic changes. Remote infarcts of the left f rontal lobe with associated encephalomalacia and ex vacuo dilatation of the lateral ventricle appears unchanged given technique. No acute intraparenchymal hemorrhage or mass can be identified. No extra -axial fluid collections are seen. No alteration in the attenuation of the brain parenchyma can be i dentified to suggest acute or subacute ischemic change. The ventricular system is symmetric and nond ilated. Small mucous retention cysts are seen within the bilateral maxillary sinuses. Remaining visua lized paranasal sinuses and mastoid air cells are clear. The osseous structures are intact. IMPRESSION: No acute intracranial pathology. Reported By:
[2017-04-03] MEDS ORDERED: HumuLIN R IV ONE (16:05)
--- NOTE | 2017-04-03 16:05 | DR.GENAD ---
HPI - PCP Primary Care Physician: kenny - Complaint/Symptoms Chief Complaint:: EMS STATES PT WAS FOUND UNRESPONSIVE OUT IN THE YARD WITNESSED X2 SEIZURES. PT IS NOTED TO PT POST ICTAL UPON ARRIVAL. PT RESPONDS TO PAINFUL STIMULI. - Source History Provided: EMS - Mode of Arrival Mode of Arrival: EMS - Timing Onset of Chief Complaint: 04/03/17 PMH - PMH Past Medical History: Yes Past Medical History: COPD, Coronary Artery Disease, CVA, Depression, Diabetes, Dyslipidemia, Hypertension, [place], Renal Disease, Seizures Past Surgical History: Yes Surgical History: Angioplasty/Stents, CABG/Valve Surgery, Tonsillectomy - Family History History of Family Medical Conditions: Yes Family Medical History: Diabetes Mellitus, [place], Coronary Artery Disease, Hypertension - Social History Does any household member use tobacco: No Alcohol Use: None Do you use any recreational Drugs:: No Lives With: Family Lives Where: Home - infectious screening In the last 2 months have you had wt loss of >10#?: NO Have you had fever, night sweats or hemotysis?: No Have you traveled outside the country in the last 6 months?: No Isolation: Standard ROS - Review of Systems Constitutional: No Symptoms Reported Eyes: No Symptoms Reported ENTM: No Symptoms Reported Respiratoy: No Symptoms Reported Cardiovascular: No Symptoms Reported Gastrointestinal/Abdominal: No Symptoms Reported Genitourinary: No Symptoms Reported Neurological: Seizure Musculoskeletal: No Symptoms Reported Integumentary: No Symptoms Reported Hematologic/Lymphatic: No Symptoms Reported Endocrine: No Symptoms Reported Psychiatric: No Symptoms Reported PE - Vital Signs Vitals: Temperature 97.6 F Pulse Rate [Right Radial] 69 Pulse Rate 75 Respiratory Rate 18 Blood Pressure [Left Arm] 121/60 Blood Pressure [Right Arm] 183/84 Blood Pressure 196/91 O2 Sat by Pulse Oximetry 98 - General Limitations: No Limitations General Appearance: Lethargic - Head Head Exam: Normal Inspection - Eyes Eye exam: Normal Appearance, PERRL - ENT ENT Exam: Normal Exam - Neck Neck Exam: Normal Inspection - Chest Chest Inspection: Normal Inspection - Respiratory Respiratory Exam: Normal Lung Sounds Bilat - Cardiovascular Cardiovascular Exam: Regular Rate, Normal Rhythm - Abdominal Exam Abdominal Exam: Normal Inspection, Normal Bowel Sounds, Soft - Extremities Extremities Exam: Normal Inspection - Back Back Exam: Normal Inspection - Neurologic Neurological Exam: Other (He is post-ictal) MDM - Additional Information Additional Information Obtained From: Family Course - Consultation Consultation Comments: Dr. Sarmiento, the pt's Neurologist happens to be in the hospital premises while the pt. was here in the E.D. I asked him to see this pt. due to his Intractable seizures. Dr. Sarmiento saw the pt. and agrees to have pt. admitted to the hospitalist Services at [facility] in [place] with neurology consult. ROR - Labs Reviewed Result Diagrams: 04/03/17 14:25 04/03/17 14:25 Laboratory: WBC 7.7 X10^3/uL (3.6-10.0) 04/03/17 14:25 RBC 4.19 X10^6/uL (4.7-6.0) L 04/03/17 14:25 Hgb 12.1 g/dL (13.5-18.0) L 04/03/17 14:25 Hct 34.5 % (42.0-54.0) L 04/03/17 14:25 MCV 82.4 fL (80.0-100.0) 04/03/17 14:25 MCH 28.8 pg (27.0-34.0) 04/03/17 14:25 MCHC 34.9 g/dL (33.0-35.0) 04/03/17 14:25 RDW 13.7 % (11.6-16.5) 04/03/17 14:25 Plt Count 155 X10^3/uL (150.0-450.0) 04/03/17 14:25 MPV 9.0 fL (7.4-11.0) 04/03/17 14:25 Neut % 61.6 % (42.0-75.0) 04/03/17 14:25 Lymph % 24.5 % (21.0-51.0) 04/03/17 14:25 [place] % 8.5 % (0.0-13.0) 04/03/17 14:25 Eos % 4.3 % (0.9-2.9) H 04/03/17 14:25 Baso % 1.1 % (0.2-1.0) H 04/03/17 14:25 Neut # 4.7 x10^3/uL (2.2-4.8) 04/03/17 14:25 Lymph # 1.9 X10^3/uL (1.3-2.9) 04/03/17 14:25 [place] # 0.7 x10^3/uL (0.3-0.8) 04/03/17 14:25 Eos # 0.3 x10^3/uL (0.0-0.2) H 04/03/17 14:25 Baso # 0.1 X10^3/uL (0.0-0.1) 04/03/17 14:25 Absolute Nucleated RBC 0.1 /100WBC 04/03/17 14:25 Sodium 129 mmol/L (136-145) L 04/03/17 14:25 Corrected Sodium 143 mmol/L (136-145) 04/03/17 14:25 Potassium 5.1 mmol/L (3.5-5.1) 04/03/17 14:25 Chloride 95 mmol/L (98-107) L 04/03/17 14:25 Carbon Dioxide 25.5 mmol/L (21-32) 04/03/17 14:25 BUN 42 mg/dL (7-18) H 04/03/17 14:25 Creatinine 2.52 mg/dL (0.70-1.30) H 04/03/17 14:25 Est GFR (MDRD) Af Amer 34 (>60) L 04/03/17 14:25 Est GFR (MDRD) Non-Af 28 (>60) L 04/03/17 14:25 Glucose 674 mg/dL (65-99) H* 04/03/17 14:25 POC Glucose (mg/dL) 402 mg/dL (65-99) 04/03/17 17:39 Calcium 8.0 mg/dL (8.5-10.1) L 04/03/17 14:25 Corrected Calcium 8.7 mg/dL (8.5-10.1) 04/03/17 14:25 Total Bilirubin 0.20 mg/dL (0.2-1.0) 04/03/17 14:25 AST 9 Units/L (15-37) L 04/03/17 14:25 ALT 18 Units/L (12-78) 04/03/17 14:25 Alkaline Phosphatase 188 Units/L (46-116) H 04/03/17 14:25 C-Reactive Protein 3.00 mg/L (0-3.0) 04/03/17 14:25 Total Protein 6.0 g/dL (6.4-8.2) L 04/03/17 14:25 Albumin 3.1 g/dL (3.4-5.0) L 04/03/17 14:25 Globulin 2.9 g/dL (2.5-4.5) 04/03/17 14:25 Albumin/Globulin Ratio 1.1 Ratio (1.1-2.1) 04/03/17 14:25 - XRAY XRAY Interpreted by: Radiologist (CT Scan Brain: No acute intracranial pathology.) - Diagnosis Discharge Problem: Intractable seizures, Diabetes mellitus with hyperglycemia, Hypertension, uncontrolled, CKD (chronic kidney disease) stage 4, GFR 15-29 ml/min - Discharge Plan Disposition: 02 XFER SHT-TRM HOSP Condition: Stable - Follow ups/Referrals Follow ups/Referrals: Medhat Sharp [Primary Care Provider] - 3 days - Instructions
[2017-04-03] MEDS ORDERED: HumuLIN R ONE (16:08)
[2017-04-03] MEDS ORDERED: ULTRAM PO ONE (19:14)
[2017-04-03] MEDS ORDERED: LOPRESSOR INJ 5 MG AMP IVP ONE (19:16)
[2017-04-03] MEDS ORDERED: LOPRESSOR INJ 5 MG AMP ONE (19:24)
[2017-04-03] MEDS ORDERED: ULTRAM ONE (19:25)
[2017-04-03] MEDS ORDERED: SNACK - Diabetic Appropriate PO SCH (20:00)
[2017-04-03 20:34] VITALS: BP 173/84
== END 2017-04-03 20:30 | disposition short-term general hospital (02) ==
LOC: ER 14:03
DX: G40.919 Epilepsy, unspecified, intractable, without status epilepticus (principal); E11.65 Type 2 diabetes mellitus with hyperglycemia; I10 Essential (primary) hypertension; N18.4 Chronic kidney disease, stage 4 (severe)
CPT/HCPCS: 36415; 70450; 80053; 85025; 86140; 96365; 96367; 96374; 96375; 99284; 99285; J1815; J2060; J3360; J3490

== ENCOUNTER 2017-05-16 11:49 | Observation (INO) | payer OTHER ==
--- NOTE | 2017-05-16 12:04 | DR.SEIZA ---
HPI - Time Seen Time seen: 11:50 - Primary Care Physician Primary Care Physician: kenny - HPI Comment HPI Comment: KNOWN SEIZURE PATIENT ON MEDICATION HAD TONIC CLONIC SEIZURE WHILE AT DR. MARTIN OFFICE. HE IS NOT FULLY ALERT. GLUCOSE HIGH. - Complaints Chief Complaint Doctors Comments: SEIZURE WHILE AT PCP OFFICE. HERE VIA EMS. Chief Complaint:: patient was at dr martin office and had a seizure. - Reviewed Nurses Notes Reviewed: Yes - Source History Provided: EMS, Other - Mode of Arrival Mode of Arrival: EMS - Timing Onset of Chief Complaint: 05/16/17 - Duration Since Onset: Since Onset Duration: Minutes - Quality Quality: Tonic-clonic - Location Location: Generalized - Context Prior to Seizure:: Normal During Seizure: LOC Immediately After Seizure: Confusion History of:: Seizure Disorder, Hypoglycemia Medication Compliance: Yes - Associated Signs and Symptoms Associated Signs and Symptoms:: Headache PMH - PMH Past Medical History: Yes Past Medical History: COPD, Coronary Artery Disease, CVA, Depression, Diabetes, Dyslipidemia, Hypertension, [place], Renal Disease, Seizures Past Surgical History: Yes Surgical History: Angioplasty/Stents, CABG/Valve Surgery, Tonsillectomy - Family History History of Family Medical Conditions: Yes Family Medical History: Diabetes Mellitus, [place], Coronary Artery Disease, Hypertension - Social History Does patient currently use any type of tobacco product: No Have you used tobacco products in the last 12 months: No Type of Tobacco Use: None Does any household member use tobacco: No Alcohol Use: None Do you use any recreational Drugs:: No Lives With: Family Lives Where: Home - infectious screening In the last 2 months have you had wt loss of >10#?: NO Have you had fever, night sweats or hemotysis?: No Have you traveled outside the country in the last 6 months?: No Isolation: Standard ROS - Review of Systems Constitutional: Weakness, Fatigue. negative: Chills, Fever Eyes: negative: Eye Pain, Blurred Vision, Discharge ENTM: negative: Ear Pain, Nose Discharge, Nose Congestion, Throat Pain Respiratoy: Short of Breath (ON EXERTION) Cardiovascular: Chest Pain Gastrointestinal/Abdominal: No Symptoms Reported Genitourinary: No Symptoms Reported Neurological: Headache, Seizure Musculoskeletal: Muscle Pain Integumentary: No Symptoms Reported Hematologic/Lymphatic: No Symptoms Reported Endocrine: negative: Flushing All Other Systems: Reviewed and Negative PE - Vital Signs Vitals: Temperature 98.9 F Pulse Rate 74 Respiratory Rate 16 Blood Pressure [Left Arm] 121/60 Blood Pressure [Right Arm] 173/84 Blood Pressure 217/101 O2 Sat by Pulse Oximetry 99 - General Limitations: Other (CONFUSE SLIGHTLY.) General Appearance: Alert - Head Head Exam: Normal Inspection Head Exam Physical: Other (NONE) - Eyes Eye exam: PERRL, EOMI. negative: Scleral Icterus, Conjunctival Injection, Periorbital Swelling, Periorbital Tenderness Eyelids: Normal Inspection: Bilateral Pupils: Regular, Round: Bilateral, Reactive: Bilateral Sclera/Conjunctival: Normal Inspection: Bilateral - ENT ENT Exam: Normal Exam Mouth Exam: Normal Inspection - Neck Neck Exam: Trachea Midline - Chest Chest Inspection: Symmetric Chest Wall Rise - Respiratory Respiratory Exam: Normal Lung Sounds Bilat Respiratory Exam: Bilateral Wheezing, Bilateral Rhonchi, Lower Wheezing, Lower Rhonchi - Cardiovascular Cardiovascular Exam: Regular Rate, Normal Rhythm, Normal Heart Sounds - Abdominal Exam Abdominal Exam: Normal Bowel Sounds, Soft. negative: Tenderness - Extremities Extremities Exam: Normal Inspection - Back Back Exam: Normal Inspection - Neurologic Neurological Exam: Alert, Oriented X3 MDM - Differential Diagnosis Seizure due to:: CVA/TIA, Hypoclacemia, Hypoglycemia, Hyponatremia, Hypoxemia, Mass lesion Course - Treatment Treatment: SEE ORDERS - Consultation Consultation Comments: PATIENT DISCUSS WITH DR. ANAYA. HE WILL ADMIT PATIENT. - Education/Counseling Education/Counseling: Patient, Education Educated On: Treatment, Diagnosis, Needs for Follow Up ROR - Labs Reviewed Laboratory Results Reviewed?: Yes Result Diagrams: 05/16/17 11:55 05/16/17 11:55 Laboratory: WBC 9.8 X10^3/uL (3.6-10.0) 05/16/17 11:55 RBC 4.89 X10^6/uL (4.7-6.0) 05/16/17 11:55 Hgb 13.9 g/dL (13.5-18.0) 05/16/17 11:55 Hct 39.8 % (42.0-54.0) L 05/16/17 11:55 MCV 81.3 fL (80.0-100.0) 05/16/17 11:55 MCH 28.5 pg (27.0-34.0) 05/16/17 11:55 MCHC 35.0 g/dL (33.0-35.0) 05/16/17 11:55 RDW 13.4 % (11.6-16.5) 05/16/17 11:55 Plt Count 183 X10^3/uL (150.0-450.0) 05/16/17 11:55 MPV 9.2 fL (7.4-11.0) 05/16/17 11:55 Neut % 70.5 % (42.0-75.0) 05/16/17 11:55 Lymph % 20.1 % (21.0-51.0) L 05/16/17 11:55 [place] % 5.9 % (0.0-13.0) 05/16/17 11:55 Eos % 2.5 % (0.9-2.9) 05/16/17 11:55 Baso % 1.0 % (0.2-1.0) 05/16/17 11:55 Neut # 6.9 x10^3/uL (2.2-4.8) H 05/16/17 11:55 Lymph # 2.0 X10^3/uL (1.3-2.9) 05/16/17 11:55 [place] # 0.6 x10^3/uL (0.3-0.8) 05/16/17 11:55 Eos # 0.2 x10^3/uL (0.0-0.2) 05/16/17 11:55 Baso # 0.1 X10^3/uL (0.0-0.1) 05/16/17 11:55 Absolute Nucleated RBC 0.0 /100WBC 05/16/17 11:55 Sodium 129 mmol/L (136-145) L 05/16/17 11:55 Corrected Sodium 140 mmol/L (136-145) 05/16/17 11:55 Potassium 5.3 mmol/L (3.5-5.1) H 05/16/17 11:55 Chloride 95 mmol/L (98-107) L 05/16/17 11:55 Carbon Dioxide 26.0 mmol/L (21-32) 05/16/17 11:55 BUN 45 mg/dL (7-18) H 05/16/17 11:55 Creatinine 2.23 mg/dL (0.70-1.30) H 05/16/17 11:55 Est GFR (MDRD) Af Amer 39 (>60) L 05/16/17 11:55 Est GFR (MDRD) Non-Af 32 (>60) L 05/16/17 11:55 Glucose 556 mg/dL (65-99) H* 05/16/17 11:55 Calcium 9.3 mg/dL (8.5-10.1) 05/16/17 11:55 Corrected Calcium TNP 05/16/17 11:55 Magnesium 2.3 mg/dL (1.7-2.9) 05/16/17 11:55 Total Bilirubin 0.40 mg/dL (0.2-1.0) 05/16/17 11:55 AST 11 Units/L (15-37) L 05/16/17 11:55 ALT 22 Units/L (12-78) 05/16/17 11:55 Alkaline Phosphatase 191 Units/L (46-116) H 05/16/17 11:55 Creatine Kinase 94 Units/L (39-308) 05/16/17 11:55 CK-MB (CK-2) 1.5 ng/mL (0-4.0) 05/16/17 11:55 CK/CKMB % Calc 1.6 % (<4) 05/16/17 11:55 Troponin I 0.31 ng/mL (0-1.5) 05/16/17 11:55 Total Protein 7.3 g/dL (6.4-8.2) 05/16/17 11:55 Albumin 3.7 g/dL (3.4-5.0) 05/16/17 11:55 Globulin 3.6 g/dL (2.5-4.5) 05/16/17 11:55 Albumin/Globulin Ratio 1.0 Ratio (1.1-2.1) L 05/16/17 11:55 Acetone, Semi-Quant Negative (NEGATIVE) 05/16/17 11:55 - XRAY XRAY Interpreted by: Radiologist XRAY Findings: REPORT DISCUSS WITH PATIENT. - EKG Rhythm: NSR (EKG NOTED.) - Diagnosis Discharge Problem: Seizure, Hyperglycemia Hypertension Qualifiers: Hypertension type: essential hypertension Qualified Code(s): I10 - Essential ( primary) hypertension - Discharge Plan Disposition: ADMITTED INPATIENT Condition: Stable - Follow ups/Referrals - Instructions
[2017-05-16 12:18] LABS: BASOPHILS # (AUTO) 0.1 X10^3/uL (0.0-0.1); EOSINOPHILS # (AUTO) 0.2 x10^3/uL (0.0-0.2); EOSINOPHILS % (AUTO) 2.5 % (0.9-2.9); HEMATOCRIT 39.8 % (42.0-54.0); HEMOGLOBIN 13.9 g/dL (13.5-18.0); LYMPHOCYTES % (AUTO) 20.1 % (21.0-51.0); MEAN CORPUSCULAR HEMOGLOBIN 28.5 pg (27.0-34.0); MEAN CORPUSCULAR VOLUME 81.3 fL (80.0-100.0); MEAN PLATELET VOLUME 9.2 fL (7.4-11.0); MONOCYTES # (AUTO) 0.6 x10^3/uL (0.3-0.8); MONOCYTES % (AUTO) 5.9 % (0.0-13.0); NEUTROPHILS # (AUTO) 6.9 x10^3/uL (2.2-4.8); NEUTROPHILS % (AUTO) 70.5 % (42.0-75.0); PLATELET COUNT 183 X10^3/uL (150.0-450.0); RED BLOOD COUNT 4.89 X10^6/uL (4.7-6.0); RED CELL DISTRIBUTION WIDTH 13.4 % (11.6-16.5); WHITE BLOOD COUNT 9.8 X10^3/uL (3.6-10.0)
[2017-05-16 12:40] LABS: ALANINE AMINOTRANSFERASE 22 Units/L (12-78); ALBUMIN 3.7 g/dL (3.4-5.0); ALKALINE PHOSPHATASE 191 Units/L (46-116); ASPARTATE AMINO TRANSFERASE 11 Units/L (15-37); BLOOD UREA NITROGEN 45 mg/dL (7-18); CALCIUM 9.3 mg/dL (8.5-10.1); CHLORIDE 95 mmol/L (98-107); CKMB % 1.6 % (<4); CREATINE KINASE 94 Units/L (39-308); CREATINE KINASE MB 1.5 ng/mL (0-4.0); CREATININE 2.23 mg/dL (0.70-1.30); MAGNESIUM 2.3 mg/dL (1.7-2.9); SODIUM 129 mmol/L (136-145); TOTAL PROTEIN 7.3 g/dL (6.4-8.2); TROPONIN I 0.31 ng/mL (0-1.5); eGFR BLACK RACES 39 (>60); eGFR NON BLACK RACES 32 (>60)
--- NOTE | 2017-05-16 12:43 | RAD ---
History: Shortness of breath and seizure activity Study: Portable AP chest Comparison: March 01, 2017 Findings: There is unchanged mild to moderate cardiomegaly status post old sternotomy. There are unch anged pacemaker wire leads from the left. The lungs are grossly clear. There is no edema or effusion. Impression: Unchanged cardiomegaly, no acute disease demonstrated. Reported By:
[2017-05-16 12:44] LABS: COR NA(FOR HYPERGLY) 140 mmol/L (136-145)
--- NOTE | 2017-05-16 12:46 | CT ---
CT head without contrast Indication: Seizures Comparison: 04/03/2017 Technique: CT images of the head were obtained without contrast. Automatic exposure control was utili TMS [facility]. Findings: Chronic left frontal infarct is similar to prior. There are patchy areas of periventricular deep white matter hypoattenuation also similar to prior and most suggestive for chronic microangiopa thy. There is no acute bleed, mass, mass effect, or abnormal extra-axial collection. The ventricles a re not significantly dilated. No significant skeletal abnormality. The visualized paranasal sinuses a nd mastoid air cells are grossly clear. Impression: No acute intracranial abnormality. Reported By:
[2017-05-16] MEDS ORDERED: HumuLIN R IV ONE (12:49)
[2017-05-16] MEDS ORDERED: NS 1000 ML 1,000 ML IV ONE (12:50)
[2017-05-16] MEDS ORDERED: NS 1000 ML 1,000 ML ONE (12:52)
[2017-05-16] MEDS ORDERED: HumuLIN R ONE (12:53)
[2017-05-16] MEDS ORDERED: DILAUDID INJ IVP ONE (13:07)
[2017-05-16] MEDS ORDERED: DILAUDID INJ ONE (13:09)
[2017-05-16] MEDS ORDERED: NIFEDIPINE CAP 10 MG PO ONE (13:58)
[2017-05-16] MEDS ORDERED: NIFEDIPINE CAP 10 MG ONE (14:00)
[2017-05-16] MEDS: NS 1000 ML 1,000 ML IV SCH (17:26)
[2017-05-16] MEDS: ZESTRIL TAB 40 MG PO SCH (17:37)
[2017-05-16] MEDS ORDERED: TYLENOL 325 MG TAB PO PRN (18:26)
[2017-05-16] MEDS: HumuLIN R SC PRN ×2 (18:28→22:25)
[2017-05-16 18:51] LABS: CREATINE KINASE MB 1.5 ng/mL (0-4.0); TROPONIN I 0.3 ng/mL (0-1.5)
[2017-05-16 18:52] LABS: BILIRUBIN,URINE NEGATIVE (NEGATIVE); BLOOD/HEMOGLOBIN,URINE 1+ (NEGATIVE); GLUCOSE, URINE 4+ (NEGATIVE); KETONES,URINE NEGATIVE (NEGATIVE); LEUKOCYTE ESTERASE ,URINE NEGATIVE (NEGATIVE); NITRITES,URINE NEGATIVE (NEGATIVE); PROTEIN,URINE 3+ (NEGATIVE); UROBILINOGEN,URINE NORMAL (NORMAL)
[2017-05-16 19:01] LABS: AMORPHOUS SEDIMENT,UR 2+ /HPF (NEGATIVE); APPEARANCE,URINE CLEAR (CLEAR); BACTERIA,URINE NEGATIVE /HPF (NEGATIVE); COLOR,URINE YELLOW (YELLOW); SQUAMOUS EPITHELIAL CELL,UR FEW /HPF (NEGATIVE)
[2017-05-16] MEDS ORDERED: SNACK - Diabetic Appropriate PO SCH (20:00)
[2017-05-16] MEDS ORDERED: KEPPRA TAB 500 MG PO SCH (21:00)
[2017-05-16] MEDS ORDERED: BUMETANIDE 1 MG PO SCH (21:00)
[2017-05-16] MEDS ORDERED: KLONOPIN TAB 0.5 MG PO SCH (21:00)
[2017-05-16] MEDS ORDERED: NORCO 5/325 MG TAB PO PRN (21:19)
[2017-05-16] MEDS: LOPRESSOR TAB 25 MG PO SCH (21:36)
[2017-05-16] MEDS: CATAPRES TAB 0.1 MG PO SCH (21:36)
[2017-05-16] MEDS: BUMEX TAB 1 MG PO SCH (21:36)
[2017-05-17] MEDS: NS 1000 ML 1,000 ML IV SCH ×2 (00:48→07:56)
[2017-05-17] MEDS ORDERED: ULTRAM PO PRN (01:06)
[2017-05-17 01:09] LABS: CKMB % 1.8 % (<4); CREATINE KINASE MB 1.4 ng/mL (0-4.0); TROPONIN I 0.3 ng/mL (0-1.5)
[2017-05-17] MEDS: HumuLIN R SC PRN ×3 (01:11→10:13)
[2017-05-17 06:34] LABS: BASOPHILS # (AUTO) 0.1 X10^3/uL (0.0-0.1); BASOPHILS % (AUTO) 1.1 % (0.2-1.0); EOSINOPHILS # (AUTO) 0.4 x10^3/uL (0.0-0.2); EOSINOPHILS % (AUTO) 4.3 % (0.9-2.9); HEMATOCRIT 34.7 % (42.0-54.0); HEMOGLOBIN 12.4 g/dL (13.5-18.0); LYMPHOCYTES # (AUTO) 2.4 X10^3/uL (1.3-2.9); LYMPHOCYTES % (AUTO) 28.4 % (21.0-51.0); MEAN CORPUSCULAR HEMOGLOBIN 28.6 pg (27.0-34.0); MEAN CORPUSCULAR HGB CONC 35.6 g/dL (33.0-35.0); MEAN CORPUSCULAR VOLUME 80.4 fL (80.0-100.0); MONOCYTES # (AUTO) 0.7 x10^3/uL (0.3-0.8); MONOCYTES % (AUTO) 7.8 % (0.0-13.0); NEUTROPHILS % (AUTO) 58.4 % (42.0-75.0); PLATELET COUNT 188 X10^3/uL (150.0-450.0); RED BLOOD COUNT 4.32 X10^6/uL (4.7-6.0); RED CELL DISTRIBUTION WIDTH 13.6 % (11.6-16.5); WHITE BLOOD COUNT 8.6 X10^3/uL (3.6-10.0)
[2017-05-17 06:35] LABS: ALBUMIN 2.8 g/dL (3.4-5.0); CALCIUM 8.1 mg/dL (8.5-10.1); CARBON DIOXIDE 24.6 mmol/L (21-32); COR CA(FOR HYPOALB) 9.1 mg/dL (8.5-10.1); CREATININE 1.95 mg/dL (0.70-1.30); TOTAL PROTEIN 5.8 g/dL (6.4-8.2)
[2017-05-17] MEDS ORDERED: LAMOTRIGINE 25 MG PO SCH (09:00)
[2017-05-17] MEDS ORDERED: NORVASC TAB 5 MG PO SCH (09:00)
[2017-05-17] MEDS ORDERED: ASPIRIN EC 81 MG PO SCH (09:00)
[2017-05-17] MEDS ORDERED: FLOMAX PO SCH (09:00)
[2017-05-17] MEDS ORDERED: KEPPRA TAB 500 MG PO SCH (09:00)
[2017-05-17] MEDS: BUMEX TAB 1 MG PO SCH (09:49)
[2017-05-17] MEDS: CATAPRES TAB 0.1 MG PO SCH (09:50)
[2017-05-17] MEDS: LOPRESSOR TAB 25 MG PO SCH (09:51)
[2017-05-17] MEDS: ZESTRIL TAB 40 MG PO SCH (09:52)
[2017-05-17 11:04] VITALS: BMI 32.8
[2017-05-17] MEDS ORDERED: ZOFRAN INJ 4 MG VIAL IVP ONE (11:10)
[2017-05-17] MEDS ORDERED: DILAUDID INJ IVP ONE (11:10)
[2017-05-17] MEDS ORDERED: CATAPRES-TTS-2 TD SCH (12:00)
[2017-05-17 13:14] VITALS: BP 175/86
--- NOTE | 2017-05-18 02:05 | DR.CARTERS ---
Short Stay Summary - Short Stay Summary for: Short Stay Summary for Date of:: 05/17/17 - Admission Date Date of Admission: 05/16/17 - Discharge Date Discharge Date: 05/17/17 - Admission Diagnoses (1) Seizure Status: Acute - Hospital Course Hospital Course: is a 62 year old patient of ours who presented to the emergency room via EMS from our office. While being seen at the office, patient was noted to be having a tonic clonic seizure. Upon arrival to the emergency room, patient was postictal state. Patient has a known history of seizure for which he is currently on lamictal and Keppra. On arrival, vital signs were 98.9, 74, 16, 99% NC 2LPM, 217/101. Labs, brain ct, chest xray, and ekg were obtained. Abnormal Labs include the following: Hct 39.8, Lymph% 20.1, Neut# 6.9, Sodium 129, Potassium 5.3, Chloride 95, BUN 45, Creatinine 2.23, GFR(AA) 39, GFR(no) 32, Glucose 556, AST 11, Alk Phos 191, A/G Ratio 1.0. Urinalysis reports: Protein 3+ , Glucose 4+, Occult Blood 1+, RBC 2-4, WBC 0-1, Squam Epith Cells Few, Amorph Sed 2+. EKG: Atrial paced rhythm. Heart rate=70. Chest xray reports: Unchanged cardiomegaly, no acute disease demonstrated. Brain CT: No acute intracranial abnormality. Patient was admitted for further treatment and evaluation. Home medications were reviewed and restarted. We planned to follow up with am labs and continue to monitor patient. On the morning following admission, patient is alert and oriented, lying in bed on morning rounds. Spouse is at bedside. They deny seizure activity throughout the night. Patient does complain of headache this morning, otherwise, states that he is ready to go home. Patient is scheduled for a consultation for a vagal nerve stimulator on Sunday in [place]. His vital signs this morning are 97.4-69-18-97%-175/81. Bun and creatinine are elevated at 37/1.95, otherwise , he is hemodynamically stable. Due to elevated blood pressure, we will discontinue catapres by mouth and start catapres 0.2mg transdermal patch to be applied weekly. We planned for discharge. instructions for medications and follow up were discussed with patient and family. Both verbalized understanding. Patient was discharged home in stable condition with new prescription for catapres patch. He was also given refills for lamictal and bumex. He has instructions to follow up in our office on 05/24/2017. - Discharge Medications Discharge Medications: Amlodipine Besylate [NORVASC 5 MG *] 5 mg PO DAILY 05/16/17 [History] Aspirin EC [ASPIRIN EC 81 MG *] 81 mg PO DAILY 05/16/17 [History] Clonazepam [Klonopin Tab 0.5 mg] 0.5 mg PO HS 05/16/17 [History] Lamotrigine [Lamictal Xr] 25 mg PO DAILY 05/16/17 [History] Levetiracetam [KEPPRA 500 MG *] 1,500 mg PO BID 05/16/17 [History] Lisinopril [ZESTRIL *] 40 mg PO DAILY 05/16/17 [History] Metoprolol Tartrate [LOPRESSOR 25 MG *] 25 mg PO BID 05/16/17 [History] Tamsulosin HCl [FLOMAX (GENERIC) 0.4 MG *] 0.4 mg PO DAILY 05/16/17 [History] Bumetanide 1 mg PO BID #30 tablet 05/17/17 [Rx] Clonidine HCl [CATAPRES-TTS patch 0.2 mg/24 hr 7-day *] 1 each TD Q7D #4 tdsy [Rx] Lamotrigine [Lamictal Xr] 25 mg PO DAILY #30 tab.er.24 05/17/17 [Rx] - Discharge Plan Disposition: HOME, SELF-CARE Condition: Stable Prescriptions: Bumetanide 1 mg PO BID #30 tablet Clonidine HCl [CATAPRES-TTS patch 0.2 mg/24 hr 7-day *] 1 each TD Q7D #4 tdsy Lamotrigine [Lamictal Xr] 25 mg PO DAILY #30 tab.er.24 - Follow up/Referrals Follow up/Referrals: Medhat Sharp [Primary Care Provider] - 05/24/17 1:20 pm - Instructions Instructions: Form - Daily Diabetes Record, Hyperglycemia, Form - Blood Pressure Record Sheet, Hypertension, [id number], Type 2 Diabetes Mellitus, Adult, [id number], Seizure, Adult, [id number] Additional Instructions: diet as tolerated. activity as tolerated. Forms: Patient Portal
== END 2017-05-17 13:25 | disposition home or self-care (01) ==
LOC: ER 11:56 → INTOOBSV 13:55 → OBS 13:55
PROVIDERS: ADMIT Internal Medicine; ATTEND Internal Medicine
DX: G40.802 Other epilepsy, not intractable, without status epilepticus (principal); E11.65 Type 2 diabetes mellitus with hyperglycemia; I10 Essential (primary) hypertension; J44.9 Chronic obstructive pulmonary disease, unspecified; I25.10 Atherosclerotic heart disease of native coronary artery without angina pectoris; E78.2 Mixed hyperlipidemia; R06.02 Shortness of breath; R07.89 Other chest pain; R94.31 Abnormal electrocardiogram [ECG] [EKG]
CPT/HCPCS: 36415; 70450; 71045; 80053; 81001; 82009; 82550; 82553; 82947; 83735; 84484; 85025; 85610; 85730; 93005; 94760; 96365; 96374; 96375; 99284; A4222; G0378; J1815; J2405

== ENCOUNTER 2017-06-02 15:32 | Emergency (ER) | payer OTHER ==
--- NOTE | 2017-06-02 15:42 | DR.GENAD ---
HPI - HPI Comment HPI Comment: PATIENT HAVE - Complaint/Symptoms Chief Complaint Doctors Comments: SEIZURES AT HOME. HERE VIA EMS. ALERT IN ED. - Nurses notes reviewed Nurses Notes Review: Yes - Source History Provided: Patient, Family Member - Mode of Arrival Mode of Arrival: Stretcher - Timing Came on: Suddenly - Duration Duration: Since Onset Duration: Hours - Severity Severity: Moderate PMH - PMH Past Medical History: COPD, Coronary Artery Disease, CVA, Depression, Diabetes, Dyslipidemia, Hypertension, [place], Renal Disease, Seizures Past Surgical History: Yes Surgical History: Angioplasty/Stents, CABG/Valve Surgery, Tonsillectomy - Family History Family Medical History: Diabetes Mellitus, [place], Coronary Artery Disease, Hypertension - Social History Do you use any recreational Drugs:: No ROS - Review of Systems Constitutional: Weakness, Fatigue. negative: Chills, Fever Eyes: No Symptoms Reported. negative: Eye Pain, Discharge ENTM: No Symptoms Reported, Nose Congestion. negative: Ear Pain, Nose Pain, Throat Pain Respiratoy: Moist Cough, Short of Breath, Wheezing. negative: Hemoptysis Cardiovascular: Chest Pain, Edema Gastrointestinal/Abdominal: No Symptoms Reported Genitourinary: No Symptoms Reported Neurological: Headache, Seizure, Weakness Musculoskeletal: Back Pain, Muscle Pain Integumentary: Change in Color Hematologic/Lymphatic: Easy Bleeding, Easy Bruising Endocrine: No Symptoms Reported. negative: Flushing All Other Systems: Reviewed and Negative PE - Vital Signs Vitals: Temperature 98.5 F Pulse Rate [Right Radial] 70 Pulse Rate 73 Respiratory Rate 18 Blood Pressure [Left Arm] 121/60 Blood Pressure [Right Arm] 150/78 Blood Pressure 169/85 O2 Sat by Pulse Oximetry 97 - General Limitations: No Limitations General Appearance: Alert - Head Head Exam: Normal Inspection - Eyes Eye exam: Normal Appearance - ENT ENT Exam: Normal External Ear Exam External Ear Exam: Normal External Inspection TM/Canal Exam: Bilateral Normal Nose Exam: Normal Nose Exam Mouth Exam: Normal Inspection Throat Exam: Normal Inspection - Neck Neck Exam: Trachea Midline - Chest Chest Inspection: Symmetric Chest Wall Rise - Respiratory Respiratory Exam: Normal Lung Sounds Bilat Respiratory Exam: Bilateral Wheezing, Bilateral Rhonchi, Lower Wheezing, Lower Rhonchi - Cardiovascular Cardiovascular Exam: Regular Rate, Normal Rhythm, Normal Heart Sounds - Abdominal Exam Abdominal Exam: Normal Bowel Sounds, Soft. negative: Tenderness - Extremities Extremities Exam: Edema (TRACE) - Back Back Exam: Paraspinal Tenderness - Neurologic Neurological Exam: Alert, Oriented X3 - Psychiatric Psychiatric Exam: Normal Affect, Normal Mood - Skin Skin Exam: Normal Color MDM - Differential Diagnosis Differential Diagnosis: CHEST PAIN, SEIZURE. Course - Treatment Treatment: DISCUSS REPORT WITH PATIENT. - Education/Counseling Education/Counseling: Patient, Education Educated On: Diagnosis, Needs for Follow Up ROR - Labs Reviewed Laboratory Results Reviewed?: Yes Result Diagrams: 06/02/17 15:55 06/02/17 15:55 Laboratory: WBC 12.2 X10^3/uL (3.6-10.0) H 06/02/17 15:55 RBC 4.66 X10^6/uL (4.7-6.0) L 06/02/17 15:55 Hgb 13.1 g/dL (13.5-18.0) L 06/02/17 15:55 Hct 36.9 % (42.0-54.0) L 06/02/17 15:55 MCV 79.0 fL (80.0-100.0) L 06/02/17 15:55 MCH 28.2 pg (27.0-34.0) 06/02/17 15:55 MCHC 35.6 g/dL (33.0-35.0) H 06/02/17 15:55 RDW 13.6 % (11.6-16.5) 06/02/17 15:55 Plt Count 205 X10^3/uL (150.0-450.0) 06/02/17 15:55 MPV 8.7 fL (7.4-11.0) 06/02/17 15:55 Neut % 70.4 % (42.0-75.0) 06/02/17 15:55 Lymph % 20.2 % (21.0-51.0) L 06/02/17 15:55 [place] % 6.3 % (0.0-13.0) 06/02/17 15:55 Eos % 2.5 % (0.9-2.9) 06/02/17 15:55 Baso % 0.6 % (0.2-1.0) 06/02/17 15:55 Neut # 8.6 x10^3/uL (2.2-4.8) H 06/02/17 15:55 Lymph # 2.5 X10^3/uL (1.3-2.9) 06/02/17 15:55 [place] # 0.8 x10^3/uL (0.3-0.8) 06/02/17 15:55 Eos # 0.3 x10^3/uL (0.0-0.2) H 06/02/17 15:55 Baso # 0.1 X10^3/uL (0.0-0.1) 06/02/17 15:55 Absolute Nucleated RBC 0.0 /100WBC 06/02/17 15:55 Sodium 132 mmol/L (136-145) L 06/02/17 15:55 Corrected Sodium 138 mmol/L (136-145) 06/02/17 15:55 Potassium 3.9 mmol/L (3.5-5.1) 06/02/17 15:55 Chloride 99 mmol/L (98-107) 06/02/17 15:55 Carbon Dioxide 25.3 mmol/L (21-32) 06/02/17 15:55 BUN 54 mg/dL (7-18) H 06/02/17 15:55 Creatinine 3.08 mg/dL (0.70-1.30) H 06/02/17 15:55 Est GFR (MDRD) Af Amer 27 (>60) L 06/02/17 15:55 Est GFR (MDRD) Non-Af 22 (>60) L 06/02/17 15:55 Glucose 341 mg/dL (65-99) H 06/02/17 15:55 Calcium 8.6 mg/dL (8.5-10.1) 06/02/17 15:55 Corrected Calcium 9.2 mg/dL (8.5-10.1) 06/02/17 15:55 Magnesium 1.9 mg/dL (1.7-2.9) 06/02/17 15:55 Total Bilirubin 0.40 mg/dL (0.2-1.0) 06/02/17 15:55 AST 13 Units/L (15-37) L 06/02/17 15:55 ALT 21 Units/L (12-78) 06/02/17 15:55 Alkaline Phosphatase 119 Units/L (46-116) H 06/02/17 15:55 Creatine Kinase 91 Units/L (39-308) 06/02/17 15:55 CK-MB (CK-2) 2.0 ng/mL (0-4.0) 06/02/17 15:55 CK/CKMB % Calc 2.2 % (<4) 06/02/17 15:55 Troponin I 0.20 ng/mL (0-1.5) 06/02/17 15:55 Total Protein 6.5 g/dL (6.4-8.2) 06/02/17 15:55 Albumin 3.2 g/dL (3.4-5.0) L 06/02/17 15:55 Globulin 3.3 g/dL (2.5-4.5) 06/02/17 15:55 Albumin/Globulin Ratio 1.0 Ratio (1.1-2.1) L 06/02/17 15:55 - XRAY XRAY Interpreted by: Radiologist XRAY Findings: REPORT DISCUSS WITH PATIENT. - EKG Rhythm: NSR (EKG NOTED.) - Diagnosis Discharge Problem: Seizure disorder Chest pain Qualifiers: Chest pain type: precordial pain Qualified Code(s): R07.2 - Precordial pain - Discharge Plan Disposition: HOME, SELF-CARE Condition: Stable - Follow ups/Referrals Follow ups/Referrals: Medhat Sharp [Primary Care Provider] - 2 days - Instructions Instructions: Seizure, Adult, [id number], Chest Pain Observation Additional Instructions: RETURN TO ED IF WORSE.
[2017-06-02 15:45] VITALS: BMI 30.1
[2017-06-02 15:59] LABS: BASOPHILS # (AUTO) 0.1 X10^3/uL (0.0-0.1); BASOPHILS % (AUTO) 0.6 % (0.2-1.0); EOSINOPHILS # (AUTO) 0.3 x10^3/uL (0.0-0.2); EOSINOPHILS % (AUTO) 2.5 % (0.9-2.9); HEMATOCRIT 36.9 % (42.0-54.0); HEMOGLOBIN 13.1 g/dL (13.5-18.0); LYMPHOCYTES # (AUTO) 2.5 X10^3/uL (1.3-2.9); LYMPHOCYTES % (AUTO) 20.2 % (21.0-51.0); MEAN CORPUSCULAR HEMOGLOBIN 28.2 pg (27.0-34.0); MEAN CORPUSCULAR HGB CONC 35.6 g/dL (33.0-35.0); MEAN PLATELET VOLUME 8.7 fL (7.4-11.0); MONOCYTES # (AUTO) 0.8 x10^3/uL (0.3-0.8); MONOCYTES % (AUTO) 6.3 % (0.0-13.0); NEUTROPHILS # (AUTO) 8.6 x10^3/uL (2.2-4.8); NEUTROPHILS % (AUTO) 70.4 % (42.0-75.0); PLATELET COUNT 205 X10^3/uL (150.0-450.0); RED BLOOD COUNT 4.66 X10^6/uL (4.7-6.0); RED CELL DISTRIBUTION WIDTH 13.6 % (11.6-16.5); WHITE BLOOD COUNT 12.2 X10^3/uL (3.6-10.0)
[2017-06-02 16:19] LABS: CALCIUM 8.6 mg/dL (8.5-10.1); CARBON DIOXIDE 25.3 mmol/L (21-32); CREATININE 3.08 mg/dL (0.70-1.30); TROPONIN I 0.2 ng/mL (0-1.5)
[2017-06-02 16:21] LABS: ALBUMIN 3.2 g/dL (3.4-5.0); CKMB % 2.2 % (<4); COR CA(FOR HYPOALB) 9.2 mg/dL (8.5-10.1); MAGNESIUM 1.9 mg/dL (1.7-2.9); TOTAL PROTEIN 6.5 g/dL (6.4-8.2)
--- NOTE | 2017-06-02 16:22 | RAD ---
HISTORY: 62-year-old male with seizures and choking. Study: Frontal view of the chest. Comparison: Chest radiograph 05/16/2017 Findings: Surgical and support devices are unchanged. The trachea is midline. The cardiac silhouette is stably enlarged with low lung volumes. The lungs are clear without focal consolidation, effusion or pneumothorax. Soft tissues are unremarkable. Osse ous structures are unremarkable. IMPRESSION: 1. No acute cardiopulmonary disease. Reported By:
[2017-06-02 17:18] VITALS: BP 150/78
== END 2017-06-02 18:24 | disposition home or self-care (01) ==
LOC: ER 15:42
DX: G40.909 Epilepsy, unspecified, not intractable, without status epilepticus (principal); R07.2 Precordial pain
CPT/HCPCS: 36415; 71045; 80053; 82550; 82553; 83735; 84484; 85025; 93005; 93010; 96365; 99283

== ENCOUNTER 2017-06-22 21:30 | Emergency (ER) | payer OTHER ==
[2017-06-22 21:42] VITALS: BMI 31.5
[2017-06-22] MEDS ORDERED: CATAPRES TAB 0.2 MG ONE ×2 (21:48→22:23)
[2017-06-22] MEDS ORDERED: CATAPRES TAB 0.2 MG PO ONE ×2 (21:50→22:23)
--- NOTE | 2017-06-22 22:23 | DR.GENAD ---
HPI - PCP Primary Care Physician: JACLYN - Complaint/Symptoms Chief Complaint Doctors Comments: Patient presents with complain of recent Bart Nerve Stimulator inplanted buty not connected four days ago, spouse is concerned about the swelling at incision site; no erythema, but swelling. There is no respiratory compromise or fever. at inplant sites. Patient was diagnosed with status epilepticus in the past and has had two seizures since surgery. Chief Complaint:: CHOKING, SWELLING IN THROAT, SEIZURES - Source History Provided: Patient - Timing Onset of Chief Complaint: 06/15/17 PMH - PMH Past Medical History: Yes Past Medical History: COPD, Coronary Artery Disease, CVA, Depression, Diabetes, Dyslipidemia, Hypertension, [place], Renal Disease, Seizures Past Surgical History: Yes Surgical History: Angioplasty/Stents, CABG/Valve Surgery, Tonsillectomy Past Surgical History Comment: PACEMAKER, VAGUS NERVE STIMULATOR - Family History History of Family Medical Conditions: Yes Family Medical History: Diabetes Mellitus, [place], Coronary Artery Disease, Hypertension - Social History Does patient currently use any type of tobacco product: No Have you used tobacco products in the last 12 months: No Type of Tobacco Use: None Does any household member use tobacco: No Alcohol Use: None Do you use any recreational Drugs:: No Lives With: Family Lives Where: Home - infectious screening In the last 2 months have you had wt loss of >10#?: NO Have you had fever, night sweats or hemotysis?: No Have you traveled outside the country in the last 6 months?: No Isolation: Standard ROS - Review of Systems Constitutional: No Symptoms Reported Eyes: No Symptoms Reported ENTM: No Symptoms Reported Respiratoy: No Symptoms Reported Cardiovascular: No Symptoms Reported Gastrointestinal/Abdominal: No Symptoms Reported Genitourinary: No Symptoms Reported Neurological: No Symptoms Reported Musculoskeletal: No Symptoms Reported Integumentary: No Symptoms Reported Hematologic/Lymphatic: No Symptoms Reported Endocrine: No Symptoms Reported Psychiatric: No Symptoms Reported All Other Systems: Reviewed and Negative PE - Vital Signs Vitals: Pulse Rate 70 Respiratory Rate 16 Blood Pressure [Left Arm] 121/60 Blood Pressure [Right Arm] 150/78 Blood Pressure 218/99 O2 Sat by Pulse Oximetry 99 - General Limitations: No Limitations General Appearance: Alert, In No Apparent Distress - Head Head Exam: Normal Inspection, Atraumatic - Eyes Eye exam: Normal Appearance, PERRL, EOMI - ENT ENT Exam: Normal Exam External Ear Exam: Normal External Inspection TM/Canal Exam: Bilateral Normal Nose Exam: Normal Nose Exam Mouth Exam: Normal Inspection Throat Exam: Normal Inspection - Neck Neck Exam: Normal Inspection - Chest Chest Inspection: Normal Inspection - Respiratory Respiratory Exam: Normal Lung Sounds Bilat Respiratory Exam: Bilateral Clear to Auscultation - Cardiovascular Cardiovascular Exam: Regular Rate, Normal Rhythm - Abdominal Exam Abdominal Exam: Normal Inspection, Normal Bowel Sounds Abdominal Tenderness: negative: RUQ, RLQ, LUQ, LLQ, Epigastrium, Suprapubic, Diffuse, Mild, Moderate, Severe, Other - Extremities Extremities Exam: Normal Inspection, Full ROM - Back Back Exam: Normal Inspection - Neurologic Neurological Exam: Alert, Oriented X3, CN II-XII Intact - Psychiatric Psychiatric Exam: Normal Affect, Normal Mood - Skin Skin Exam: Warm, Dry, Intact - Diagnosis Discharge Problem: Healing incision sites - Discharge Plan Condition: Stable - Follow ups/Referrals Follow ups/Referrals: Medhat Sharp [Primary Care Provider] - 3 days - Instructions
[2017-06-22 23:14] VITALS: BP 140/70
== END 2017-06-22 23:15 | disposition home or self-care (01) ==
LOC: ER 21:32
DX: R56.9 Unspecified convulsions (principal); I10 Essential (primary) hypertension; Z98.890 Other specified postprocedural states
CPT/HCPCS: 96365; 99282; 99283; A4222

== ENCOUNTER → 2017-06-28 | Outpatient (CLI) | payer OTHER ==
[2017-06-02 17:18] VITALS: BP 150/78
--- NOTE | 2017-06-28 11:10 | US ---
Examination: Retroperitoneal ultrasound. Clinical History: Chronic kidney disease stage 3. Technique: Real-time grayscale ultrasound was used to evaluate the kidneys bilaterally. Comparison: None available. Findings: The right kidney is surgically absent. The left kidney measures 13.1 cm in length and is normal in echogenicity with no focal mass, hydronep hrosis or nephrolithiasis noted. The bladder is unremarkable. The abdominal aorta and inferior vena cava are not demonstrated. Impression: 1. The left kidney is normal in appearance. The right kidney is surgically absent. Reported By:
== END ==
LOC: RAD 09:17
PROVIDERS: ATTEND Internal Medicine Nephrology
DX: N18.3 Chronic kidney disease, stage 3 (moderate) (principal)
CPT/HCPCS: 76770

== ENCOUNTER 2017-07-15 14:50 | Emergency (ER) | payer OTHER ==
[2017-07-15 15:30] LABS: ALANINE AMINOTRANSFERASE 26 Units/L (12-78); ALBUMIN 3.5 g/dL (3.4-5.0); ALKALINE PHOSPHATASE 121 Units/L (46-116); BLOOD UREA NITROGEN 71 mg/dL (7-18); CALCIUM 8.3 mg/dL (8.5-10.1); CARBON DIOXIDE 26.9 mmol/L (21-32); CHLORIDE 103 mmol/L (98-107); COR NA(FOR HYPERGLY) 140 mmol/L (136-145); CREATININE 3.28 mg/dL (0.70-1.30); MAGNESIUM 2.5 mg/dL (1.7-2.9); SODIUM 138 mmol/L (136-145); TOTAL PROTEIN 6.8 g/dL (6.4-8.2); eGFR BLACK RACES 25 (>60); eGFR NON BLACK RACES 21 (>60)
--- NOTE | 2017-07-15 15:34 | RAD ---
Examination: AP chest History: Unresponsive Comparison 06/02/2017 Findings: The heart is probably enlarged although the left cardiac margin is indistinct. Sternal wire s are present and there is a pacemaker present. The right lung is clear. The left lower lobe is partl y obscured and the diaphragm is indistinct. Impression: Suspect cardiomegaly, postsurgical findings. Suspect airspace disease in the retrocardiac left lower lung. See above. Follow-up recommended. Reported By:
[2017-07-15 15:35] LABS: BASOPHILS # (AUTO) 0.1 X10^3/uL (0.0-0.1); EOSINOPHILS # (AUTO) 0.3 x10^3/uL (0.0-0.2); HEMATOCRIT 40.8 % (42.0-54.0); HEMOGLOBIN 14.4 g/dL (13.5-18.0); LYMPHOCYTES # (AUTO) 2.5 X10^3/uL (1.3-2.9); LYMPHOCYTES % (AUTO) 25.9 % (21.0-51.0); MEAN CORPUSCULAR HEMOGLOBIN 28.6 pg (27.0-34.0); MEAN CORPUSCULAR HGB CONC 35.4 g/dL (33.0-35.0); MEAN CORPUSCULAR VOLUME 80.8 fL (80.0-100.0); MEAN PLATELET VOLUME 9.3 fL (7.4-11.0); MONOCYTES # (AUTO) 0.8 x10^3/uL (0.3-0.8); MONOCYTES % (AUTO) 8.6 % (0.0-13.0); NEUTROPHILS % (AUTO) 61.5 % (42.0-75.0); PLATELET COUNT 199 X10^3/uL (150.0-450.0); RED BLOOD COUNT 5.05 X10^6/uL (4.7-6.0); RED CELL DISTRIBUTION WIDTH 13.8 % (11.6-16.5); WHITE BLOOD COUNT 9.7 X10^3/uL (3.6-10.0)
--- NOTE | 2017-07-15 15:37 | DR.GENAD ---
HPI - PCP Primary Care Physician: JACLYN - Complaint/Symptoms Chief Complaint Doctors Comments: He was brought in by EMS with report of being unresponsive afer a seizure at home. The spouce relates a hx. of a recently placed vagal nerve stimulator and they each have a magnet to place over the stimulator when a seizure gets uncontrolable. She can't find either of the 2 magnets. She can't describe this event that happened at home this afternoon. " He just fell on his right side.' Chief Complaint:: PATIENT WAS FOUND IN THE FLOOR UNRESPONSIVE AND SHALLOW BREATHING. PATIENT TOLD FAMILY THAT HE WAS NOT FEELING GOOD AND WENT DOWN TO THE GROUND. - Nurses notes reviewed Nurses Notes Review: Yes - Source History Provided: Significant Other, EMS - Mode of Arrival Mode of Arrival: EMS - Timing Onset of Chief Complaint: 07/15/17 Came on: Suddenly PMH - PMH Past Medical History: Yes Past Medical History: COPD, Coronary Artery Disease, CVA (hemorrhagic), Depression, Diabetes, Dyslipidemia, Hypertension, [place], Renal Disease, Seizures Past Surgical History: Yes Surgical History: Angioplasty/Stents, CABG/Valve Surgery, Tonsillectomy - Family History History of Family Medical Conditions: Yes Family Medical History: Diabetes Mellitus, [place], Coronary Artery Disease, Hypertension - Social History Does patient currently use any type of tobacco product: No Have you used tobacco products in the last 12 months: No Type of Tobacco Use: None Does any household member use tobacco: No Alcohol Use: None Do you use any recreational Drugs:: No Lives With: Family Lives Where: Home - infectious screening In the last 2 months have you had wt loss of >10#?: RIMMA Have you had fever, night sweats or hemotysis?: RIMMA Have you traveled outside the country in the last 6 months?: No ROS - Review of Systems Constitutional: No Symptoms Reported Eyes: No Symptoms Reported ENTM: No Symptoms Reported Respiratoy: No Symptoms Reported Cardiovascular: No Symptoms Reported Gastrointestinal/Abdominal: No Symptoms Reported Genitourinary: No Symptoms Reported Musculoskeletal: No Symptoms Reported Integumentary: No Symptoms Reported Hematologic/Lymphatic: No Symptoms Reported Endocrine: No Symptoms Reported Psychiatric: No Symptoms Reported All Other Systems: Reviewed and Negative PE - Vital Signs Vitals: Temperature 96.5 F Pulse Rate [Brachial] 71 Pulse Rate 83 Respiratory Rate 20 Blood Pressure [Left Arm] 121/60 Blood Pressure [Right Arm] 169/83 Blood Pressure 164/92 O2 Sat by Pulse Oximetry 100 - General Limitations: No Limitations General Appearance: Alert, In No Apparent Distress - Head Head Exam: Normal Inspection - Eyes Eye exam: Normal Appearance, PERRL. negative: Scleral Icterus, Conjunctival Injection, Nystagmus, Miosis, Mydrasis, Periorbital Swelling, Periorbital Tenderness - ENT ENT Exam: Normal Exam - Neck Neck Exam: Normal Inspection, Trachea Midline - Chest Chest Inspection: Normal Inspection, Symmetric Chest Wall Rise - Respiratory Respiratory Exam: Normal Lung Sounds Bilat - Cardiovascular Cardiovascular Exam: Regular Rate, Normal Rhythm - Abdominal Exam Abdominal Exam: Normal Inspection, Normal Bowel Sounds, Soft - Back Back Exam: Normal Inspection - Neurologic Neurological Exam: Other (He may be post ictal here. He was noticed with 1 seizure activity during his stay here, with smooth, jerking motions of the upper extremities only. The seizure was arrested with administration of Ativan. ). negative: Alert, Oriented X3, CN II-XII Intact, Normal Gait, Motor Sensory Deficit, Reflexes Normal - Psychiatric Psychiatric Exam: Other (not testable due to neuro/physical status) - Skin Skin Exam: Warm Course - Consultation Consultation Comments: I had discussed presentation and findings with Dr. Sarmiento (pt's nerologist), the recommendation was to admit the pt. here to Internal Medicine and Dr. Sarmiento will f/u later today or tomorrow for consult. - Education/Counseling Education/Counseling: Patient, Family, Counseling Educated On: Treatment, Diagnosis, Prognosis, Needs for Follow Up ROR - Labs Reviewed Result Diagrams: 07/15/17 15:00 07/15/17 15:00 Laboratory: WBC 9.7 X10^3/uL (3.6-10.0) 07/15/17 15:00 RBC 5.05 X10^6/uL (4.7-6.0) 07/15/17 15:00 Hgb 14.4 g/dL (13.5-18.0) 07/15/17 15:00 Hct 40.8 % (42.0-54.0) L 07/15/17 15:00 MCV 80.8 fL (80.0-100.0) 07/15/17 15:00 MCH 28.6 pg (27.0-34.0) 07/15/17 15:00 MCHC 35.4 g/dL (33.0-35.0) H 07/15/17 15:00 RDW 13.8 % (11.6-16.5) 07/15/17 15:00 Plt Count 199 X10^3/uL (150.0-450.0) 07/15/17 15:00 MPV 9.3 fL (7.4-11.0) 07/15/17 15:00 Neut % 61.5 % (42.0-75.0) 07/15/17 15:00 Lymph % 25.9 % (21.0-51.0) 07/15/17 15:00 [place] % 8.6 % (0.0-13.0) 07/15/17 15:00 Eos % 3.0 % (0.9-2.9) H 07/15/17 15:00 Baso % 1.0 % (0.2-1.0) 07/15/17 15:00 Neut # 6.0 x10^3/uL (2.2-4.8) H 07/15/17 15:00 Lymph # 2.5 X10^3/uL (1.3-2.9) 07/15/17 15:00 [place] # 0.8 x10^3/uL (0.3-0.8) 07/15/17 15:00 Eos # 0.3 x10^3/uL (0.0-0.2) H 07/15/17 15:00 Baso # 0.1 X10^3/uL (0.0-0.1) 07/15/17 15:00 Absolute Nucleated RBC 0.1 /100WBC 07/15/17 15:00 PTT 28.1 SECONDS (22.9-36.5) 07/15/17 15:00 PTT Comment - 07/15/17 15:00 Sodium 138 mmol/L (136-145) 07/15/17 15:00 Corrected Sodium 140 mmol/L (136-145) 07/15/17 15:00 Potassium 3.8 mmol/L (3.5-5.1) 07/15/17 15:00 Chloride 103 mmol/L (98-107) 07/15/17 15:00 Carbon Dioxide 26.9 mmol/L (21-32) 07/15/17 15:00 BUN 71 mg/dL (7-18) H 07/15/17 15:00 Creatinine 3.28 mg/dL (0.70-1.30) H 07/15/17 15:00 Est GFR (MDRD) Af Amer 25 (>60) L 07/15/17 15:00 Est GFR (MDRD) Non-Af 21 (>60) L 07/15/17 15:00 Glucose 202 mg/dL (65-99) H 07/15/17 15:00 Calcium 8.3 mg/dL (8.5-10.1) L 07/15/17 15:00 Corrected Calcium TNP 07/15/17 15:00 Magnesium 2.5 mg/dL (1.7-2.9) 07/15/17 15:00 Total Bilirubin 0.40 mg/dL (0.2-1.0) 07/15/17 15:00 AST 30 Units/L (15-37) 07/15/17 15:00 ALT 26 Units/L (12-78) 07/15/17 15:00 Alkaline Phosphatase 121 Units/L (46-116) H 07/15/17 15:00 Creatine Kinase 149 Units/L (39-308) 07/15/17 15:00 Troponin I 0.14 ng/mL (0-1.5) 07/15/17 15:00 Total Protein 6.8 g/dL (6.4-8.2) 07/15/17 15:00 Albumin 3.5 g/dL (3.4-5.0) 07/15/17 15:00 Globulin 3.3 g/dL (2.5-4.5) 07/15/17 15:00 Albumin/Globulin Ratio 1.1 Ratio (1.1-2.1) 07/15/17 15:00 - XRAY XRAY Interpreted by: Radiologist (Brain CT: No acute intracranial process.) - Diagnosis Discharge Problem: Seizure disorder - Discharge Plan Disposition: ADMITTED INPATIENT Condition: Stable - Follow ups/Referrals Follow ups/Referrals: Medhat Sharp [Primary Care Provider] - 3 days - Instructions
--- NOTE | 2017-07-15 15:38 | CT ---
HISTORY: Found unresponsive. Study: CT brain without contrast. Comparison: 05/16/2017. Technique: Multiple axial images of the brain were obtained from the skull base to the vertex without administra tion of IV contrast. Findings: There is unchanged encephalomalacia involving the posterior frontal lobe high convexity on the left. Bilateral periventricular hypoattenuation most notable within the left frontal region is g rossly unchanged as well. Gatica-white differentiation is maintained. No alteration in the attenuation of the brain parenchyma can be identified to suggest acute or subacute ischemic change. No acute intr aparenchymal hemorrhage or mass can be identified. No extra-axial fluid collections are seen. The ventricular system is symmetric and nondilated. The extracranial structures are grossly unremarkabl e. IMPRESSION: No acute intracranial process can be identified. 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 Chronic white matter changes. Reported By:
[2017-07-15 15:49] LABS: ASPARTATE AMINO TRANSFERASE 30 Units/L (15-37)
[2017-07-15] MEDS ORDERED: ATIVAN INJ 2 MG VIAL ONE (15:51)
[2017-07-15] MEDS ORDERED: ATIVAN INJ 2 MG VIAL IVP ONE (15:53)
[2017-07-15 16:03] LABS: TROPONIN I 0.14 ng/mL (0-1.5)
[2017-07-15 16:09] LABS: CKMB % 1.8 % (<4); CREATINE KINASE MB 2.7 ng/mL (0-4.0)
[2017-07-15 16:16] LABS: BILIRUBIN,URINE NEGATIVE (NEGATIVE); BLOOD/HEMOGLOBIN,URINE 1+ (NEGATIVE); GLUCOSE, URINE 4+ (NEGATIVE); KETONES,URINE NEGATIVE (NEGATIVE); LEUKOCYTE ESTERASE ,URINE NEGATIVE (NEGATIVE); NITRITES,URINE NEGATIVE (NEGATIVE); PROTEIN,URINE 2+ (NEGATIVE); UROBILINOGEN,URINE NORMAL (NORMAL)
[2017-07-15 16:26] LABS: APPEARANCE,URINE CLEAR (CLEAR); COLOR,URINE YELLOW (YELLOW); RBC,URINE R /HPF (NONE SEEN)
[2017-07-15 16:27] LABS: BACTERIA,URINE TRACE /HPF (NEGATIVE); SQUAMOUS EPITHELIAL CELL,UR NEGATIVE /HPF (NEGATIVE)
[2017-07-15] MEDS ORDERED: ATIVAN INJ 2 MG VIAL IVP PRN (16:45)
[2017-07-15] MEDS ORDERED: NS 1000 ML 1,000 ML ONE (17:34)
[2017-07-15] MEDS: NS 1000 ML 1,000 ML IV SCH (17:34)
[2017-07-15 21:57] LABS: TROPONIN I 0.16 ng/mL (0-1.5)
[2017-07-16] MEDS: NS 1000 ML 1,000 ML IV SCH ×3 (00:30→11:00)
[2017-07-16 05:07] LABS: BASOPHILS # (AUTO) 0.1 X10^3/uL (0.0-0.1); BASOPHILS % (AUTO) 0.6 % (0.2-1.0); EOSINOPHILS # (AUTO) 0.3 x10^3/uL (0.0-0.2); HEMATOCRIT 37.8 % (42.0-54.0); HEMOGLOBIN 13.2 g/dL (13.5-18.0); LYMPHOCYTES # (AUTO) 1.8 X10^3/uL (1.3-2.9); LYMPHOCYTES % (AUTO) 20.4 % (21.0-51.0); MEAN CORPUSCULAR HEMOGLOBIN 28.1 pg (27.0-34.0); MEAN CORPUSCULAR VOLUME 80.3 fL (80.0-100.0); MEAN PLATELET VOLUME 9.1 fL (7.4-11.0); MONOCYTES # (AUTO) 0.7 x10^3/uL (0.3-0.8); MONOCYTES % (AUTO) 7.2 % (0.0-13.0); NEUTROPHILS # (AUTO) 6.2 x10^3/uL (2.2-4.8); NEUTROPHILS % (AUTO) 68.8 % (42.0-75.0); PLATELET COUNT 181 X10^3/uL (150.0-450.0); RED CELL DISTRIBUTION WIDTH 13.7 % (11.6-16.5); WHITE BLOOD COUNT 9.1 X10^3/uL (3.6-10.0)
[2017-07-16 05:27] LABS: CALCIUM 8.1 mg/dL (8.5-10.1); CARBON DIOXIDE 25.1 mmol/L (21-32); CHOL/HDL RATIO 7.1 (0.0-5.0); CKMB % 1.7 % (<4); COR CA(FOR HYPOALB) 8.9 mg/dL (8.5-10.1); CREATINE KINASE MB 1.5 ng/mL (0-4.0); CREATININE 2.72 mg/dL (0.70-1.30); TROPONIN I 0.18 ng/mL (0-1.5)
[2017-07-16] MEDS: HumuLIN R SUBCUT PRN ×4 (05:59→21:15)
--- NOTE | 2017-07-16 06:38 | RAD ---
HISTORY: Follow-up infiltrate, syncope Study: Chest AP portable Comparison: 07/15/2017 Findings: There is a pacemaker present on the left. A battery pack overlies the left lower lobe. The patient is status post median sternotomy. The heart is enlarged. The apirl are normal. No congestive heart failu re is noted. No infiltrates or pleural effusions are identified. The bony thorax is unremarkable. IMPRESSION: Moderate cardiomegaly without congestive heart failure No definite infiltrates on today's examination Reported By:
[2017-07-16] MEDS ORDERED: LEVETIRACETAM 1500 MG PO SCH (09:30)
[2017-07-16] MEDS ORDERED: BUMETANIDE 1 MG PO SCH (09:30)
[2017-07-16] MEDS ORDERED: ZESTRIL TAB 20 MG ONE (09:55)
[2017-07-16] MEDS ORDERED: CATAPRES-TTS-1 TD SCH (10:00)
[2017-07-16] MEDS ORDERED: ZESTRIL TAB 40 MG PO SCH (10:00)
[2017-07-16] MEDS: BUMEX TAB 1 MG PO SCH ×2 (10:03→21:19)
[2017-07-16] MEDS: PriLOSEC PO SCH (10:03)
[2017-07-16] MEDS: KEPPRA TAB 500 MG PO SCH ×2 (10:03→21:31)
[2017-07-16] MEDS: FLOMAX PO SCH (10:04)
[2017-07-16] MEDS: NORVASC TAB 5 MG PO SCH (10:04)
[2017-07-16] MEDS: ZESTRIL TAB 20 MG PO SCH (10:04)
[2017-07-16] MEDS: LOPRESSOR TAB 25 MG PO SCH ×2 (10:04→21:21)
[2017-07-16] MEDS: LAMICTAL TAB 100 MG PO SCH ×2 (10:05→21:22)
--- NOTE | 2017-07-16 11:47 | DR.H&P ---
H&P - History & Physical for Day of: H&P Date: 07/14/17 - Chief Complaint Chief Complaint: SEIZURE ACTIVITY - Allergies Allergies/Adverse Reactions: Allergies Allergy/AdvReac Type Severity Reaction Status Date / Time divalproex sodium Allergy Severe Verified 07/15/17 15:04 [From Depakote] phenytoin [From Dilantin] Allergy Severe Verified 07/15/17 15:04 iodine Allergy Verified 07/15/17 16:28 - History of Present Illness History of Present Illness: IS A 62 YEAR OLD PATIENT OF OURS WHO PRESENTED TO THE EMERGENCY ROOM VIA EMS WITH FAMILY REPORTING THAT PATIENT WAS UNRESPONSIVE AFTER A SEIZURE AT HOME AND WITH SHALLOW BREATHING. FAMILY REPORTS THAT PATIENT STATED THAT HE WAS NOT FEELING WELL JUST PRIOR TO FALLING TO THE GROUND ON HIS RIGHT SIDE. SPOUSE REPORTS A RECENT HISTORY OF A VAGAL NERVE STIMULATOR FOR WHICH SHE HAS MAGNETS THAT SHE IS TO PLACE OF THE STIMULATOR WHEN A SEIZURE BECOMES UNCONTROLLABLE. SPOUSE WAS UNABLE TO LOCATE EITHER MAGNET. ON ARRIVAL TO THE ER, PATIENT IS NOTED TO BE IN A POST-ICTAL STATE. VITALS WERE 96.5-8-13-99%-164/92. LABS WERE OBTAINED. ABNORMAL LAB VALUES INCLUDE THE FOLLOWING: HCT 40.8, BUN 71, CREATININE 3.28, GLUCOSE 202, CALCIUM 8.3, ALK PHOS 121. CARDIAC ENZYMES WITHIN NORMAL LIMITS. URINALYSIS UNREMARKABLE. EKG REPORTED ATRIAL PACED RHYTHM WITH HR 70. CHEST XRAY WAS OBTAINED AND REPORTED SUSPECTED CARDIOMEGALY, POSTSURGICAL FINDINGS. SUSPECT AIRSPACE DISEASE IN THE RETROCARDIAC LEFT LOWER LUNG. A BRAIN CT WAS OBTAINED AND REPORTED NO ACUTE INTRACRANIAL PROCESS IDENTIFIED. 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 CHRONIC WHITE MATTER CHANGES. WHILE IN THE EMERGENCY ROOM, CARA WAS NOTED WITH ONE EPISODE OF SEIZURE ACTIVITY FOR WHICH HE WAS GIVEN ATIVAN 2MG IV. PATIENT WAS ADMITTED FOR FURTHER EVALUATION AND TREATMENT. WE PLAN TO FOLLOW UP WITH AM LABS AND CONTINUE TO MONITOR PATIENT. - Past Medical History Past Medical History: COPD, Coronary Artery Disease, CVA (hemorrhagic), Depression, Diabetes, Dyslipidemia, Hypertension, GA, Renal Disease, Seizures Additional Medical History: GOUT - Past Surgical History Surgical History: Angioplasty/Stents, CABG/Valve Surgery, Tonsillectomy - Family History Family Medical History: GA, Coronary Artery Disease, Hypertension - Social History Does patient currently use any type of tobacco product: No Have you used tobacco products in the last 12 months: Yes Type of Tobacco Use: None Does any household member use tobacco: No Alcohol Use: None Drug Use: None - Medications Home Medications: Insulin Glargine (Lantus) [LANTUS INSULIN 10 ML VIAL *] 30 units SC HS 07/15/17 [History Confirmed 07/15/17] Insulin Lispro (Humalog) [HumaLOG INSULIN 10 ML VIAL *] 20 units SC TID [History Confirmed 07/15/17] Lamotrigine [Lamictal Tab 100 mg] 100 mg PO BID 07/15/17 [History Confirmed 03/24] Levetiracetam [Levetiracetam] 1,500 mg PO BID 07/15/17 [History Confirmed ] Omeprazole [Omeprazole] 1 cap PO DAILY 07/15/17 [History Confirmed 07/15/17] - Review of Systems Constitutional: Weakness Eyes: No Symptoms Reported. denies: See HPI, Pain, Vision Change, Conjunctivae Inflammation, Eyelid Inflammation, Redness, Other ENT: No Symptoms Reported. denies: See HPI, Ear Pain, Ear Discharge, Nose Pain , Nose Discharge, Nose Congestion, Mouth Pain, Mouth Swelling, Throat Pain, Throat Swelling, Other Respiratory: No Symptoms Reported. denies: See HPI, Cough, Dry, Shortness of Breath, Hemoptysis, SOB with Excertion, Pleuritic Pain, Sputum, Wheezing, Other Cardiovascular: No Symptoms Reported. denies: Chest Pain, See HPI, Palpitations , Orthopnea, Paroxysmal Noc. Dyspnea, Edema, Light Headedness, Other Gastrointestinal: No Symptoms Reported. denies: See HPI, Nausea, Vomiting, Abdominal Pain, Diarrhea, Constipation, Melena, Hematochezia, Other Genitourinary: No Symptoms Reported. denies: See HPI, Dysuria, Frequency, Incontinence, Hematuria, Retention, Other Musculoskeletal: No Symptoms Reported. denies: See HPI, Shoulder Pain, Arm Pain , Back Pain, Hand Pain, Leg Pain, Foot Pain, Neck Pain, Other Skin: No Symptoms Reported. denies: See HPI, Rash, Lesions, Jaundice, Bruising , Wound, Ecchymosis, Other Neurological: Weakness, Seizures - Physical Exam Vital Signs: Temperature 97.9 F Pulse Rate [Brachial] 69 Pulse Rate 83 Respiratory Rate 16 Blood Pressure [Left Arm] 121/60 Blood Pressure [Right Arm] 106/98 Blood Pressure 164/92 O2 Sat by Pulse Oximetry 97 Oriented: Other (POST ICTAL) Eyes: Normal Ear: Normal Nose: Normal Throat: Normal Respiratory: Clear Throughout Cardiovascular: Normal : Normal Auscultation: Bowel Sounds: Normal Palpation: Normal Tenderness: Normal Skin: Normal Musculoskeletal: Normal Psychiatric: Anxiety, Other (POST ICTAL FOLLOWING SEIZURE ACTIVITY. ) Affect: Flat Speech Pattern: Unclear - Assessment/Plan (1) Seizure disorder Status: Acute Plan: CONTINUE SEIZURE MEDICATIONS, ATIVAN 2MG IV Q4H PRN SEIZURE ACTIVITY, CONTINUE TO MONITOR (2) CKD (chronic kidney disease) stage 4, GFR 15-29 ml/min Status: Acute Plan: NORMAL SALINE AT 125ML/HR, CONTINUE TO MONITOR
--- NOTE | 2017-07-16 13:10 | PCM.PROG ---
Progress Note - Progress Note for Day of Date: 07/16/17 - Subjective Subjective: IS BEING TREATED FOR SEIZURE ACTIVITY. TODAY, HE IS ALERT AND ORIENTED, SITTING UP IN BED ON MORNING ROUNDS. PATIENTS SPOUSE IS AT BEDSIDE. HE IS EATING BREAKFAST. TODAY, HE IS NOTED WITH COMPLAINTS OF GENERALIZED WEAKNESS. ON EXAMINATION, HEART IS REGULAR IN RATE AND RHYTHM. BILATERAL LUNGS ARE NOTED TO BE CLEAR TO AUSCULTATION. ABDOMEN IS ROUND, SOFT, AND NON-TENDER WITH NORMAL BOWEL SOUNDS NOTED IN ALL QUADRANTS. THERE IS NORMAL RANGE OF MOTION NOTED TO ALL EXTREMITIES. HIS VITALS THIS MORNING ARE 97.9-69-16 -97%-106/98. LABS WERE OBTAINED THIS MORNING. BUN 60, CREATININE 2.78, GLUCOSE 248, TRIGLYCERIDES 294, LDL 107, HDL 27. OTHERWISE, HE IS HEMODYNAMICALLY STABLE. A CHEST XRAY WAS OBTAINED THIS MORNING AND REVEALS MODERATE CARDIOMEGALY WITHOUT CONGESTIVE HEART FAILURE. NO DEFINITE INFILTRATES. TODAY, WE WILL RESUME HOME MEDICATIONS AND ADD 1 AM SODIUM BICARB TO EACH LITER OF IV FLUIDS. OTHERWISE, WE WILL CONTINUE WITH CURRENT PLAN OF CARE. WE WILL FOLLOW UP WITH AM LABS AND CONTINUE TO MONITOR PATIENT. - Past Medical Family Social History Past Med/Fam/Surg Hx: No changes since H&P Allergies: Allergies divalproex sodium [From Depakote] Allergy (Severe, Verified 07/15/17 15:04) phenytoin [From Dilantin] Allergy (Severe, Verified 07/15/17 15:04) iodine Allergy (Verified 07/15/17 16:28) - Review of Systems ROS: No change since H&P - Vital Signs and I&O's Vital Signs: Temperature 97.9 F Pulse Rate [Brachial] 69 Pulse Rate 83 Respiratory Rate 16 Blood Pressure [Left Arm] 121/60 Blood Pressure [Right Arm] 106/98 Blood Pressure 164/92 O2 Sat by Pulse Oximetry 97 Intake and Output: Intake & Output 07/14/17 07/15/17 07/16/17 07/17/17 10:59 11:59 11:59 11:59 Intake Total 1900 Output Total 1300 Balance 600 - Physical Exam Oriented: Normal Eyes: Normal Ear: Normal Nose: Normal Throat: Normal Respiratory: Normal Cardiovascular: Normal : Normal Auscultation: Bowel Sounds: Normal Palpation: Normal Tenderness: Normal Skin: Normal Musculoskeletal: Normal Psychiatric: Anxiety, Other (POST ICTAL FOLLOWING SEIZURE ACTIVITY. ) Mood Description: Calm Affect: Flat, Normal Speech Pattern: Clear - Laboratory and Diagnostics Result Diagrams: 07/16/17 04:42 07/16/17 04:42 Labs: Laboratory WBC 9.1 X10^3/uL (3.6-10.0) 07/16/17 04:42 RBC 4.70 X10^6/uL (4.7-6.0) 07/16/17 04:42 Hgb 13.2 g/dL (13.5-18.0) L 07/16/17 04:42 Hct 37.8 % (42.0-54.0) L 07/16/17 04:42 MCV 80.3 fL (80.0-100.0) 07/16/17 04:42 MCH 28.1 pg (27.0-34.0) 07/16/17 04:42 MCHC 35.0 g/dL (33.0-35.0) 07/16/17 04:42 RDW 13.7 % (11.6-16.5) 07/16/17 04:42 Plt Count 181 X10^3/uL (150.0-450.0) 07/16/17 04:42 MPV 9.1 fL (7.4-11.0) 07/16/17 04:42 Neut % 68.8 % (42.0-75.0) 07/16/17 04:42 Lymph % 20.4 % (21.0-51.0) L 07/16/17 04:42 [place] % 7.2 % (0.0-13.0) 07/16/17 04:42 Eos % 3.0 % (0.9-2.9) H 07/16/17 04:42 Baso % 0.6 % (0.2-1.0) 07/16/17 04:42 Neut # 6.2 x10^3/uL (2.2-4.8) H 07/16/17 04:42 Lymph # 1.8 X10^3/uL (1.3-2.9) 07/16/17 04:42 [place] # 0.7 x10^3/uL (0.3-0.8) 07/16/17 04:42 Eos # 0.3 x10^3/uL (0.0-0.2) H 07/16/17 04:42 Baso # 0.1 X10^3/uL (0.0-0.1) 07/16/17 04:42 Absolute Nucleated RBC 0.0 /100WBC 07/16/17 04:42 INR Target Range - 07/16/17 04:42 INR 1.03 (0.8-1.3) 07/16/17 04:42 PTT 28.1 SECONDS (22.9-36.5) 07/15/17 15:00 PTT Comment - 07/15/17 15:00 Sodium 139 mmol/L (136-145) 07/16/17 04:42 Corrected Sodium 143 mmol/L (136-145) 07/16/17 04:42 Potassium 4.2 mmol/L (3.5-5.1) 07/16/17 04:42 Chloride 106 mmol/L (98-107) 07/16/17 04:42 Carbon Dioxide 25.1 mmol/L (21-32) 07/16/17 04:42 BUN 60 mg/dL (7-18) H 07/16/17 04:42 Creatinine 2.72 mg/dL (0.70-1.30) H 07/16/17 04:42 Est GFR (MDRD) Af Amer 31 (>60) L 07/16/17 04:42 Est GFR (MDRD) Non-Af 25 (>60) L 07/16/17 04:42 Glucose 248 mg/dL (65-99) H 07/16/17 04:42 POC Glucose (mg/dL) 249 mg/dL (65-99) H 07/16/17 11:41 Calcium 8.1 mg/dL (8.5-10.1) L 07/16/17 04:42 Corrected Calcium 8.9 mg/dL (8.5-10.1) 07/16/17 04:42 Magnesium 2.5 mg/dL (1.7-2.9) 07/15/17 15:00 Total Bilirubin 0.50 mg/dL (0.2-1.0) 07/16/17 04:42 AST 12 Units/L (15-37) L 07/16/17 04:42 ALT 21 Units/L (12-78) 07/16/17 04:42 Alkaline Phosphatase 92 Units/L (46-116) 07/16/17 04:42 Creatine Kinase 87 Units/L (39-308) 07/16/17 04:42 CK-MB (CK-2) 1.5 ng/mL (0-4.0) 07/16/17 04:42 CK/CKMB % Calc 1.7 % (<4) 07/16/17 04:42 Troponin I 0.18 ng/mL (0-1.5) 07/16/17 04:42 Total Protein 6.0 g/dL (6.4-8.2) L 07/16/17 04:42 Albumin 3.0 g/dL (3.4-5.0) L 07/16/17 04:42 Globulin 3.0 g/dL (2.5-4.5) 07/16/17 04:42 Albumin/Globulin Ratio 1.0 Ratio (1.1-2.1) L 07/16/17 04:42 Triglycerides 294 mg/dL (0-150) H 07/16/17 04:42 Cholesterol 193 mg/dL (0-200) 07/16/17 04:42 LDL Cholesterol, Calc 107 mg/dL (0-100) H 07/16/17 04:42 HDL Cholesterol 27 mg/dL (40-60) L 07/16/17 04:42 Cholesterol/HDL Ratio 7.1 (0.0-5.0) H 07/16/17 04:42 Specimen Type Catherized urine 07/15/17 16:00 Urine Color Yellow (YELLOW) 07/15/17 16:00 Urine Appearance Clear (CLEAR) 07/15/17 16:00 Urine pH 5.0 (5.0 - 8.0) 07/15/17 16:00 Ur Specific [place] 1.020 (1.000-1.030) 07/15/17 16:00 Urine Protein 2+ (NEGATIVE) 07/15/17 16:00 Urine Glucose (UA) 4+ (NEGATIVE) 07/15/17 16:00 Urine Ketones Negative (NEGATIVE) 07/15/17 16:00 Urine Occult Blood 1+ (NEGATIVE) 07/15/17 16:00 Urine Nitrite Negative (NEGATIVE) 07/15/17 16:00 Urine Bilirubin Negative (NEGATIVE) 07/15/17 16:00 Urine Urobilinogen Normal (NORMAL) 07/15/17 16:00 Ur Leukocyte Esterase Negative (NEGATIVE) 07/15/17 16:00 Urine RBC R /HPF (NONE SEEN) 07/15/17 16:00 Urine WBC R /HPF (NONE SEEN) 07/15/17 16:00 Ur Squamous Epith Cells Negative /HPF (NEGATIVE) 07/15/17 16:00 Urine Bacteria Trace /HPF (NEGATIVE) 07/15/17 16:00 Ur Culture Indicated? No/not indicated 07/15/17 16:00 Urine Opiates Screen Negative (NEG=<300) 07/15/17 16:00 Urine Methadone Screen Negative (NEG=<300) 07/15/17 16:00 Ur Barbiturates Screen Negative (NEG=<200) 07/15/17 16:00 Ur Phencyclidine Scrn Negative (NEG=<25) 07/15/17 16:00 Ur Amphetamines Screen Negative (NEG=<1000) 07/15/17 16:00 U Benzodiazepines Scrn Negative (NEG=<200) 07/15/17 16:00 Urine Cocaine Screen Negative (NEG=<300) 07/15/17 16:00 U Marijuana (THC) Screen Negative (NEG=<50) 07/15/17 16:00 - Plan (1) Seizure disorder Status: Acute Plan: CONTINUE SEIZURE MEDICATIONS, ATIVAN 2MG IV Q4H PRN SEIZURE ACTIVITY, CONTINUE TO MONITOR (2) CKD (chronic kidney disease) stage 4, GFR 15-29 ml/min Status: Acute Plan: NORMAL SALINE AT 125ML/HR WITH 1 AMP SODIUM BICARB TO EACH LITER, CONTINUE TO MONITOR
[2017-07-16] MEDS ORDERED: HumaLOG SC SCH (14:00)
[2017-07-16] MEDS: NS 1000 ML 1,000 ML with SODIUM BICARBONATE 8.4% INJ ADULT 50 ML IV SCH ×4 (14:25→21:13)
[2017-07-16] MEDS ORDERED: NS 1000 ML 1,000 ML ONE (18:44)
--- NOTE | 2017-07-16 19:03 | DR.CONSULT ---
Consult - Consultation for Day of: Date: 07/16/17 - Chief Complaint Chief Complaint: seizures - Allergies Allergies/Adverse Reactions: Allergies Allergy/AdvReac Type Severity Reaction Status Date / Time divalproex sodium Allergy Severe Verified 07/15/17 15:04 [From Depakote] phenytoin [From Dilantin] Allergy Severe Verified 07/15/17 15:04 iodine Allergy Verified 07/15/17 16:28 - History of Present Illness History of Present Illness: NEUROLOGY CONSULTATION : 62-year-old male patient was seen and examined. Patient is well known to neurology services. We have been treating him because of intractable seizures. Patient has history of intracranial/intraparenchymal bleeding twice last year. He was flown to [place] for neurosurgical intervention. Following the brain bleed patient started having seizures. He has been tried on multiple antiepileptic medications without much success. Eventually the decision was made to place a vagus nerve stimulator. This was done a month ago. He has been doing reasonably well up until seizure activity yesterday on the day of his hospitalization. Following the seizure patient had a fall. On arrival at the ER he was found to be postictal. He had one more seizure in the ER but this appeared to be partial seizure. Patient was admitted to the ICU setting for further management and evaluation. Patient is awake alert oriented in time place and person. Since his observation in ICU patient did not have any seizure. He has no new complaints. Neurological examination: Cognitive status : Patient is awake alert oriented in time place and person. Speech: Speech is fluent, naming is intact, comprehension is also intact. Patient has no paraphasic errors. Cranial nerve examination : Second cranial nerve: Visual tierney are intact on confrontation. Third fourth and sixth cranial nerve: Extraocular movements are full without any nystagmus. Pupils are 3.5 mm in size around equal and reactive to light. Fifth cranial nerve: Facial sensations are intact bilaterally. Seventh cranial nerve: Facial symmetry is intact bilaterally. Eighth cranial nerve: Hearing is intact bilaterally. Ninth and 10th cranial nerve: Palate is symmetrical bilaterally. 11th cranial nerve: Shoulder shrug is equal and symmetrical bilaterally. 12 cranial nerve: Tongue is in midline. Coordination: Finger to nose rapid alternating movements are intact. Gait: gait was not tested. Motor system examination: Tone is normal. Strength is 5 over 5 proximally as well as distally in upper and lower extremities. Deep tendon reflexes are +1 equal and symmetrical in upper and lower extremities. Plantars are flexor bilaterally. Sensory system examination : Patient has equal and symmetrical touch, temperature, pinprick sensation distally and proximally in upper and lower extremities. - Past Medical History Past Medical History: COPD, Coronary Artery Disease, CVA (hemorrhagic), Depression, Diabetes, Dyslipidemia, Hypertension, GA, Renal Disease, Seizures Additional Medical History: GOUT - Past Surgical History Surgical History: Angioplasty/Stents, CABG/Valve Surgery, Tonsillectomy - Family History Family Medical History: GA, Coronary Artery Disease, Hypertension - Social History Does patient currently use any type of tobacco product: No Have you used tobacco products in the last 12 months: Yes Type of Tobacco Use: None Does any household member use tobacco: No Alcohol Use: None Drug Use: None - Medications Home Medications: Insulin Glargine (Lantus) [LANTUS INSULIN 10 ML VIAL *] 30 units SC HS 07/15/17 [History Confirmed 07/15/17] Insulin Lispro (Humalog) [HumaLOG INSULIN 10 ML VIAL *] 20 units SC TID [History Confirmed 07/15/17] Lamotrigine [Lamictal Tab 100 mg] 100 mg PO BID 07/15/17 [History Confirmed 03/24] Levetiracetam [Levetiracetam] 1,500 mg PO BID 07/15/17 [History Confirmed ] Omeprazole [Omeprazole] 1 cap PO DAILY 07/15/17 [History Confirmed 07/15/17] - Review of Systems Constitutional: See HPI Eyes: No Symptoms Reported ENT: No Symptoms Reported Respiratory: No Symptoms Reported Cardiovascular: No Symptoms Reported Gastrointestinal: No Symptoms Reported Genitourinary: No Symptoms Reported Musculoskeletal: No Symptoms Reported Skin: No Symptoms Reported Neurological: See HPI - Physical Exam Vital Signs: Temperature 99 F Pulse Rate [Brachial] 69 Pulse Rate 83 Respiratory Rate 14 Blood Pressure [Left Arm] 121/60 Blood Pressure [Right Arm] 141/72 Blood Pressure 164/92 O2 Sat by Pulse Oximetry 97 Oriented: Normal Eyes: Normal Ear: Normal Nose: Normal Throat: Normal Respiratory: Clear Throughout Cardiovascular: Normal : Normal Auscultation: Bowel Sounds: Normal Palpation: Normal Tenderness: Normal Skin: Normal Musculoskeletal: Normal Mood Description: Calm Affect: Normal Speech Pattern: Clear - Plan Plan: Patient is well known to our services. He had a breakthrough seizure yesterday resulting in fall and loss of consciousness. He was brought in and post ictal state to the ER. He had another minor seizure in the ER. For further management and evaluation patient was transferred to the ICU settings. Patient did not have any seizures since he is in ICU. He is awake alert oriented in time place and person. He is responding very well to verbal communication. Patient has deteriorated renal functions. There is a possibility that metabolic abnormality could have precipitated his seizure. Patient has history of brain bleed twice last year. He also has a vagus nerve stimulator implanted. Neurologically patient is stable. I'm recommending continuation of his present management. We will follow up.
[2017-07-16] MEDS ORDERED: MORPHINE SULFATE INJ 2 MG INJ ONE (20:57)
[2017-07-16] MEDS ORDERED: KLONOPIN TAB 0.5 MG PO SCH (21:00)
[2017-07-16] MEDS: LANTUS SC SCH (21:15)
[2017-07-16] MEDS: MORPHINE SULFATE INJ 2 MG INJ IVP PRN (21:17)
[2017-07-16] MEDS: HumaLOG SC SCH (21:18)
[2017-07-16] MEDS: DESYREL PO SCH (21:20)
[2017-07-16] MEDS: SNACK - Diabetic Appropriate PO SCH (21:33)
[2017-07-17] MEDS: MORPHINE SULFATE INJ 2 MG INJ IVP PRN ×3 (03:54→20:37)
[2017-07-17] MEDS: NS 1000 ML 1,000 ML with SODIUM BICARBONATE 8.4% INJ ADULT 50 ML IV SCH ×6 (04:52→20:46)
[2017-07-17 06:09] LABS: BASOPHILS # (AUTO) 0.1 X10^3/uL (0.0-0.1); BASOPHILS % (AUTO) 0.7 % (0.2-1.0); EOSINOPHILS # (AUTO) 0.2 x10^3/uL (0.0-0.2); EOSINOPHILS % (AUTO) 2.4 % (0.9-2.9); HEMATOCRIT 35.9 % (42.0-54.0); HEMOGLOBIN 12.6 g/dL (13.5-18.0); LYMPHOCYTES # (AUTO) 1.4 X10^3/uL (1.3-2.9); LYMPHOCYTES % (AUTO) 13.8 % (21.0-51.0); MEAN PLATELET VOLUME 9.2 fL (7.4-11.0); MONOCYTES # (AUTO) 0.8 x10^3/uL (0.3-0.8); MONOCYTES % (AUTO) 7.9 % (0.0-13.0); NEUTROPHILS # (AUTO) 7.7 x10^3/uL (2.2-4.8); NEUTROPHILS % (AUTO) 75.2 % (42.0-75.0); PLATELET COUNT 156 X10^3/uL (150.0-450.0); RED BLOOD COUNT 4.49 X10^6/uL (4.7-6.0); RED CELL DISTRIBUTION WIDTH 13.3 % (11.6-16.5); WHITE BLOOD COUNT 10.3 X10^3/uL (3.6-10.0)
[2017-07-17] MEDS: HumaLOG SC SCH ×3 (06:30→16:26)
[2017-07-17] MEDS: HumuLIN R SUBCUT PRN ×4 (06:31→20:41)
[2017-07-17 06:41] LABS: ALANINE AMINOTRANSFERASE 18 Units/L (12-78); ALBUMIN 2.8 g/dL (3.4-5.0); ALKALINE PHOSPHATASE 92 Units/L (46-116); ASPARTATE AMINO TRANSFERASE 11 Units/L (15-37); BLOOD UREA NITROGEN 40 mg/dL (7-18); CALCIUM 7.5 mg/dL (8.5-10.1); CARBON DIOXIDE 27.7 mmol/L (21-32); CHLORIDE 107 mmol/L (98-107); CKMB % 1.6 % (<4); COR CA(FOR HYPOALB) 8.5 mg/dL (8.5-10.1); COR NA(FOR HYPERGLY) 146 mmol/L (136-145); CREATINE KINASE 61 Units/L (39-308); CREATINE KINASE MB < 1.0 ng/mL (0-4.0); CREATININE 2.31 mg/dL (0.70-1.30); SODIUM 142 mmol/L (136-145); TOTAL PROTEIN 5.8 g/dL (6.4-8.2); TROPONIN I 0.19 ng/mL (0-1.5); eGFR BLACK RACES 37 (>60); eGFR NON BLACK RACES 31 (>60)
[2017-07-17] MEDS ORDERED: POTASSIUM CHL 60 MEQ/NS 0.45% 500 ML IV PRN (06:52)
[2017-07-17] MEDS ORDERED: MAGNESIUM SULFATE 1 GM/100 mL PREMIX 1 GM/100 ML BAG IV PRN (06:52)
[2017-07-17] MEDS ORDERED: POTASSIUM CHLORIDE LIQ 20 MEQ UDC PO PRN (06:52)
[2017-07-17] MEDS ORDERED: MAG-OX TAB PO PRN (06:52)
[2017-07-17] MEDS ORDERED: K-RIDER 10 MEQ/NS 100 ML 10 MEQ/100 ML BAG IV PRN (06:52)
[2017-07-17] MEDS ORDERED: K-LYTE EFFERVESCENT PO PRN (06:52)
[2017-07-17] MEDS ORDERED: POTASSIUM CHL 40 MEQ/NS 0.45% 500 ML IV PRN (06:52)
[2017-07-17] MEDS ORDERED: ZESTRIL TAB 20 MG ONE (08:49)
[2017-07-17] MEDS: LOPRESSOR TAB 25 MG PO SCH ×2 (09:09→20:35)
[2017-07-17] MEDS: NORVASC TAB 5 MG PO SCH (09:09)
[2017-07-17] MEDS: KEPPRA TAB 500 MG PO SCH ×2 (09:09→20:35)
[2017-07-17] MEDS: PriLOSEC PO SCH (09:09)
[2017-07-17] MEDS: BUMEX TAB 1 MG PO SCH ×2 (09:09→20:37)
[2017-07-17] MEDS: FLOMAX PO SCH (09:09)
[2017-07-17] MEDS: ZESTRIL TAB 20 MG PO SCH (09:09)
[2017-07-17] MEDS: LAMICTAL TAB 100 MG PO SCH ×2 (09:10→20:38)
--- NOTE | 2017-07-17 11:37 | PCM.PROG ---
Progress Note - Progress Note for Day of Date: 07/17/17 - Subjective Subjective: IS BEING TREATED FOR SEIZURE ACTIVITY AND ACUTE RENAL FAILURE. TODAY, HE IS ALERT AND ORIENTED, SITTING UP IN BED ON MORNING ROUNDS. PATIENTS SPOUSE IS AT BEDSIDE. TODAY, HE CONTINUES WITH COMPLAINTS OF GENERALIZED WEAKNESS. ON EXAMINATION, HEART IS REGULAR IN RATE AND RHYTHM. BILATERAL LUNGS ARE NOTED TO BE CLEAR TO AUSCULTATION. ABDOMEN IS ROUND, SOFT, AND NON-TENDER WITH NORMAL BOWEL SOUNDS NOTED IN ALL QUADRANTS. THERE IS NORMAL RANGE OF MOTION NOTED TO ALL EXTREMITIES. HIS VITALS THIS MORNING ARE 98.8-69-20 -98%-131/60. LABS WERE OBTAINED THIS MORNING. ABNORMAL LAB VALUES INCLUDE THE FOLLOWING: WBC 10.3, RBC 4.49, HGB 12.6, HCT 35.9, BUN 40, CREATININE 2.31, GLUCOSE 257, CALCIUM 7.5, AST 11, TOTAL PROTEIN 5.8, ALBUMIN 2.8. WE OBTAINED COPIES OF A SLEEP STUDY THAT PATIENT RECENTLY HAD. OXYGEN SATURATIONS WERE NOTED TO HAVE FALLEN INTO THE LOW 80S WHILE PATIENT SLEEPING WELL PERIODS OF APNEA. WE WILL ORDER CPAP TO BE WORN AT BEDTIME. WE WILL INCRASE KLONOPRIN TO 1MG PO HS FOR SLEEP. OTHERWISE, WE WILL CONTINUE WITH IV HYDRATION AND CURRENT PLAN OF CARE. WE WILL FOLLOW UP WITH AM LABS AND CONTINUE TO MONITOR PATIENT. - Past Medical Family Social History Past Med/Fam/Surg Hx: No changes since H&P Allergies: Allergies divalproex sodium [From Depakote] Allergy (Severe, Verified 07/15/17 15:04) phenytoin [From Dilantin] Allergy (Severe, Verified 07/15/17 15:04) iodine Allergy (Verified 07/15/17 16:28) - Review of Systems ROS: No change since H&P - Vital Signs and I&O's Vital Signs: Temperature 98.8 F Pulse Rate [Apical] 69 Pulse Rate [Brachial] 70 Pulse Rate 83 Respiratory Rate 12 Blood Pressure [Left Arm] 121/60 Blood Pressure [Right Arm] 138/67 Blood Pressure 164/92 O2 Sat by Pulse Oximetry 96 Intake and Output: Intake & Output 07/14/17 07/15/17 07/16/17 07/17/17 10:59 11:59 11:59 11:59 Intake Total 1900 4802 Output Total 1300 5525 Balance 600 -723 - Physical Exam Oriented: Normal Eyes: Normal Ear: Normal Nose: Normal Throat: Normal Respiratory: Normal Cardiovascular: Normal : Normal Auscultation: Bowel Sounds: Normal Palpation: Normal Tenderness: Normal Skin: Normal Musculoskeletal: Normal Psychiatric: Anxiety Mood Description: Calm Affect: Normal Speech Pattern: Clear, Appropriate - Laboratory and Diagnostics Result Diagrams: 07/17/17 05:25 07/17/17 05:25 Labs: Laboratory WBC 10.3 X10^3/uL (3.6-10.0) H 07/17/17 05:25 RBC 4.49 X10^6/uL (4.7-6.0) L 07/17/17 05:25 Hgb 12.6 g/dL (13.5-18.0) L 07/17/17 05:25 Hct 35.9 % (42.0-54.0) L 07/17/17 05:25 MCV 80.0 fL (80.0-100.0) 07/17/17 05:25 MCH 28.0 pg (27.0-34.0) 07/17/17 05:25 MCHC 35.0 g/dL (33.0-35.0) 07/17/17 05:25 RDW 13.3 % (11.6-16.5) 07/17/17 05:25 Plt Count 156 X10^3/uL (150.0-450.0) 07/17/17 05:25 MPV 9.2 fL (7.4-11.0) 07/17/17 05:25 Neut % (Auto) 75.2 % (42.0-75.0) H 07/17/17 05:25 Lymph % (Auto) 13.8 % (21.0-51.0) L 07/17/17 05:25 [place] % (Auto) 7.9 % (0.0-13.0) 07/17/17 05:25 Eos % (Auto) 2.4 % (0.9-2.9) 07/17/17 05:25 Baso % (Auto) 0.7 % (0.2-1.0) 07/17/17 05:25 Neut # (Auto) 7.7 x10^3/uL (2.2-4.8) H 07/17/17 05:25 Lymph # (Auto) 1.4 X10^3/uL (1.3-2.9) 07/17/17 05:25 [place] # (Auto) 0.8 x10^3/uL (0.3-0.8) 07/17/17 05:25 Eos # (Auto) 0.2 x10^3/uL (0.0-0.2) 07/17/17 05:25 Baso # (Auto) 0.1 X10^3/uL (0.0-0.1) 07/17/17 05:25 Absolute Nucleated RBC 0.0 /100WBC 07/17/17 05:25 INR Target Range - 07/16/17 04:42 INR 1.03 (0.8-1.3) 07/16/17 04:42 PTT 28.1 SECONDS (22.9-36.5) 07/15/17 15:00 PTT Comment - 07/15/17 15:00 Sodium 142 mmol/L (136-145) 07/17/17 05:25 Corrected Sodium 146 mmol/L (136-145) H 07/17/17 05:25 Potassium 3.6 mmol/L (3.5-5.1) 07/17/17 05:25 Chloride 107 mmol/L (98-107) 07/17/17 05:25 Carbon Dioxide 27.7 mmol/L (21-32) 07/17/17 05:25 BUN 40 mg/dL (7-18) H 07/17/17 05:25 Creatinine 2.31 mg/dL (0.70-1.30) H 07/17/17 05:25 Est GFR (MDRD) Af Amer 37 (>60) L 07/17/17 05:25 Est GFR (MDRD) Non-Af 31 (>60) L 07/17/17 05:25 Glucose 257 mg/dL (65-99) H 07/17/17 05:25 POC Glucose (mg/dL) 218 mg/dL (65-99) H 07/17/17 11:05 Calcium 7.5 mg/dL (8.5-10.1) L 07/17/17 05:25 Corrected Calcium 8.5 mg/dL (8.5-10.1) 07/17/17 05:25 Magnesium 1.7 mg/dL (1.7-2.9) 07/17/17 05:25 Total Bilirubin 0.30 mg/dL (0.2-1.0) 07/17/17 05:25 AST 11 Units/L (15-37) L 07/17/17 05:25 ALT 18 Units/L (12-78) 07/17/17 05:25 Alkaline Phosphatase 92 Units/L (46-116) 07/17/17 05:25 Creatine Kinase 61 Units/L (39-308) 07/17/17 05:25 CK-MB (CK-2) < 1.0 ng/mL (0-4.0) 07/17/17 05:25 CK/CKMB % Calc 1.6 % (<4) 07/17/17 05:25 Troponin I 0.19 ng/mL (0-1.5) 07/17/17 05:25 Triglycerides 294 mg/dL (0-150) H 07/16/17 04:42 Cholesterol 193 mg/dL (0-200) 07/16/17 04:42 LDL Cholesterol, Calc 107 mg/dL (0-100) H 07/16/17 04:42 Total Protein 5.8 g/dL (6.4-8.2) L 07/17/17 05:25 Albumin 2.8 g/dL (3.4-5.0) L 07/17/17 05:25 Globulin 3.0 g/dL (2.5-4.5) 07/17/17 05:25 Albumin/Globulin Ratio 0.9 Ratio (1.1-2.1) L 07/17/17 05:25 HDL Cholesterol 27 mg/dL (40-60) L 07/16/17 04:42 Cholesterol/HDL Ratio 7.1 (0.0-5.0) H 07/16/17 04:42 Specimen Type Catherized urine 07/15/17 16:00 Urine Color Yellow (YELLOW) 07/15/17 16:00 Urine Appearance Clear (CLEAR) 07/15/17 16:00 Urine pH 5.0 (5.0 - 8.0) 07/15/17 16:00 Ur Specific [place] 1.020 (1.000-1.030) 07/15/17 16:00 Urine Protein 2+ (NEGATIVE) 07/15/17 16:00 Urine Glucose (UA) 4+ (NEGATIVE) 07/15/17 16:00 Urine Ketones Negative (NEGATIVE) 07/15/17 16:00 Urine Occult Blood 1+ (NEGATIVE) 07/15/17 16:00 Urine Nitrite Negative (NEGATIVE) 07/15/17 16:00 Urine Bilirubin Negative (NEGATIVE) 07/15/17 16:00 Urine Urobilinogen Normal (NORMAL) 07/15/17 16:00 Ur Leukocyte Esterase Negative (NEGATIVE) 07/15/17 16:00 Urine RBC R /HPF (NONE SEEN) 07/15/17 16:00 Urine WBC R /HPF (NONE SEEN) 07/15/17 16:00 Ur Squamous Epith Cells Negative /HPF (NEGATIVE) 07/15/17 16:00 Urine Bacteria Trace /HPF (NEGATIVE) 07/15/17 16:00 Ur Culture Indicated? No/not indicated 07/15/17 16:00 Urine Opiates Screen Negative (NEG=<300) 07/15/17 16:00 Urine Methadone Screen Negative (NEG=<300) 07/15/17 16:00 Ur Barbiturates Screen Negative (NEG=<200) 07/15/17 16:00 Ur Phencyclidine Scrn Negative (NEG=<25) 07/15/17 16:00 Ur Amphetamines Screen Negative (NEG=<1000) 07/15/17 16:00 U Benzodiazepines Scrn Negative (NEG=<200) 07/15/17 16:00 Urine Cocaine Screen Negative (NEG=<300) 07/15/17 16:00 U Marijuana (THC) Screen Negative (NEG=<50) 07/15/17 16:00 - Plan (1) Seizure disorder Status: Acute Plan: CONTINUE SEIZURE MEDICATIONS, ATIVAN 2MG IV Q4H PRN SEIZURE ACTIVITY, CONTINUE TO MONITOR (2) CKD (chronic kidney disease) stage 4, GFR 15-29 ml/min Status: Acute Plan: NORMAL SALINE AT 125ML/HR WITH 1 AMP SODIUM BICARB TO EACH LITER, CONTINUE TO MONITOR (3) Sleep apnea Status: Acute Qualifiers: Sleep apnea type: unspecified type Qualified Code(s): G47.30 - Sleep apnea , unspecified Plan: CPAP AT , CONTINUE TO MONITOR
[2017-07-17] MEDS ORDERED: NS 1000 ML 1,000 ML ONE (12:58)
--- NOTE | 2017-07-17 19:02 | DR.PROGNOT ---
Hospital Progress Notes - Progress Note for Day of: Progress Note Date: 07/17/17 - Chief Complaint Chief Complaint: Seizures - History of Present Illness History of Present Illness: NEUROLOGY PROGRESS NOTE: . Patient is more awake and alert. He did not have any seizure since he has been brought into ICU. He is doing reasonably well. He has no complaints. INITIAL NEUROLOGY CONSULTATION : . 62-year- old male patient was seen and examined. Patient is well known to neurology services. We have been treating him because of intractable seizures. Patient has history of intracranial/intraparenchymal bleeding twice last year. He was flown to [place] for neurosurgical intervention. Following the brain bleed patient started having seizures. He has been tried on multiple antiepileptic medications without much success. Eventually the decision was made to place a vagus nerve stimulator. This was done a month ago. He has been doing reasonably well up until seizure activity yesterday on the day of his hospitalization. Following the seizure patient had a fall. On arrival at the ER he was found to be postictal. He had one more seizure in the ER but this appeared to be partial seizure. Patient was admitted to the ICU setting for further management and evaluation. NEUROLOGICAL EXAMINATION : . Neurological examination: Cognitive status: Patient is awake alert oriented in time place and person. Speech: Speech is fluent, naming is intact, comprehension is also intact. Patient has no paraphasic errors. Cranial nerve examination : Second cranial nerve: Visual tierney are intact on confrontation. Third fourth and sixth cranial nerve: Extraocular movements are full without any nystagmus. Pupils are 3.5 mm in size around equal and reactive to light. Fifth cranial nerve: Facial sensations are intact bilaterally. Seventh cranial nerve: Facial symmetry is intact bilaterally. Eighth cranial nerve: Hearing is intact bilaterally. Ninth and 10th cranial nerve: Palate is symmetrical bilaterally. 11th cranial nerve: Shoulder shrug is equal and symmetrical bilaterally. 12 cranial nerve: Tongue is in midline. Coordination: Finger to nose rapid alternating movements are intact. Gait: Gait was not tested. . Motor system examination: Tone is normal. Strength is 5 over 5 proximally as well as distally in upper and lower extremities. Deep tendon reflexes are +1 equal and symmetrical in upper and lower extremities. Plantars are flexor bilaterally. Sensory system examination: Patient has equal and symmetrical touch, temperature, pinprick sensation distally and proximally in upper and lower extremities. - Past Medical Family Social History Past Med/Fam/Surg Hx: No changes since H&P Allergies: Allergies divalproex sodium [From Depakote] Allergy (Severe, Verified 07/15/17 15:04) phenytoin [From Dilantin] Allergy (Severe, Verified 07/15/17 15:04) iodine Allergy (Verified 07/15/17 16:28) - Review Of Systems ROS: No change since H&P - Vital Signs Vital Signs: Temperature 98.5 F Pulse Rate [Apical] 69 Pulse Rate [Brachial] 70 Pulse Rate 83 Respiratory Rate 19 Blood Pressure [Left Arm] 121/60 Blood Pressure [Right Arm] 157/69 Blood Pressure 164/92 O2 Sat by Pulse Oximetry 97 - Physical Exam Oriented: Normal Eyes: Normal Ear: Normal Nose: Normal Throat: Normal Respiratory: Normal Cardiovascular: Normal : Normal GI:Auscultation: Normal GI:Palpation: Normal GI: Tenderness: Normal Skin: Normal Musculoskeletal: Normal Psychiatric: Anxiety Mood Description: Calm Affect: Normal Speech Pattern: Clear, Appropriate - Laboratory and Diagnostics Result Diagrams: 07/17/17 05:25 07/17/17 05:25 Labs: Laboratory WBC 10.3 X10^3/uL (3.6-10.0) H 07/17/17 05:25 RBC 4.49 X10^6/uL (4.7-6.0) L 07/17/17 05:25 Hgb 12.6 g/dL (13.5-18.0) L 07/17/17 05:25 Hct 35.9 % (42.0-54.0) L 07/17/17 05:25 MCV 80.0 fL (80.0-100.0) 07/17/17 05:25 MCH 28.0 pg (27.0-34.0) 07/17/17 05:25 MCHC 35.0 g/dL (33.0-35.0) 07/17/17 05:25 RDW 13.3 % (11.6-16.5) 07/17/17 05:25 Plt Count 156 X10^3/uL (150.0-450.0) 07/17/17 05:25 MPV 9.2 fL (7.4-11.0) 07/17/17 05:25 Neut % (Auto) 75.2 % (42.0-75.0) H 07/17/17 05:25 Lymph % (Auto) 13.8 % (21.0-51.0) L 07/17/17 05:25 [place] % (Auto) 7.9 % (0.0-13.0) 07/17/17 05:25 Eos % (Auto) 2.4 % (0.9-2.9) 07/17/17 05:25 Baso % (Auto) 0.7 % (0.2-1.0) 07/17/17 05:25 Neut # (Auto) 7.7 x10^3/uL (2.2-4.8) H 07/17/17 05:25 Lymph # (Auto) 1.4 X10^3/uL (1.3-2.9) 07/17/17 05:25 [place] # (Auto) 0.8 x10^3/uL (0.3-0.8) 07/17/17 05:25 Eos # (Auto) 0.2 x10^3/uL (0.0-0.2) 07/17/17 05:25 Baso # (Auto) 0.1 X10^3/uL (0.0-0.1) 07/17/17 05:25 Absolute Nucleated RBC 0.0 /100WBC 07/17/17 05:25 INR Target Range - 07/16/17 04:42 INR 1.03 (0.8-1.3) 07/16/17 04:42 PTT 28.1 SECONDS (22.9-36.5) 07/15/17 15:00 PTT Comment - 07/15/17 15:00 Sodium 142 mmol/L (136-145) 07/17/17 05:25 Corrected Sodium 146 mmol/L (136-145) H 07/17/17 05:25 Potassium 3.6 mmol/L (3.5-5.1) 07/17/17 05:25 Chloride 107 mmol/L (98-107) 07/17/17 05:25 Carbon Dioxide 27.7 mmol/L (21-32) 07/17/17 05:25 BUN 40 mg/dL (7-18) H 07/17/17 05:25 Creatinine 2.31 mg/dL (0.70-1.30) H 07/17/17 05:25 Est GFR (MDRD) Af Amer 37 (>60) L 07/17/17 05:25 Est GFR (MDRD) Non-Af 31 (>60) L 07/17/17 05:25 Glucose 257 mg/dL (65-99) H 07/17/17 05:25 POC Glucose (mg/dL) 239 mg/dL (65-99) H 07/17/17 16:23 Calcium 7.5 mg/dL (8.5-10.1) L 07/17/17 05:25 Corrected Calcium 8.5 mg/dL (8.5-10.1) 07/17/17 05:25 Magnesium 1.7 mg/dL (1.7-2.9) 07/17/17 05:25 Total Bilirubin 0.30 mg/dL (0.2-1.0) 07/17/17 05:25 AST 11 Units/L (15-37) L 07/17/17 05:25 ALT 18 Units/L (12-78) 07/17/17 05:25 Alkaline Phosphatase 92 Units/L (46-116) 07/17/17 05:25 Creatine Kinase 61 Units/L (39-308) 07/17/17 05:25 CK-MB (CK-2) < 1.0 ng/mL (0-4.0) 07/17/17 05:25 CK/CKMB % Calc 1.6 % (<4) 07/17/17 05:25 Troponin I 0.19 ng/mL (0-1.5) 07/17/17 05:25 Triglycerides 294 mg/dL (0-150) H 07/16/17 04:42 Cholesterol 193 mg/dL (0-200) 07/16/17 04:42 LDL Cholesterol, Calc 107 mg/dL (0-100) H 07/16/17 04:42 Total Protein 5.8 g/dL (6.4-8.2) L 07/17/17 05:25 Albumin 2.8 g/dL (3.4-5.0) L 07/17/17 05:25 Globulin 3.0 g/dL (2.5-4.5) 07/17/17 05:25 Albumin/Globulin Ratio 0.9 Ratio (1.1-2.1) L 07/17/17 05:25 HDL Cholesterol 27 mg/dL (40-60) L 07/16/17 04:42 Cholesterol/HDL Ratio 7.1 (0.0-5.0) H 07/16/17 04:42 Specimen Type Catherized urine 07/15/17 16:00 Urine Color Yellow (YELLOW) 07/15/17 16:00 Urine Appearance Clear (CLEAR) 07/15/17 16:00 Urine pH 5.0 (5.0 - 8.0) 07/15/17 16:00 Ur Specific [place] 1.020 (1.000-1.030) 07/15/17 16:00 Urine Protein 2+ (NEGATIVE) 07/15/17 16:00 Urine Glucose (UA) 4+ (NEGATIVE) 07/15/17 16:00 Urine Ketones Negative (NEGATIVE) 07/15/17 16:00 Urine Occult Blood 1+ (NEGATIVE) 07/15/17 16:00 Urine Nitrite Negative (NEGATIVE) 07/15/17 16:00 Urine Bilirubin Negative (NEGATIVE) 07/15/17 16:00 Urine Urobilinogen Normal (NORMAL) 07/15/17 16:00 Ur Leukocyte Esterase Negative (NEGATIVE) 07/15/17 16:00 Urine RBC R /HPF (NONE SEEN) 07/15/17 16:00 Urine WBC R /HPF (NONE SEEN) 07/15/17 16:00 Ur Squamous Epith Cells Negative /HPF (NEGATIVE) 07/15/17 16:00 Urine Bacteria Trace /HPF (NEGATIVE) 07/15/17 16:00 Ur Culture Indicated? No/not indicated 07/15/17 16:00 Urine Opiates Screen Negative (NEG=<300) 07/15/17 16:00 Urine Methadone Screen Negative (NEG=<300) 07/15/17 16:00 Ur Barbiturates Screen Negative (NEG=<200) 07/15/17 16:00 Ur Phencyclidine Scrn Negative (NEG=<25) 07/15/17 16:00 Ur Amphetamines Screen Negative (NEG=<1000) 07/15/17 16:00 U Benzodiazepines Scrn Negative (NEG=<200) 07/15/17 16:00 Urine Cocaine Screen Negative (NEG=<300) 07/15/17 16:00 U Marijuana (THC) Screen Negative (NEG=<50) 07/15/17 16:00 - Assessment and Plan 1: Patient was seen and examined. He did not have any seizure since he has been in ICU. His neurological examination is stable. From neurology point of view patient can be discharged and followed up in neurology outpatient clinic. - Problem Patient Problems: Patient Problems Seizure disorder (Acute) G40.909 Sleep apnea (Acute) G47.30
[2017-07-17] MEDS: SNACK - Diabetic Appropriate PO SCH (20:00)
[2017-07-17] MEDS: DESYREL PO SCH (20:35)
[2017-07-17] MEDS: LANTUS SC SCH (20:38)
[2017-07-17] MEDS ORDERED: ZOFRAN INJ 4 MG VIAL IVP PRN (20:59)
[2017-07-17] MEDS ORDERED: KLONOPIN TAB 0.5 MG PO SCH (21:00)
[2017-07-17] MEDS ORDERED: ZOFRAN INJ 4 MG VIAL ONE (21:02)
[2017-07-18] MEDS: MORPHINE SULFATE INJ 2 MG INJ IVP PRN (01:56)
[2017-07-18] MEDS: NS 1000 ML 1,000 ML with SODIUM BICARBONATE 8.4% INJ ADULT 50 ML IV SCH ×2 (05:07)
[2017-07-18] MEDS: HumuLIN R SUBCUT PRN (05:48)
[2017-07-18 06:44] LABS: BASOPHILS # (AUTO) 0.1 X10^3/uL (0.0-0.1); BASOPHILS % (AUTO) 0.5 % (0.2-1.0); EOSINOPHILS # (AUTO) 0.1 x10^3/uL (0.0-0.2); EOSINOPHILS % (AUTO) 1.4 % (0.9-2.9); HEMATOCRIT 34.7 % (42.0-54.0); HEMOGLOBIN 12.3 g/dL (13.5-18.0); LYMPHOCYTES # (AUTO) 1.8 X10^3/uL (1.3-2.9); LYMPHOCYTES % (AUTO) 18.2 % (21.0-51.0); MEAN CORPUSCULAR HEMOGLOBIN 28.3 pg (27.0-34.0); MEAN CORPUSCULAR HGB CONC 35.5 g/dL (33.0-35.0); MEAN CORPUSCULAR VOLUME 79.7 fL (80.0-100.0); MEAN PLATELET VOLUME 9.3 fL (7.4-11.0); MONOCYTES % (AUTO) 9.4 % (0.0-13.0); NEUTROPHILS # (AUTO) 7.2 x10^3/uL (2.2-4.8); NEUTROPHILS % (AUTO) 70.5 % (42.0-75.0); PLATELET COUNT 159 X10^3/uL (150.0-450.0); RED BLOOD COUNT 4.36 X10^6/uL (4.7-6.0); RED CELL DISTRIBUTION WIDTH 13.3 % (11.6-16.5); WHITE BLOOD COUNT 10.2 X10^3/uL (3.6-10.0)
[2017-07-18 07:25] LABS: ALBUMIN 2.8 g/dL (3.4-5.0); CALCIUM 7.8 mg/dL (8.5-10.1); CARBON DIOXIDE 31.5 mmol/L (21-32); COR CA(FOR HYPOALB) 8.8 mg/dL (8.5-10.1); CREATININE 2.19 mg/dL (0.70-1.30); MAGNESIUM 1.9 mg/dL (1.7-2.9); TOTAL PROTEIN 5.9 g/dL (6.4-8.2)
[2017-07-18 07:32] VITALS: BMI 33.7
[2017-07-18] MEDS ORDERED: ZESTRIL TAB 20 MG ONE (07:50)
[2017-07-18] MEDS: HumaLOG SC SCH ×2 (07:58→11:47)
[2017-07-18] MEDS: PriLOSEC PO SCH (08:00)
[2017-07-18] MEDS: KEPPRA TAB 500 MG PO SCH (08:00)
[2017-07-18] MEDS: NORVASC TAB 5 MG PO SCH (08:00)
[2017-07-18] MEDS: FLOMAX PO SCH (08:00)
[2017-07-18] MEDS: LOPRESSOR TAB 25 MG PO SCH (08:01)
[2017-07-18] MEDS: BUMEX TAB 1 MG PO SCH (08:01)
[2017-07-18] MEDS: ZESTRIL TAB 20 MG PO SCH (08:01)
[2017-07-18] MEDS: LAMICTAL TAB 100 MG PO SCH (08:03)
[2017-07-18] MEDS ORDERED: PROCALAMINE 3 % 1,000 ML IV SCH (10:00)
[2017-07-18 11:40] VITALS: BP 176/75
== END 2017-07-18 12:10 | disposition home or self-care (01) ==
LOC: ER 14:54 → ICU 16:40
PROVIDERS: ADMIT Internal Medicine; ATTEND Internal Medicine
DX: G40.802 Other epilepsy, not intractable, without status epilepticus (principal); R40.4 Transient alteration of awareness; N18.4 Chronic kidney disease, stage 4 (severe); G47.39 Other sleep apnea; J44.9 Chronic obstructive pulmonary disease, unspecified; I25.10 Atherosclerotic heart disease of native coronary artery without angina pectoris; E11.65 Type 2 diabetes mellitus with hyperglycemia; E78.2 Mixed hyperlipidemia; R94.31 Abnormal electrocardiogram [ECG] [EKG]; R53.1 Weakness; I51.7 Cardiomegaly; G25.81 Restless legs syndrome; Z91.81 History of falling; Z98.890 Other specified postprocedural states
CPT/HCPCS: 36415; 51701; 70450; 71045; 80053; 80061; 80307; 81001; 82550; 82553; 83735; 84484; 85025; 85610; 85730; 93005; 94660; 96365; 96367; 96374; 99284; A4216; A4618; A7030; G0378; G0434; J1815; J1817; J2060; J2270; J2405; J3490

== ENCOUNTER → 2017-08-21 | Outpatient (CLI) | payer OTHER | LOC: RT 08:37 | PROVIDERS: ATTEND Psychiatry & Neurology Neurology | DX: G40.909 Epilepsy, unspecified, not intractable, without status epilepticus (principal) | CPT/HCPCS: 95819 ==